=== PATIENT | female | born 1975 | race Hispanic/Latino ===

== ENCOUNTER 2017-04-21 08:27 | Emergency (ER) | payer BC ==
[~2017-04-21] VITALS: Ht 160 cm; Wt 56.7 kg
[~2017-04-21 08:27] MED LIST: XANAX2 MG PO; ZOLOFT25 MG
[2017-04-21] MEDS ORDERED: ONDANSETRON HCL INJ 2 MG/ML VIAL IV STA (08:54)
[2017-04-21] MEDS ORDERED: SODIUM CHLORIDE 0.9% 1000ML 1,000 ML IV SCH (09:00)
[2017-04-21] MEDS ORDERED: DICYCLOMINE HCL 20 MG TAB PO ONE (11:00)
[2017-04-21] MEDS ORDERED: FAMOTIDINE 20 MG/2 ML VIAL IV SCH (11:00)
[2017-04-21] MEDS ORDERED: SODIUM CHLORIDE 0.9% 500ML 500 ML IV ONE (11:30)
[2017-04-21 12:22] VITALS: BP 103/70
== END 2017-04-21 12:22 | disposition home or self-care (01) ==
LOC: FSED 08:27
DX: A08.39 Other viral enteritis (principal); E86.9 Volume depletion, unspecified; R10.9 Unspecified abdominal pain
CPT/HCPCS: 93005; 99284; J2405; J7040

== ENCOUNTER → 2017-04-30 | Outpatient (CLI) | payer BC ==
[~2017-04-30] MED LIST changes: +AMBIEN10 MG PO; +KLONOPIN2 MG PO; +NEXIUM40 MG PO; +VYVANSE50 MG PO
--- NOTE | 2017-05-12 08:31 | Diagnostic Imaging Report ---
#[id number] - MGSCRNBI #BILATERAL DIGITAL SCREENING MAMMOGRAM WITH CAD: 04/30/2017 CLINICAL: Routine screening. No prior exams were available for comparison. Current study contains 4 films. The tissue of both breasts is heterogeneously dense. This may lower the sensitivity of mammography. Current study was also evaluated with a Computer Aided Detection (CAD) system. There is a benign calcification in the left breast. No significant masses, calcifications, or other findings are seen in either breast. IMPRESSION: BENIGN There is no mammographic evidence of malignancy. A 1 year screening mammogram is recommended. The patient will be notified by letter of the results. Kahlil pierce/maribell:05/11/2017 12:54:35 Proposal Editor: Flakita EDWARDS)(Zacarias), [facility] letter sent: Normal Exam Mammogram BI-RADS: 2 Benign
== END ==
LOC: MAMMO 13:19
PROVIDERS: ATTEND Obstetrics & Gynecology
DX: Z12.31 Encounter for screening mammogram for malignant neoplasm of breast (principal)
CPT/HCPCS: 77067

== ENCOUNTER → 2017-05-09 | Day surgery (SDC) | payer BC ==
[~2017-05-09] MED LIST changes: +FENTANYL CITRATE/PF 100MCG/2 ML INJ ONE; +HYOSCYAMINE SULFATE 0.5 MG/ML AMP ONE; +LIDOCAINE HCL 2% LOCAL INJ 5 ML SDV VIAL INJ ONE; +MIDAZOLAM HCL 2 MG/2 ML VIAL ONE; +PROPOFOL IV EMULSION 10 MG/ML 50 ML VIAL ONE
[2017-05-09 15:22] LABS: WBC,FECAL (FECAL LACTOFERRIN) NEGATIVE (NEGATIVE)
--- NOTE | 2017-05-09 15:41 | Operative Report ---
DATE OF PROCEDURE: May 09, 2017 REFERRING PHYSICIAN: Dr. Jennifer Oakley. PROCEDURE PERFORMED: Colonoscopy and polypectomy. INDICATIONS FOR COLONOSCOPY: Chronic diarrhea, fecal urgency, history of bright red blood per rectum. MEDICATION: Patient was done under MAC. Please see anesthesiologist's note. PROCEDURE: With the patient in the left lateral decubitus position, the flexible fiberoptic Olympus colonoscope was inserted into the rectum with ease and advanced all the way to the cecum. The scope was then withdrawn slowly. Mucosa overlying the cecum appeared to be within normal limits. The ileocecal valve was intubated, and the scope was advanced into the terminal ileum. Biopsies were obtained. The scope was then withdrawn slowly. A single diverticulum was noted in the ascending colon. The transverse as well as the descending appeared to be within normal limits. There were some patchy erythema and low-grade edema noted in the sigmoid colon. Random biopsies were obtained. One polyp was hot biopsied from the sigmoid colon. Similar inflammatory findings were noted in the rectum. Biopsies were obtained. The scope was then retroflexed into the distal rectum, and small internal hemorrhoids were noted, none of which was actively bleeding. The scope was then straightened out. The rectosigmoid area as well as the distal rectal area were decompressed. The scope was subsequently withdrawn after securing an adequate stool specimen that was sent for the appropriate stool studies. Patient tolerated the procedure well. IMPRESSION 1. A single diverticulum in ascending colon. 2. Mild segmental colitis, left colon. 3. Sigmoid colon polyp, hot biopsied. 4. Proctitis, mild. 5. Small internal hemorrhoids, none actively bleeding. PLAN: Follow up histology. Follow up stool studies. Initiate VSL #3 DS 1 p.o. daily and Bentyl 10 mg 1 p.o. t.i.d. Patient will need a followup colonoscopy in 3 to 5 years. Job#: [id number] cc:JENNIFER OAKLEY MD
[2017-05-10 10:13] LABS: C DIFFICILE TOXIN A&B AMP PROB NEGATIVE (NEGATIVE)
--- OUTSIDE RECORDS SUMMARY | 2017-05-11 11:27 | XMS REPORT | Continuity of Care Document ---
Author Author [facility] Organization [facility] Address [address] [place] [address] Phone Unavailable Care Team Providers Care Environmental Compliance Engineer Name Role Phone JENNIFER OAKLEY MD PCP Insurance Providers Guarantor Regina Posadas Address [address] [place] [address] Email N Payer [facility] Policy Number [id number] Subscriber's Name Regina Posadas Relationship 18 Self / Same As Patient Group Number [id number] Effective Date 11 Advance Directives Directive Response Recorded Date/Time Does the patient have an advance directive? No 04/21/17 9:31am If yes, is advance directive on file with [facility]? No 08/25/12 2:11am If not on file with [facility] will patient provide a copy? No 08/25/12 2:11am Do you have a Directive to Physician? No 04/21/17 9:31am Do you have a Medical Power of Lace Cutter? No 04/21/17 9:31am Do you have an out of hospital Do Not Resuscitate Order? No 04/21/17 9:31am Do you have any special needs we should be aware of? No 04/21/17 9:31am Do you have a support person here with you today? No 04/21/17 9:31am Did patient receive Notice of Privacy Practices? Yes 04/21/17 9:31am Did patient receive patient rights and responsibilities? Yes 04/21/17 9:31am Problems No problem information available. Medications Current Home Medications Medication Dose Units Route Directions Days Qty Instructions Start Date Alprazolam (Xanax) 2 Mg Tablet 1 Mg Oral As Needed Sertraline Hcl (Zoloft) 25 Mg Tablet Social History Smoking Status Start Date Stop Date Never Smoker Hospital Discharge Instructions No hospital discharge instruction information available. Plan of Care Discharge Date 04/21/17 12:22pm Disposition HOME, SELF-CARE Condition at Discharge Stable Instructions/Education Provided Diarrhea - Adult Soft Diet Vomiting - Adult Forms Provided Work/School Excuse Prescriptions See Medication Section Additional Instructions/Education Drink small amounts of fluids frequenty, and follow a BLAND diet for the next sevaral days, until your stomach is settled. Avoid fried, fatty and "fast foods, for the next 2-3 days. If diarrhea persists, you may take Imodium AD - per package instructions. Functional Status No functional status information available. Allergies, Adverse Reactions, Alerts Allergen Type Severity Reaction Status Last Updated Morphine Allergy Unknown Active 04/21/17 CONTRAST DYE Allergy Unknown Active 04/21/17 Immunizations No immunization information available. Vital Signs Acute Vital Signs Vital Response Date/Time Temperature (Fahrenheit) 98.7 degrees F (97.6 - 99.5) 04/21/2017 12:22pm Pulse Pulse Rate (adult) 56 bpm (60 - 90) 04/21/2017 12:22pm Respiratory Rate 16 bpm (12 - 24) 04/21/2017 12:22pm Blood Pressure 103/70 mm Hg 04/21/2017 12:22pm Height 5 ft 3 in 04/21/2017 10:36am Weight 125 lb 04/21/2017 10:36am Body Mass Index 22.1 kg/m^2 04/21/2017 10:36am Results No relevant diagnostic test, laboratory data and/or discharge summary information available. Procedures No procedure information available. Encounters Encounter Location Arrival/Admit Date Discharge/Depart Date Attending Provider Departed Emergency Room [facility] 02/20/18 8:27am 12:22pm YNES WALTERS MD
== END | disposition home or self-care (01) ==
LOC: OR 12:06
PROVIDERS: ATTEND Internal Medicine Gastroenterology
DX: K50.10 Crohn's disease of large intestine without complications (principal); K63.5 Polyp of colon; K57.30 Diverticulosis of large intestine without perforation or abscess without bleeding; K62.89 Other specified diseases of anus and rectum; K64.8 Other hemorrhoids; K21.9 Gastro-esophageal reflux disease without esophagitis; J45.909 Unspecified asthma, uncomplicated; R53.1 Weakness; F43.10 Post-traumatic stress disorder, unspecified; F90.9 Attention-deficit hyperactivity disorder, unspecified type; F32.9 Major depressive disorder, single episode, unspecified; F41.9 Anxiety disorder, unspecified; Z80.0 Family history of malignant neoplasm of digestive organs
CPT/HCPCS: 45380; 45384; 83630; 83993; 87045; 87177; 87328; 87493; J1980; J2001; J2250

== ENCOUNTER → 2017-05-28 | Day surgery (SDC) | payer BC ==
[~2017-05-28] MED LIST changes: -HYOSCYAMINE SULFATE 0.5 MG/ML AMP ONE
--- OUTSIDE RECORDS SUMMARY | 2017-05-28 11:34 | XMS REPORT ---
Author Author [facility] Address Unknown Phone Unavailable Care Team Providers Care Research Specialist Name Role Phone SARAH AYOUB Unavailable Unavailable Problems This patient has no known problems. Allergies, Adverse Reactions, Alerts This patient has no known allergies or adverse reactions. Medications This patient has no known medications. Results Test Description Test Time Test Comments Text Results Atomic Results Result Comments MAMMOGRAM DIGITAL SCR BI [place] [id number] Patient Name: KELY MEREDITH MR #: [id number] : 1975 Age/Sex: 41/F Req #: [id number] [facility] Physician: Ordered by: SARAH AYOUB MD Report #: [id number] Location: MAMMO Room/Bed: Procedure: [id number] MG/MAMMOGRAM DIGITAL SCR BI Exam Date: 04/30/17 Exam Time: 1330 REPORT STATUS: Signed #[id number] - MGSCRNBI #BILATERAL DIGITAL SCREENING MAMMOGRAM WITH CAD: 04/30/2017 CLINICAL : Routine screening. No prior exams were available for comparison. Current study contains 4 films. The tissue of both breasts is heterogeneously dense. This may lower the sensitivity of mammography. Current study was also evaluated with a Computer Aided Detection (CAD) system. There is a benign calcification in the left breast. No significant masses, calcifications, or other findings are seen in either breast. IMPRESSION: BENIGN There is no mammographic evidence of malignancy. A 1 year screening mammogram is recommended. The patient will be notified by letter of the results. Mookie pierce/isabella:2017 12:54:35 Manager Workers Compensation: Flakita EDWARDS)(Zacarias), [facility] letter sent: Normal Exam Mammogram BI-RADS: 2 Benign Dictated By: MOOKIE ROBERSON DO 1254 Transcribed By: ISABELLA on 05/11/17 1254 COPY TO: SARAH AYOUB MD
--- NOTE | 2017-05-28 14:41 | Operative Report ---
DATE OF PROCEDURE: May 28, 2017 REFERRING PHYSICIAN: Dr. Jennifer Oakley PROCEDURE PERFORMED: Esophagogastroduodenoscopy with biopsies. INDICATIONS FOR EGD: Upper abdominal pain, nausea, bloating. MEDICATION: Patient was done under MAC. Please see anesthesiologist's note. PROCEDURE: With the patient in the left lateral decubitus position, the flexible fiberoptic Olympus gastroscope was introduced into the esophagus under direct visualization without difficulty. There was some patchy erythema noted in the distal esophagus. The scope was then advanced with ease into the stomach, and mucosa overlying the antrum and the body revealed some diffuse intense erythema and mild to moderate edema, and biopsies were obtained and sent to stain for H. pylori. Pylorus appeared to be of normal contour and shape. It was intubated with ease, and the scope was advanced all the way to the 2nd portion of duodenum. Mucosa overlying the proximal 2nd portion grossly appeared to be within normal limits. Biopsies were obtained to rule out sprue considering her history of diarrhea. A minute nodule was noted in the proximal 2nd portion that was biopsied. The scope was then withdrawn back into the stomach and retroflexed. Mucosa overlying the fundus and cardia appeared to be within normal limits. The scope was then straightened out. The stomach was decompressed. Scope was subsequently withdrawn. Patient tolerated the procedure well. IMPRESSION 1. Distal esophagitis. 2. Gastritis, biopsied. Biopsies sent to stain for H. pylori. 3. Rule out sprue. 4. Minute nodule, proximal 2nd portion, biopsied. PLAN: Follow up histology. Initiate Protonix 40 mg 1 p.o. q.a.m. a.c. Job#: [id number] cc:JENNIFER OAKLEY MD
== END | disposition home or self-care (01) ==
LOC: ENDO 11:32
PROVIDERS: ATTEND Internal Medicine Gastroenterology
DX: K29.70 Gastritis, unspecified, without bleeding (principal); K20.9 Esophagitis, unspecified; K44.9 Diaphragmatic hernia without obstruction or gangrene; K31.89 Other diseases of stomach and duodenum; R19.7 Diarrhea, unspecified; R15.2 Fecal urgency; M54.9 Dorsalgia, unspecified; J45.998 Other asthma; F43.10 Post-traumatic stress disorder, unspecified; F90.9 Attention-deficit hyperactivity disorder, unspecified type; F32.9 Major depressive disorder, single episode, unspecified; F41.9 Anxiety disorder, unspecified; Z80.0 Family history of malignant neoplasm of digestive organs
CPT/HCPCS: 43239; 81025; J2001; J2250

== ENCOUNTER → 2017-06-11 | Outpatient (CLI) | payer BC ==
[~2017-06-11] MED LIST changes: -FENTANYL CITRATE/PF 100MCG/2 ML INJ ONE; +IOPAMIDOL 370 MG/ML 200 ML INFUS..BTL INJ ONE; -LIDOCAINE HCL 2% LOCAL INJ 5 ML SDV VIAL INJ ONE; -MIDAZOLAM HCL 2 MG/2 ML VIAL ONE; -PROPOFOL IV EMULSION 10 MG/ML 50 ML VIAL ONE; +SODIUM CHLORIDE 0.9% 50ML 50 ML ONE
--- NOTE | 2017-06-11 16:19 | Diagnostic Imaging Report ---
PROCEDURE: CT ABDOMEN AND PELVIS WITH CONTRAST TECHNIQUE: The abdomen and pelvis were scanned utilizing a multidetector helical scanner from the diaphragm to the lesser trochanter after the IV administration of 100 cc of Isovue 370 and the oral administration of water. Coronal and sagittal multiplanar reformations were obtained. Total DLP: 199.42 mGy-cm COMPARISON: CT abdomen pelvis 02/10/2013. INDICATIONS: ABDOMINAL PAIN, HX OF DIVERTICULITIS FINDINGS: LOWER THORAX: Normal. HEPATOBILIARY: No focal hepatic lesions. No biliary ductal dilatation. Gallbladder is surgically absent. SPLEEN: No splenomegaly. PANCREAS: No focal masses or ductal dilatation. ADRENALS: No adrenal nodules. KIDNEYS/URETERS: No hydronephrosis, stones, or solid mass lesions. PELVIC ORGANS/BLADDER: The uterus is surgically absent. Both ovaries are unremarkable. Right corpus luteum.. PERITONEUM / RETROPERITONEUM: No free air or fluid. LYMPH NODES: No lymphadenopathy. VESSELS: Unremarkable. GI TRACT: No distention or wall thickening. Appendix is normal. BONES AND SOFT TISSUES: Unremarkable. IMPRESSION: Unremarkable abdomen and pelvis. Dictated by: Smith Obrien M.D. on 06/11/2017 at 16:20 Electronically approved by: Smith Obrien M.D. on 06/11/2017 at 16:20
== END ==
LOC: CT 14:43
PROVIDERS: ATTEND Internal Medicine Gastroenterology
DX: R10.9 Unspecified abdominal pain (principal)
CPT/HCPCS: 74177; Q9967

== ENCOUNTER → 2017-08-18 | Outpatient (CLI) | payer BC ==
[~2017-08-18] MED LIST changes: -IOPAMIDOL 370 MG/ML 200 ML INFUS..BTL INJ ONE; -SODIUM CHLORIDE 0.9% 50ML 50 ML ONE
--- NOTE | 2017-08-18 14:37 | Diagnostic Imaging Report ---
History: Back pain and bilateral leg pain Comparison studies: None Technique: Sagittal T1, T2 and IR, axial T2 with and without fat sat and axial spin density oblique Intravenous contrast: None Findings: Number of lumbar vertebral bodies: 5 . Alignment: Mild right curvature of the lumbar spine centered at L2-L3. Soft tissues: No T2 hyperintense inflammatory changes . Paraspinal muscles: No signal abnormalities. Well-preserved. No atrophic changes . Lower thoracic cord: Normal in size and signal. The tip of the conus is at T12-L1. Cauda equina:No masses. No arachnoiditis . Vertebrae: Normal in height and signal intensity. No fractures, infection or neoplasm. Degenerative changes: L1-L2 No abnormalities. L2-L3: No abnormalities. L3-L4: No abnormalities. L4-L5: No abnormalities. L5-S1: No abnormalities. Partially visualized sacrum: None . IMPRESSION: 1. Mild right curvature of the lumbar spine centered at L2-L3 is probably positional 2. Otherwise, normal MRI of the lumbar spine. This preliminary report was completed by the neuroradiology fellow Dr. River Rebolledo. Signed by: Dr. Adam Rogers M.D. on 08/18/2017 4:24 PM
--- NOTE | 2017-08-18 14:53 | Diagnostic Imaging Report ---
Examination: MRI SPINE CERVICAL WO History: Left arm pain Comparison studies: None Technique: Sagittal T1, T2 and IR, axial T2 and axial gradient echo intravenous contrast: None Findings: The axial T2*images are severely limited due to artifact. Alignment: Normal lordosis. No scoliosis. Cervicomedullary junction: No abnormalities. Patent foramen magnum. Soft tissues: No T2 hyperintense inflammatory changes. Spinal cord: Normal in size and signal from the foramen magnum through T1. Vertebrae: No fractures, infection or neoplasm. T1 hyperintense hemangioma in the C6 vertebral body Degenerative changes: C1-C2: No abnormalities. C2-C3: No abnormalities. C3-C4: No abnormalities. C4-C5: No abnormalities. C5-C6: No abnormalities. C6-C7: Posterior disc osteophyte complex without foraminal or canal stenosis. No disc herniation C7-T1: No abnormalities. IMPRESSION: 1. Mildly degenerated disc at C6-7. 2. Otherwise, no abnormalities. 3. Mammogram foramina. No disc herniations This preliminary report was completed by the neuroradiology fellow Dr. River Rebolledo. Signed by: Dr. Adam Rogers M.D. on 08/18/2017 4:22 PM
== END | disposition home or self-care (01) ==
LOC: MRI 08-14 13:00
PROVIDERS: ATTEND Physical Medicine & Rehabilitation Pain Medicine
DX: M54.12 Radiculopathy, cervical region (principal); M54.16 Radiculopathy, lumbar region; M50.323 Other cervical disc degeneration at C6-C7 level
CPT/HCPCS: 72141; 72148

== ENCOUNTER → 2017-08-27 | Day surgery (SDC) | payer BC ==
[~2017-08-27] MED LIST changes: +FENTANYL CITRATE/PF 100MCG/2 ML INJ ONE; +IOPAMIDOL 200 MG/ML 20 ML VIAL IT ONE; +LIDOCAINE HCL 1% 30ML-PF VIAL ONE; +LIDOCAINE HCL 2% LOCAL INJ 5 ML SDV VIAL INJ ONE; +MIDAZOLAM HCL 2 MG/2 ML VIAL ONE; +PROPOFOL IV EMULSION 10 MG/ML 20 ML VIAL ONE; +TRIAMCINOLONE ACET 40 MG/ML VIAL ONE
== END | disposition home or self-care (01) ==
LOC: OR 05:24
PROVIDERS: ATTEND Physical Medicine & Rehabilitation Pain Medicine
DX: M46.1 Sacroiliitis, not elsewhere classified (principal); M54.16 Radiculopathy, lumbar region; M54.12 Radiculopathy, cervical region; K25.9 Gastric ulcer, unspecified as acute or chronic, without hemorrhage or perforation; K21.9 Gastro-esophageal reflux disease without esophagitis; K58.9 Irritable bowel syndrome, unspecified; F43.10 Post-traumatic stress disorder, unspecified; Z91.012 Allergy to eggs
CPT/HCPCS: G0260; J2001 ×2; J2250; J3301; Q9966; 77003

== ENCOUNTER 2017-08-31 08:55 | Emergency (ER) | payer BC ==
[~2017-08-31] VITALS: Ht 162.6 cm; Wt 58.1 kg
[~2017-08-31 08:55] MED LIST changes: -FENTANYL CITRATE/PF 100MCG/2 ML INJ ONE; -IOPAMIDOL 200 MG/ML 20 ML VIAL IT ONE; -LIDOCAINE HCL 1% 30ML-PF VIAL ONE; -LIDOCAINE HCL 2% LOCAL INJ 5 ML SDV VIAL INJ ONE; -MIDAZOLAM HCL 2 MG/2 ML VIAL ONE; -PROPOFOL IV EMULSION 10 MG/ML 20 ML VIAL ONE; -TRIAMCINOLONE ACET 40 MG/ML VIAL ONE
[2017-08-31] MEDS ORDERED: PANTOPRAZOLE 40 MG 10ML VIAL IV STA (09:19)
[2017-08-31 09:30] LABS: BASOPHILS % 0.3 % (0.0-1.0); EOSINOPHILS % 0.3 % (0.0-6.0); HEMATOCRIT 40.6 % (34.2-44.1); HEMOGLOBIN 14.6 g/dL (12.0-16.0); LYMPHOCYTES # (AUTO) 2.1 (1.0-3.2); LYMPHOCYTES % 21.6 % (18.0-39.1); MEAN CORPUSCULAR HEMOGLOBIN 31.7 pg (28-32); MEAN CORPUSCULAR VOLUME 88.3 fL (81-99); MONOCYTES # (AUTO) 0.5 (0.2-0.8); MONOCYTES % 5.6 % (4.4-11.3); NEUTROPHILS % 71.6 % (38.7-80.0); PLATELET COUNT 216 x10e3/uL (140-360); RED CELL DISTRIBUTION WIDTH 12.5 % (11.7-14.4)
[2017-08-31 09:42] LABS: ALANINE AMINOTRANSFERASE 8 IU/L (0-55); ALBUMIN 4.1 g/dL (3.5-5.0); ALBUMIN/GLOBULIN RATIO 1.3 (0.8-2.0); ALKALINE PHOSPHATASE 79 IU/L (40-150); AMYLASE 55 U/L (25-125); ANION GAP 13.4 mmol/L (8-16); BLOOD UREA NITROGEN 12 mg/dL (7-26); BUN/CREATININE RATIO 13 (6-25); CALCIUM 9.1 mg/dL (8.4-10.2); CARBON DIOXIDE 25 mmol/L (22-29); CHLORIDE 104 mmol/L (98-107); CREATININE, SERUM 0.94 mg/dL (0.57-1.11); EST GLOMERULAR FILTRATION RATE > 60 ML/MIN (60-); GLUCOSE 92 mg/dL (74-118); LIPASE 36 U/L (8-78); POTASSIUM 3.4 mmol/L (3.5-5.1); SODIUM 139 mmol/L (136-145)
[2017-08-31 10:43] VITALS: BP 106/66
== END 2017-08-31 10:47 | disposition home or self-care (01) ==
LOC: ER 08:55
DX: R10.13 Epigastric pain (principal); S39.011A Strain of muscle, fascia and tendon of abdomen, initial encounter; K21.9 Gastro-esophageal reflux disease without esophagitis; G89.29 Other chronic pain
CPT/HCPCS: 36415; 80053; 82150; 83690; 84702; 85025; 99283

== ENCOUNTER → 2017-10-08 | Day surgery (SDC) | payer BC ==
[~2017-10-08] MED LIST changes: +DIPHENHYDRAMINE HCL INJ 50 MG/ML VIAL ONE; +FENTANYL CITRATE/PF 100MCG/2 ML INJ ONE; +IOPAMIDOL 200 MG/ML 20 ML VIAL IT ONE; +LIDOCAINE HCL 1% 30ML-PF VIAL ONE; +LIDOCAINE HCL 2% LOCAL INJ 5 ML SDV VIAL INJ ONE; +METOCLOPRAMIDE HCL 10 MG/2ML VIAL ONE; +MIDAZOLAM HCL 2 MG/2 ML VIAL ONE; +ONDANSETRON HCL INJ 2 MG/ML VIAL ONE; +PROPOFOL IV EMULSION 10 MG/ML 20 ML VIAL ONE; +TRIAMCINOLONE ACET 40 MG/ML VIAL ONE
== END | disposition home or self-care (01) ==
LOC: OR 06:12
PROVIDERS: ATTEND Physical Medicine & Rehabilitation Pain Medicine
DX: M46.1 Sacroiliitis, not elsewhere classified (principal); M54.12 Radiculopathy, cervical region; K58.9 Irritable bowel syndrome, unspecified; K25.9 Gastric ulcer, unspecified as acute or chronic, without hemorrhage or perforation; K21.9 Gastro-esophageal reflux disease without esophagitis; F41.9 Anxiety disorder, unspecified; F43.10 Post-traumatic stress disorder, unspecified; Z91.012 Allergy to eggs; Z91.018 Allergy to other foods
CPT/HCPCS: G0260; J1200; J2001 ×2; J2250; J2405; J3301; Q9966; 77002; J2765

== ENCOUNTER → 2017-11-17 | Outpatient (CLI) | payer BC ==
[~2017-11-17] MED LIST changes: -DIPHENHYDRAMINE HCL INJ 50 MG/ML VIAL ONE; -FENTANYL CITRATE/PF 100MCG/2 ML INJ ONE; -IOPAMIDOL 200 MG/ML 20 ML VIAL IT ONE; -LIDOCAINE HCL 1% 30ML-PF VIAL ONE; -LIDOCAINE HCL 2% LOCAL INJ 5 ML SDV VIAL INJ ONE; -METOCLOPRAMIDE HCL 10 MG/2ML VIAL ONE; -MIDAZOLAM HCL 2 MG/2 ML VIAL ONE; -ONDANSETRON HCL INJ 2 MG/ML VIAL ONE; -PROPOFOL IV EMULSION 10 MG/ML 20 ML VIAL ONE; -TRIAMCINOLONE ACET 40 MG/ML VIAL ONE
[2017-11-17 09:44] LABS: ALANINE AMINOTRANSFERASE 12 IU/L (0-55); ALBUMIN 4.1 g/dL (3.5-5.0); ALBUMIN/GLOBULIN RATIO 1.2 (0.8-2.0); ALKALINE PHOSPHATASE 59 IU/L (40-150); ANION GAP 14.1 mmol/L (8-16); BLOOD UREA NITROGEN 6 mg/dL (7-26); BUN/CREATININE RATIO 7 (6-25); CALCIUM 9.9 mg/dL (8.4-10.2); CARBON DIOXIDE 25 mmol/L (22-29); CHLORIDE 104 mmol/L (98-107); CHOL/HDL RATIO 3.4 (3.0-3.6); CHOLESTEROL 213 MD/DL (0-199); CREATININE, SERUM 0.91 mg/dL (0.57-1.11); EST GLOMERULAR FILTRATION RATE > 60 ML/MIN (60-); GLUCOSE 81 mg/dL (74-118); HDL CHOLESTEROL 62 MG/DL (40-60); LDL CHOLESTEROL 122 MG/DL (60-130); POTASSIUM 4.1 mmol/L (3.5-5.1); SODIUM 139 mmol/L (136-145); TRIGLYCERIDES 146 MG/DL (0-149)
[2017-11-17 10:04] LABS: THYROID STIMULATING HORMONE 1.224 uIU/mL (0.350-4.940)
== END ==
LOC: CARD 08:56
PROVIDERS: ATTEND Internal Medicine
DX: I73.9 Peripheral vascular disease, unspecified (principal); E78.5 Hyperlipidemia, unspecified; R53.83 Other fatigue
CPT/HCPCS: 36415; 80053; 80061; 84443; 93925

== ENCOUNTER 2018-03-07 16:26 | Emergency (ER) | payer BC ==
[~2018-03-07] VITALS: Ht 162.6 cm; Wt 58.1 kg
--- NOTE | 2018-03-07 17:12 | Diagnostic Imaging Report ---
Right complete knee. CPT CODE: 96294. INDICATION: Miles knee "pop" while playing football COMPARISON: None FINDINGS: No evidence of acute fracture or dislocation. The visualized joint spaces of the knee are preserved. No focal osseous lesions. No joint effusion. IMPRESSION: No osseous injury or joint effusion. Signed by: Dr. Diana Medina MD on 03/07/2018 5:09 PM
== END 2018-03-07 17:17 | disposition home or self-care (01) ==
LOC: FSED 16:26
DX: M25.561 Pain in right knee (principal); S83.411A Sprain of medial collateral ligament of right knee, initial encounter; X50.1XXA Overexertion from prolonged static or awkward postures, initial encounter; Y92.008 Other place in unspecified non-institutional (private) residence as the place of occurrence of the external cause; F41.9 Anxiety disorder, unspecified; F32.9 Major depressive disorder, single episode, unspecified
CPT/HCPCS: 99283

== ENCOUNTER → 2018-03-09 | Outpatient (CLI) | payer BC ==
--- NOTE | 2018-03-10 09:16 | Diagnostic Imaging Report ---
TECHNIQUE: Magnetic resonance imaging of the RIGHT KNEE was performed WITHOUT injected contrast. HISTORY: Internal derangement, fall COMPARISON: Right knee radiographs March 07, 2018. FINDINGS: LIGAMENTS AND TENDONS: ACL: Intact, minimal intrasubstance degeneration. PCL: Intact Collateral ligaments: Mild edema surrounding the medial collateral ligament, low-grade superficial partial tearing of the anterior most mid fibers (series 2 image 18). The fibular collateral ligament is intact. Iliotibial band: Unremarkable Popliteal tendon: Intact Extensor mechanism: Intact JOINT: Menisci: Medial: Minimal free margin fraying. Lateral: Intact Articular Cartilage: Medial Compartment: Low-grade erosion of the weightbearing cartilage. Lateral Compartment: No focal defect. Patellofemoral Compartment: Low-grade erosion at the patellar apex. Joint Fluid: The amount of fluid within the joint is within physiologic limits. BONES: No focal or infiltrative bone marrow replacing abnormality. No acute fracture. SOFT TISSUES: Otherwise, unremarkable. IMPRESSION: 1. Minimal low-grade partial tearing of the anterior fibers of the mid medial collateral ligament and diffuse sprain. 2. Minimal medial and patellofemoral compartment degenerative changes. Signed by: Dr. Deniz Faulkner D.O., M.M.M. on 03/10/2018 9:12 AM
== END ==
LOC: MRI 15:15
PROVIDERS: ATTEND Specialist
DX: M23.91 Unspecified internal derangement of right knee (principal)

== ENCOUNTER → 2018-05-19 | Outpatient (CLI) | payer BC | LOC: MAMMO 13:14 | PROVIDERS: ATTEND Internal Medicine | DX: Z12.31 Encounter for screening mammogram for malignant neoplasm of breast (principal) | CPT/HCPCS: 77067 ==

== ENCOUNTER 2018-06-02 18:01 | Emergency (ER) | payer BC ==
[~2018-06-02] VITALS: Ht 162.6 cm; Wt 62.6 kg
[2018-06-02] MEDS ORDERED: ACETAMINOPHEN 325 MG TAB PO ONE (19:30)
--- NOTE | 2018-06-02 19:31 | Diagnostic Imaging Report ---
EXAMINATION: Head CT HISTORY: Dizziness, headache for last 6 days. COMPARISON: None. TECHNIQUE: Multidetector axial images were obtained without contrast from the foramen magnum to the vertex . The images were reconstructed using brain and bone algorithms. Thin section brain images were reformatted into coronal and sagittal planes. Image quality: Motion/streaking artifact limits the evaluation at some segments of the head. Dose modulation, iterative reconstruction, and/or weight based adjustment of the mA/kV was utilized to reduce the radiation dose to as low as reasonably achievable. FINDINGS: Parenchyma: 1. No abnormal densities. Questionable ill-defined areas of hypodensity are likely artifactual. 2. No mass or hemorrhage. No CT evidence of acute territorial vascular insult. Extra-axial spaces:No abnormal density. No extra-axial fluid collections Brain volume: Normal for age. Ventricles: No hydrocephalus or displacement. Arteries: No density suggestive of thrombus. Dural sinuses: No abnormal density. Extra-axial spaces: No abnormal density. Foramen magnum: No mass, Chiari malformation, or basilar invagination. Sella: No obvious mass. Paranasal/mastoid sinuses: Imaged portions unremarkable. Skull/Scalp: No lytic or blastic lesions. No fractures. IMPRESSION: No intracranial abnormalities. Signed by: Dr. Jerrica Stack M.D. on 06/02/2018 7:27 PM
== END 2018-06-02 20:10 | disposition home or self-care (01) ==
LOC: FSED 18:01
DX: G43.909 Migraine, unspecified, not intractable, without status migrainosus (principal); H81.10 Benign paroxysmal vertigo, unspecified ear; M54.12 Radiculopathy, cervical region
CPT/HCPCS: 70450; 99283

== ENCOUNTER → 2019-04-25 | Day surgery (SDC) | payer BC ==
[~2019-04-25] MED LIST changes: +CLONAZEPAM1 MG PO; +FENTANYL CITRATE/PF 100MCG/2 ML INJ ONE; +GLUCAGON FOR INJ 1 MG VIAL ONE; +HYOSCYAMINE 0.125 MG TAB ONE; +METOCLOPRAMIDE HCL 10 MG/2ML VIAL ONE; +MIDAZOLAM HCL 2 MG/2 ML VIAL ONE; +NAPROXEN250 MG PO; +PROAIR HFA INH8.5 GM INH; +PROPOFOL IV EMULSION 10 MG/ML 50 ML VIAL ONE
--- NOTE | 2019-04-25 07:10 | NUR ---
SPIRITUAL CARE - Pre-Surgery Assessment: Pt in bed. Pt reported supportive attention from family and friends. Intervention: I provided pastoral presence, hospitality, sympathetic listening, and prayer. Outcome: Pt expressed appreciation for visit. No need for follow up indicated at this time. KYLER CARRINGTON Veterans Service Officer Spiritual Care Department O: [phone] Pager: [phone] ([phone] number calling from)
[2019-04-25 09:20] VITALS: BP 112/69
[2019-04-25 10:37] LABS: WBC,FECAL (FECAL LACTOFERRIN) NEGATIVE (NEGATIVE)
--- NOTE | 2019-04-25 12:35 | Operative Report ---
DATE OF PROCEDURE: 04/25/2019 SURGEON: Braden Hoyos MD PROCEDURES: 1. Esophagogastroduodenoscopy with biopsies and pyloric channel stricture dilatation. 2. Colonoscopy with biopsies. INDICATIONS FOR EGD: Upper abdominal pain, nausea, and vomiting. INDICATION FOR COLONOSCOPY: History of bright red blood per rectum, alternating bouts of constipation and diarrhea. MEDICATIONS: The patient was done under MAC, please see anesthesiologist's note. PROCEDURE IN DETAIL: With the patient in left lateral decubitus position, a flexible fiberoptic Olympus gastroscope was introduced into the esophagus under direct visualization without any difficulty. There was some patchy erythema noted in the distal esophagus. The scope was then advanced with ease into the stomach traversing a small sliding hiatal hernia. The mucosa overlying the antrum and the body revealed some patchy areas of erythema and low-grade to moderate edema and biopsies were obtained and sent to stain for H pylori. A large amount of retained undigested food stuff was noted in the stomach precluding partial visualization of the fundus and the proximal two-thirds of the body. The pylorus was strictured and it was dilated to size 20 mm per TTS balloon dilators. The scope was then advanced with ease into the second portion of the duodenum. Biopsies were obtained from the proximal second portion and the duodenal bulb to rule out sprue. The scope was then withdrawn back into the stomach and retroflexed and whatever was visualized of the mucosa overlying the fundus appeared to be within normal limits. The cardia also was within normal limits. The scope was then straightened out, it was subsequently withdrawn. The patient tolerated the procedure well. IMPRESSION: 1. Mild distal esophagitis. 2. Small sliding hiatal hernia. 3. Gastritis, biopsied, biopsies sent to stain for Helicobacter pylori. 4. Large amount of retained undigested food stuff precluding partially the visualization of the fundus and proximal two-thirds of body along the greater curvature. 5. Pyloric channel stricture dilated to size 20 mm per TTS balloon dilators. 6. Rule out sprue. PLAN: Follow up histology. Initiate Protonix 40 mg one p.o. q.a.m. a.c. The patient was then turned around. After adequate lubrication of the anal canal, the flexible fiberoptic Olympus colonoscope was inserted into the rectum with ease and advanced all the way to the cecum. Mucosa overlying the cecum appeared to be within normal limits. The ileocecal valve was intubated and the scope was advanced into the terminal ileum. Biopsies were obtained. The scope was then withdrawn back into the colon. It was then withdrawn slowly and some scattered diverticular disease was noted, which was more prominent in the left colon. Some mild patchy inflammatory changes were noted in the left colon and random biopsies were obtained. Also similar findings were noted in the rectum and biopsies were obtained. The scope was then retroflexed into the distal rectum and small internal hemorrhoids were noted, none of which was actively bleeding. The scope was then straightened out, it was subsequently withdrawn after securing an adequate stool specimen that was sent for the appropriate stool studies. The patient tolerated the procedure well. IMPRESSION: 1. Mild patchy left-sided colitis. 2. Diverticulosis. 3. Proctitis, mild. 4. Internal hemorrhoids, none actively bleeding. PLAN: Follow up histology. Follow up stool studies. Initiate VSL#3 one p.o. b.i.d. Braden Hoyos MD [facility] [place] /[id number] cc: Rufus Pelaez MD
[2019-04-26 11:32] LABS: C DIFFICILE TOXIN A&B AMP PROB NEGATIVE (NEGATIVE)
== END | disposition home or self-care (01) ==
LOC: OR 05:58
PROVIDERS: ATTEND Internal Medicine Gastroenterology
DX: K20.9 Esophagitis, unspecified (principal); K29.60 Other gastritis without bleeding; K31.1 Adult hypertrophic pyloric stenosis; K51.50 Left sided colitis without complications; K21.9 Gastro-esophageal reflux disease without esophagitis; K28.9 Gastrojejunal ulcer, unspecified as acute or chronic, without hemorrhage or perforation; K59.09 Other constipation; K44.9 Diaphragmatic hernia without obstruction or gangrene; K31.89 Other diseases of stomach and duodenum; K57.30 Diverticulosis of large intestine without perforation or abscess without bleeding; K62.89 Other specified diseases of anus and rectum; K64.8 Other hemorrhoids; J45.909 Unspecified asthma, uncomplicated; F43.10 Post-traumatic stress disorder, unspecified; F90.9 Attention-deficit hyperactivity disorder, unspecified type; F41.9 Anxiety disorder, unspecified; F32.9 Major depressive disorder, single episode, unspecified; Z91.041 Radiographic dye allergy status; Z91.012 Allergy to eggs; Z91.018 Allergy to other foods; Z80.0 Family history of malignant neoplasm of digestive organs
CPT/HCPCS: 43239; 43245; 45380; 83630; 83993; 87045; 87177; 87328; 87493; C1726; J1610; J2250; J2704; J2765; J3010; 43450; 45378

== ENCOUNTER → 2019-08-18 | Outpatient (CLI) | payer BC ==
[~2019-08-18] MED LIST changes: -FENTANYL CITRATE/PF 100MCG/2 ML INJ ONE; -GLUCAGON FOR INJ 1 MG VIAL ONE; -HYOSCYAMINE 0.125 MG TAB ONE; +IOPAMIDOL 370 MG/ML 200 ML INFUS..BTL INJ ONE; -METOCLOPRAMIDE HCL 10 MG/2ML VIAL ONE; -MIDAZOLAM HCL 2 MG/2 ML VIAL ONE; -PROPOFOL IV EMULSION 10 MG/ML 50 ML VIAL ONE; +SODIUM CHLORIDE 0.9% 50ML 50 ML ONE
--- NOTE | 2019-08-18 09:39 | Diagnostic Imaging Report ---
EXAM: CT Abdomen and Pelvis WITH intravenous contrast INDICATION: Abdominal pain COMPARISON: CT abdomen and pelvis of 03/18/2019 TECHNIQUE: Abdomen and pelvis were scanned utilizing a multidetector helical scanner from the lung base to the pubic symphysis after administration of IV contrast. Coronal and sagittal reformations were obtained. Routine protocol was performed. Scan was performed during portal venous phase. IV CONTRAST: 100mL of Isovue 370 ORAL CONTRAST: Water RADIATION DOSE: Total DLP: 268 mGy*cm Dose modulation, iterative reconstruction, and/or weight based adjustment of the mA/kV was utilized to reduce the radiation dose to as low as reasonably achievable. FINDINGS: LOWER THORAX: Normal. HEPATOBILIARY: Diffuse hepatic steatosis and hepatomegaly. No focal liver lesion. Status post cholecystectomy. SPLEEN: No splenomegaly. PANCREAS: No focal masses or ductal dilatation. ADRENALS: No adrenal nodules. KIDNEYS/URETERS: No hydronephrosis, stones, or solid mass lesions. PELVIC ORGANS/BLADDER: Status post hysterectomy. PERITONEUM / RETROPERITONEUM: No free air or fluid. LYMPH NODES: No lymphadenopathy. VESSELS: Unremarkable. GI TRACT: Mild diverticulosis. No CT evidence of diverticulitis. No abnormal bowel thickening. No bowel obstruction. Normal appendix. BONES AND SOFT TISSUES: No acute osseous injury. No suspicious lytic or blastic lesions. IMPRESSION: No acute findings in the abdomen or pelvis. Hepatomegaly and diffuse hepatic steatosis. Diverticulosis without CT evidence of diverticulitis. Signed by: Holger Wright MD on 08/18/2019 9:35 AM
== END ==
LOC: CT 07:34
PROVIDERS: ATTEND Internal Medicine Gastroenterology
DX: R10.84 Generalized abdominal pain (principal); R10.32 Left lower quadrant pain
CPT/HCPCS: 74177; Q9967

== ENCOUNTER 2019-09-06 07:02 | Emergency (ER) | payer BC, OTHER ==
[~2019-09-06] VITALS: Ht 162.6 cm; Wt 61.7 kg
[~2019-09-06 07:02] MED LIST changes: -IOPAMIDOL 370 MG/ML 200 ML INFUS..BTL INJ ONE; -SODIUM CHLORIDE 0.9% 50ML 50 ML ONE
--- NOTE | 2019-09-06 07:31 | Emergency Department Note ---
History of Present Illnes History of Present Illness Chief Complaint: COVID PUI History of Present Illness This is a 44 year old female, with a history of GERD, who is an employee at [email or web address], who was reportedly sent over here to be Covid testing, due to her symptoms and exposure. States that both of her children received positive results yesterday for Covid 19 tests that they have had performed. Patient states that one of her's children is symptomatic and what is not. Patient states that she developed body aches, headache, pain behind her eyes, sore throat and mild rhinorrhea. She denies any fever she has had some chills. No cough, chest tightness, or shortness of breath. She has had some slight nausea and and had several loose stools yesterday. She's had no diarrhea today. 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 Onset (how long ago): day(s) (3) Location: body aches, throat Quality: ache Radiation: Reports non-radiation Severity: mild Onset quality: sudden Duration (how long): day(s) (3) Timing of current episode: constant Progression: worsening Chronicity: new Context: Denies recent illness, Denies recent surgery, Denies recent travel Relieving factors: none Exacerbating factors: none Associated symptoms: Reports headaches; Denies chest pain, Denies cough, Denies rash, Denies shortness of breath Treatments prior to arrival: other (Tylenol) Past Medical/Family History Physician Review I have reviewed the patient's past medical and family history. Any updates have been documented here. Past Medical History Recent Fever: No Clinical Suspicion of Infectio: Yes (viral) New/Unexplained Change in Ment: No Past Medical History: Anxiety, Depression Other Medical History: PTSD Diverticulosis INSOMNIA Past Surgical History: Cholecysctectomy, Hysterectomy, T&A, Hernia Repair, Orthopedic Implants Other Surgery: R ankle sx Social History Smoking Cessation: Never Smoker Alcohol Use: None Any Illegal Drug Use: No TB Exposure/Symptoms: No Physically hurt or threatened: No Family History Family history of heart diseas: No Other Last Tetanus: UNKNOWN Any Pre-Existing Lines (PICC,: No Is patient up to date on immun: No Review of Systems Review of Systems Constitutional: Reports chills; Denies fever, Denies malaise EENTM: Reports no symptoms Cardiovascular: Denies chest pain, Denies palpitations Respiratory: Denies pain on inspiration, Denies pain with cough, Denies dyspnea, Denies dyspnea on exertion Gastrointestinal: Denies abdominal pain Musculoskeletal: Reports muscle pain; Denies neck pain (problem) Integumentary: Denies no symptoms Neurological: Reports no symptoms Psychological: Reports no symptoms Review of other systems: All other systems negative Physical Exam Related Data Allergies: Coded Allergies: No Known Drug Allergies (Verified Allergy, Unknown, 08/31/17) Uncoded Allergies: MRI DYE (Allergy, Severe, HIVES, 04/22/19) EGGS (Allergy, Unknown, 05/09/17) PECANS (Allergy, Unknown, 05/09/17) Vital signs reviewed: Yes Physical Exam CONSTITUTIONAL Constitutional: Present well-developed, Present well-nourished HENT HENT: Present normocephalic, Present atraumatic, Present oropharynx clear/moist, Present nose normal HENT L/R: Present left ext ear normal, Present right ext ear normal EYES Eyes: Reports PERRL, Reports conjunctivae normal NECK Neck: Present ROM normal PULMONARY Pulmonary: Present effort normal, Present breath sounds normal CARDIOVASCULAR Cardiovascular: Present regular rhythm, Present heart sounds normal, Present capillary refill normal, Present normal rate GASTROINTESTINAL Abdominal: Present soft, Present nontender, Present bowel sounds normal GENITOURINARY SKIN Skin: Present warm, Present dry MUSCULOSKELETAL Musculoskeletal: Present ROM normal NEUROLOGICAL Neurological: Present alert, Present oriented x 3, Present no gross motor or sensory deficits PSYCHOLOGICAL Psychological: Present mood/affect normal, Present judgement normal Assessment & Plan Medical Decision Making MDM - Patient denies self quarantine for 14 days, due to possible Covid 19 infection. - Supportive cares recommended including plenty of fluids, Tylenol or ibuprofen for pain, body aches, and fever. - Patient to follow up with her primary care physician for further concerns or symptoms. - Coban 19 test was performed and results pending. Assessment & Plan Final Impression: (1) Acute viral syndrome (2) Suspected 2019 novel coronavirus infection (3) GERD (gastroesophageal reflux disease) Depart Disposition: HOME, SELF-CARE (emergency) Home Meds Reported Medications Albuterol Sulf* (PROAIR HFA INHALER*) 8.5 Gm Inh, 2 PUMP INH PRN 04/22/19 Lisdexamfetamine Dimesylate (VYVANSE) 50 Mg Capsule, 50 MG PO PRN 04/22/19 Clonazepam (CLONAZEPAM) 1 Mg Tablet, 1 MG PO DAILY, TAB 04/22/19 Zolpidem Tartrate (AMBIEN) 10 Mg Tablet, 10 MG PO HS PRN for INSOMNIA, #30 TAB 05/28/17 YNES WALTERS MD Sep 06, 2019 07:31
--- NOTE | 2019-09-06 08:03 | NUR ---
PT TESTED FOR COVID 19 AT DISCHARGE
== END 2019-09-06 08:04 | disposition home or self-care (01) ==
LOC: FSED 07:40
DX: B34.9 Viral infection, unspecified (principal); K21.9 Gastro-esophageal reflux disease without esophagitis; R51 Headache; Z11.59 Encounter for screening for other viral diseases; F43.10 Post-traumatic stress disorder, unspecified
CPT/HCPCS: 87635; 99283

== ENCOUNTER 2019-09-10 13:53 | Emergency (ER) | payer BC, OTHER ==
[~2019-09-10] VITALS: Ht 162.6 cm; Wt 61.7 kg
--- NOTE | 2019-09-10 14:26 | Emergency Department Note ---
History of Present Illnes History of Present Illness Chief Complaint: COVID PUI History of Present Illness This is a 44 year old female exposed to COVID 19 from her son concerned she may gotten contracted . 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 Any updates have been documented here. Past Medical History Recent Fever: No Clinical Suspicion of Infectio: No New/Unexplained Change in Ment: No Past Medical History: GERD Other Medical History: PTSD Diverticulosis INSOMNIA Past Surgical History: Cholecysctectomy, Hysterectomy, T&A Other Surgery: RIGHT ANKLE SURGERY Social History Smoking Cessation: Unknown if ever smoked Any Illegal Drug Use: No Other Last Tetanus: UNKNOWN Any Pre-Existing Lines (PICC,: No Review of Systems Review of Systems Constitutional: Reports no symptoms EENTM: Reports no symptoms Cardiovascular: Reports no symptoms Respiratory: Reports no symptoms Gastrointestinal: Reports no symptoms Genitourinary: Reports no symptoms Musculoskeletal: Reports no symptoms Integumentary: Reports no symptoms Neurological: Reports no symptoms Psychological: Reports no symptoms Endocrine: Reports no symptoms Hematological/Lymphatic: Reports no symptoms Physical Exam Related Data Allergies: Coded Allergies: No Known Drug Allergies (Verified Allergy, Unknown, 08/31/17) Uncoded Allergies: MRI DYE (Allergy, Severe, HIVES, 04/22/19) EGGS (Allergy, Unknown, 05/09/17) PECANS (Allergy, Unknown, 05/09/17) Physical Exam CONSTITUTIONAL Constitutional: Present well-developed, Present well-nourished HENT HENT: Present normocephalic, Present atraumatic, Present oropharynx clear/moist, Present nose normal HENT L/R: Present left ext ear normal, Present right ext ear normal EYES Eyes: Reports PERRL, Reports conjunctivae normal NECK Neck: Present ROM normal PULMONARY Pulmonary: Present effort normal, Present breath sounds normal CARDIOVASCULAR Cardiovascular: Present regular rhythm, Present heart sounds normal, Present capillary refill normal, Present normal rate GASTROINTESTINAL Abdominal: Present soft, Present nontender, Present bowel sounds normal GENITOURINARY Genitourinary: Present exam deferred SKIN Skin: Present warm, Present dry MUSCULOSKELETAL Musculoskeletal: Present ROM normal NEUROLOGICAL Neurological: Present alert, Present oriented x 3, Present no gross motor or sensory deficits PSYCHOLOGICAL Psychological: Present mood/affect normal, Present judgement normal Results Laboratory Laboratory comments pending Assessment & Plan Medical Decision Making MDM covid 19 exposure Assessment & Plan Final Impression: (1) Counseled about COVID-19 virus infection (2) Exposure to COVID-19 virus Depart Disposition: HOME, SELF-intermediate Meds Reported Medications Albuterol Sulf* (PROAIR HFA INHALER*) 8.5 Gm Inh, 2 PUMP INH PRN 04/22/19 Lisdexamfetamine Dimesylate (VYVANSE) 50 Mg Capsule, 50 MG PO PRN 04/22/19 Clonazepam (CLONAZEPAM) 1 Mg Tablet, 1 MG PO DAILY, TAB 04/22/19 Zolpidem Tartrate (AMBIEN) 10 Mg Tablet, 10 MG PO HS PRN for INSOMNIA, #30 TAB 05/28/17 CESAR LYLE MD Sep 10, 2019 14:26
== END 2019-09-10 14:15 | disposition home or self-care (01) ==
LOC: FSED 14:06
DX: Z03.818 Encounter for observation for suspected exposure to other biological agents ruled out (principal)
CPT/HCPCS: 99282; U0002

== ENCOUNTER → 2019-09-20 | Outpatient (CLI) | payer BC ==
--- NOTE | 2019-09-20 12:57 | Diagnostic Imaging Report ---
EXAMINATION: CHEST 2 VIEWS INDICATION: ^[id number] ^[id number] ^COUGH COMPARISON: None FINDINGS: PA and lateral views TUBES and LINES: None. LUNGS: Lungs are well inflated. Lungs are clear. There is no evidence of pneumonia or pulmonary edema. PLEURA: No pleural effusion or pneumothorax. HEART AND MEDIASTINUM: The cardiomediastinal silhouette is unremarkable. BONES AND SOFT TISSUES: No acute osseous lesion. Soft tissues are unremarkable. UPPER ABDOMEN: No free air under the diaphragm. IMPRESSION: No acute thoracic radiographic abnormality. Signed by: Carlin Rodríguez MD on 09/20/2019 12:53 PM
== END ==
LOC: RAD 12:02
PROVIDERS: ATTEND Internal Medicine
DX: R05 Cough (principal)
CPT/HCPCS: 71046

== ENCOUNTER → 2019-10-20 | Outpatient (CLI) | payer BC ==
[~2019-10-20] MED LIST changes: +BENTYL10 MG/1 ML IV
== END ==
LOC: MAMMO 12:30
PROVIDERS: ATTEND Obstetrics & Gynecology
DX: Z12.31 Encounter for screening mammogram for malignant neoplasm of breast (principal)
CPT/HCPCS: 77067

== ENCOUNTER → 2019-10-25 | Day surgery (SDC) | payer BC, OTHER ==
[2019-10-20 13:03] LABS: BASOPHILS % 0.5 % (0.0-1.0); EOSINOPHILS # (AUTO) 0.1 (0.0-0.4); HEMATOCRIT 39.4 % (34.2-44.1); HEMOGLOBIN 13.2 g/dL (12.0-16.0); LYMPHOCYTES # (AUTO) 2.2 (1.0-3.2); LYMPHOCYTES % 27.7 % (18.0-39.1); MEAN CORPUSCULAR HEMOGLOBIN 30.3 pg (28-32); MEAN CORPUSCULAR HGB CONC 33.5 g/dL (31-35); MEAN CORPUSCULAR VOLUME 90.4 fL (81-99); MONOCYTES # (AUTO) 0.4 (0.2-0.8); MONOCYTES % 5.4 % (4.4-11.3); NEUTROPHILS # (AUTO) 5.1 (2.1-6.9); PLATELET COUNT 235 x10e3/uL (140-360); RED BLOOD COUNT 4.36 x10e6/uL (3.6-5.1); RED CELL DISTRIBUTION WIDTH 12.8 % (11.7-14.4)
[~2019-10-25] MED LIST changes: +ACETAMINOPHEN/CODEINE 300MG - 30MG TAB ONE; +BUPIVACAINE 0.25%/EPI 30ML SDV INJ ONE; +DEXAMETHASONE SOD PHOS INJ 4 MG/ML VIAL ONE; +FENTANYL CITRATE/PF 100MCG/2 ML INJ ONE; +HYDROMORPHONE 1MG/1ML INJ ONE; +INDIGOTINDISULFONATE SODIUM 8 MG/ML AMP IJ ONE; +LIDOCAINE HCL 2% JELLY 5 ML TUBE ONE; +LIDOCAINE HCL 2% LOCAL INJ 5 ML SDV VIAL INJ ONE; +MEPERIDINE HCL INJ 25 MG/ML VIAL ONE; +MIDAZOLAM HCL 2 MG/2 ML VIAL ONE; +ONDANSETRON HCL INJ 2MG/ML 2ML 2 MG/ML VIAL ONE; +PROPOFOL IV EMULSION 10 MG/ML 20 ML VIAL ONE; +ROCURONIUM BROMIDE 10 MG/ML 5ML VIAL IV ONE; +SEVOFLURANE INHAL SOLN 250 ML PEN BTL ONE; +SODIUM CHLORIDE 0.9% 50ML 0 ML ONE; +SUCCINYLCHOLINE CHLORIDE 20 MG/ML 10ML VIAL ONE
[2019-10-25 14:45] VITALS: BP 104/62
--- NOTE | 2019-10-25 20:27 | Operative Report ---
DATE OF PROCEDURE: SURGEON: Glendy Reddy MD PREOPERATIVE DIAGNOSIS: Left lower quadrant pain. POSTOPERATIVE DIAGNOSIS: Left lower quadrant pain. PROCEDURE: laparoscopy, division of adhesions, right salpingectomy, and removal of a foreign body. COMPLICATIONS: None. ESTIMATED BLOOD LOSS: Minimal. DESCRIPTION OF PROCEDURE: The patient was taken to the OR where general anesthesia was induced. She was prepped and draped in a sterile fashion, placed in dorsal lithotomy position. A sponge on a stick was placed inside the vagina for manipulation. Gloves were changed and 2 Allis clamps were applied to the umbilicus. A 5 mm incision was made with a scalpel and 5 mm bladeless trocar and cannula with the scope inside was passed through the abdominal wall into the abdominal cavity under direct visualization. Trocar was removed and scope was slid through the sleeve into the abdominal cavity and the abdomen was inflated with carbon dioxide gas. The patient was placed in Trendelenburg position. Two other ports were made in the right side of the abdomen after making 5 mm skin incision with a scalpel and 5 mm bladeless trocar and cannula was introduced inside the abdominal wall under direct visualization. Trocars were removed. Using a [place] and LigaSure, the following findings were noted: Extreme excessive adhesions between the small bowel, large bowel, and pelvis including the pouch of Jose and the pelvic colon and the left adnexa. The right adnexa showed enlarged hydrosalpinx about 1 cm in diameter. No evidence of endometriosis. Foreign bodies, formal possible karina from her previous hysterectomy were noted in the pelvis. One in particular was on top of the bladder and attached to the pelvic colon. Using the LigaSure gently, adhesions were excised and mobilizing the bowels upwards and medially from the pelvic sidewall and the pouch of Jose, that took about over an hour to achieve. Following this, right salpingectomy was performed and the fluid was drained and the tube was removed through the 5 mm port without difficulty. Suction irrigation of peritoneal cavity with warm saline. Following this, the foreign body that was noted on the bladder was excised after being kept under stretch with a [place] and using the scissors, it was excised and removed through the 5 mm port. After removing the adhesions from the left side of the pelvis, the left ovary and tube were noted and showed no significant pathology. Again, suction irrigation with warm saline was performed. About 200 mL was left in the abdomen to float the abdominal contents and prevent adhesions. Hemostasis was found to be adequate. Instruments were removed from the abdomen. Abdomen was deflated. Incisions were approximated using Dermabond and Marcaine with epi was injected subcutaneously. The patient tolerated the procedure well. Lap, instruments, and counts were correct x2 at the end of procedure. Glendy Reddy MD DD/KISHORE /[id number]
== END | disposition home or self-care (01) ==
LOC: OR 09:04
PROVIDERS: ATTEND Obstetrics & Gynecology
DX: N70.11 Chronic salpingitis (principal); N80.3 Endometriosis of pelvic peritoneum; T19.1XXA Foreign body in bladder, initial encounter; J45.909 Unspecified asthma, uncomplicated; X58.XXXA Exposure to other specified factors, initial encounter; Z91.041 Radiographic dye allergy status; Z01.812 Encounter for preprocedural laboratory examination; Z11.59 Encounter for screening for other viral diseases
CPT/HCPCS: 36415; 49329; 58661; 84702; 85025; 88300; 88305; J0330; J1100; J1170; J2001 ×2; J2175; J2250; J2405; J2704; J3010; U0002; 88304

== ENCOUNTER 2019-10-27 23:21 | Emergency (ER) | payer BC, OTHER ==
[~2019-10-27] VITALS: Ht 162.6 cm; Wt 61.7 kg
[~2019-10-27 23:21] MED LIST changes: -ACETAMINOPHEN/CODEINE 300MG - 30MG TAB ONE; -BUPIVACAINE 0.25%/EPI 30ML SDV INJ ONE; -DEXAMETHASONE SOD PHOS INJ 4 MG/ML VIAL ONE; -FENTANYL CITRATE/PF 100MCG/2 ML INJ ONE; -HYDROMORPHONE 1MG/1ML INJ ONE; -INDIGOTINDISULFONATE SODIUM 8 MG/ML AMP IJ ONE; -LIDOCAINE HCL 2% JELLY 5 ML TUBE ONE; -LIDOCAINE HCL 2% LOCAL INJ 5 ML SDV VIAL INJ ONE; -MEPERIDINE HCL INJ 25 MG/ML VIAL ONE; -MIDAZOLAM HCL 2 MG/2 ML VIAL ONE; -ONDANSETRON HCL INJ 2MG/ML 2ML 2 MG/ML VIAL ONE; -PROPOFOL IV EMULSION 10 MG/ML 20 ML VIAL ONE; -ROCURONIUM BROMIDE 10 MG/ML 5ML VIAL IV ONE; -SEVOFLURANE INHAL SOLN 250 ML PEN BTL ONE; -SODIUM CHLORIDE 0.9% 50ML 0 ML ONE; -SUCCINYLCHOLINE CHLORIDE 20 MG/ML 10ML VIAL ONE
--- OUTSIDE RECORDS SUMMARY | 2019-10-27 23:29 | XMS REPORT | Continuity of Care Document ---
Author Author [facility] t Organization [facility] Address [address] [place] [address] Phone Unavailable Care Team Providers Care Farm Marketer Name Role Phone ADIN SALINAS, MD RODRIGUEZ PCP RUFUS OAKLEY Attphys Unavailable CLAU ZAVALA Attphys Unavailable SHA, Felix RICHARD Attphys Unavailable DUCRICO A YNES Attphys Unavailable CY, Arvin FALLON Attphys Unavailable SANDI CARDONA Attphys Unavailable ZETamiko FERNANDEZ Attphys Unavailable Sada ANGELES Attphys Unavailable SARAH AYOUB Attphys Unavailable Payers Payer Name Policy Type Policy Number Effective Date [id number] 2019 00:00[facility]00 [facility] Cdc Review Covid19 [id number] [facility] Problems Condition Name Condition Details Condition Category Status Onset Date Resolution Date Last Treatment Date Treating Clinician Comments Source Acute viral syndrome Problem Active [facility] Suspected severe acute respiratory syndr ome coronavirus 2 (SARS-CoV-2) infection Problem Active [facility] Gastroesophageal reflux disease Problem Active [facility] Allergies, Adverse Reactions, Alerts Allergy Name Allergy Type Status Severity Reaction(s) Onset Date Inacti ve Date Treating Clinician Comments Source MRI DYE Allergy to substance Active Severe HIVES 2019-04-22 00:00:00 [facility] iodine DA Active SV 2018-08-05 00:00:00 [facility] EGGS Allergy to substance Active 2017-05-09 00:00:00 [facility] PECANS Allergy to substance Active 2017-05-09 00:00:00 [facility] iodine DA Active SV 2017-01-17 00:00:00 [facility] Social History Social Habit Start Date Stop Date Quantity Comments Source Sex Assigned At 1975 00:00:00 1975 00:00:00 Female [facility] Medications Ordered Medication Name Filled Medication Name Start Date Stop Da te Current Medication? Ordering Clinician Indication Dosage Frequency Signature (SIG) Comments Components Source Naproxen Naproxen 2019-03-07 17:25:00 2019-04-25 00:00:00 No 500 Every 12 Hours for Pain And Inflammation [facility] Albuterol Sulfate (Proair Hfa Inhaler*) 8.5 Gm INH Alb uterol Sulfate (Proair Hfa Inhaler*) 8.5 Gm INH Yes 2 As Needed [facility] Clonazepam Clonazepam Yes 1 Daily [facility] Lisdexamfetamine Dimesylate (Vyvanse) 50 Mg CAPSULE Li sdexamfetamine Dimesylate (Vyvanse) 50 Mg CAPSULE Yes 50 As Needed [facility] Zolpidem Tartrate (Ambien) 10 Mg TABLET Zolpidem Tartrate (A mbien) 10 Mg TABLET Yes 10 Bedtime as needed for Insomnia [facility] Clonazepam (Klonopin) 2 Mg TABLET Clonazepam (Klonopin) 2 Mg TAB LET 2017-05-27 00:00:00 No 2 Daily [facility] Esomeprazole Magnesium (Nexium) 40 Mg CAPSULE.DR Newsome prazole Magnesium (Nexium) 40 Mg CAPSULE. 2017-05-27 00:00:00 No 40 As Need ed [facility] Lisdexamfetamine Dimesylate (Vyvanse) 50 Mg CAPSULE Li sdexamfetamine Dimesylate (Vyvanse) 50 Mg CAPSULE 2017-05-27 00:00:00 No 50 Daily [facility] Zolpidem Tartrate (Ambien) 10 Mg TABLET Zolpidem Tartrate (A mbien) 10 Mg TABLET 2017-05-27 00:00:00 No 10 Bedtime [facility] Alprazolam (Xanax) 2 Mg TABLET Alprazolam (Xanax) 2 Mg TABLET 2017-05-07 00:00:00 No 1 As Needed [facility] Sertraline Hcl (Zoloft) 25 Mg TABLET Sertraline Hcl (Zoloft) 25 Mg TABLET 2017-05-07 00:00:00 No [facility] Vital Signs Vital Name Observation Time Observation Value Comments Source Weight 2019-09-10 13:57:00 136 [lb_av] [facility] BMI (Body Mass Index) 2019-09-10 13:57:00 23.3 kg/m2 [facility] Weight 2019-09-06 07:58:00 136 [lb_av] [facility] BMI (Body Mass Index) 2019-09-06 07:58:00 23.3 kg/m2 [facility] Body Temperature 2019-04-25 07:50:00 97 [degF] [facility] Procedures Procedure Date / Time Performed Performing Clinician [facility] e Computed tomography of abdomen and pelvis with contrast 00:00:00 [facility] EGD BIOPSY SINGLE/MULTIPLE 2019-04-25 00:00:00 C HI [facility] EGD DILATE STRICTURE 2019-04-25 00:00:00 [facility] COLONOSCOPY AND BIOPSY 2019-04-25 00:00:00 [facility] Plan of Care Planned Activity Planned Date Details Comments Source Instructions COVID-19: 05/16/2019 [facility] Encounters Start Date/Time End Date/Time Encounter Type Admission Type Attendi [facility] Facility Care Department Encounter ID Source 2019-09-10 14:06:00 2019-09-10 14:15:00 Departed Emergency Room [facility] [id number] [facility] 2019-09-06 07:40:00 2019-09-06 08:04:00 Departed Emergency Room [facility] [id number] [facility] 2019-08-18 07:34:00 2019-08-18 07:34:00 Registered Clinic 3 CLAU ZAVALA [facility] [id number] [facility] 2019-04-25 04:58:00 2019-04-25 04:58:00 Registered Surgical Day Care [facility] [id number] [facility] 2019-03-28 14:04:00 2019-03-28 14:04:00 Registered Clinic [facility] [id number] [facility] 2019-03-18 16:41:00 2019-03-18 19:18:00 Departed Emergency Room 1 JOSE MANUEL DALTON [facility] [id number] [facility] 2019-03-07 15:54:00 2019-03-07 17:35:00 Departed Emergency Room 1 YNES WALTERS [facility] [id number] [facility] 2018-06-02 18:01:00 2018-06-02 20:10:00 Departed Emergency Room 1 VASYL BENOIT [facility] [id number] [facility] 2018 13:14:00 2018 13:14:00 Registered Clinic 3 RUFUS OAKLEY [facility] [id number] [facility] 2018-03-09 15:15:00 2018-03-09 15:15:00 Registered Clinic 3 SANDI CARDONA [facility] [id number] [facility] 2018-03-07 16:26:00 2018-03-07 17:17:00 Departed Emergency Room 1 TESFAYE RICHARDSON [facility] [id number] [facility] 2017-11-17 08:56:00 2017-11-17 08:56:00 Registered Clinic [facility] [id number] [facility] 2017-10-08 06:12:00 2017-10-08 06:12:00 Registered Surgical Day Care [facility] [id number] [facility] 2017-08-31 08:55:00 2017-08-31 10:47:00 Departed Emergency Room [facility] [id number] [facility] 2017-08-27 05:24:00 2017-08-27 05:24:00 Registered Surgical Day Care [facility] [id number] [facility] 2017-08-18 11:12:00 2017-08-18 11:12:00 Registered Clinic 3 TIA ANGELES [facility] [id number] [facility] 2017-06-11 14:43:00 2017-06-11 14:43:00 Registered Clinic [place] CLAU ZAVALA [facility] [id number] [facility] 2017-05-28 11:32:00 2017-05-28 11:32:00 Registered Surgical Day Care [facility] [id number] [facility] 2017-05-09 12:06:00 2017-05-09 12:06:00 Registered Surgical Day Care [facility] [id number] [facility] 2017-04-30 13:19:00 2017-04-30 13:19:00 Registered Clinic [place] SARAH AYOUB [facility] [id number] [facility] 2017-04-21 08:27:00 2017-04-21 12:22:00 Departed Emergency Room [facility] [id number] [facility] Results Test Description Test Time Test Comments Results Result Comments Source CHEST 2 VIEWS 2019-09-20 12:53:00 [facility] [address] [address] Patient Name: KELY MEREDITH MR #: [id number] : 1975 Age/Sex: 44/F Req #: [id number] Adm Physician: Ordered by: RUFUS OAKLEY MD Report #: [id number] Location: [facility] Room/Bed: Procedure: [id number] DX/CHEST 2 VIEWS Exam Date: 09/20/19 Exam Time: 1229 REPORT STATUS: Signed EXAMINATION: CHEST 2 VIEWS INDICATION: [id number] COUGH COMPARISON: None FINDINGS: PA and lateral views TUBES and LINES: None. LUNGS: Lungs are well inflated. Lungs are clear. There is no evidence of pneumonia or pulmonary edema. PLEURA: No pleural effusion or pneumothorax. HEART AND MEDIASTINUM: The cardiomediastinal silhouette is unremarkable. BONES AND SOFT TISSUES: No acute osseous lesion. Soft tissues are unremarkable. UPPER ABDOMEN: No free air under the diaphragm. IMPRESSION: No acute thoracic radiographic abnormality. Signed by: Carlin Melgar MD on 09/20/2019 12:53 PM Dictated By: CARLIN MELGAR MD 1252 Transcribed By: IRLANDA on 09/20/19 1256 COPY TO: RUFUS OAKLEY MD Fluoroscopic procedure less than one hour duration 2020-07-0 7 07:45:00 Test Item Coronavirus (PCR) (test code = Coronavirus (PCR)) NOT DETECTED NOTD ETECTED SARS-COV2/RT-PCRNegative results do not preclude SARS-CoV-2 infection and should not be used as the sole basis for patient management decisions. Negative result s must be combined with clinical observations, patient history, and epidemiologi farhad information. A false negative result may occur if a specimen is improperly c ollected, transported or handled.The limit of detection for this assay is 250 co pies/mLThe SARS-CoV-2 test is a rapid, real-time RT-PCR test intended for the qu alitative detection of nucleic acid from SARS-CoV-2 in nasopharyngeal swab speci men collected from individuals suspected of COVID-19 by their healthcare provide r. This test has not been Food and Drug Administration (FDA) cleared or approved and has been authorized by FDA under an Emergency Use Authorization (EUA). This EUA will be effective until the declaration that circumstances exist justifying the authorization of the emergency use of in vitro diagnostic test for detectio n and or diagnosis of COVID-19 is terminated under section 564(b) of the Act, or the the EUA is revoked under 564(g) of the ACT.Testing performed [address] A[address]OMEN/PELVIS [id number] 09:32:00 [facility] [address] [place] [address] Patient Name: KELY MEREDITH MR #: [id number] : 1975 Age/Sex: 44/F Req #: [id number] Adm Physician: Ordered by: CLAU ZAVALA MD Report #: [id number] Location: [facility]/Bed: Procedure: [id number] CT/CT ABD OMEN/PELVIS W Exam Date: 08/18/19 Exam Time: 1003 REPORT STATUS: Signed EXAM: CT Abd omen and Pelvis WITH intravenous contrast INDICATION: Abdominal pain COMPARISON: CT abdomen and pelvis of 03/18/2019 TECHNIQUE: Abdomen and pelv is were scanned utilizing a multidetector helical scanner from the lung base t o the pubic symphysis after administration of IV contrast. Coronal and sagitta l reformations were obtained. Routine protocol was performed. Scan was perform ed during portal venous phase. IV CONTRAST: 100mL of Isovue 370 ORAL CONTRAST: Water RADIATION DOSE: Total DLP: 268 mGy*cm Dose modulat ion, iterative reconstruction, and/or weight based adjustment of the mA/kV was utilized to reduce the radiation dose to as low as reasonably achievable. FINDINGS: LOWER THORAX: Normal. HEPATOBILIARY: Diffuse hepatic steatos is and hepatomegaly. No focal liver lesion. Status post cholecystectomy. SPLEEN: No splenomegaly. PANCREAS: No focal masses or ductal dilatation. ADRENALS: No adrenal nodules. KIDNEYS/URETERS: No hydronephrosis, stones, o r solid mass lesions. PELVIC ORGANS/BLADDER: Status post hysterectomy. PE RITONEUM / RETROPERITONEUM: No free air or fluid. LYMPH NODES: No lymphadenopa thy. VESSELS: Unremarkable. GI TRACT: Mild diverticulosis. No CT evidence of diverticulitis. No abnormal bowel thickening. No bowel obstruction. Normal appendix. BONES AND SOFT TISSUES: No acute osseous injury. No suspicious l ytic or blastic lesions. IMPRESSION: No acute findings in the abdomen or pelvis. Hepatomegaly and diffuse hepatic steatosis. Diverticulosis without CT evidence of diverticulitis. Signed by: Nano Ramírez MD on 08/18/19 9:35 AM Dictated By: NANO RAMÍREZ MD 4 Transcribed By: IRLANDA on 08/18/19934 COPY TO: CLAU ZAVALA MD Stool lactoferrin [id number] 07:40:00* Test Item Value Reference Range Interpretation Comments Stool Lactoferrin (LAB) (test code = 59160-5) NEGATIVE NEGATIVE Testing on stool aspirate specimens is outside ct technician claims since specime n type not validated on this assay.[facility] calprotectin measurement (mass/mass)2019-04-25 07:40:00* Test Item Value Reference Range Interpretation Comments Stool Calprotectin (test code = 64620-8) 21 0-120 Concentration Interpretation Follow-Up<16 - 50 ug/g Normal None>50 -120 ug/g Borderline Re-evaluate in 4-6 weeks >120 ug/g Abnormal Repeat as clinically indicatedPerformed at: - [facility] [address] [id number] Director: Mark Frank MD, Phone: [phone] Plains Memorial HospitalClostridium difficile A and B toxin [id number] 07:40:00* Test Item Value Reference Range Interpretation Comments Clostridium Difficile Toxin A & B (test code = 229530934) NEGATIVE NEGATIVE Testing on stool aspirate specimens is outside ct technician claims since specime n type not validated on this assay.[facility] lactoferrin higinmgum4201-46-58 07:40:00* Test Item Value Reference Range Interpretation Comments Stool Lactoferrin (LAB) (test code = 61496-8) NEGATIVE NEGATIVE Testing on stool aspirate specimens is outside ct technician claims since specime n type not validated on this assay.[facility] calprotectin measurement (mass/mass)2019-04-25 07:40:00* Test Item Value Reference Range Interpretation Comments Stool Calprotectin (test code = 28183-3) 21 0-120 Concentration Interpretation Follow-Up<16 - 50 ug/g Normal None>50 -120 ug/g Borderline Re-evaluate in 4-6 weeks >120 ug/g Abnormal Repeat as clinically indicatedPerformed at: - [facility] [address] [place], [place] [id number] Director: Mark Frank MD, Phone: [phone] Plains Memorial HospitalClostridium difficile A and B toxin [id number] 07:40:00* Test Item Value Reference Range Interpretation Comments Clostridium Difficile Toxin A & B (test code = 261050201) NEGATIVE NEGATIVE Testing on stool aspirate specimens is outside ct technician claims since specime n type not validated on this assay.[facility] Fluoroscopic procedure less than one hour aktnycmz0279-19-70 14:24:00* Test Item Value Reference Range Interpretation Comments Hemoglobin A1c Percent (test code = Hemoglobin A1c Percent) 4.8 4.0-7.0 [facility] HospitalFluoroscopic procedure less than one hour snxfdeav3865-90-74 14:24:00* Test Item Value Reference Range Interpretation Comments Hemoglobin A1c Percent (test code = Hemoglobin A1c Percent) 4.8 4.0-7.0 [facility] HospitalBlood leukocytes automated count (number/volume)2019-03-28 14:18:00* Test Item Value Reference Range Interpretation Comments White Blood Count (test code = 6690-2) 8.20 4.8-10.8 [facility] erythrocytes automated count (number/volume)2019-03-28 14:18:00* Test Item Value Reference Range Interpretation Comments Red Blood Count (test code = 789-8) 4.67 3.6-5.1 [facility] HospitalBlood hemoglobin measurement (moles/volume)2019-03-28 14:18:00* Test Item Value Reference Range Interpretation Comments Hemoglobin (test code = 17243-8) 14.5 12.0-16.0 [facility] HospitalAutomated blood hematocrit (volume fraction)2019-03-28 14:18:00* Test Item Value Reference Range Interpretation Comments Hematocrit (test code = 4544-3) 41.8 34.2-44.1 [facility] HospitalAutomated erythrocyte mean corpuscular zfteie1224-12-67 14:18:00* Test Item Value Reference Range Interpretation Comments Mean Corpuscular Volume (test code = 787-2) 89.5 81-99 [facility] HospitalAutomated erythrocyte mean corpuscular hemoglobin (mass per erythrocyte)2019-03-28 14:18:00* Test Item Value Reference Range Interpretation Comments Mean Corpuscular Hemoglobin (test code = 785-6) 31.0 28-32 [facility] HospitalAutomated erythrocyte mean corpuscular hemoglobin concentration measurement (mass/volume)2019-03-28 14:18:00* Test Item Value Reference Range Interpretation Comments Mean Corpuscular Hemoglobin Concent (test code = 786-4) 34.7 31-35 [facility] HospitalRDW NpfAp-Zcx0075-59-27 14:18:00* Test Item Value Reference Range Interpretation Comments Red Cell Distribution Width (test code = 93787-4) 12.8 11.7 -14.4 [facility] HospitalAutomated blood platelet count (count/volume)2019-03-28 14:18:00* Test Item Value Reference Range Interpretation Comments Platelet Count (test code = 777-3) 302 140-360 [facility] HospitalAutomated blood segmented neutrophil count as percentage of total tsrgscmfgt5141-43-02 14:18:00* Test Item Value Reference Range Interpretation Comments Neutrophils (%) (Auto) (test code = 24993-9) 64.3 38.7-80.0 [facility] HospitalAutomated blood lymphocyte count as percentage ot total aapestmeyd9747-94-68 14:18:00* Test Item Value Reference Range Interpretation Comments Lymphocytes (%) (Auto) (test code = 736-9) 27.9 18.0-39.1 [facility] HospitalAutomated blood monocyte count as percentage of total kluofngmwx1138-18-46 14:18:00* Test Item Value Reference Range Interpretation Comments Monocytes (%) (Auto) (test code = 5905-5) 5.6 4.4-11.3 [facility] HospitalAutomated blood eosinophil count as percentage of total loglrfpazr7889-00-73 14:18:00* Test Item Value Reference Range Interpretation Comments Eosinophils (%) (Auto) (test code = 713-8) 1.5 0.0-6.0 [facility] HospitalAutomated blood basophil count as percentage of total nsqrvqrcpx2988-72-35 14:18:00* Test Item Value Reference Range Interpretation Comments Basophils (%) (Auto) (test code = 706-2) 0.5 0.0-1.0 [facility] HospitalFluoroscopic procedure less than one hour yduworkt0979-11-04 14:18:00* Test Item Value Reference Range Interpretation Comments IM GRANULOCYTES % (test code = IM GRANULOCYTES %) 0.2 0.0- 1.0 [facility] HospitalAutomated blood neutrophil count 2019-03-28 14:18:00* Test Item Value Reference Range Interpretation Comments Neutrophils # (Auto) (test code = 751-8) 5.3 2.1-6.9 [facility] HospitalBlood lymphocytes count (number/volume) 2019-03-28 14:18:00* Test Item Value Reference Range Interpretation Comments Lymphocytes # (Auto) (test code = 30432-4) 2.3 1.0-3.2 [facility] HospitalBlreg[facility] monocytes automated count (number/volume)2019-03-28 14:18:00* Test Item Value Reference Range Interpretation Comments Monocytes # (Auto) (test code = 742-7) 0.5 0.2-0.8 [facility] HospitalAutomated blood eosinophil count 2019-03-28 14:18:00* Test Item Value Reference Range Interpretation Comments Eosinophils # (Auto) (test code = 711-2) 0.1 0.0-0.4 [facility] HospitalAutomated blood basophil count (count/volume)2019-03-28 14:18:00* Test Item Value Reference Range Interpretation Comments Basophils # (Auto) (test code = 704-7) 0.0 0.0-0.1 [facility] HospitalFluoroscopic procedure less than one hour koorunpr3781-92-68 14:18:00* Test Item Value Reference Range Interpretation Comments Absolute Immature Granulocyte (auto (codie t code = Absolute Immature Granulocyte (auto) 0.02 0-0.1 [facility] plasma sodium measurement (moles/volume)2019-03-28 14:18:00* Test Item Value Reference Range Interpretation Comments Sodium Level (test code = 2951-2) 138 136-145 [facility] Hospitalerum or plasma potassium measurement (moles/volume)2019-03-28 14:18:00* Test Item Value Reference Range Interpretation Comments Potassium Level (test code = 2823-3) 3.4 3.5-5.1 [facility] Hospitalerum or plasma chloride measurement (moles/volume)2019-03-28 14:18:00* Test Item Value Reference Range Interpretation Comments Chloride Level (test code = 2075-0) 102 98-107 [facility] Hospitalerum or plasma carbon dioxide, total measurement (moles/volume)2019-03-28 14:18:00* Test Item Value Reference Range Interpretation Comments Carbon Dioxide Level (test code = 2028-9) 26 22-29 [facility] Hospitalerum or plasma anion uhz8929-80-88 14:18:00* Test Item Value Reference Range Interpretation Comments Anion Gap (test code = 39452-3) 13.4 8-16 [facility] Hospitalerum or plasma urea nitrogen measurement (mass/volume)2019-03-28 14:18:00* Test Item Value Reference Range Interpretation Comments Blood Urea Nitrogen (test code = 3094-0) 9 7-26 [facility] Hospitalerum or plasma creatinine measurement (mass/volume)2019-03-28 14:18:00* Test Item Value Reference Range Interpretation Comments Creatinine (test code = 2160-0) 0.94 0.57-1.11 [facility] Hospitalerum or plasma urea nitrogen/creatinine mass gpghw5599-62-49 14:18:00* Test Item Value Reference Range Interpretation Comments BUN/Creatinine Ratio (test code = 3097-3) 10 6-25 [facility] HospitalEstimated glomerular filtration rate (GFR) xapbhyunvlzhu7427-35-21 14:18:00* Test Item Value Reference Range Interpretation Comments Estimat Glomerular Filtration Rate (test code = 168871936) > 60 >60 Ranges were taken from the National Kidney Disease Education Program and the [facility] [employer] literature.Reference ranges:60 or greater: Zlknbv32-98 ( for 3 consecutive months): Chronic kidney disease 15 or less: Kidney failureRolling Plains Memorial HospitalGlucose dkfsdtpvtvw4532-15-50 14:18:00* Test Item Value Reference Range Interpretation Comments Glucose Level (test code = KBZ4972) 77 74-118 [facility] Hospitalerum or plasma calcium measurement (mass/volume)2019-03-28 14:18:00* Test Item Value Reference Range Interpretation Comments Calcium Level (test code = 90812-8) 9.1 8.4-10.2 [facility] Hospitalerum or plasma total bilirubin measurement (mass/volume)2019-03-28 14:18:00* Test Item Value Reference Range Interpretation Comments Total Bilirubin (test code = 1975-2) 0.6 0.2-1.2 [facility] HospitalFluoroscopic procedure less than one hour [id number] 14:18:00* Test Item Value Reference Range Interpretation Comments Aspartate Amino Transf (AST/SGOT) (test code = Aspartate Amino Transf (AST/SGOT)) 15 5-34 [facility]erum or plasma alanine aminotransferase measurement (enzymatic activity/volume)2019-03-28 14:18:00* Test Item Value Reference Range Interpretation Comments Alanine Aminotransferase (ALT/SGPT) (test code = 1742-6) 10 0-55 [facility]er[facility] plasma protein measurement (mass/volume)2019-03-28 14:18:00* Test Item Value Reference Range Interpretation Comments Total Protein (test code = 2885-2) 7.1 6.5-8.1 [facility]er[facility] plasma albumin measurement (mass/volume)2019-03-28 14:18:00* Test Item Value Reference Range Interpretation Comments Albumin (test code = 1751-7) 4.0 3.5-5.0 [facility] HospitalPlasma globulin measurement (mass/volume) 2019-03-28 14:18:00* Test Item Value Reference Range Interpretation Comments Globulin (test code = 40790-2) 3.1 2.3-3.5 [facility]er[facility] or plasma albumin/globulin mass enhcw1991-55-19 14:18:00* Test Item Value Reference Range Interpretation Comments Albumin/Globulin Ratio (test code = 1759-0) 1.3 0.8-2.0 [facility] plasma alkaline phosphatase measurement (enzymatic activity/volume)2019-03-28 14:18:00* Test Item Value Reference Range Interpretation Comments Alkaline Phosphatase (test code = 6768-6) 73 40-150 [facility]er[facility] or plasma thyrotropin measurement by detection limit <= 0.005 miu/l (units/volume)2019-03-28 14:18:00* Test Item Value Reference Range Interpretation Comments Thyroid Stimulating Hormone (TSH) (test code = 29423-3) 1.351 0.350-4.940 [facility] HospitalChlamydia trachomatis rRNA detection by probe and target amplification [id number] 14:18:00* Test Item Value Reference Range Interpretation Comments Chlamydia/GC Amplified DNA (test code = 18945-5) Negative Negat willem [facility] HospitalNeisseria gonorrhoeae rRNA detection by probe and target amplification nkqryh9396-97-29 14:18:00* Test Item Value Reference Range Interpretation Comments Neisseria gonorrhoeae DNA (DOUGLAS) (test code = 69014-5) Negative Negative Performed at: [address] [id number] Director: Nimo De La Rosa MD, Phone: [phone] Vista Medical CenterBlood leukocytes automated count (number/volume) 2019-03-28 14:18:00* Test Item Value Reference Range Interpretation Comments White Blood Count (test code = 6690-2) 8.20 4.8-10.8 [facility] HospitalBlood erythrocytes automated count (number/volume)2019-03-28 14:18:00* Test Item Value Reference Range Interpretation Comments Red Blood Count (test code = 789-8) 4.67 3.6-5.1 [facility] HospitalBlood hemoglobin measurement (moles/volume)2019-03-28 14:18:00* Test Item Value Reference Range Interpretation Comments Hemoglobin (test code = 50733-8) 14.5 12.0-16.0 [facility] HospitalAutomated blood hematocrit (volume fraction)2019-03-28 14:18:00* Test Item Value Reference Range Interpretation Comments Hematocrit (test code = 4544-3) 41.8 34.2-44.1 [facility] HospitalAutomated erythrocyte mean corpuscular krquqb8416-93-77 14:18:00* Test Item Value Reference Range Interpretation Comments Mean Corpuscular Volume (test code = 787-2) 89.5 81-99 [facility] HospitalAutomated erythrocyte mean corpuscular hemoglobin (mass per erythrocyte)2019-03-28 14:18:00* Test Item Value Reference Range Interpretation Comments Mean Corpuscular Hemoglobin (test code = 785-6) 31.0 28-32 [facility] HospitalAutomated erythrocyte mean corpuscular hemoglobin concentration measurement (mass/volume)2019-03-28 14:18:00* Test Item Value Reference Range Interpretation Comments Mean Corpuscular Hemoglobin Concent (test code = 786-4) 34.7 31-35 [facility] HospitalRDW DbyOw-Cep3057-22-27 14:18:00* Test Item Value Reference Range Interpretation Comments Red Cell Distribution Width (test code = 90482-2) 12.8 11.7 -14.4 [facility] HospitalAutomated blood platelet count (count/volume)2019-03-28 14:18:00* Test Item Value Reference Range Interpretation Comments Platelet Count (test code = 777-3) 302 140-360 [facility] HospitalAutgranville medical centered blood segmented neutrophil count as percentage of total epbyknaarg9504-45-92 14:18:00* Test Item Value Reference Range Interpretation Comments Neutrophils (%) (Auto) (test code = 76892-8) 64.3 38.7-80.0 [facility] HospitalAutomated blood lymphocyte count as percentage ot total qmtgotyiuf3776-34-39 14:18:00* Test Item Value Reference Range Interpretation Comments Lymphocytes (%) (Auto) (test code = 736-9) 27.9 18.0-39.1 [facility] HospitalAutomated blood monocyte count as percentage of total lgaodcvwyv7347-15-58 14:18:00* Test Item Value Reference Range Interpretation Comments Monocytes (%) (Auto) (test code = 5905-5) 5.6 4.4-11.3 [facility] HospitalAutomated blood eosinophil count as percentage of total ezsnutxdas8909-58-39 14:18:00* Test Item Value Reference Range Interpretation Comments Eosinophils (%) (Auto) (test code = 713-8) 1.5 0.0-6.0 [facility] HospitalAutomated blood basophil count as percentage of total jhqrhfjtct8800-55-91 14:18:00* Test Item Value Reference Range Interpretation Comments Basophils (%) (Auto) (test code = 706-2) 0.5 0.0-1.0 [facility] HospitalFluoroscopic procedure less than one hour yrnivasa3097-48-40 14:18:00* Test Item Value Reference Range Interpretation Comments IM GRANULOCYTES % (test code = IM GRANULOCYTES %) 0.2 0.0- 1.0 [facility] HospitalAutomated blood neutrophil count 2019-03-28 14:18:00* Test Item Value Reference Range Interpretation Comments Neutrophils # (Auto) (test code = 751-8) 5.3 2.1-6.9 [facility] HospitalBlood lymphocytes count (number/volume) 2019-03-28 14:18:00* Test Item Value Reference Range Interpretation Comments Lymphocytes # (Auto) (test code = 62658-9) 2.3 1.0-3.2 [facility] HospitalBlregency hospital [facility] monocytes automated count (number/volume)2019-03-28 14:18:00* Test Item Value Reference Range Interpretation Comments Monocytes # (Auto) (test code = 742-7) 0.5 0.2-0.8 [facility] HospitalAutomated blood eosinophil count 2019-03-28 14:18:00* Test Item Value Reference Range Interpretation Comments Eosinophils # (Auto) (test code = 711-2) 0.1 0.0-0.4 [facility] HospitalAutomated blood basophil count (count/volume)2019-03-28 14:18:00* Test Item Value Reference Range Interpretation Comments Basophils # (Auto) (test code = 704-7) 0.0 0.0-0.1 [facility] HospitalFluoroscopic procedure less than one hour xjqhlxyp5999-21-37 14:18:00* Test Item Value Reference Range Interpretation Comments Absolute Immature Granulocyte (auto (codie t code = Absolute Immature Granulocyte (auto) 0.02 0-0.1 [facility]er[facility] or plasma sodium measurement (moles/volume)2019-03-28 14:18:00* Test Item Value Reference Range Interpretation Comments Sodium Level (test code = 2951-2) 138 136-145 [facility] Hospitalerum or plasma potassium measurement (moles/volume)2019-03-28 14:18:00* Test Item Value Reference Range Interpretation Comments Potassium Level (test code = 2823-3) 3.4 3.5-5.1 [facility]er[facility] or plasma chloride measurement (moles/volume)2019-03-28 14:18:00* Test Item Value Reference Range Interpretation Comments Chloride Level (test code = 2075-0) 102 98-107 [facility]er[facility] or plasma carbon dioxide, total measurement (moles/volume)2019-03-28 14:18:00* Test Item Value Reference Range Interpretation Comments Carbon Dioxide Level (test code = 2028-9) 26 22-29 [facility]er[facility] or plasma anion iru8176-83-69 14:18:00* Test Item Value Reference Range Interpretation Comments Anion Gap (test code = 31284-8) 13.4 8-16 [facility] or plasma urea nitrogen measurement (mass/volume)2019-03-28 14:18:00* Test Item Value Reference Range Interpretation Comments Blood Urea Nitrogen (test code = 3094-0) 9 7-26 [facility]er[facility] or plasma creatinine measurement (mass/volume)2019-03-28 14:18:00* Test Item Value Reference Range Interpretation Comments Creatinine (test code = 2160-0) 0.94 0.57-1.11 [facility]erum or plasma urea nitrogen/creatinine mass aoden0467-99-94 14:18:00* Test Item Value Reference Range Interpretation Comments BUN/Creatinine Ratio (test code = 3097-3) 10 6-25 [facility] HospitalEstimated glomerular filtration rate (GFR) fnhpkvzqdqbjf2785-99-26 14:18:00* Test Item Value Reference Range Interpretation Comments Estimat Glomerular Filtration Rate (test code = 073999576) > 60 >60 Ranges were taken from the National Kidney Disease Education Program and the [facility] [employer] [employer] literature.Reference ranges:60 or greater: Lhogcy84-60 ( for 3 consecutive months): Chronic kidney disease 15 or less: Kidney failureRolling Plains Memorial HospitalGlucose hgyceshoras7915-58-99 14:18:00* Test Item Value Reference Range Interpretation Comments Glucose Level (test code = RKE9909) 77 74-118 [facility]er[facility] or plasma calcium measurement (mass/volume)2019-03-28 14:18:00* Test Item Value Reference Range Interpretation Comments Calcium Level (test code = 70246-2) 9.1 8.4-10.2 [facility]erum or plasma total bilirubin measurement (mass/volume)2019-03-28 14:18:00* Test Item Value Reference Range Interpretation Comments Total Bilirubin (test code = 1975-2) 0.6 0.2-1.2 [facility] HospitalFluoroscopic procedure less than one hour vjzdysnk2094-88-37 14:18:00* Test Item Value Reference Range Interpretation Comments Aspartate Amino Transf (AST/SGOT) (test code = Aspartate Amino Transf (AST/SGOT)) 15 5-34 [facility] Hospitalerum or plasma alanine aminotransferase measurement (enzymatic activity/volume)2019-03-28 14:18:00* Test Item Value Reference Range Interpretation Comments Alanine Aminotransferase (ALT/SGPT) (test code = 1742-6) 10 0-55 [facility]erum or plasma protein measurement (mass/volume)2019-03-28 14:18:00* Test Item Value Reference Range Interpretation Comments Total Protein (test code = 2885-2) 7.1 6.5-8.1 [facility]er[facility] or plasma albumin measurement (mass/volume)2019-03-28 14:18:00* Test Item Value Reference Range Interpretation Comments Albumin (test code = 1751-7) 4.0 3.5-5.0 [facility] HospitalPlasma globulin measurement (mass/volume) 2019-03-28 14:18:00* Test Item Value Reference Range Interpretation Comments Globulin (test code = 35163-4) 3.1 2.3-3.5 [facility]er[facility] or plasma albumin/globulin mass escat8101-37-27 14:18:00* Test Item Value Reference Range Interpretation Comments Albumin/Globulin Ratio (test code = 1759-0) 1.3 0.8-2.0 [facility]er[facility] or plasma alkaline phosphatase measurement (enzymatic activity/volume)2019-03-28 14:18:00* Test Item Value Reference Range Interpretation Comments Alkaline Phosphatase (test code = 6768-6) 73 40-150 [facility]er[facility] or plasma thyrotropin measurement by detection limit <= 0.005 miu/l (units/volume)2019-03-28 14:18:00* Test Item Value Reference Range Interpretation Comments Thyroid Stimulating Hormone (TSH) (test code = 44319-6) 1.351 0.350-4.940 [facility] HospitalChlamydia trachomatis rRNA detection by probe and target amplification mxfwbw2904-39-80 14:18:00* Test Item Value Reference Range Interpretation Comments Chlamydia/GC Amplified DNA (test code = 16268-0) Negative Negat willem [facility] HospitalNeisseria gonorrhoeae rRNA detection by probe and target amplification lahazo3707-71-57 14:18:00* Test Item Value Reference Range Interpretation Comments Neisseria gonorrhoeae DNA (DOUGLAS) (test code = 33950-9) Negative Negative Performed at: [facility] Lab[address] [id number] Director: Nimo De La Rosa MD, Phone: [phone] Vista Medical CenterCT ABD/PEL WITH [id number]-[id number] 19:03:00 [facility] [address] [place] [address] Patient Name: KELY MEREDITH MR #: [id number] : [birth year] Age/Sex: 43/F Req #: [id number] Adm Physician: Ordered by: JOSE MANUEL DALTON MD Report #: [id number] Location: [facility] Room/Bed: Procedure: 0117- 0004 HOPD/CT ABD/PEL WITH CONTRAST-HOPD Exam Date: 03/18/19 Exam Time: 1858 REPORT STAT US: Signed EXAM: CT Abdomen and Pelvis WITH contrast INDICATION: Left low er quadrant pain. History of diverticulitis COMPARISON: 02/10/2013. TE TERESITANIQUE: Abdomen and pelvis were scanned utilizing a multidetector helical sca nner from the lung base to the pubic symphysis after administration of IV cont rast. Coronal and sagittal reformations were obtained. Routine protocol was pe rformed. Scan was performed when during portal venous phase. IV CONTR AST: 100 mL of Isovue 370 ORAL CONTRAST: Water COMPLICAT IONS: None RADIATION DOSE: Total DLP: 573 mGy*cm Estimated ef fective dose: (DLP x 0.015 x size factor) mSv CTDIvol has been reviewed. It is below the limits set by the Radiation Protocol Committee (RPC). D ose modulation, iterative reconstruction, and/or weight based adjustment of th e mA/kV was utilized to reduce the radiation dose to as low as reasonably achi evable. FINDINGS: LINES and TUBES: None. LOWER THORAX: Unremark able HEPATOBILIARY: No focal hepatic lesions. No biliary ductal dilati on. GALLBLADDER: Cholecystectomy SPLEEN: No splenomegaly. PANC REAS: No focal masses or ductal dilatation. ADRENALS: No adrenal nodules KIDNEYS/URETERS: Kidneys enhance symmetrically. No hydronephrosis. No cystic or solid mass lesions. No stones. GI TRACT: No abnormal distentio n, wall thickening, or evidence of bowel obstruction. Scattered diverticulosi s without evidence of diverticulitis Appendix is normal. PELVIC ORGANS/B LADDER: Unremarkable. LYMPH NODES: No lymphadenopathy. VESSELS: Unrema rkable. PERITONEUM / RETROPERITONEUM: No free air or fluid. BONES: Unr emarkable. SOFT TISSUES: Unremarkable. IMPRESSION: 1. Scattered diverticulosis without evidence of diverticulitis Signed by: Dr. Kiah Regalado M.D. on 03/18/2019 7:07 PM Dictated By: KIAH REGALADO MD, MD 06 Transcribed By: IRLANDA on 03/18/191906 COPY TO: JOSE MANUEL DALTON MD ANKLE 3 VIEW RT - [id number] 17:36:00 [place] [address] Patient Name: KELY MEREDITH MR #: [id number] : 1975 Age/Sex: 43/F Req #: [id number] Adm Physician: Ordered by: YNES WALTERS MD Report #: [id number] Location: [facility] Room/Bed: Procedure: 0106-000 5 HOPD/ANKLE 3 VIEW RT - HOPD Exam Date: 03/07/19 Ex am Time: 1731 REPORT STATUS: Signed EXAMINATION: ANKLE 3 VIEW RT - HOPD INDICATION: Trauma COMPAR LESLYE: None FINDINGS: No acute fracture or dislocation. Alignment appears anatomic. The ankle mortise is intact and symmetric. No ankle joint ef fusion. No substantial degenerative change. IMPRESSION: No acute osseo us injury. Signed by: Nano Ramírez MD on 03/07/2019 5:37 PM Dictated By : NANO RAMÍREZ MD 36 Trans cribed By: IRLANDA on 03/07/191736 COPY TO: YNES WALTERS MD FOOT 3 VIEW RT - [id number] 17:33:00 [facility] [address] [place], [place] [address] Patient Name: KELY MEREDITH MR #: [id number] : 1975 Age/Sex: 43/F Req #: [id number] Adm Physician: Ordered by: YNES WALTERS MD Report #: [id number] Location: [facility] Room/Bed: Procedure: 0106-000 4 HOPD/FOOT 3 VIEW RT - HOPD Exam Date: 03/07/19 Exa m Time: 1730 REPORT STATUS: Signed EXAMINATION: FOOT 3 VIEW RT - HOPD INDICATION: Trauma, foot pain COMPARISON: None FINDINGS: There is an acute nondisplaced obli que fracture of the second proximal phalanx without intra-articular extension. Mild associated soft tissue swelling. No other acute fracture or dislocation. Alignment appears anatomic. No substantial degenerative change. IMPRESSI ON: Acute nondisplaced fracture of second proximal phalanx without intra-cb cular extension. Signed by: Nano Ramírez MD on 03/07/2019 5:36 PM Dic tated By: NANO RAMÍREZ MD 173 6 Transcribed By: IRLANDA on 03/07/19 1736 COPY TO: YNES WALTERS MD - CT ABD PELVIS [id number] 13:27:00 Name: KELY MEREDITH [facility] : 1975 Age/S: 43 / F [facility] Unit #: [id number] Loc: [place] [address] Phys: Goran Bocanegra NP Acct: [id number] Dis Date: Status: REG ER PHONE #: [phone] Exam Date: 08/05/2018 1245 FAX #: [phone] Reason: LLQ ABDOMINAL PAIN EXAMS: CPT CODE: [id number] CT ABD PELVIS W/CONT 97028 HISTORY: Left lower quadrant pain. COMPARISON: December 19, 2017. CT abdomen and pelvis with IV contrast: 100 mL of Isovue-370. Automated exposure control. CT of abdomen: Lung bases are clear. The liver is enhancing homogeneously without discrete mass. Patient is post cholecystectomy. Portal vein and hepatic artery remain patent. The liver is not enlarged. Spleen is enhancing homogeneously. Stomach di stended incompletely however it is normal in appearance. Wooten creas is enhancing homogeneously. Adrenals are normal. Kidneys are free from hydroureteronephrosis. Homogeneous enhancement. Bilateral excre tion. No pathologic adenopathy. Well-opacified abdominal and pelvi c vasculature. No bowel obstruction or colitis or diverticul itis or enteritis. CT PELVIS: Normal appendix. Pelvi c bowel loops are unobstructed with mild sigmoid diverticulosis without di verticulitis. Decompressed urinary bladder is limited. Patient is post hysterectomy. No pelvic pathologic adenopathy. No free fluid or free air. Subcutaneous tissues and the musculature demonstrating normal appearance. No lytic or blastic lesions are noted within the bony s keleton. Bone island within the left iliac wing is stable. IMPRE SSION: No acute intra-abdominal or intrapelvic pathology. PAGE 1 Signed Report (CONTINUED) N amie: KELY MEREDITH [facility] : 0 1975 Age/S: 43 / F [address] [facility] Unit #: [id number] Loc: [place] [address] Phys: Jeffrey Bocanegra NP Acct: [id number] Dis D ate: Status: REG ER PHONE #: [phone] Exam Date: 08/05/2018 1245 FAX #: [phone] Reason: LLQ ABDOMINAL PAIN EXAMS: CPT CODE: [id number] CT ABD PELVIS W/ CONT 36955 <Continued> at 1327 Reported and signed by: Alejandro Luna M.D. CC: Rufus Oakley; Goran Bocanegra NP T echnologist:Brenda Perez RT(R)(CT) CTDI: DLP: Trnscb Date /Time: 08/05/2018 (2669) [id number] Orig Print D/T: S: 07/2018 (8136) PAGE 2 Signed Report CBC W/O [id number] 11:20:00* Test Item Value Reference Range Interpretation Comments WHITE BLOOD CELL (test code = WBC) 5.9 K/mm3 4.5-12.5 N RED BLOOD CELL (test code = RBC) 4.61 mill/mm3 3.7-5.2 N HEMOGLOBIN (test code = HGB) 14.3 gram/dL 11.5-15.5 N HEMATOCRIT (test code = HCT) 40.3 % 36.0-46.0 N MEAN CELL VOLUME (test code = MCV) 87.4 fL 80-98 N MEAN CELL HGB (test code = MCH) 31.0 picogram 27.0-33.0 N MEAN CELL HGB CONCETRATION (test code = MCHC) 35.5 gram/dL 33.0-36. 0 N RED CELL DISTRIBUTION WIDTH (test code = RDW) 12.5 % 11.6-16. 2 N PLATELET COUNT (test code = PLT) 269 K/mm3 150-450 N MEAN PLATELET VOLUME (test code = MPV) 9.9 fL 6.7-11.0 N BASIC METABOLIC [id number] 11:19:00* Test Item Value Reference Range Interpretation Comments SODIUM (test code = NA) 145 mmol/L 136-145 N POTASSIUM (test code = K) 3.2 mmol/L 3.5-5.1 L CHLORIDE (test code = CL) 111.0 mmol/L 98-107 H CARBON DIOXIDE (test code = CO2) 26.0 mmol/L 21-32 N ANION GAP (test code = GAP) 11.2 10-20 N GLUCOSE (test code = GLU) 97 mg/dL 74-106 N BLOOD UREA NITROGEN (test code = BUN) 7 mg/dL 7-18 N GLOMERULAR FILTRATION RATE (test code = GFR) > 60 mL/min >=60 Estimated GFR by using Modified MDRD formula.Chronic kidney disease is defined as either kidney damageor GFR <60 mL/min/1.73 m2 for >3 months. CREATININE (test code = CREAT) 0.80 mg/dL 0.55-1.02 N Note change in reference range due to change in reagent. BUN/CREATININE RATIO (test code = BUN/CREA) 8.8 10-20 L CALCIUM (test code = CA) 9.0 mg/dL 8.5-10.1 N HEPATIC FUNCTION [id number] 11:19:00* Test Item Value Reference Range Interpretation Comments TOTAL PROTEIN (test code = PROT) 7.7 gram/dL 6.4-8.2 N ALBUMIN (test code = ALB) 4.2 g/dL 3.4-5.0 N GLOBULIN (test code = GLOB) 3.5 gram/dL 2.7-4.2 N ALBUMIN/GLOBULIN RATIO (test code = A/G) 1.2 0.75-1.50 N BILIRUBIN TOTAL (test code = BILT) 1.10 mg/dL 0.0-1.0 H BILIRUBIN DIRECT (test code = BILD) 0.23 mg/dL 0.0-0.20 H SGOT/AST (test code = AST) 17 IUnit/L 15-37 N SGPT/ALT (test code = ALT) 28 IUnit/L 12-78 N ALKALINE PHOSPHATASE TOTAL (test code = ALKP) 75 IUnit/L 45-117 N Note change in reference range due to change in reagent. [id number] 11:19:00* Test Item Value Reference Range Interpretation Comments LIPASE (test code = LIP) 88 U/L 73.0-393.0 N HCG SERUM [id number] 11:19:00* Test Item Value Reference Range Interpretation Comments HCG SERUM QUAL (test code = HCGQL) NEGATIVE NEGATIVE This HCGQL test is NOT applicable for MALE patients.Check with nurse about probable order error.If Tumor Marker Test needed, nurse should order test "HCGTU"(Test #550.98828) [id number] 11:19:00* Test Item Value Reference Range Interpretation Comments TROPONIN-I (test code = TROPI) <0.015 ng/mL 0-0.045 N BASIC METABOLIC [id number] 11:11:00* Test Item Value Reference Range Interpretation Comments SODIUM (test code = NA) 145 mmol/L 136-145 N POTASSIUM (test code = K) 3.2 mmol/L 3.5-5.1 L CHLORIDE (test code = CL) 111.0 mmol/L 98-107 H CARBON DIOXIDE (test code = CO2) mmol/L 21-32 ANION GAP (test code = GAP) 10-20 GLUCOSE (test code = GLU) mg/dL 74-106 BLOOD UREA NITROGEN (test code = BUN) mg/dL 7-18 GLOMERULAR FILTRATION RATE (test code = GFR) mL/min >=60 CREATININE (test code = CREAT) mg/dL 0.55-1.02 BUN/CREATININE RATIO (test code = BUN/CREA) 10-20 CALCIUM (test code = CA) mg/dL 8.5-10.1 HEPATIC FUNCTION [id number] 11:11:00* Test Item Value Reference Range Interpretation Comments TOTAL PROTEIN (test code = PROT) gram/dL 6.4-8.2 ALBUMIN (test code = ALB) g/dL 3.4-5.0 GLOBULIN (test code = GLOB) gram/dL 2.7-4.2 ALBUMIN/GLOBULIN RATIO (test code = A/G) 0.75-1.50 BILIRUBIN TOTAL (test code = BILT) mg/dL 0.0-1.0 BILIRUBIN DIRECT (test code = BILD) mg/dL 0.0-0.20 SGOT/AST (test code = AST) IUnit/L 15-37 SGPT/ALT (test code = ALT) IUnit/L 12-78 ALKALINE PHOSPHATASE TOTAL (test code = ALKP) IUnit/L 45-117 [id number] 11:11:00* Test Item Value Reference Range Interpretation Comments LIPASE (test code = LIP) U/L 73.0-393.0 HCG SERUM [id number] 11:11:00* Test Item Value Reference Range Interpretation Comments HCG SERUM QUAL (test code = HCGQL) NEGATIVE NEGATIVE This HCGQL test is NOT applicable for MALE patients.Check with nurse about probable order error.If Tumor Marker Test needed, nurse should order test "HCGTU"(Test #550.19276) [id number] 11:11:00* Test Item Value Reference Range Interpretation Comments TROPONIN-I (test code = TROPI) ng/mL 0-0.045 BASIC METABOLIC [id number] 11:09:00* Test Item Value Reference Range Interpretation Comments SODIUM (test code = NA) mmol/L 136-145 POTASSIUM (test code = K) mmol/L 3.5-5.1 CHLORIDE (test code = CL) mmol/L 98-107 CARBON DIOXIDE (test code = CO2) mmol/L 21-32 ANION GAP (test code = GAP) 10-20 GLUCOSE (test code = GLU) mg/dL 74-106 BLOOD UREA NITROGEN (test code = BUN) mg/dL 7-18 GLOMERULAR FILTRATION RATE (test code = GFR) mL/min >=60 CREATININE (test code = CREAT) mg/dL 0.55-1.02 BUN/CREATININE RATIO (test code = BUN/CREA) 10-20 CALCIUM (test code = CA) mg/dL 8.5-10.1 HEPATIC FUNCTION [id number] 11:09:00* Test Item Value Reference Range Interpretation Comments TOTAL PROTEIN (test code = PROT) gram/dL 6.4-8.2 ALBUMIN (test code = ALB) g/dL 3.4-5.0 GLOBULIN (test code = GLOB) gram/dL 2.7-4.2 ALBUMIN/GLOBULIN RATIO (test code = A/G) 0.75-1.50 BILIRUBIN TOTAL (test code = BILT) mg/dL 0.0-1.0 BILIRUBIN DIRECT (test code = BILD) mg/dL 0.0-0.20 SGOT/AST (test code = AST) IUnit/L 15-37 SGPT/ALT (test code = ALT) IUnit/L 12-78 ALKALINE PHOSPHATASE TOTAL (test code = ALKP) IUnit/L 45-117 [id number] 11:09:00* Test Item Value Reference Range Interpretation Comments LIPASE (test code = LIP) U/L 73.0-393.0 HCG SERUM [id number] 11:09:00* Test Item Value Reference Range Interpretation Comments HCG SERUM QUAL (test code = HCGQL) NEGATIVE NEGATIVE This HCGQL test is NOT applicable for MALE patients.Check with nurse about probable order error.If Tumor Marker Test needed, nurse should order test "HCGTU"(Test #550.90261) [id number]-[id number] 11:09:00* Test Item Value Reference Range Interpretation Comments TROPONIN-I (test code = TROPI) ng/mL 0-0.045 URINALYSIS ZDWNJVNY1201-35-77 11:09:00* Test Item Value Reference Range Interpretation Comments UA COLOR (test code = COLU) YELLOW YELLOW UA APPEARANCE (test code = APPU) CLEAR CLEAR UA GLUCOSE DIPSTICK (test code = DGLUU) NEGATIVE mg/dL NEGATIVE UA BILIRUBIN DIPSTICK (test code = BILU) NEGATIVE mg/dL NEGATIVE UA KETONE DIPSTICK (test code = KETU) 150 (4+) mg/dL NEGATIVE A UA SPECIFIC GRAVITY (test code = SGU) 1.028 1.001-1.035 UA BLOOD DIPSTICK (test code = NIGHAT) 0.03 mg/dL (Trace) mg/dL NEGATI VE A UA PH DIPSTICK (test code = KATIE) 6.0 5.0-8.0 UA PROTEIN DIPSTICK (test code = PROU) 30 (1+) mg/dL NEGATIVE A UA UROBILINIOGEN DIPSTICK (test code = URO) 2.0 (1+) mg/dL NEGATIVE A UA NITRITE DIPSTICK (test code = MAY) NEGATIVE NEGATIVE UA LEUKOCYTE ESTERASE W REFLEX (test code = LEUUR) NEGATIVE Stephania/uL NEGATIVE UA WBC (test code = WBCU) 0-5 per HPF 0-5 UA RBC (test code = RBCU) 0-2 #/HPF 0-5 UA EPITHELIAL CELLS (test code = EPIU) FEW per HPF FEW UA BACTERIA (test code = BACU) FEW #/HPF NONE A UA MUCUS (test code = MUCU) MANY #/LPF FEW A Urine Source? Clean CatchCT BRAIN [id number]-[id number] 19:25:00 [place] [address] Patient Name: KELY MEREDITH MR #: [id number] : [birth year] Age/Sex: 43/F Req #: [id number] Adm Physician: Ordered by: VASYL BENOIT MD Report #: [id number] Location: [facility] Room/Bed: Procedure: [id number] HOPD/CT BRAIN WO-HOPD Exam Date: 06/02/18 Exam Time: 1914 REPORT STATUS: Signed EXAMINATION: Head CT HISTORY: Dizziness, headache for last 6 days. COMP ARISON: None. TECHNIQUE: Multidetector axial images were obtained without cont rast from the foramen magnum to the vertex . The images were reconstructed usi ng brain and bone algorithms. Thin section brain images were reformatted into coronal and sagittal planes. Image quality: Motion/streaking artifact limit s the evaluation at some segments of the head. Dose modulation, iterative re construction, and/or weight based adjustment of the mA/kV was utilized to redu ce the radiation dose to as low as reasonably achievable. FINDINGS: Parenchyma: 1. No abnormal densities. Questionable ill-defined areas of hypodensity are likely artifactual. 2. No mass or hemorrhage. No CT louie dence of acute territorial vascular insult. Extra-axial spaces: No abnormal density. No extra-axial fluid collections Brain volume: Norm al for age. Ventricles: No hydrocephalus or displacement. Arter ies: No density suggestive of thrombus. Dural sinuses: No abnormal densi ty. Extra-axial spaces: No abnormal density. Foramen magnum: No mass, Chiari malformation, or basilar invagination. Sella: No obvious ma ss. Paranasal/mastoid sinuses: Imaged portions unremarkable. Sk ull/Scalp: No lytic or blastic lesions. No fractures. IMPRESSION: No intracranial abnormalities. Signed by: Dr. Asad Stack M.D. on 06/02/2018 7 :27 PM Dictated By: ASAD STACK MD 26 Transcribed By: IRLANDA on 06/02/181926 COPY TO: VASYL BENOIT MD MAMMOGRAPHY DIGITAL SCR [id number] 13:44:00 [place] [address] Patient Name: KELY MEREDITH MR #: [id number] : [birth year] Age/Sex: 43/F Req #: [id number] Adm Physician: Ordered by: RUFUS AOKLEY MD Report #: [id number] Location: MAMMO Room/Bed: Procedure: [id number] MG/MAMMOGRAPHY DIGITAL SCR BILAT Exam Date: 05/19/18 Exam Time: 1317 REPORT STATUS: Si gned #[id number] - MGSCRBIL #BILATERAL DIGITAL SCREENING MAMMOGRAM CAD: 2018 CLINICAL: Routine screening. Comparison is made to ex am dated: 04/30/2017 mammogram - [facility]. Current study contains 4 films. The tissue of both breasts is heterogeneously dense. This may lower the sensitivity of mammography. Current study was also choco luated with a Computer Aided Detection (CAD) system. There is a benign calci fication in the left breast. No significant masses, calcifications, or other findings are seen in either breast. There has been no significant interval change. IMPRESSION: BENIGN There is no mammographic evidence of malignanc y. A 1 year screening mammogram is recommended. The patient will be notified by letter of the results. Mookie pierce/atm d:05/27/2018 13:30:36 [employer] Supervisor: Flakita EDWARDS)(Z[place]arias), [facility] letter sent: Compared to Prior B9 Mammogram BI-RADS: 2 Benign Dictated By: MOOKIE ROBERSON DO 1330 Transcribed By: MARIBELL on 05/27/18 1330 COPY TO: RUFUS OAKLEY MD MRI RIGHT KNEE [id number] 08:49:00 [place] [address] Patient Name: KELY MEREDITH MR #: [id number] : [birth year] Age/Sex: 42/F Req #: [id number] Adm Physician: Ordered by: SANDI CARDONA MD Report #: [id number] Location: MRI Room/Bed: Procedure: [id number] MRI/MRI RIGHT KNEE WO Exam Date: 03/09/18 Exam Time : 1533 REPORT STATUS: Signed JENNIFER HNIQUE: Magnetic resonance imaging of the RIGHT KNEE was performed WITHOUT inj ected contrast. HISTORY: Internal derangement, fall COMPARISON: [facility] knee radiographs March 07, 2018. FINDINGS: LIGAMENTS AND TENDONS: A CL: Intact, minimal intrasubstance degeneration. PCL: Intact Collateral li gaments: Mild edema surrounding the medial collateral ligament, low-grade sup erficial partial tearing of the anterior most mid fibers (series 2 image 18). The fibular collateral ligament is intact. Iliotibial band: Unremarkable Po pliteal tendon: Intact Extensor mechanism: Intact JOINT: Menisci: Medial: Minimal free margin fraying. Lateral: Intact Articular Cartilag e: Medial Compartment: Low-grade erosion of the weightbearing cartilage. La teral Compartment: No focal defect. Patellofemoral Compartment: Low-grade er osion at the patellar apex. Joint Fluid: The amount of fluid within the joint is within physiologic limits. BONES: No focal or infiltrative bon e marrow replacing abnormality. No acute fracture. SOFT TISSUES: Othe rwise, unremarkable. IMPRESSION: 1. Minimal low-grade partial tearing of the anterior fibers of the mid medial collateral ligament and diffuse spra in. 2. Minimal medial and patellofemoral compartment degenerative changes. Signed by: Arabella BoyceOLon, M.M.M. on 03/10/2018 9:12 AM Dictated By: LINDA VÁZQUEZ DO 1 T ranscribed By: IRLANDA on 03/10/18911 COPY TO: SANDI CARDONA MD KNEE 3VW RT - [id number] 17:07:00 [place] [address] Patient Name: KELY MEREDITH MR #: [id number] : 1975 Age/Sex: 42/F Req #: [id number] Adm Physician: Ordered by: TESFAYE RICHARDSON MD Report #: [id number] Location: [facility] Room/Bed: Procedure: [id number] HOP D/KNEE 3VW RT - HOPD Exam Date: 03/07/18 Exam Time: 1650 REPORT STATUS: Signed Right complete knee. CPT CODE: 16146. INDICATION: [place] knee "pop" while [employer] football COMPARISON: None FINDINGS: No evidence of acute fractur e or dislocation. The visualized joint spaces of the knee are preserved. No f ocal osseous lesions. No joint effusion. IMPRESSION: No osseous injur y or joint effusion. Signed by: Dr. Diana Wells MD on 03/07/2018 5:09 PM Dictated By: DIANA WELLS MD 08 Transcribed By: IRLANDA on 03/07/181708 CAREER AND GUIDANCE COUNSELOR Y TO: TESFAYE RICHARDSON MD Thyroid Stimulating Hormone (TSH)2017-11-17 10:04:00* Test Item Value Reference Range Interpretation Comments Thyroid Stimulating Hormone (TSH) (test code = 49710-5) 1.224 0.350-4.940 [facility] (TSH) 2017-11-17 10:04:00* Test Item Value Reference Range Interpretation Comments Thyroid Stimulating Hormone (TSH) (test code = 54756-3) 1.224 0.350-4.940 [facility] Kaoii8477-32-27 09:45:00* Test Item Value Reference Range Interpretation Comments Sodium Level (test code = 2951-2) 139 136-145 [facility] HospitalPotassium Neodw6211-24-87 09:45:00* Test Item Value Reference Range Interpretation Comments Potassium Level (test code = 2823-3) 4.1 3.5-5.1 [facility] HospitalChloride Kqilx5279-59-44 09:45:00* Test Item Value Reference Range Interpretation Comments Chloride Level (test code = 2075-0) 104 98-107 [facility] HospitalCarbon Dioxide Tsznq2113-89-96 09:45:00* Test Item Value Reference Range Interpretation Comments Carbon Dioxide Level (test code = 2028-9) 25 22-29 [facility] HospitalAnion Qzm4122-56-96 09:45:00* Test Item Value Reference Range Interpretation Comments Anion Gap (test code = 06382-5) 14.1 8-16 [facility] HospitalBlood Urea Fricjgwt9848-81-35 09:45:00* Test Item Value Reference Range Interpretation Comments Blood Urea Nitrogen (test code = 3094-0) 6 7-26 L [facility] HospitalCreatinine2018-09-18 09:45:00* Test Item Value Reference Range Interpretation Comments Creatinine (test code = 2160-0) 0.91 0.57-1.11 [facility] HospitalBUN/Creatinine Nbbgk0703-08-14 09:45:00* Test Item Value Reference Range Interpretation Comments BUN/Creatinine Ratio (test code = 3097-3) 7 6-25 [facility] HospitalEstimat Glomerular Filtration Rate 2017-11-17 09:45:00* Test Item Value Reference Range Interpretation Comments Estimat Glomerular Filtration Rate (test code = 418146057) > 60 >60 Ranges were taken from the National Kidney Disease Education Program and the [facility] literature.Reference ranges:60 or greater: Tvjkkg98-19 ( for 3 consecutive months): Chronic kidney disease 15 or less: Kidney failureRolling Plains Memorial HospitalGlucose Htvpf0687-76-29 09:45:00* Test Item Value Reference Range Interpretation Comments Glucose Level (test code = VIQ7597) 81 74-118 [facility] HospitalCalcium Twnmm0332-50-40 09:45:00* Test Item Value Reference Range Interpretation Comments Calcium Level (test code = 45097-8) 9.9 8.4-10.2 [facility] HospitalTotal Bpwiuoatn4242-57-93 09:45:00* Test Item Value Reference Range Interpretation Comments Total Bilirubin (test code = 1975-2) 1.2 0.2-1.2 [facility] HospitalAspartate Amino Transf (AST/SGOT) 2017-11-17 09:45:00* Test Item Value Reference Range Interpretation Comments Aspartate Amino Transf (AST/SGOT) (test code = Aspartate Amino Transf (AST/SGOT)) 15 5-34 [facility] HospitalAlanine Aminotransferase (ALT/SGPT) 2017-11-17 09:45:00* Test Item Value Reference Range Interpretation Comments Alanine Aminotransferase (ALT/SGPT) (test code = 1742-6) 12 0-55 [facility] HospitalTotal Wcarcvv9470-17-11 09:45:00* Test Item Value Reference Range Interpretation Comments Total Protein (test code = 2885-2) 7.4 6.5-8.1 [facility] HospitalAlbumin2018-09-18 09:45:00* Test Item Value Reference Range Interpretation Comments Albumin (test code = 1751-7) 4.1 3.5-5.0 [facility] HospitalGlobulin2018-09-18 09:45:00* Test Item Value Reference Range Interpretation Comments Globulin (test code = 00138-5) 3.3 2.3-3.5 [facility] HospitalAlbumin/Globulin Esemi4727-08-39 09:45:00 * Test Item Value Reference Range Interpretation Comments Albumin/Globulin Ratio (test code = 1759-0) 1.2 0.8-2.0 [facility] HospitalAlkaline Ruunboktqfy5961-62-74 09:45:00* Test Item Value Reference Range Interpretation Comments Alkaline Phosphatase (test code = 6768-6) 59 40-150 [facility] HospitalTriglycerides Cqnsi0861-57-57 09:45:00* Test Item Value Reference Range Interpretation Comments Triglycerides Level (test code = 2571-8) 146 0-149 [facility] HospitalCholesterol Ouyud6095-02-13 09:45:00* Test Item Value Reference Range Interpretation Comments Cholesterol Level (test code = 2093-3) 213 0-199 H Less than 200 mg/dL Low Umer353 - 239 mg/dL Borderline Mikc565 m g/dl and greater High Risk [facility] HospitalLDL Vftagkdzqgd4697-53-30 09:45:00* Test Item Value Reference Range Interpretation Comments LDL Cholesterol (test code = 2089-1) 122 60-130 [facility] HospitalHDL Yfkhtphyoal7292-09-45 09:45:00* Test Item Value Reference Range Interpretation Comments HDL Cholesterol (test code = 2085-9) 62 40-60 H [facility] HospitalCholesterol/HDL Akwua8874-90-42 09:45:00 * Test Item Value Reference Range Interpretation Comments Cholesterol/HDL Ratio (test code = 9830-1) 3.4 3.0-3.6 [facility] Omczs8461-65-89 09:45:00* Test Item Value Reference Range Interpretation Comments Sodium Level (test code = 2951-2) 139 136-145 [facility] HospitalPotassium Tjeqh2534-21-03 09:45:00* Test Item Value Reference Range Interpretation Comments Potassium Level (test code = 2823-3) 4.1 3.5-5.1 [facility] HospitalChloride Nmpfu0818-04-78 09:45:00* Test Item Value Reference Range Interpretation Comments Chloride Level (test code = 2075-0) 104 98-107 [facility] HospitalCarbon Dioxide Rugtr6674-85-99 09:45:00* Test Item Value Reference Range Interpretation Comments Carbon Dioxide Level (test code = 2028-9) 25 22-29 [facility] HospitalAnion Aap4495-54-49 09:45:00* Test Item Value Reference Range Interpretation Comments Anion Gap (test code = 84504-3) 14.1 8-16 [facility] HospitalBlood Urea Wxgznonx2205-10-61 09:45:00* Test Item Value Reference Range Interpretation Comments Blood Urea Nitrogen (test code = 3094-0) 6 7-26 L [facility] HospitalCreatinine2018-09-18 09:45:00* Test Item Value Reference Range Interpretation Comments Creatinine (test code = 2160-0) 0.91 0.57-1.11 [facility] HospitalBUN/Creatinine Dfvqt9947-45-97 09:45:00* Test Item Value Reference Range Interpretation Comments BUN/Creatinine Ratio (test code = 3097-3) 7 6-25 [facility] HospitalEstimat Glomerular Filtration Rate 2017-11-17 09:45:00* Test Item Value Reference Range Interpretation Comments Estimat Glomerular Filtration Rate (test code = 090358510) > 60 >60 Ranges were taken from the National Kidney Disease Education Program and the [facility] Kidney Foundation literature.Reference ranges:60 or greater: Nhzefc55-60 ( for 3 consecutive months): Chronic kidney disease 15 or less: Kidney failureRolling Plains Memorial HospitalGlucose Ipvcw5943-23-95 09:45:00* Test Item Value Reference Range Interpretation Comments Glucose Level (test code = TYT1096) 81 74-118 [facility] HospitalCalcium Dhnqd3037-78-94 09:45:00* Test Item Value Reference Range Interpretation Comments Calcium Level (test code = 29147-3) 9.9 8.4-10.2 [facility] HospitalTotal Chandtgve5300-29-42 09:45:00* Test Item Value Reference Range Interpretation Comments Total Bilirubin (test code = 1975-2) 1.2 0.2-1.2 [facility] HospitalAspartate Amino Transf (AST/SGOT) 2017-11-17 09:45:00* Test Item Value Reference Range Interpretation Comments Aspartate Amino Transf (AST/SGOT) (test code = Aspartate Amino Transf (AST/SGOT)) 15 5-34 [facility] HospitalAlanine Aminotransferase (ALT/SGPT) 2017-11-17 09:45:00* Test Item Value Reference Range Interpretation Comments Alanine Aminotransferase (ALT/SGPT) (test code = 1742-6) 12 0-55 [facility] HospitalTotal Fnmhnre2288-70-18 09:45:00* Test Item Value Reference Range Interpretation Comments Total Protein (test code = 2885-2) 7.4 6.5-8.1 [facility] HospitalAlbumin2018-09-18 09:45:00* Test Item Value Reference Range Interpretation Comments Albumin (test code = 1751-7) 4.1 3.5-5.0 [facility] HospitalGlobulin2018-09-18 09:45:00* Test Item Value Reference Range Interpretation Comments Globulin (test code = 23671-9) 3.3 2.3-3.5 [facility] HospitalAlbumin/Globulin Tmhnl5401-49-01 09:45:00 * Test Item Value Reference Range Interpretation Comments Albumin/Globulin Ratio (test code = 1759-0) 1.2 0.8-2.0 [facility] HospitalAlkaline Mylsdkndxnz3293-40-03 09:45:00* Test Item Value Reference Range Interpretation Comments Alkaline Phosphatase (test code = 6768-6) 59 40-150 [facility] HospitalTriglycerides Ljakt5716-88-55 09:45:00* Test Item Value Reference Range Interpretation Comments Triglycerides Level (test code = 2571-8) 146 0-149 [facility] HospitalCholesterol Vsqzc4606-37-45 09:45:00* Test Item Value Reference Range Interpretation Comments Cholesterol Level (test code = 2093-3) 213 0-199 H Less than 200 mg/dL Low Amkt802 - 239 mg/dL Borderline Gehp859 m g/dl and greater High Risk [facility] HospitalLDL Tjhdfvejijw0308-70-36 09:45:00* Test Item Value Reference Range Interpretation Comments LDL Cholesterol (test code = 2089-1) 122 60-130 [facility] HospitalHDL Iqqhybaeajr2810-65-82 09:45:00* Test Item Value Reference Range Interpretation Comments HDL Cholesterol (test code = 2085-9) 62 40-60 H [facility] HospitalCholesterol/HDL Dfgjm5521-16-57 09:45:00 * Test Item Value Reference Range Interpretation Comments Cholesterol/HDL Ratio (test code = 9830-1) 3.4 3.0-3.6 [facility] HospitalHuman Chorionic Gonadotropin, Qual 2017-08-31 12:40:00* Test Item Value Reference Range Interpretation Comments Human Chorionic Gonadotropin, Qual (test code = 2118-8) NEGATIVE NEGATIVE [facility] HospitalHuhannawa falls Chorionic Gonadotropin, Qual 2017-08-31 12:40:00* Test Item Value Reference Range Interpretation Comments Human Chorionic Gonadotropin, Qual (test code = 2118-8) NEGATIVE NEGATIVE [facility] Ughsz2076-47-87 09:43:00* Test Item Value Reference Range Interpretation Comments Sodium Level (test code = 2951-2) 139 136-145 [facility] HospitalPotassium Ihltm7652-61-65 09:43:00* Test Item Value Reference Range Interpretation Comments Potassium Level (test code = 2823-3) 3.4 3.5-5.1 L [facility] HospitalChloride Ahdvb5353-00-63 09:43:00* Test Item Value Reference Range Interpretation Comments Chloride Level (test code = 2075-0) 104 98-107 [facility] HospitalCarbon Dioxide Cbaup0482-62-17 09:43:00* Test Item Value Reference Range Interpretation Comments Carbon Dioxide Level (test code = 2028-9) 25 22-29 [facility] HospitalAnion Vzj8258-83-02 09:43:00* Test Item Value Reference Range Interpretation Comments Anion Gap (test code = 83822-2) 13.4 8-16 [facility] HospitalBlood Urea Mdtzgvbe0073-63-43 09:43:00* Test Item Value Reference Range Interpretation Comments Blood Urea Nitrogen (test code = 3094-0) 12 7-26 [facility] HospitalCreatinine2018-07-02 09:43:00* Test Item Value Reference Range Interpretation Comments Creatinine (test code = 2160-0) 0.94 0.57-1.11 [facility] HospitalBUN/Creatinine Gauxo1819-49-62 09:43:00* Test Item Value Reference Range Interpretation Comments BUN/Creatinine Ratio (test code = 3097-3) 13 6-25 [facility] HospitalEstimat Glomerular Filtration Rate 2017-08-31 09:43:00* Test Item Value Reference Range Interpretation Comments Estimat Glomerular Filtration Rate (test code = 83186-0) 60- >60 Ranges were taken from the National Kidney Disease Education Program and the [facility] literature.Reference ranges:60 or greater: Ktevze42-88 ( for 3 consecutive months): Chronic kidney disease 15 or less: Kidney failureRolling Plains Memorial HospitalGlucose Ucqpj2184-10-40 09:43:00* Test Item Value Reference Range Interpretation Comments Glucose Level (test code = PTE9408) 92 74-118 [facility] HospitalCalcium Ixjdn4534-12-26 09:43:00* Test Item Value Reference Range Interpretation Comments Calcium Level (test code = 23843-5) 9.1 8.4-10.2 [facility] HospitalTotal Iwaiseekd2929-22-19 09:43:00* Test Item Value Reference Range Interpretation Comments Total Bilirubin (test code = 1975-2) 0.6 0.2-1.2 [facility] HospitalAspartate Amino Transf (AST/SGOT) 2017-08-31 09:43:00* Test Item Value Reference Range Interpretation Comments Aspartate Amino Transf (AST/SGOT) (test code = Aspartate Amino Transf (AST/SGOT)) 11 5-34 [facility] HospitalAlanine Aminotransferase (ALT/SGPT) 2017-08-31 09:43:00* Test Item Value Reference Range Interpretation Comments Alanine Aminotransferase (ALT/SGPT) (test code = 1742-6) 8 0-55 [facility] HospitalTotal Rxonleo6669-42-38 09:43:00* Test Item Value Reference Range Interpretation Comments Total Protein (test code = 2885-2) 7.2 6.5-8.1 [facility] HospitalAlbumin2018-07-02 09:43:00* Test Item Value Reference Range Interpretation Comments Albumin (test code = 1751-7) 4.1 3.5-5.0 [facility] HospitalGlobulin2018-07-02 09:43:00* Test Item Value Reference Range Interpretation Comments Globulin (test code = 54284-6) 3.1 2.3-3.5 [facility] HospitalAlbumin/Globulin Xjhvd2966-24-93 09:43:00 * Test Item Value Reference Range Interpretation Comments Albumin/Globulin Ratio (test code = 1759-0) 1.3 0.8-2.0 [facility] HospitalAlkaline Vzfqocmbtfd0209-79-42 09:43:00* Test Item Value Reference Range Interpretation Comments Alkaline Phosphatase (test code = 6768-6) 79 40-150 [facility] HospitalAmylase Sirlg5819-70-06 09:43:00* Test Item Value Reference Range Interpretation Comments Amylase Level (test code = 1798-8) 55 25-125 [facility] HospitalLipase2018-07-02 09:43:00* Test Item Value Reference Range Interpretation Comments Lipase (test code = 3040-3) 36 8-78 [facility] HospitalAmylase Abxql2868-67-45 09:43:00* Test Item Value Reference Range Interpretation Comments Amylase Level (test code = 1798-8) 55 25-125 [facility] HospitalLipase2018-07-02 09:43:00* Test Item Value Reference Range Interpretation Comments Lipase (test code = 3040-3) 36 8-78 [facility] HospitalAmylase Smwyn9427-83-00 09:43:00* Test Item Value Reference Range Interpretation Comments Amylase Level (test code = 1798-8) 55 25-125 [facility] HospitalLipase2018-07-02 09:43:00* Test Item Value Reference Range Interpretation Comments Lipase (test code = 3040-3) 36 78 [facility] HospitalWhite Blood Acdrj0602-23-52 09:31:00* Test Item Value Reference Range Interpretation Comments White Blood Count (test code = 6690-2) 9.71 4.8-10.8 [facility] HospitalRed Blood Vwkpv0785-80-14 09:31:00* Test Item Value Reference Range Interpretation Comments Red Blood Count (test code = 789-8) 4.60 3.6-5.1 [facility] HospitalHemoglobin2018-07-02 09:31:00* Test Item Value Reference Range Interpretation Comments Hemoglobin (test code = 53665-2) 14.6 12.0-16.0 [facility] HospitalHematocrit2018-07-02 09:31:00* Test Item Value Reference Range Interpretation Comments Hematocrit (test code = 4544-3) 40.6 34.2-44.1 [facility] HospitalMean Corpuscular Twjgao5693-21-52 09:31:00* Test Item Value Reference Range Interpretation Comments Mean Corpuscular Volume (test code = 787-2) 88.3 81-99 [facility] HospitalMean Corpuscular Pzmvxxbdqu5594-59-82 09:31:00* Test Item Value Reference Range Interpretation Comments Mean Corpuscular Hemoglobin (test code = 785-6) 31.7 28-32 [facility] HospitalMean Corpuscular Hemoglobin Concent 2017-08-31 09:31:00* Test Item Value Reference Range Interpretation Comments Mean Corpuscular Hemoglobin Concent (test code = 786-4) 36.0 31-35 H [facility] HospitalRed Cell Distribution Lqxrj5189-13-47 09:31:00* Test Item Value Reference Range Interpretation Comments Red Cell Distribution Width (test code = 60450-1) 12.5 11.7 -14.4 [facility] HospitalPlatelet Seaao5878-82-95 09:31:00* Test Item Value Reference Range Interpretation Comments Platelet Count (test code = 777-3) 216 140-360 [facility] HospitalNeutrophils (%) (Auto)2017-08-31 09:31:00 * Test Item Value Reference Range Interpretation Comments Neutrophils (%) (Auto) (test code = 81628-3) 71.6 38.7-80.0 [facility] HospitalLymphocytes (%) (Auto)2017-08-31 09:31:00 * Test Item Value Reference Range Interpretation Comments Lymphocytes (%) (Auto) (test code = 736-9) 21.6 18.0-39.1 [facility] HospitalMonocytes (%) (Auto)2017-08-31 09:31:00* Test Item Value Reference Range Interpretation Comments Monocytes (%) (Auto) (test code = 5905-5) 5.6 4.4-11.3 [facility] HospitalEosinophils (%) (Auto)2017-08-31 09:31:00 * Test Item Value Reference Range Interpretation Comments Eosinophils (%) (Auto) (test code = 713-8) 0.3 0.0-6.0 [facility] HospitalBasophils (%) (Auto)2017-08-31 09:31:00* Test Item Value Reference Range Interpretation Comments Basophils (%) (Auto) (test code = 706-2) 0.3 0.0-1.0 [facility] HospitalIM GRANULOCYTES %2017-08-31 09:31:00* Test Item Value Reference Range Interpretation Comments IM GRANULOCYTES % (test code = IM GRANULOCYTES %) 0.6 0.0- 1.0 [facility] HospitalNeutrophils # (Auto)2017-08-31 09:31:00* Test Item Value Reference Range Interpretation Comments Neutrophils # (Auto) (test code = 751-8) 7.0 2.1-6.9 H [facility] HospitalLymphocytes # (Auto)2017-08-31 09:31:00* Test Item Value Reference Range Interpretation Comments Lymphocytes # (Auto) (test code = 37928-3) 2.1 1.0-3.2 [facility] HospitalMonocytes # (Auto)2017-08-31 09:31:00* Test Item Value Reference Range Interpretation Comments Monocytes # (Auto) (test code = 742-7) 0.5 0.2-0.8 [facility] HospitalEosinophils # (Auto)2017-08-31 09:31:00* Test Item Value Reference Range Interpretation Comments Eosinophils # (Auto) (test code = 711-2) 0.0 0.0-0.4 [facility] HospitalBasophils # (Auto)2017-08-31 09:31:00* Test Item Value Reference Range Interpretation Comments Basophils # (Auto) (test code = 704-7) 0.0 0.0-0.1 [facility] HospitalAbsolute Immature Granulocyte (auto 2017-08-31 09:31:00* Test Item Value Reference Range Interpretation Comments Absolute Immature Granulocyte (auto (codie t code = Absolute Immature Granulocyte (auto) 0.06 0-0.1 [facility] HospitalWhite Blood Hlbve6948-01-02 09:31:00* Test Item Value Reference Range Interpretation Comments White Blood Count (test code = 6690-2) 9.71 4.8-10.8 [facility] HospitalRed Blood Sciva6351-82-46 09:31:00* Test Item Value Reference Range Interpretation Comments Red Blood Count (test code = 789-8) 4.60 3.6-5.1 [facility] HospitalHemoglobin2018-07-02 09:31:00* Test Item Value Reference Range Interpretation Comments Hemoglobin (test code = 70906-6) 14.6 12.0-16.0 [facility] HospitalHematocrit2018-07-02 09:31:00* Test Item Value Reference Range Interpretation Comments Hematocrit (test code = 4544-3) 40.6 34.2-44.1 [facility] HospitalMean Corpuscular Nsrgax5226-48-91 09:31:00* Test Item Value Reference Range Interpretation Comments Mean Corpuscular Volume (test code = 787-2) 88.3 81-99 [facility] HospitalMean Corpuscular Urnxosyicq3069-30-19 09:31:00* Test Item Value Reference Range Interpretation Comments Mean Corpuscular Hemoglobin (test code = 785-6) 31.7 28-32 [facility] HospitalMean Corpuscular Hemoglobin Concent 2017-08-31 09:31:00* Test Item Value Reference Range Interpretation Comments Mean Corpuscular Hemoglobin Concent (test code = 786-4) 36.0 31-35 H [facility] HospitalRed Cell Distribution Qrymh9854-60-41 09:31:00* Test Item Value Reference Range Interpretation Comments Red Cell Distribution Width (test code = 98737-2) 12.5 11.7 -14.4 [facility] HospitalPlatelet Ejtej0023-22-25 09:31:00* Test Item Value Reference Range Interpretation Comments Platelet Count (test code = 777-3) 216 140-360 [facility] HospitalNeutrophils (%) (Auto)2017-08-31 09:31:00 * Test Item Value Reference Range Interpretation Comments Neutrophils (%) (Auto) (test code = 60529-1) 71.6 38.7-80.0 [facility] HospitalLymphocytes (%) (Auto)2017-08-31 09:31:00 * Test Item Value Reference Range Interpretation Comments Lymphocytes (%) (Auto) (test code = 736-9) 21.6 18.0-39.1 [facility] HospitalMonocytes (%) (Auto)2017-08-31 09:31:00* Test Item Value Reference Range Interpretation Comments Monocytes (%) (Auto) (test code = 5905-5) 5.6 4.4-11.3 [facility] HospitalEosinophils (%) (Auto)2017-08-31 09:31:00 * Test Item Value Reference Range Interpretation Comments Eosinophils (%) (Auto) (test code = 713-8) 0.3 0.0-6.0 [facility] HospitalBasophils (%) (Auto)2017-08-31 09:31:00* Test Item Value Reference Range Interpretation Comments Basophils (%) (Auto) (test code = 706-2) 0.3 0.0-1.0 [facility] HospitalIM GRANULOCYTES %2017-08-31 09:31:00* Test Item Value Reference Range Interpretation Comments IM GRANULOCYTES % (test code = IM GRANULOCYTES %) 0.6 0.0- 1.0 [facility] HospitalNeutrophils # (Auto)2017-08-31 09:31:00* Test Item Value Reference Range Interpretation Comments Neutrophils # (Auto) (test code = 751-8) 7.0 2.1-6.9 H [facility] HospitalLymphocytes # (Auto)2017-08-31 09:31:00* Test Item Value Reference Range Interpretation Comments Lymphocytes # (Auto) (test code = 76929-8) 2.1 1.0-3.2 [facility] HospitalMonocytes # (Auto)2017-08-31 09:31:00* Test Item Value Reference Range Interpretation Comments Monocytes # (Auto) (test code = 742-7) 0.5 0.2-0.8 [facility] HospitalEosinophils # (Auto)2017-08-31 09:31:00* Test Item Value Reference Range Interpretation Comments Eosinophils # (Auto) (test code = 711-2) 0.0 0.0-0.4 [facility] HospitalBasophils # (Auto)2017-08-31 09:31:00* Test Item Value Reference Range Interpretation Comments Basophils # (Auto) (test code = 704-7) 0.0 0.0-0.1 [facility] HospitalAbsolute Immature Granulocyte (auto 2017-08-31 09:31:00* Test Item Value Reference Range Interpretation Comments Absolute Immature Granulocyte (auto (codie t code = Absolute Immature Granulocyte (auto) 0.06 0-0.1 [facility] HospitalWhite Blood Iuyje8090-11-72 09:31:00* Test Item Value Reference Range Interpretation Comments White Blood Count (test code = 6690-2) 9.71 4.8-10.8 [facility] HospitalRed Blood Fcrfd9271-92-24 09:31:00* Test Item Value Reference Range Interpretation Comments Red Blood Count (test code = 789-8) 4.60 3.6-5.1 [facility] HospitalHemoglobin2018-07-02 09:31:00* Test Item Value Reference Range Interpretation Comments Hemoglobin (test code = 05998-7) 14.6 12.0-16.0 [facility] HospitalHematocrit2018-07-02 09:31:00* Test Item Value Reference Range Interpretation Comments Hematocrit (test code = 4544-3) 40.6 34.2-44.1 [facility] HospitalMean Corpuscular Wyymhk8615-20-53 09:31:00* Test Item Value Reference Range Interpretation Comments Mean Corpuscular Volume (test code = 787-2) 88.3 81-99 [facility] HospitalMean Corpuscular Qredjvfkzd7376-49-60 09:31:00* Test Item Value Reference Range Interpretation Comments Mean Corpuscular Hemoglobin (test code = 785-6) 31.7 28-32 [facility] HospitalMean Corpuscular Hemoglobin Concent 2017-08-31 09:31:00* Test Item Value Reference Range Interpretation Comments Mean Corpuscular Hemoglobin Concent (test code = 786-4) 36.0 31-35 H [facility] HospitalRed Cell Distribution Xuhre0834-14-22 09:31:00* Test Item Value Reference Range Interpretation Comments Red Cell Distribution Width (test code = 81711-3) 12.5 11.7 -14.4 [facility] HospitalPlatelet Qindv1752-94-95 09:31:00* Test Item Value Reference Range Interpretation Comments Platelet Count (test code = 777-3) 216 140-360 [facility] HospitalNeutrophils (%) (Auto)2017-08-31 09:31:00 * Test Item Value Reference Range Interpretation Comments Neutrophils (%) (Auto) (test code = 55123-6) 71.6 38.7-80.0 [facility] HospitalLymphocytes (%) (Auto)2017-08-31 09:31:00 * Test Item Value Reference Range Interpretation Comments Lymphocytes (%) (Auto) (test code = 736-9) 21.6 18.0-39.1 [facility] HospitalMonocytes (%) (Auto)2017-08-31 09:31:00* Test Item Value Reference Range Interpretation Comments Monocytes (%) (Auto) (test code = 5905-5) 5.6 4.4-11.3 [facility] HospitalEosinophils (%) (Auto)2017-08-31 09:31:00 * Test Item Value Reference Range Interpretation Comments Eosinophils (%) (Auto) (test code = 713-8) 0.3 0.0-6.0 [facility] HospitalBasophils (%) (Auto)2017-08-31 09:31:00* Test Item Value Reference Range Interpretation Comments Basophils (%) (Auto) (test code = 706-2) 0.3 0.0-1.0 [facility] HospitalIM GRANULOCYTES %2017-08-31 09:31:00* Test Item Value Reference Range Interpretation Comments IM GRANULOCYTES % (test code = IM GRANULOCYTES %) 0.6 0.0- 1.0 [facility] HospitalNeutrophils # (Auto)2017-08-31 09:31:00* Test Item Value Reference Range Interpretation Comments Neutrophils # (Auto) (test code = 751-8) 7.0 2.1-6.9 H [facility] HospitalLymphocytes # (Auto)2017-08-31 09:31:00* Test Item Value Reference Range Interpretation Comments Lymphocytes # (Auto) (test code = 43049-6) 2.1 1.0-3.2 [facility] HospitalMonocytes # (Auto)2017-08-31 09:31:00* Test Item Value Reference Range Interpretation Comments Monocytes # (Auto) (test code = 742-7) 0.5 0.2-0.8 [facility] HospitalEosinophils # (Auto)2017-08-31 09:31:00* Test Item Value Reference Range Interpretation Comments Eosinophils # (Auto) (test code = 711-2) 0.0 0.0-0.4 [facility] HospitalBasophils # (Auto)2017-08-31 09:31:00* Test Item Value Reference Range Interpretation Comments Basophils # (Auto) (test code = 704-7) 0.0 0.0-0.1 [facility] HospitalAbsolute Immature Granulocyte (auto 2017-08-31 09:31:00* Test Item Value Reference Range Interpretation Comments Absolute Immature Granulocyte (auto (codie t code = Absolute Immature Granulocyte (auto) 0.06 0-0.1 [facility] HospitalMRI SPINE CERVICAL [id number] 14:36:00 [place] [address] Patient Name: KELY MEREDITH MR #: [id number] : [birth year] Age/Sex: 42/F Req #: [id number] Adm Physician: Ordered by: TIA ANGELES MD Report #: [id number] Location: MRI Room/ Bed: Procedure: [id number] MRI/MRI SPINE CERVICAL WO Exam Date: Exam Time: REPORT STATUS: Signed Examination: MRI SPINE CERVICAL WO History: Left arm pain Comparison st udies: None Technique: Sagittal T1, T2 and IR, axial T2 and axial gradient ech o intravenous contrast: None Findings: The axial T2*images are sev erely limited due to artifact. Alignment: Normal lordosis. No scoliosis. Cervicomedullary junction: No abnormalities. Patent foramen magnum. Soft tiss ues: No T2 hyperintense inflammatory changes. Spinal cord: Normal in size and signal from the foramen magnum through T1. Vertebrae: No fractures, inf ection or neoplasm. T1 hyperintense hemangioma in the C6 vertebral body Dege nerative changes: C1-C2: No abnormalities. C2-C3: No abnormalities. C3-C4: No abnormalities. C4-C5: No abnormalities. C5-C6: No abnormalities. C6-C7: Posterior disc osteophyte complex without foraminal or canal stenosis. No disc herniation C7-T1: No abnormalities. IM PRESSION: 1. Mildly degenerated disc at C6-7. 2. Otherwise, no abnormal ities. 3. Mammogram foramina. No disc herniations This preliminary repor t was completed by the neuroradiology fellow Dr. River Rebolledo. Signed by : Dr. Judith Maldonado M.D. on 08/18/2017 4:22 PM Dictated By: JUDITH MALDONADO MD, MD Electronically Signed By: JUDITH MALDONADO MD, MD on 07/31 11/17 1622 Transcribed By: IRLANDA on 08/18/17 1622 COPY TO: ELISSA ANGELES MD MRI SPINE LUMBAR [id number] 14:29:00 [place] [address] Patient Name: KELY MEREDITH MR #: [id number] : 1975 Age/Sex: 42/F Req #: [id number] Adm Physician: Ordered by: TIA ANGELES MD Report #: [id number] Location: MRI Room/Bed: Procedure: [id number] MRI/MRI SPINE LUMBAR WO Ex am Date: Exam Time: REPORT STATUS: Signed History: Back pain and bilateral leg pain Comparison studies: None Techni que: Sagittal T1, T2 and IR, axial T2 with and without fat sat and axial spin density oblique Intravenous contrast: None Findings: Number of l umbar vertebral bodies: 5 . Alignment: Mild right curvature of the lumbar spin e centered at L2-L3. Soft tissues: No T2 hyperintense inflammatory changes . Paraspinal muscles: No signal abnormalities. Well-preserved. No atrophic ch anges . Lower thoracic cord: Normal in size and signal. The tip of the conus i s at T12-L1. Cauda equina:No masses. No arachnoiditis . Vertebrae: Normal in height and signal intensity. No fractures, infection or neoplasm. Degenerative changes: L1-L2 No abnormalities. L2-L3: No abnorm alities. L3-L4: No abnormalities. L4-L5: No abnormalities. L5 -S1: No abnormalities. Partially visualized sacrum: None . IMPRESS ION: 1. Mild right curvature of the lumbar spine centered at L2-L3 is prob ably positional 2. Otherwise, normal MRI of the lumbar spine. This pre liminary report was completed by the neuroradiology fellow Dr. River Rebolledo. Signed by: Dr. Judith Maldonado M.D. on 08/18/2017 4:24 PM Dictate d By: UJDITH MALDONADO MD, MD 23 Transcribed By: IRLANDA on 08/18/171623 COPY TO: TIA ANGELES MD Urine Fkow7807-57-18 11:53:00* Test Item Value Reference Range Interpretation Comments Urine Test (test code = 2106-3) NEGATIVE NEGATIVE [facility] HospitalUrine Ayux0340-83-63 11:53:00* Test Item Value Reference Range Interpretation Comments Urine Test (test code = 2106-3) NEGATIVE NEGATIVE [facility] Xytadpxpaius5146-19-08 23:36:00* Test Item Value Reference Range Interpretation Comments Stool Calprotectin (test code = 36445-7) -16 0-120 Concentration Interpretation Follow-Up<16 - 50 ug/g Normal None>50 -120 ug/g Borderline Re-evaluate in 4-6 weeks >120 ug/g Abnormal Repeat as clinically indicatedPerformed at: - [facility] [address] [id number] Director: Dallas Rosenberg MD, Phone: [phone] Plains [facility] HospitalClostridium Difficile Toxin A & T4848-49-79 10:13:00* Test Item Value Reference Range Interpretation Comments Clostridium Difficile Toxin A & B (test code = 709101271) NEGATIVE NEGATIVE Testing on stool aspirate specimens is outside ct technician claims since specime n type not validated on this assay.[facility] Lactoferrin (LAB)2017-05-09 15:22:00* Test Item Value Reference Range Interpretation Comments Stool Lactoferrin (LAB) (test code = 48708-5) NEGATIVE NEGATIVE Testing on stool aspirate specimens is outside ct technician claims since specime n type not validated on this assay.[facility] HospitalCT [facility]LVIS W [place] [address] Patient Name: KELY MEREDITH MR #: [id number] : 1975 Age/Sex: 42/F Req #: [id number] Adm Physician: Ordered by: CLAU ZAVALA MD Report #: [id number] Location: [place] Room/Bed: Procedure: [id number] CT/CT ABDOMEN/PELVIS W Exam Date : 06/11/17 Exam Time: 1538 REPORT STATUS: Fabienne d PROCEDURE: CT ABDOMEN AND PELVIS WITH CONTRAST TECHNIQUE: The abdo men and pelvis were scanned utilizing a multidetector helical scanner from th e diaphragm to the lesser trochanter after the IV administration of 100 cc of Isovue 370 and the oral administration of water. Coronal and sagittal multip lanar reformations were obtained. Total DLP: 199.42 mGy-cm COMPARISO N: CT abdomen pelvis 02/10/2013. INDICATIONS: ABDOMINAL PAIN, HX OF DIVE RTICULITIS FINDINGS: LOWER THORAX: Normal. HEPATOBILIARY: No focal hepatic lesions. No biliary ductal dilatation. Gallbladder is surgically ab sent. SPLEEN: No splenomegaly. PANCREAS: No focal masses or ductal dilatatio n. ADRENALS: No adrenal nodules. KIDNEYS/URETERS: No hydronephrosis, sto lidia, or solid mass lesions. PELVIC ORGANS/BLADDER: The uterus is surgically ab sent. Both ovaries are unremarkable. Right corpus luteum.. PERITONEUM / RETROPERITONEUM: No free air or fluid. LYMPH NODES: No lymphadenopathy. VES SELS: Unremarkable. GI TRACT: No distention or wall thickening. Appendix i s normal. BONES AND SOFT TISSUES: Unremarkable. IMPRESSION: Un remarkable abdomen and pelvis. Dictated by: Smith Barnett M.D. on 8 at 16:20 Electronically approved by: Smith Barnett M.D. on 06/11/2017 at 16: 20 Dictated By: SMITH BARNETT MD 1620 Transcribed By: MARCELLA on 06/11/17 1620 COPY TO: CLAU ZAVALA MD MAMMOGRAM DIGITAL SCR BI [place] [address] Patient Name: KELY MEREDITH MR #: [id number] : 1975 Age/Sex: 41/F Req #: [id number] Adm Physician: Ordered by: SARAH AYOUB MD Report #: [id number] Location: MAMMO Room/Bed: Procedure: [id number] MG/MAMMOGRAM DIGITAL SCR BI Exa m Date: 04/30/17 Exam Time: 1330 REPORT STATUS: Signed #[id number] - [id number] #BILATERAL DIGITAL SCREENING MAMMOGRAM WITH CAD: 04/30/2017 CLINICAL: Routine screening. No prior exams were av ailable for comparison. Current study contains 4 films. The tissue of both breasts is heterogeneously dense. This may lower the sensitivity of mammography. Current study was also evaluated with a Computer Aided Detection (CAD) s ystem. There is a benign calcification in the left breast. No significan t masses, calcifications, or other findings are seen in either breast. IM PRESSION: BENIGN There is no mammographic evidence of malignancy. A 1 year sc reening mammogram is recommended. The patient will be notified by letter of t he results. Mookie pierce/maribell:05/11/2017 12: 54:35 [employer] Supervisor: Flakita RALPH(Tamiko)(Zacarias), [facility] letter sent: Normal Exam Mammogram BI-RADS: 2 Benign Di ctated By: MOOKIE ROBERSON DO 1254 COPY TO: SARAH AYOUB MD MAMMOGRAPHY DIGITAL SCR BILAT [place] [address] Patient Name: KELY MEREDITH MR #: [id number] : 1975 Age/Sex: 42/F Req #: [id number] Adm Physician: Ordered by: SARAH AYOUB MD Report #: [id number] Location: MAMMO Room/Bed: Procedure: [id number] MG/MAMMOGRAPHY DIGITAL SCR BILAT Exam Date: 04/30/17 Exam Time: [address] ATUS: Signed #[id number] - MGSCRBIL #BILATERAL DIGITAL SCREENING MAMM OGRAM WITH CAD: 04/30/2017 CLINICAL: Routine screening. No prior exams we re available for comparison. Current study contains 4 films. The tissue of both breasts is heterogeneously dense. This may lower the sensitivity of mammogr aphy. Current study was also evaluated with a Computer Aided Detection (C AD) system. There is a benign calcification in the left breast. No signi ficant masses, calcifications, or other findings are seen in either breast. IMPRESSION: BENIGN There is no mammographic evidence of malignancy. A 1 ye ar screening mammogram is recommended. The patient will be notified by letter of the results. Mookie pierce/maribell: 8 12:54:35 [employer] Supervisor: Flakita RALPH(R)(M), [facility] letter sent: Normal Exam Mammogram BI-RADS: 2 Benign Dictated By: MOOKIE ROBERSON DO 1254 Transcribed By: MARIBELL on 05/11/17 1254 COPY TO: SARAH AYOUB MD
[2019-10-27] MEDS ORDERED: ONDANSETRON HCL INJ 2MG/ML 2ML 2 MG/ML VIAL IV STA (23:43)
[2019-10-27] MEDS ORDERED: MORPHINE SULFATE 2 MG/ML SYR 1ML IV STA (23:43)
[2019-10-27] MEDS ORDERED: SODIUM CHLORIDE 0.9% 1000ML 1,000 ML IV SCH (23:45)
[2019-10-28] MEDS ORDERED: DIATRIZOATE MEGL/DIATRIZOA SOD 30 ML BTL PO ONE (00:03)
[2019-10-28] MEDS ORDERED: MORPHINE SULFATE INJ 4 MG/ML INJ 1ML ONE (00:03)
[2019-10-28] MEDS ORDERED: SODIUM CHLORIDE 0.9% 1000ML 1,000 ML ONE (00:04)
[2019-10-28 00:14] LABS: BASOPHILS % 0.2 % (0.0-1.0); EOSINOPHILS # (AUTO) 0.3 (0.0-0.4); EOSINOPHILS % 2.5 % (0.0-6.0); HEMATOCRIT 38.1 % (34.2-44.1); HEMOGLOBIN 12.9 g/dL (12.0-16.0); LYMPHOCYTES # (AUTO) 1.4 (1.0-3.2); LYMPHOCYTES % 12.5 % (18.0-39.1); MEAN CORPUSCULAR HGB CONC 33.9 g/dL (31-35); MEAN CORPUSCULAR VOLUME 91.6 fL (81-99); MONOCYTES # (AUTO) 0.7 (0.2-0.8); MONOCYTES % 5.8 % (4.4-11.3); NEUTROPHILS # (AUTO) 8.9 (2.1-6.9); NEUTROPHILS % 78.7 % (38.7-80.0); PLATELET COUNT 243 x10e3/uL (140-360); RED BLOOD COUNT 4.16 x10e6/uL (3.6-5.1)
[2019-10-28] MEDS ORDERED: SODIUM CHLORIDE 0.9% 1000ML 1,000 ML IV ONE (00:15)
--- NOTE | 2019-10-28 00:27 | Emergency Department Note ---
History of Present Illnes History of Present Illness Chief Complaint: Abdominal Complaints History of Present Illness This is a 44 year old female HAD R FALLOPIAN REMOVAL SURGERY WITH DR AYOUB THIS THURSDAY; COMES TO ED FOR UNCONTROLLED POST OPERATIVE PAIN AND NAUSEA;STATES SHE HAS REACHED OUT TO DR AYOUB BUT THE MEDICATION HE IS PROVIDING HER ARE NOT KEEPING HER COMFORTABLE. PRESCRIBED TYLENOL 3. PT REPORTS SHE FEELS MORE DISTENDED THAN NORMAL, REPORTS HAVING A SMALL BM THIS AM . Historian: Patient Arrival Mode: Car Trials Manager Required: No Onset (how long ago): day(s) (2) Location: ABDOMEN Quality: PAIN, NAUSEA Radiation: Reports non-radiation Severity: severe Onset quality: gradual Duration (how long): day(s) (2) Timing of current episode: constant Progression: waxing and waning Context: Reports recent surgery ( ABOVE); Denies recent illness, Denies trauma/injury Relieving factors: none Exacerbating factors: none Associated symptoms: Reports nausea/vomiting Treatments prior to arrival: other (TYLENOL #3) Past Medical/Family History Physician Review I have reviewed the patient's past medical and family history. Any updates have been documented here. Past Medical History Recent Fever: No Clinical Suspicion of Infectio: No New/Unexplained Change in Ment: No Past Medical History: Anxiety, Depression Other Medical History: PTSD Diverticulosis INSOMNIA Past Surgical History: Cholecysctectomy, Hysterectomy, T&A Other Surgery: ankle surgery Social History Smoking Cessation: Never Smoker Alcohol Use: None Any Illegal Drug Use: No Physically hurt or threatened: No Family History Family history of heart diseas: No Other Last Tetanus: UNKNOWN Review of Systems Review of Systems Constitutional: Reports no symptoms EENTM: Reports no symptoms Cardiovascular: Reports no symptoms Respiratory: Reports no symptoms Gastrointestinal: Reports as per HPI Genitourinary: Reports no symptoms Musculoskeletal: Reports no symptoms Integumentary: Reports no symptoms Neurological: Reports no symptoms Psychological: Reports no symptoms Endocrine: Reports no symptoms Hematological/Lymphatic: Reports no symptoms Physical Exam Related Data Allergies: Coded Allergies: No Known Drug Allergies (Verified Allergy, Unknown, 08/31/17) Uncoded Allergies: MRI DYE (Allergy, Severe, HIVES, 04/22/19) EGGS (Allergy, Unknown, 05/09/17) PECANS (Allergy, Unknown, 05/09/17) Triage Vital Signs Vital Signs Date Time Temp Pulse Resp B/P (MAP) Pulse Ox O2 Delivery O2 Flow Rate FiO2 10/27/19 23:36 98.4 71 22 107/71 98 Vital signs reviewed: Yes Physical Exam CONSTITUTIONAL Constitutional: Present well-developed, Present well-nourished, Present distressed (MODERATE) HENT HENT: Present normocephalic, Present atraumatic, Present oropharynx clear/moist, Present nose normal HENT L/R: Present left ext ear normal, Present right ext ear normal EYES Eyes: Reports PERRL, Reports conjunctivae normal NECK Neck: Present ROM normal PULMONARY Pulmonary: Present effort normal, Present breath sounds normal CARDIOVASCULAR Cardiovascular: Present regular rhythm, Present heart sounds normal, Present capillary refill normal, Present normal rate GASTROINTESTINAL Patient with tenderness across entire lower abdomen from umbilicus down. Mildly distended. Bowel sounds are hypoactive. Surgical wounds are clean dry and intact with no sign of infection. GENITOURINARY Genitourinary: Present exam deferred SKIN Skin: Present warm, Present dry MUSCULOSKELETAL Musculoskeletal: Present ROM normal NEUROLOGICAL Neurological: Present alert, Present oriented x 3, Present no gross motor or sensory deficits PSYCHOLOGICAL Psychological: Present mood/affect normal, Present judgement normal Results Laboratory Result Diagram: 10/28/19 0002 Laboratory Laboratory Tests Test 10/28/19 01:06 10/28/19 00:02 Urine Color Yellow (YELLOW) Urine Clarity Clear (CLEAR) Urine pH 7.5 (5 - 7) Urine Specific [place] 1.020 (1.010-1.025) Urine Protein Negative (NEGATIVE) Urine Glucose (UA) Negative (NEGATIVE) Urine Ketones Negative (NEGATIVE) Urine Blood Negative (NEGATIVE) Urine Nitrite Negative (NEGATIVE) Urine Bilirubin Negative (NEGATIVE) Urine Urobilinogen 0.2 mg/dL (0.2 - 1) Urine Leukocyte Esterase Negative (NEGATIVE) Urine RBC 0-5 /HPF (0-5) Urine WBC 0-5 /HPF (0-5) Urine Epithelial Cells Few /LPF (NONE) Urine Amorphous Sediment Few (FEW) Urine Bacteria Few /HPF (NONE) White Blood Count 11.33 x10e3/uL (4.8-10.8) Red Blood Count 4.16 x10e6/uL (3.6-5.1) Hemoglobin 12.9 g/dL (12.0-16.0) Hematocrit 38.1 % (34.2-44.1) Mean Corpuscular Volume 91.6 fL (81-99) Mean Corpuscular Hemoglobin 31.0 pg (28-32) Mean Corpuscular Hemoglobin Concent 33.9 g/dL (31-35) Red Cell Distribution Width 13.0 % (11.7-14.4) Platelet Count 243 x10e3/uL (140-360) Neutrophils (%) (Auto) 78.7 % (38.7-80.0) Lymphocytes (%) (Auto) 12.5 % (18.0-39.1) Monocytes (%) (Auto) 5.8 % (4.4-11.3) Eosinophils (%) (Auto) 2.5 % (0.0-6.0) Basophils (%) (Auto) 0.2 % (0.0-1.0) Neutrophils # (Auto) 8.9 (2.1-6.9) Lymphocytes # (Auto) 1.4 (1.0-3.2) Monocytes # (Auto) 0.7 (0.2-0.8) Eosinophils # (Auto) 0.3 (0.0-0.4) Basophils # (Auto) 0.0 (0.0-0.1) Absolute Immature Granulocyte (auto 0.03 x10e3/uL (0-0.1) Sodium Level 137 mmol/L (136-145) Potassium Level 3.2 mmol/L (3.5-5.1) Chloride Level 102 mmol/L (98-107) Carbon Dioxide Level 23 mmol/L (22-29) Anion Gap 15.2 mmol/L (8-16) Blood Urea Nitrogen 7 mg/dL (7-26) Creatinine 0.83 mg/dL (0.57-1.11) Estimat Glomerular Filtration Rate > 60 ML/MIN (60-) BUN/Creatinine Ratio 8 (6-25) Glucose Level 91 mg/dL (74-118) Calcium Level 8.8 mg/dL (8.4-10.2) Total Bilirubin 0.4 mg/dL (0.2-1.2) Aspartate Amino Transf (AST/SGOT) 14 IU/L (5-34) Alanine Aminotransferase (ALT/SGPT) 11 IU/L (0-55) Alkaline Phosphatase 76 IU/L (40-150) Total Protein 6.6 g/dL (6.5-8.1) Albumin 3.4 g/dL (3.5-5.0) Globulin 3.2 g/dL (2.3-3.5) Albumin/Globulin Ratio 1.1 (0.8-2.0) Amylase Level 44 U/L (25-125) Lipase 14 U/L (8-78) Laboratory Tests Test 10/28/19 00:02 White Blood Count 11.33 x10e3/uL (4.8-10.8) Red Blood Count 4.16 x10e6/uL (3.6-5.1) Hemoglobin 12.9 g/dL (12.0-16.0) Hematocrit 38.1 % (34.2-44.1) Mean Corpuscular Volume 91.6 fL (81-99) Mean Corpuscular Hemoglobin 31.0 pg (28-32) Mean Corpuscular Hemoglobin Concent 33.9 g/dL (31-35) Red Cell Distribution Width 13.0 % (11.7-14.4) Platelet Count 243 x10e3/uL (140-360) Neutrophils (%) (Auto) 78.7 % (38.7-80.0) Lymphocytes (%) (Auto) 12.5 % (18.0-39.1) Monocytes (%) (Auto) 5.8 % (4.4-11.3) Eosinophils (%) (Auto) 2.5 % (0.0-6.0) Basophils (%) (Auto) 0.2 % (0.0-1.0) Neutrophils # (Auto) 8.9 (2.1-6.9) Lymphocytes # (Auto) 1.4 (1.0-3.2) Monocytes # (Auto) 0.7 (0.2-0.8) Eosinophils # (Auto) 0.3 (0.0-0.4) Basophils # (Auto) 0.0 (0.0-0.1) Absolute Immature Granulocyte (auto 0.03 x10e3/uL (0-0.1) Imaging Imaging results reviewed: Yes Impressions Procedure: [id number] CT/CT ABDOMEN/PELVIS WO Exam Date: 10/27/19 Exam Time: 2359 REPORT STATUS: Signed EXAM: CT Abdomen and Pelvis WITHOUT contrast INDICATION: ORAL CONTRAST ONLY, ABD PAIN S/P SURGERY 2 DAYS AGO COMPARISON: CT dated 08/18/2019. TECHNIQUE: Abdomen and pelvis were scanned utilizing a multidetector helical scanner from the lung base to the pubic symphysis without administration of IV contrast. Absence of intravenous contrast decreases sensitivity for detection of focal lesions and vascular pathology. Coronal and sagittal reformations were obtained. Routine protocol was performed. IV CONTRAST: None ORAL CONTRAST: Administered. COMPLICATIONS: None RADIATION DOSE: Total DLP: 233.11 mGy*cm Estimated effective dose: (DLP x 0.015 x size factor) mSv CTDIvol has been reviewed. It is below the limits set by the Radiation Protocol Committee (RPC). Dose modulation, iterative reconstruction, and/or weight based adjustment of the mA/kV was utilized to reduce the radiation dose to as low as reasonably achievable. FINDINGS: LINES and TUBES: None. LOWER THORAX: Unremarkable HEPATOBILIARY: No significant abnormality. GALLBLADDER: There are cholecystectomy clips. SPLEEN: No splenomegaly. PANCREAS: No focal masses or ductal dilatation. ADRENALS: No adrenal nodules KIDNEYS/URETERS: No hydronephrosis. No cystic or solid mass lesions. No stones. GI TRACT: No abnormal distention, wall thickening, or evidence of bowel obstruction. Appendix is normal. PELVIC ORGANS/BLADDER: Hysterectomy. No adnexal masses. Urinary bladder unremarkable. LYMPH NODES: No lymphadenopathy. VESSELS: Unremarkable. PERITONEUM / RETROPERITONEUM: Trace free air in the right paracolic gutter, likely related to recent surgery. Small volume free fluid in the dependent pelvis. BONES: Unremarkable. SOFT TISSUES: Defect in the midline abdominal wall soft tissues compatible with recent surgery. IMPRESSION: 1. No acute abdominopelvic process identified on this noncontrast exam. 2. Expected postsurgical changes in the pelvis. Signed by: Yadi Stein MD on 10/28/2019 2:00 AM Dictated By: YADI STEIN MD 9 Transcribed By: IRLANDA on 10/28/19199 COPY TO: SOCORRO KUHN MD~ Assessment & Plan Medical Decision Making MDM The patient with complaint of lower abdominal pain 2 days status post surgery of which multiple adhesions were removed and patient had a right ovary and fallopian tube removed. CBC, CMP, amylase, lipase, UA, CT abdomen and pelvis ordered to eval for leukocytosis, electrolyte abnormality, elevated LFTs, pancreatitis, UTI, bowel instruction, perforated bowel, paralytic ileus, postoperative intra-abdominal abscess Morphine 4 mg IV ordered, Zofran 4 mg IV ordered, normal saline 1 L IV bolus ordered I SPOKE WITH DR AYOUB ABOUT PT. HE IS AWARE OF TEST RESULTS AND PT'S PAIN Assessment & Plan Final Impression: (1) Post-operative pain Depart Disposition: HOME, SELF-CARE Last Vital Signs Date Time Temp Pulse Resp B/P (MAP) Pulse Ox O2 Delivery O2 Flow Rate FiO2 10/27/19 23:36 98.4 71 22 107/71 98 Home Meds Reported Medications Dicyclomine Hcl (BENTYL) 10 Mg/1 Ml Ampul, IV QID, VIAL 10/18/19 Albuterol Sulf* (PROAIR HFA INHALER*) 8.5 Gm Inh, 2 PUMP INH PRN 04/22/19 Lisdexamfetamine Dimesylate (VYVANSE) 50 Mg Capsule, 50 MG PO PRN 04/22/19 Clonazepam (CLONAZEPAM) 1 Mg Tablet, 1 MG PO DAILY, TAB 04/22/19 Zolpidem Tartrate (AMBIEN) 10 Mg Tablet, 10 MG PO HS PRN for INSOMNIA, #30 TAB 05/28/17 Medications in the ED Morphine Sulfate 4 mg NOW STAT IV Last administered on 10/28/19at 00:05; Admin Dose 4 MG; Start 10/27/19 at 23:43; Stop 10/27/19 at 23:57; Status DC Ondansetron HCl 4 mg NOW STAT IV Last administered on 10/28/19at 00:05; Admin Dose 4 MG; Start 10/27/19 at 23:43; Stop 10/27/19 at 23:57; Status DC Sodium Chloride 1,000 ml @ 100 mls/hr Q10H IV ; Start 10/27/19 at 23:45; Stop 11/26/19 at 23:44 Morphine Sulfate 4 mg STK-MED ONCE .ROUTE ; Start 10/28/19 at 00:03; Stop 10/27/19 at 23:56; Status DC Diatrizoate Meglum/ Diatrizoate Sod 30 ml STK-MED ONCE PO ; Start 10/28/19 at 00:03; Stop 8/27/20 at 23:57; Status DC Sodium Chloride 1,000 ml @ ud STK-MED ONCE .ROUTE ; Start 10/28/19 at 00:04; Stop 10/27/19 at 23:57; Status DC Sodium Chloride 1,000 ml @ 0 mls/hr Q0M ONCE IV ; Start 10/28/19 at 00:15; Stop 10/28/19 at 00:16; Status UNSOCORRO RAMOS MD Oct 28, 2019 00:27
[2019-10-28 00:33] LABS: ALANINE AMINOTRANSFERASE 11 IU/L (0-55); ALBUMIN 3.4 g/dL (3.5-5.0); ALBUMIN/GLOBULIN RATIO 1.1 (0.8-2.0); ALKALINE PHOSPHATASE 76 IU/L (40-150); AMYLASE 44 U/L (25-125); ANION GAP 15.2 mmol/L (8-16); BLOOD UREA NITROGEN 7 mg/dL (7-26); BUN/CREATININE RATIO 8 (6-25); CALCIUM 8.8 mg/dL (8.4-10.2); CARBON DIOXIDE 23 mmol/L (22-29); CHLORIDE 102 mmol/L (98-107); CREATININE, SERUM 0.83 mg/dL (0.57-1.11); EST GLOMERULAR FILTRATION RATE > 60 ML/MIN (60-); GLUCOSE 91 mg/dL (74-118); LIPASE 14 U/L (8-78); POTASSIUM 3.2 mmol/L (3.5-5.1); SODIUM 137 mmol/L (136-145)
[2019-10-28 01:22] LABS: BILIRUBIN,URINE NEGATIVE (NEGATIVE); CLARITY,URINE CLEAR (CLEAR); COLOR,URINE YELLOW (YELLOW); KETONES,URINE NEGATIVE (NEGATIVE); LEUKOCYTE ESTERASE ,URINE NEGATIVE (NEGATIVE); NITRITE,URINE NEGATIVE (NEGATIVE); PROTEIN,URINE DIPSTICK NEGATIVE (NEGATIVE); URINE UROBILINOGEN 0.2 mg/dL (0.2 - 1)
[2019-10-28 01:26] LABS: AMORPHOUS SEDIMENT,URINE FEW (FEW); BACTERIA,URINE FEW /HPF; EPITHELIAL CELLS,URINE FEW /LPF; RBC,URINE 0-5 /HPF (0-5); WBC,URINE (MAN) 0-5 /HPF (0-5)
--- NOTE | 2019-10-28 02:04 | Diagnostic Imaging Report ---
EXAM: CT Abdomen and Pelvis WITHOUT contrast INDICATION: ORAL CONTRAST ONLY, ABD PAIN S/P SURGERY 2 DAYS AGO COMPARISON: CT dated 08/18/2019. TECHNIQUE: Abdomen and pelvis were scanned utilizing a multidetector helical scanner from the lung base to the pubic symphysis without administration of IV contrast. Absence of intravenous contrast decreases sensitivity for detection of focal lesions and vascular pathology. Coronal and sagittal reformations were obtained. Routine protocol was performed. IV CONTRAST: None ORAL CONTRAST: Administered. COMPLICATIONS: None RADIATION DOSE: Total DLP: 233.11 mGy*cm Estimated effective dose: (DLP x 0.015 x size factor) mSv CTDIvol has been reviewed. It is below the limits set by the Radiation Protocol Committee (RPC). Dose modulation, iterative reconstruction, and/or weight based adjustment of the mA/kV was utilized to reduce the radiation dose to as low as reasonably achievable. FINDINGS: LINES and TUBES: None. LOWER THORAX: Unremarkable HEPATOBILIARY: No significant abnormality. GALLBLADDER: There are cholecystectomy clips. SPLEEN: No splenomegaly. PANCREAS: No focal masses or ductal dilatation. ADRENALS: No adrenal nodules KIDNEYS/URETERS: No hydronephrosis. No cystic or solid mass lesions. No stones. GI TRACT: No abnormal distention, wall thickening, or evidence of bowel obstruction. Appendix is normal. PELVIC ORGANS/BLADDER: Hysterectomy. No adnexal masses. Urinary bladder unremarkable. LYMPH NODES: No lymphadenopathy. VESSELS: Unremarkable. PERITONEUM / RETROPERITONEUM: Trace free air in the right paracolic gutter, likely related to recent surgery. Small volume free fluid in the dependent pelvis. BONES: Unremarkable. SOFT TISSUES: Defect in the midline abdominal wall soft tissues compatible with recent surgery. IMPRESSION: 1. No acute abdominopelvic process identified on this noncontrast exam. 2. Expected postsurgical changes in the pelvis. Signed by: Alex Horne MD on 10/28/2019 2:00 AM
[2019-10-28] MEDS ORDERED: KETOROLAC TROMETHAMINE 30 MG/ML VIAL IV STA (02:09)
[2019-10-28 03:00] VITALS: BP 105/70
== END 2019-10-28 03:25 | disposition home or self-care (01) ==
LOC: ER 23:26
DX: G89.18 Other acute postprocedural pain (principal); R11.0 Nausea; F43.10 Post-traumatic stress disorder, unspecified; F41.9 Anxiety disorder, unspecified
CPT/HCPCS: 36415; 74176; 80053; 81001; 82150; 83690; 85025; 99284; J1885; J2270; J2405; J7030

== ENCOUNTER 2020-01-23 20:10 | Emergency (ER) | payer BC ==
[~2020-01-23] VITALS: Ht 160 cm; Wt 61.7 kg
[2020-01-23] MEDS: IBUPROFEN 600 MG TAB PO STA (20:45)
[2020-01-23] MEDS ORDERED: IBUPROFEN 600 MG TAB ONE (20:51)
--- OUTSIDE RECORDS SUMMARY | 2020-01-23 21:11 | XMS REPORT | Continuity of Care Document ---
Author Author [facility] t Organization [facility] Address [address] [place] [address] Phone Unavailable Care Team Providers Care Buckle Sewer Name Role Phone ADIN SALINAS, MD RODRIGUEZ PCP Costa KUHN Attphys Unavailable DAFASHYSARAH Attphys Unavailable RUFUS OAKLEY Attphys Unavailable CLAU ZAVALA Attphys Unavailable Felix DALTON Attphys Unavailable Arvin WALTERS Attphys Unavailable Arvin BENOIT Attphys Unavailable SANDI CARDONA Attphys Unavailable Tamiko RICHARDSON Attphys Unavailable Sada ANGELES Attphys Unavailable Payers Payer Name Policy Type Policy Number Effective Date Expiration Date S alondra [employer] [place] Ppo [id number] 2019 00:00:00 [facility] Cdc Review [id number] [facility] Problems Condition Name Condition Details Condition Category Status Onset Date Resolution Date Last Treatment Date Treating Clinician Comments Source Acute viral syndrome Problem Active [facility] Suspected severe acute respiratory syndr ome coronavirus 2 (SARS-CoV-2) infection Problem Active [facility] Gastroesophageal reflux disease Problem Active [facility] Advice given about severe acute respirat ory syndrome coronavirus 2 (SARS-CoV-2) infection Problem Active [facility] Exposure to severe acute respiratory syndrome coronavirus 2 (SARS-CoV-2) Problem Active [facility] Postoperative pain Problem Active [facility] Allergies, Adverse Reactions, Alerts Allergy Name Allergy Type Status Severity Reaction(s) Onset Date Inacti ve Date Treating Clinician Comments Source MRI CONTRAST DA Active 2019-12-23 00:00:00 [facility] MRI DYE Allergy to substance Active Severe HIVES 2019-04-22 00:00:00 [facility] iodine DA Active 2018-08-05 00:00:00 [facility] EGGS Allergy to substance Active 2017-05-09 00:00:00 [facility] PECANS Allergy to substance Active 2017-05-09 00:00:00 [facility] iodine DA Active 2017-01-17 00:00:00 [facility] Social History Social Habit Start Date Stop Date Quantity Comments Source Sex Assigned At 1975 00:00:00 1975 00:00:00 Female [facility] Medications Ordered Medication Name Filled Medication Name Start Date Stop Da te Current Medication? Ordering Clinician Indication Dosage Frequency Signature (SIG) Comments Components Source Naproxen Naproxen 2019-03-07 17:25:00 2019-04-25 00:00:00 No 500 Every 12 Hours for Pain And Inflammation [facility] Albuterol Sulfate (Proair Hfa Inhaler*) 8.5 Gm INH Alb uterol Sulfate (Proair Hfa Inhaler*) 8.5 Gm INH Yes 2 As Needed [facility] Clonazepam Clonazepam Yes 1 Daily [facility] Dicyclomine Hcl (Bentyl) 10 Mg/1 Ml AMPUL Dicyclomine Hcl (Bentyl) 10 Mg/1 Ml AMPUL Yes Four Times Daily [facility] Lisdexamfetamine Dimesylate (Vyvanse) 50 Mg CAPSULE Li sdexamfetamine Dimesylate (Vyvanse) 50 Mg CAPSULE Yes 50 As Needed [facility] Zolpidem Tartrate (Ambien) 10 Mg TABLET Zolpidem Tartrate (A mbien) 10 Mg TABLET Yes 10 Bedtime as needed for Insomnia [facility] Clonazepam (Klonopin) 2 Mg TABLET Clonazepam (Klonopin) 2 Mg TAB LET 2017-05-27 00:00:00 No 2 Daily [facility] Esomeprazole Magnesium (Nexium) 40 Mg CAPSULE. Esjim prazole Magnesium (Nexium) 40 Mg CAPSULE. 2017-05-27 00:00:00 No 40 As Need ed [facility] Lisdexamfetamine Dimesylate (Vyvanse) 50 Mg CAPSULE Li sdexamfetamine Dimesylate (Vyvanse) 50 Mg CAPSULE 2017-05-27 00:00:00 No 50 Daily [facility] Zolpidem Tartrate (Ambien) 10 Mg TABLET Zolpidem Tartrate (A mbien) 10 Mg TABLET 2017-05-27 00:00:00 No 10 Bedtime [facility] Alprazolam (Xanax) 2 Mg TABLET Alprazolam (Xanax) 2 Mg TABLET 2017-05-07 00:00:00 No [address] [facility] Sertraline Hcl (Zoloft) 25 Mg TABLET Sertraline Hcl (Zoloft) 25 Mg TABLET 2017-05-07 00:00:00 No [facility] Vital Signs Vital Name Observation Time Observation Value Comments Source Body Temperature 2019-10-28 03:00:00 98.4 [degF] [facility] Weight 2019-10-27 23:36:00 136 [lb_av] [facility] BMI (Body Mass Index) 2019-10-27 23:36:00 23.3 kg/m2 [facility] Weight 2019-09-10 13:57:00 136 [lb_av] [facility] BMI (Body Mass Index) 2019-09-10 13:57:00 23.3 kg/m2 [facility] Weight 2019-09-06 07:58:00 136 [lb_av] [facility] BMI (Body Mass Index) 2019-09-06 07:58:00 23.3 kg/m2 [facility] Body Temperature 2019-04-25 07:50:00 97 [degF] [facility] Procedures Procedure Date / Time Performed Performing Clinician Bárbara suazo CT of abdomen and pelvis without contrast 2019-10-27 00:00:00 [facility] X-ray of chest, two views 2019-09-20 00:00:00 [facility] Computed tomography of abdomen and pelvis with contrast 00:00:00 [facility] EGD BIOPSY SINGLE/MULTIPLE 2019-04-25 00:00:00 [facility] EGD DILATE STRICTURE 2019-04-25 00:00:00 [facility] COLONOSCOPY AND BIOPSY 2019-04-25 00:00:00 [facility] Plan of Care Planned Activity Planned Date Details Comments Source Instructions Abdominal Pain - Adult [facility] Instructions Post Operative Pain [facility] Encounters Start Date/Time End Date/Time Encounter Type Admission Type [facility] Facility Care Department Encounter ID Source 2019-10-27 23:26:00 2019-10-28 03:25:00 Departed Emergency Room 1 SOCORRO KUHN [facility] [id number] [facility] 2019-10-25 09:04:00 2019-10-25 09:04:00 Registered Surgical Day Care [facility] [id number] [facility] 2019-09-20 12:02:00 2019-09-20 12:02:00 Registered Clinic 3 RUFUS OAKLEY [facility] [id number] [facility] 2019-09-10 14:06:00 2019-09-10 14:15:00 Departed Emergency Room [facility] [id number] [facility] 2019-09-06 07:40:00 2019-09-06 08:04:00 Departed Emergency Room [facility] [id number] [facility] 2019-08-18 07:34:00 2019-08-18 07:34:00 Registered Clinic 3 CLAU ZAVALA [facility] [id number] [facility] 2019-04-25 04:58:00 2019-04-25 04:58:00 Registered Surgical Day Care [facility] [id number] [facility] 2019-03-28 14:04:00 2019-03-28 14:04:00 Registered Clinic [facility] [id number] [facility] 2019-03-18 16:41:00 2019-03-18 19:18:00 Departed Emergency Room 1 JOSE MANUEL DALTON [facility] [id number] [facility] 2019-03-07 15:54:00 2019-03-07 17:35:00 Departed Emergency Room 1 YNES WALTERS [facility] [id number] [facility] 2018-06-02 18:01:00 2018-06-02 20:10:00 Departed Emergency Room 1 VASYL BENOIT [facility] [id number] [facility] 2018 13:14:00 2018 13:14:00 Registered Clinic 3 RUFUS OAKLEY [facility] [id number] [facility] 2018-03-09 15:15:00 2018-03-09 15:15:00 Registered Clinic 3 SANDI CARDONA [facility] [id number] [facility] 2018-03-07 16:26:00 2018-03-07 17:17:00 Departed Emergency Room 1 TESFAYE RICHARDSON [facility] [id number] [facility] 2017-11-17 08:56:00 2017-11-17 08:56:00 Registered Clinic [facility] [id number] [facility] 2017-10-08 06:12:00 2017-10-08 06:12:00 Registered Surgical Day Care [facility] [id number] [facility] 2017-08-31 08:55:00 2017-08-31 10:47:00 Departed Emergency Room [facility] [id number] [facility] 2017-08-27 05:24:00 2017-08-27 05:24:00 Registered Surgical Day Care [facility] [id number] [facility] 2017-08-18 11:12:00 2017-08-18 11:12:00 Registered Clinic 3 TIA ANGELES [facility] [id number] [facility] 2017-06-11 14:43:00 2017-06-11 14:43:00 Registered Clinic [place] CLAU ZAVALA [facility] [id number] [facility] 2017-05-28 11:32:00 2017-05-28 11:32:00 Registered Surgical Day Care [facility] [id number] [facility] 2017-05-09 12:06:00 2017-05-09 12:06:00 Registered Surgical Day Care [facility] [id number] [facility] 2017-04-30 13:19:00 2017-04-30 13:19:00 Registered Clinic SARAH SALTER [facility] [id number] [facility] 2017-04-21 08:27:00 2017-04-21 12:22:00 Departed Emergency Room [facility] [id number] [facility] Results Test Description Test Time Test Comments Results Result Comments Source C REACTIVE PROTEIN 2019-12-28 12:10:00 Test Item C REACTIVE PROTEIN (test code = CRP) <0.29 mg/dL 0-0.3 N INFLAMMATORY BOWEL [id number] 12:10:00* Test Item Value Reference Range Interpretation Comments ATYPICAL ANCA (test code = ANCACOM) <1:20 titer Neg:<1:20 The atypical pANCA pattern has been observed in asignificant percentage of patients with ulcerative colitis,primary sclerosing cholangitis and autoimmune hepatitis. ASCA+/PANCA- Suggestive of Crohn's disease ASCA-/PANCA+ Suggestive of Ulcerative colitisPerformed At: [facility] [address] [id number] Sanjai MD Ph:[phone] AB SACCHAROMYCES CEREVIS IGA (test code = ASCA-A) <20.0 Units 0.0- 24.9 Negative <20.0 Equivocal 20.1 - 24.9 Positive >or= 25.0IgA and IgG antibody testing for S. cerevisiae isuseful adjunct testing for differentiating Crohn'sdisease and ulcerative colitis. Close to 80% ofCrohn's disease patients are positive for eitherIgA or IgG. In ulcerative colitis, less than 15% arepositive for IgG and less than 2% are positive forIgA. Fewer than 5% are positive for either IgG orIgA antibody, and no healthy controls had antibodyfor both. AB SACCHAROMYCES CEREVIS IGG (test code = ASCA-G) <20.0 Units 0.0- 24.9 Negative <20.0 Equivocal 20.1 - 24.9 Positive >or= 25.0 CBC W/AUTO [id number] 03:01:00* Test Item Value Reference Range Interpretation Comments WHITE BLOOD CELL (test code = WBC) 5.8 K/mm3 4.5-12.5 N RED BLOOD CELL (test code = RBC) 3.87 mill/mm3 3.7-5.2 N HEMOGLOBIN (test code = HGB) 11.9 gram/dL 11.5-15.5 N HEMATOCRIT (test code = HCT) 36.0 % 36.0-46.0 N MEAN CELL VOLUME (test code = MCV) 93.0 fL 80-98 N MEAN CELL HGB (test code = MCH) 30.7 picogram 27.0-33.0 N MEAN CELL HGB CONCETRATION (test code = MCHC) 33.1 gram/dL 33.0-36. 0 N RED CELL DISTRIBUTION WIDTH (test code = RDW) 12.6 % 11.6-16. 2 N RED CELL DISTRIBUTION WIDTH SD (test code = RDW-SD) 42.9 fL 37 .0-51.0 N PLATELET COUNT (test code = PLT) 229 K/mm3 150-450 N MEAN PLATELET VOLUME (test code = MPV) 10.5 fL 6.7-11.0 N NEUTROPHIL % (test code = NT%) 55.3 % 39.0-69.0 N IMMATURE GRANULOCYTE % (test code = IG%) 0.2 % 0.0-5.0 N LYMPHOCYTE % (test code = LY%) 32.9 % 25.0-55.0 N MONOCYTE % (test code = MO%) 7.4 % 0.0-10.0 N EOSINOPHIL % (test code = EO%) 3.5 % 0.0-5.0 N BASOPHIL % (test code = BA%) 0.7 % 0.0-1.0 N NUCLEATED RBC % (test code = NRBC%) 0.0 % 0-0 N NEUTROPHIL # (test code = NT#) 3.20 K/mm3 1.8-7.7 N IMMATURE GRANULOCYTE # (test code = IG#) 0.01 x10 3/uL 0-0.03 N LYMPHOCYTE # (test code = LY#) 1.90 K/mm3 1.0-5.0 N MONOCYTE # (test code = MO#) 0.43 K/mm3 0-0.8 N EOSINOPHIL # (test code = EO#) 0.20 K/mm3 0.0-0.5 N BASOPHIL # (test code = BA#) 0.04 K/mm3 0.0-0.2 N NUCLEATED RBC # (test code = NRBC#) 0.00 K/mm3 0.0-0.1 N MANUAL DIFF REQUIRED (test code = MDIFF) NO BASIC METABOLIC [id number] 02:47:00* Test Item Value Reference Range Interpretation Comments SODIUM (test code = NA) 142 mmol/L 136-145 N POTASSIUM (test code = K) 3.6 mmol/L 3.5-5.1 N CHLORIDE (test code = CL) 113.0 mmol/L 98-107 H CARBON DIOXIDE (test code = CO2) 23.0 mmol/L 21-32 N ANION GAP (test code = GAP) 9.6 10-20 L GLUCOSE (test code = GLU) 95 mg/dL 74-106 N BLOOD UREA NITROGEN (test code = BUN) 4 mg/dL 7-18 L GLOMERULAR FILTRATION RATE (test code = GFR) > 60 mL/min >=60 Estimated GFR by using Modified MDRD formula.Chronic kidney disease is defined as either kidney damageor GFR <60 mL/min/1.73 m2 for >3 months. CREATININE (test code = CREAT) 0.90 mg/dL 0.55-1.02 N Note change in reference range due to change in reagent. BUN/CREATININE RATIO (test code = BUN/CREA) 4.4 10-20 L CALCIUM (test code = CA) 7.9 mg/dL 8.5-10.1 L BASIC METABOLIC [id number] 02:34:00* Test Item Value Reference Range Interpretation Comments SODIUM (test code = NA) 142 mmol/L 136-145 N POTASSIUM (test code = K) 3.6 mmol/L 3.5-5.1 N CHLORIDE (test code = CL) 113.0 mmol/L 98-107 H CARBON DIOXIDE (test code [...] CALCIUM (test code = CA) mg/dL 8.5-10.1 - XR ABDOMEN AP 1 [id number] 17:56:00 [facility]Name: KELY MEREDITH : 1975 Sex: F* FAX: Keron Domínguez [phone] [place]: B St: ADM FAX: Rufus Do MD [phone] Name: KELY MEREDITH [facility] : 1975 Age/S: 44/F [facility] Unit #: [id number] Loc: V.3079 [place] [address] Phys: Keron Senior MD Acc t: [id number] Dis Date: Status: ADM IN PHONE #: [phone] Exam Date: 12/25/2019 1720 FAX #: [phone] Reason: abdominal distension EXAMS: CPT CODE: [id number] XR ABDOMEN AP 1 V [id number] HISTO RY: abdominal distension TECHNIQUE: AP abdomen x-ray COMPARISON: Correlation with CT 12/22/19 FINDINGS: Distal col onic fecal retention. Nonspecific nonobstructed bowel gas pattern. No intr a-abdominal mass effect. Cholecystectomy clips. No abnormal calcifications are observed. Mild degenerative changes of the spine, sacroiliac joints, and hips. IMPRESSION: Distal colonic fecal retention. Nonobstructed bowel gas pattern. LOCATION: LP at 1756 Reported and signed by: Costa Jean D.O. CC: Keron Senior MD; Rufus Oakley Technologist: Emily Mishra) Trnscrd Date/Time/By: 12/25/2019 (1755) : By: [email or web address] Orig Print D/ T: S: 12/25/2019 (1727) PAGE 1 Si gned Report BASIC METABOLIC [id number] 05:30:00* Test Item Value Reference Range Interpretation Comments SODIUM (test code = NA) 143 mmol/L 136-145 N POTASSIUM (test code = K) 3.4 mmol/L 3.5-5.1 L CHLORIDE (test code = CL) 110.0 mmol/L 98-107 H CARBON DIOXIDE (test code = CO2) 27.0 mmol/L 21-32 N ANION GAP (test code = GAP) 9.4 10-20 L GLUCOSE (test code = GLU) 115 mg/dL 74-106 H BLOOD UREA NITROGEN (test code = BUN) 6 mg/dL 7-18 L GLOMERULAR FILTRATION RATE (test code = GFR) > 60 mL/min >=60 Estimated GFR by using Modified MDRD formula.Chronic kidney disease is defined as either kidney damageor GFR <60 mL/min/1.73 m2 for >3 months. CREATININE (test code = CREAT) 0.90 mg/dL 0.55-1.02 N Note change in reference range due to change in reagent. BUN/CREATININE RATIO (test code = BUN/CREA) 6.7 10-20 L CALCIUM (test code = CA) 8.0 mg/dL 8.5-10.1 L SED [id number] 05:07:00* Test Item Value Reference Range Interpretation Comments SED RATE (test code = SEDW) 8 mm/hr 0-20 WINTROBE METHOD: NORMAL RANGE FOR MEN: 0-9 MM/HR WOMAN: 0-20 MM/HR SED RATE [id number] 05:06:00* Test Item Value Reference Range Interpretation Comments SED RATE WESTERGREN (test code = SEDW) 8 mm/hr 0-20 N C REACTIVE [id number] 05:03:00* Test Item Value Reference Range Interpretation Comments C REACTIVE PROTEIN (test code = CRP) <0.29 mg/dL 0-0.3 N INFLAMMATORY BOWEL [id number] 05:03:00* Test Item Value Reference Range Interpretation Comments ATYPICAL ANCA (test code = ANCACOM) <1:20 AB SACCHAROMYCES CEREVIS IGA (test code = ASCA-A) Units AB SACCHAROMYCES CEREVIS IGG (test code = ASCA-G) Units <20. 1 BASIC METABOLIC [id number] 05:00:00* Test Item Value Reference Range Interpretation Comments SODIUM (test code = NA) 143 mmol/L 136-145 N POTASSIUM (test code = K) 3.4 mmol/L 3.5-5.1 L CHLORIDE (test code = CL) 110.0 mmol/L 98-107 H CARBON DIOXIDE (test code [...] CALCIUM (test code = CA) mg/dL 8.5-10.1 CBC W/AUTO [id number] 04:38:00* Test Item Value Reference Range Interpretation Comments WHITE BLOOD CELL (test code = WBC) 6.0 K/mm3 4.5-12.5 N RED BLOOD CELL (test code = RBC) 3.89 mill/mm3 3.7-5.2 N HEMOGLOBIN (test code = HGB) 12.1 gram/dL 11.5-15.5 N HEMATOCRIT (test code = HCT) 35.8 % 36.0-46.0 L MEAN CELL VOLUME (test code = MCV) 92.0 fL 80-98 N MEAN CELL HGB (test code = MCH) 31.1 picogram 27.0-33.0 N MEAN CELL HGB CONCETRATION (test code = MCHC) 33.8 gram/dL 33.0-36. 0 N RED CELL DISTRIBUTION WIDTH (test code = RDW) 12.9 % 11.6-16. 2 N RED CELL DISTRIBUTION WIDTH SD (test code = RDW-SD) 42.8 fL 37 .0-51.0 N PLATELET COUNT (test code = PLT) 235 K/mm3 150-450 N MEAN PLATELET VOLUME (test code = MPV) 10.3 fL 6.7-11.0 N NEUTROPHIL % (test code = NT%) 50.3 % 39.0-69.0 N IMMATURE GRANULOCYTE % (test code = IG%) 0.3 % 0.0-5.0 N LYMPHOCYTE % (test code = LY%) 37.5 % 25.0-55.0 N MONOCYTE % (test code = MO%) 7.7 % 0.0-10.0 N EOSINOPHIL % (test code = EO%) 3.7 % 0.0-5.0 N BASOPHIL % (test code = BA%) 0.5 % 0.0-1.0 N NUCLEATED RBC % (test code = NRBC%) 0.0 % 0-0 N NEUTROPHIL # (test code = NT#) 3.02 K/mm3 1.8-7.7 N IMMATURE GRANULOCYTE # (test code = IG#) 0.02 x10 3/uL 0-0.03 N LYMPHOCYTE # (test code = LY#) 2.25 K/mm3 1.0-5.0 N MONOCYTE # (test code = MO#) 0.46 K/mm3 0-0.8 N EOSINOPHIL # (test code = EO#) 0.22 K/mm3 0.0-0.5 N BASOPHIL # (test code = BA#) 0.03 K/mm3 0.0-0.2 N NUCLEATED RBC # (test code = NRBC#) 0.00 K/mm3 0.0-0.1 N CBC W/AUTO [id number] 03:38:00* Test Item Value Reference Range Interpretation Comments WHITE BLOOD CELL (test code = WBC) 5.8 K/mm3 4.5-12.5 N RED BLOOD CELL (test code = RBC) 3.83 mill/mm3 3.7-5.2 N HEMOGLOBIN (test code = HGB) 11.9 gram/dL 11.5-15.5 N HEMATOCRIT (test code = HCT) 35.4 % 36.0-46.0 L MEAN CELL VOLUME (test code = MCV) 92.4 fL 80-98 N MEAN CELL HGB (test code = MCH) 31.1 picogram 27.0-33.0 N MEAN CELL HGB CONCETRATION (test code = MCHC) 33.6 gram/dL 33.0-36. 0 N RED CELL DISTRIBUTION WIDTH (test code = RDW) 12.8 % 11.6-16. 2 N RED CELL DISTRIBUTION WIDTH SD (test code = RDW-SD) 42.9 fL 37 .0-51.0 N PLATELET COUNT (test code = PLT) 233 K/mm3 150-450 N MEAN PLATELET VOLUME (test code = MPV) 10.3 fL 6.7-11.0 N NEUTROPHIL % (test code = NT%) 52.5 % 39.0-69.0 N IMMATURE GRANULOCYTE % (test code = IG%) 0.2 % 0.0-5.0 N LYMPHOCYTE % (test code = LY%) 36.0 % 25.0-55.0 N MONOCYTE % (test code = MO%) 7.4 % 0.0-10.0 N EOSINOPHIL % (test code = EO%) 3.4 % 0.0-5.0 N BASOPHIL % (test code = BA%) 0.5 % 0.0-1.0 N NUCLEATED RBC % (test code = NRBC%) 0.0 % 0-0 N NEUTROPHIL # (test code = NT#) 3.06 K/mm3 1.8-7.7 N IMMATURE GRANULOCYTE # (test code = IG#) 0.01 x10 3/uL 0-0.03 N LYMPHOCYTE # (test code = LY#) 2.10 K/mm3 1.0-5.0 N MONOCYTE # (test code = MO#) 0.43 K/mm3 0-0.8 N EOSINOPHIL # (test code = EO#) 0.20 K/mm3 0.0-0.5 N BASOPHIL # (test code = BA#) 0.03 K/mm3 0.0-0.2 N NUCLEATED RBC # (test code = NRBC#) 0.00 K/mm3 0.0-0.1 N COMPREHENSIVE METABOLIC [id number] 03:21:00* Test Item Value Reference Range Interpretation Comments SODIUM (test code = NA) 142 mmol/L 136-145 N POTASSIUM (test code = K) 3.6 mmol/L 3.5-5.1 N CHLORIDE (test code = CL) 110.0 mmol/L 98-107 H CARBON DIOXIDE (test code = CO2) 26.0 mmol/L 21-32 N ANION GAP (test code = GAP) 9.6 10-20 L GLUCOSE (test code = GLU) 107 mg/dL 74-106 H BLOOD UREA NITROGEN (test code = BUN) 7 mg/dL 7-18 N GLOMERULAR FILTRATION RATE (test code = GFR) > 60 mL/min >=60 Estimated GFR by using Modified MDRD formula.Chronic kidney disease is defined as either kidney damageor GFR <60 mL/min/1.73 m2 for >3 months. CREATININE (test code = CREAT) 0.90 mg/dL 0.55-1.02 N Note change in reference range due to change in reagent. BUN/CREATININE RATIO (test code = BUN/CREA) 7.8 10-20 L TOTAL PROTEIN (test code = PROT) 5.8 gram/dL 6.4-8.2 L ALBUMIN (test code = ALB) 3.0 g/dL 3.4-5.0 L GLOBULIN (test code = GLOB) 2.8 gram/dL 2.7-4.2 N ALBUMIN/GLOBULIN RATIO (test code = A/G) 1.1 0.75-1.50 N CALCIUM (test code = CA) 8.0 mg/dL 8.5-10.1 L BILIRUBIN TOTAL (test code = BILT) 0.30 mg/dL 0.0-1.0 N SGOT/AST (test code = AST) 13 IUnit/L 15-37 L SGPT/ALT (test code = ALT) 16 IUnit/L 12-78 N ALKALINE PHOSPHATASE TOTAL (test code = ALKP) 69 IUnit/L 45-117 N Note change in reference range due to change in reagent. BASIC METABOLIC [id number] 05:19:00* Test Item Value Reference Range Interpretation Comments SODIUM (test code = NA) 142 mmol/L 136-145 N POTASSIUM (test code = K) 3.4 mmol/L 3.5-5.1 L CHLORIDE (test code = CL) 110.0 mmol/L 98-107 H CARBON DIOXIDE (test code = CO2) 26.0 mmol/L 21-32 N ANION GAP (test code = GAP) 9.4 10-20 L GLUCOSE (test code = GLU) 107 mg/dL 74-106 H BLOOD UREA NITROGEN (test code = BUN) 8 mg/dL 7-18 N GLOMERULAR FILTRATION RATE (test code = GFR) > 60 mL/min >=60 Estimated GFR by using Modified MDRD formula.Chronic kidney disease is defined as either kidney damageor GFR <60 mL/min/1.73 m2 for >3 months. CREATININE (test code = CREAT) 0.90 mg/dL 0.55-1.02 N Note change in reference range due to change in reagent. BUN/CREATININE RATIO (test code = BUN/CREA) 8.9 10-20 L CALCIUM (test code = CA) 8.4 mg/dL 8.5-10.1 L BASIC METABOLIC [id number] 05:14:00* Test Item Value Reference Range Interpretation Comments SODIUM (test code = NA) 142 mmol/L 136-145 N POTASSIUM (test code = K) 3.4 mmol/L 3.5-5.1 L CHLORIDE (test code = CL) 110.0 mmol/L 98-107 H CARBON DIOXIDE (test code [...] CALCIUM (test code = CA) mg/dL 8.5-10.1 CBC W/AUTO [id number] 05:13:00* Test Item Value Reference Range Interpretation Comments WHITE BLOOD CELL (test code = WBC) 6.5 K/mm3 4.5-12.5 N RED BLOOD CELL (test code = RBC) 3.72 mill/mm3 3.7-5.2 N HEMOGLOBIN (test code = HGB) 11.8 gram/dL 11.5-15.5 N HEMATOCRIT (test code = HCT) 34.4 % 36.0-46.0 L MEAN CELL VOLUME (test code = MCV) 92.5 fL 80-98 N MEAN CELL HGB (test code = MCH) 31.7 picogram 27.0-33.0 N MEAN CELL HGB CONCETRATION (test code = MCHC) 34.3 gram/dL 33.0-36. 0 N RED CELL DISTRIBUTION WIDTH (test code = RDW) 13.1 % 11.6-16. 2 N RED CELL DISTRIBUTION WIDTH SD (test code = RDW-SD) 43.5 fL 37 .0-51.0 N PLATELET COUNT (test code = PLT) 225 K/mm3 150-450 N MEAN PLATELET VOLUME (test code = MPV) 10.3 fL 6.7-11.0 N NEUTROPHIL % (test code = NT%) 51.2 % 39.0-69.0 N IMMATURE GRANULOCYTE % (test code = IG%) 0.2 % 0.0-5.0 N LYMPHOCYTE % (test code = LY%) 37.9 % 25.0-55.0 N MONOCYTE % (test code = MO%) 7.6 % 0.0-10.0 N EOSINOPHIL % (test code = EO%) 2.5 % 0.0-5.0 N BASOPHIL % (test code = BA%) 0.6 % 0.0-1.0 N NUCLEATED RBC % (test code = NRBC%) 0.0 % 0-0 N NEUTROPHIL # (test code = NT#) 3.33 K/mm3 1.8-7.7 N IMMATURE GRANULOCYTE # (test code = IG#) 0.01 x10 3/uL 0-0.03 N LYMPHOCYTE # (test code = LY#) 2.46 K/mm3 1.0-5.0 N MONOCYTE # (test code = MO#) 0.49 K/mm3 0-0.8 N EOSINOPHIL # (test code = EO#) 0.16 K/mm3 0.0-0.5 N BASOPHIL # (test code = BA#) 0.04 K/mm3 0.0-0.2 N NUCLEATED RBC # (test code = NRBC#) 0.00 K/mm3 0.0-0.1 N MANUAL DIFF REQUIRED (test code = MDIFF) NO BASIC METABOLIC [id number] 19:32:00* Test Item Value Reference Range Interpretation Comments SODIUM (test code = NA) 142 mmol/L 136-145 N POTASSIUM (test code = K) 4.5 mmol/L 3.5-5.1 N CHLORIDE (test code = CL) 108.0 mmol/L 98-107 H CARBON DIOXIDE (test code = CO2) 30.0 mmol/L 21-32 N ANION GAP (test code = GAP) 8.5 10-20 L GLUCOSE (test code = GLU) 61 mg/dL 74-106 L BLOOD UREA NITROGEN (test code = BUN) 9 mg/dL 7-18 N GLOMERULAR FILTRATION RATE (test code = GFR) > 60 mL/min >=60 Estimated GFR by using Modified MDRD formula.Chronic kidney disease is defined as either kidney damageor GFR <60 mL/min/1.73 m2 for >3 months. CREATININE (test code = CREAT) 0.90 mg/dL 0.55-1.02 N Note change in reference range due to change in reagent. BUN/CREATININE RATIO (test code = BUN/CREA) 10.0 10-20 N CALCIUM (test code = CA) 8.6 mg/dL 8.5-10.1 N HEPATIC FUNCTION [id number] 19:32:00* Test Item Value Reference Range Interpretation Comments TOTAL PROTEIN (test code = PROT) 6.8 gram/dL 6.4-8.2 N ALBUMIN (test code = ALB) 3.6 g/dL 3.4-5.0 N GLOBULIN (test code = GLOB) 3.2 gram/dL 2.7-4.2 N ALBUMIN/GLOBULIN RATIO (test code = A/G) 1.1 0.75-1.50 N BILIRUBIN TOTAL (test code = BILT) 0.30 mg/dL 0.0-1.0 N BILIRUBIN DIRECT (test code = BILD) 0.08 mg/dL 0.0-0.20 N SGOT/AST (test code = AST) 28 IUnit/L 15-37 N SGPT/ALT (test code = ALT) 16 IUnit/L 12-78 N ALKALINE PHOSPHATASE TOTAL (test code = ALKP) 90 IUnit/L 45-117 N Note change in reference range due to change in reagent. [id number] 19:32:00* Test Item Value Reference Range Interpretation Comments LIPASE (test code = LIP) 165 U/L 73.0-393.0 N HCG SERUM [id number] 19:32:00* Test Item Value Reference Range Interpretation Comments HCG SERUM QUAL (test code = HCGQL) NEGATIVE NEGATIVE This HCGQL test is NOT applicable for MALE patients.Check with nurse about probable order error.If Tumor Marker Test needed, nurse should order test "HCGTU"(Test #550.18710) [id number] 19:32:00* Test Item Value Reference Range Interpretation Comments TROPONIN-I (test code = TROPI) <0.015 ng/mL 0-0.045 N BASIC METABOLIC [id number] 19:14:00* Test Item Value Reference Range Interpretation Comments SODIUM (test code = NA) 142 mmol/L 136-145 N POTASSIUM (test code = K) 4.5 mmol/L 3.5-5.1 N CHLORIDE (test code = CL) 108.0 mmol/L 98-107 H CARBON DIOXIDE (test code [...] code = CA) mg/dL 8.5-10.1 HEPATIC FUNCTION [id number] 19:14:00* Test Item Value Reference Range Interpretation Comments [...] TOTAL (test code = ALKP) IUnit/L 45-117 [id number] 19:14:00* Test Item Value Reference Range Interpretation Comments LIPASE (test code = LIP) U/L 73.0-393.0 HCG SERUM [id number] 19:14:00* Test Item Value Reference Range Interpretation Comments HCG SERUM QUAL (test code = HCGQL) NEGATIVE NEGATIVE This HCGQL test is NOT applicable for MALE patients.Check with nurse about probable order error.If Tumor Marker Test needed, nurse should order test "HCGTU"(Test #550.50281) [id number] 19:14:00* Test Item Value Reference Range Interpretation Comments TROPONIN-I (test code = TROPI) ng/mL 0-0.045 BASIC METABOLIC [id number] 19:11:00* Test Item Value Reference Range Interpretation Comments SODIUM (test code = NA) 142 mmol/L 136-145 N POTASSIUM (test code = K) 4.5 mmol/L 3.5-5.1 N CHLORIDE (test code = CL) 108.0 mmol/L 98-107 H CARBON DIOXIDE (test code [...] code = CA) mg/dL 8.5-10.1 HEPATIC FUNCTION [id number] 19:11:00* Test Item Value Reference Range Interpretation Comments [...] TOTAL (test code = ALKP) IUnit/L 45-117 [id number] 19:11:00* Test Item Value Reference Range Interpretation Comments LIPASE (test code = LIP) U/L 73.0-393.0 HCG SERUM [id number] 19:11:00* Test Item Value Reference Range Interpretation Comments HCG SERUM QUAL (test code = HCGQL) NEGATIVE [id number] 19:11:00* Test Item Value Reference Range Interpretation Comments TROPONIN-I (test code = TROPI) ng/mL 0-0.045 URINALYSIS [id number] 18:57:00* Test Item Value Reference Range Interpretation Comments UA COLOR (test code = COLU) Light-Yellow YELLOW UA APPEARANCE (test code = APPU) CLEAR CLEAR UA GLUCOSE DIPSTICK (test code = DGLUU) NEGATIVE mg/dL NEGATIVE UA BILIRUBIN DIPSTICK (test code = BILU) NEGATIVE mg/dL NEGATIVE UA KETONE DIPSTICK (test code = KETU) NEGATIVE mg/dL NEGATIVE UA SPECIFIC GRAVITY (test code = SGU) 1.021 1.001-1.035 UA BLOOD DIPSTICK (test code = NIGHAT) Negative mg/dL NEGATIVE UA PH DIPSTICK (test code = KATIE) 6.0 5.0-8.0 UA PROTEIN DIPSTICK (test code = PROU) NEGATIVE mg/dL NEGATIVE UA UROBILINIOGEN DIPSTICK (test code = URO) Normal mg/dL NEGATIVE UA NITRITE DIPSTICK (test code = MAY) NEGATIVE NEGATIVE UA LEUKOCYTE ESTERASE W REFLEX (test code = LEUUR) NEGATIVE Stephania/uL NEGATIVE UA WBC (test code = WBCU) 0-5 per HPF 0-5 UA RBC (test code = RBCU) 0-2 #/HPF 0-5 UA EPITHELIAL CELLS (test code = EPIU) FEW per HPF FEW UA BACTERIA (test code = BACU) NONE SEEN #/HPF NONE Urine Source? Clean CatchCBC W/O [id number] 18:57:00* Test Item Value Reference Range Interpretation Comments WHITE BLOOD CELL (test code = WBC) 7.7 K/mm3 4.5-12.5 N RED BLOOD CELL (test code = RBC) 4.18 mill/mm3 3.7-5.2 N HEMOGLOBIN (test code = HGB) 13.0 gram/dL 11.5-15.5 N HEMATOCRIT (test code = HCT) 38.9 % 36.0-46.0 N MEAN CELL VOLUME (test code = MCV) 93.1 fL 80-98 N MEAN CELL HGB (test code = MCH) 31.1 picogram 27.0-33.0 N MEAN CELL HGB CONCETRATION (test code = MCHC) 33.4 gram/dL 33.0-36. 0 N RED CELL DISTRIBUTION WIDTH (test code = RDW) 13.1 % 11.6-16. 2 N PLATELET COUNT (test code = PLT) 244 K/mm3 150-450 N MEAN PLATELET VOLUME (test code = MPV) 10.1 fL 6.7-11.0 N HCG SERUM [id number] 18:34:00* Test Item Value Reference Range Interpretation Comments HCG SERUM QUAL (test code = HCGQL) NEGATIVE NEGATIVE This HCGQL test is NOT applicable for MALE patients.Check with nurse about probable order error.If Tumor Marker Test needed, nurse should order test "HCGTU"(Test #550.03909) UR HCG [id number] 18:30:00* Test Item Value Reference Range Interpretation Comments UR HCG QUAL (test code = HCGQLU) NEGATIVE This HCGQL test is NOT applicable for MALE patients.Check with nurse about probable order error.If Tumor Marker Test needed, nurse should order test "HCGTU"(Test #550.39877) - CT ABD PELVIS [id number] 18:05:00 [facility] ([facility])Name: KELY MEREDITH : 1975 Sex: F* Name: KELY MEREDITH [facility] : 1975 [age]/S: [age] / F [address] [facility] Unit #: [id number] Loc: [facility] [place] [address] Phys: Kia Ruiz MD Acct: [id number] Dis Date: Status: REG ER PHONE #: [phone] Exam Date: 12/22/2019 1804 FAX #: [phone] Reason: LLQ ttp EXAMS: CPT CODE: [id number] CT ABD PELVIS W/CONT 44105 EXAM: CT ABDOMEN/PELVIS WITH CONTRAST HISTORY: Lower quadrant pain TECHNIQUE: Helical imaging was performed diaphragm through the symphysis with multiplanar reformations ob tained. IV CONTRAST: 100cc Omnipaque 300 GI CONTRAST: No DOSE: CT imaging performed at this location utilizes radiation dose optimization technique which includes one or more of the followin) Au tomated exposure control; 2) Adjustment of the mA and/or kV according to p atient's size; 3) Use of iterative reconstruction techniques COMPARISON: CT 08/05/2018 FINDINGS: LOWER CHEST: Th e visualized lung bases are clear. Visualized heart is unremarkable. SOLID ORGANS: No focal liver lesions. No intra or extrahepatic biliar y ductal dilation. Cholecystectomy clips are noted. The spl een, pancreas, and adrenal glands are normal in appearance. Both k idneys demonstrate normal corticomedullary phase of enhancement. No renal/ ureteral calculus, hydronephrosis, mass, or cyst is apparent. PEG L: The small bowel and colon are normal in caliber without wall thickening . Normal appendix. No signs of obstruction.] Reticulosis without signs of diverticulitis. PERITONEUM: No free intraperitoneal fluid or air. RETROPERITONEUM: Normal caliber of the abdominal aorta is noted. No lymphadenopathy. PELVIS: The visualized urinary bladder wall is normal thickness. Hysterectomy. MUSCULOSKELETAL: No acute osseous abnormality is seen. No destructive lytic or blastic osseous lesion is noted. PAGE 1 Signed Report (CONTINUED) Name: KELY MEREDITH [facility] : 1975 Age/S: 44 / F [address] [facility] Unit #: [id number] Loc: JOSE [facility] [place] [address] Phys: Kia Ruiz MD Acct: [id number] Dis Date: Status: REG ER PHONE #: [phone] Exam Date: 12/22/20191803 FAX #: [phone] Reason: LLQ ttp EXAMS: CPT CODE: [id number] CT ABD PELVIS W/CONT 45487 < Continued> SOFT TISSUES: No ventral abdominal hernia. No anasarca. IMPRESSION: No acute abnormality of the abdomen or pelvis. Diverticulosis without signs of diverticulitis. SL: [id number] at 1805 Reported and signed by: Sandi Evans M.D. CC: Rufus Oakley; Kia Ruiz MD Technologist:KOREY CLAIRE RT(R) CT CTDI: DLP: Trnscb Date/Time: 12/22/2019 (1804) t.[email or web address] Orig Print D/T: S: 12/22/2019 (1807) PAGE 2 Signed Report BASIC METABOLIC [id number] 17:08:00* Test Item Value Reference Range Interpretation Comments SODIUM (test code = NA) 141 mmol/L 136-145 N POTASSIUM (test code = K) 3.4 mmol/L 3.5-5.1 L CHLORIDE (test code = CL) 107.0 mmol/L 98-107 N CARBON DIOXIDE (test code = CO2) 27.0 mmol/L 21-32 N ANION GAP (test code = GAP) 10.4 10-20 N GLUCOSE (test code = GLU) 76 mg/dL 74-106 N BLOOD UREA NITROGEN (test code = BUN) 6 mg/dL 7-18 L GLOMERULAR FILTRATION RATE (test code = GFR) 60 mL/min >=60 Estimated GFR by using Modified MDRD formula.Chronic kidney disease is defined as either kidney damageor GFR <60 mL/min/1.73 m2 for >3 months. CREATININE (test code = CREAT) 1.00 mg/dL 0.55-1.02 N Note change in reference range due to change in reagent. BUN/CREATININE RATIO (test code = BUN/CREA) 6.0 10-20 L CALCIUM (test code = CA) 8.7 mg/dL 8.5-10.1 N HEPATIC FUNCTION [id number] 17:08:00* Test Item Value Reference Range Interpretation Comments TOTAL PROTEIN (test code = PROT) 7.2 gram/dL 6.4-8.2 N ALBUMIN (test code = ALB) 3.6 g/dL 3.4-5.0 N GLOBULIN (test code = GLOB) 3.6 gram/dL 2.7-4.2 N ALBUMIN/GLOBULIN RATIO (test code = A/G) 1.0 0.75-1.50 N BILIRUBIN TOTAL (test code = BILT) 0.30 mg/dL 0.0-1.0 N BILIRUBIN DIRECT (test code = BILD) 0.09 mg/dL 0.0-0.20 N SGOT/AST (test code = AST) 10 IUnit/L 15-37 L SGPT/ALT (test code = ALT) 15 IUnit/L 12-78 N ALKALINE PHOSPHATASE TOTAL (test code = ALKP) 93 IUnit/L 45-117 N Note change in reference range due to change in reagent. [id number] 17:08:00* Test Item Value Reference Range Interpretation Comments LIPASE (test code = LIP) 170 U/L 73.0-393.0 N BASIC METABOLIC [id number] 16:57:00* Test Item Value Reference Range Interpretation Comments SODIUM (test code = NA) 141 mmol/L 136-145 N POTASSIUM (test code = K) 3.4 mmol/L 3.5-5.1 L CHLORIDE (test code = CL) 107.0 mmol/L 98-107 N CARBON DIOXIDE (test code = CO2) mmol/L 21-32 ANION GAP (test code = GAP) 10-20 GLUCOSE (test code = GLU) mg/dL 74-106 BLOOD UREA NITROGEN (test code = BUN) mg/dL 7-18 GLOMERULAR FILTRATION RATE (test code = GFR) mL/min >=60 CREATININE (test code = CREAT) mg/dL 0.55-1.02 BUN/CREATININE RATIO (test code = BUN/CREA) 10-20 CALCIUM (test code = CA) mg/dL 8.5-10.1 HEPATIC FUNCTION [id number] 16:57:00* Test Item Value Reference Range Interpretation Comments [...] TOTAL (test code = ALKP) IUnit/L 45-117 [id number] 16:57:00* Test Item Value Reference Range Interpretation Comments LIPASE (test code = LIP) U/L 73.0-393.0 CBC W/AUTO [id number] 16:55:00* Test Item Value Reference Range Interpretation Comments WHITE BLOOD CELL (test code = WBC) 8.2 K/mm3 4.5-12.5 N RED BLOOD CELL (test code = RBC) 4.28 mill/mm3 3.7-5.2 N HEMOGLOBIN (test code = HGB) 13.4 gram/dL 11.5-15.5 N HEMATOCRIT (test code = HCT) 38.9 % 36.0-46.0 N MEAN CELL VOLUME (test code = MCV) 90.9 fL 80-98 N MEAN CELL HGB (test code = MCH) 31.3 picogram 27.0-33.0 N MEAN CELL HGB CONCETRATION (test code = MCHC) 34.4 gram/dL 33.0-36. 0 N RED CELL DISTRIBUTION WIDTH (test code = RDW) 12.9 % 11.6-16. 2 N RED CELL DISTRIBUTION WIDTH SD (test code = RDW-SD) 42.0 fL 37 .0-51.0 N PLATELET COUNT (test code = PLT) 251 K/mm3 150-450 N MEAN PLATELET VOLUME (test code = MPV) 10.0 fL 6.7-11.0 N NEUTROPHIL % (test code = NT%) 64.3 % 39.0-69.0 N IMMATURE GRANULOCYTE % (test code = IG%) 1.2 % 0.0-5.0 N LYMPHOCYTE % (test code = LY%) 27.4 % 25.0-55.0 N MONOCYTE % (test code = MO%) 5.5 % 0.0-10.0 N EOSINOPHIL % (test code = EO%) 1.1 % 0.0-5.0 N BASOPHIL % (test code = BA%) 0.5 % 0.0-1.0 N NUCLEATED RBC % (test code = NRBC%) 0.0 % 0-0 N NEUTROPHIL # (test code = NT#) 5.29 K/mm3 1.8-7.7 N IMMATURE GRANULOCYTE # (test code = IG#) 0.10 x10 3/uL 0-0.03 H LYMPHOCYTE # (test code = LY#) 2.25 K/mm3 1.0-5.0 N MONOCYTE # (test code = MO#) 0.45 K/mm3 0-0.8 N EOSINOPHIL # (test code = EO#) 0.09 K/mm3 0.0-0.5 N BASOPHIL # (test code = BA#) 0.04 K/mm3 0.0-0.2 N NUCLEATED RBC # (test code = NRBC#) 0.00 K/mm3 0.0-0.1 N MANUAL DIFF REQUIRED (test code = MDIFF) NO URINALYSIS [id number] 16:20:00* Test Item Value Reference Range Interpretation Comments UA COLOR (test code = COLU) Light-Yellow YELLOW UA APPEARANCE (test code = APPU) CLEAR CLEAR UA GLUCOSE DIPSTICK (test code = DGLUU) NEGATIVE mg/dL NEGATIVE UA BILIRUBIN DIPSTICK (test code = BILU) NEGATIVE mg/dL NEGATIVE UA KETONE DIPSTICK (test code = KETU) NEGATIVE mg/dL NEGATIVE UA SPECIFIC GRAVITY (test code = SGU) 1.010 1.001-1.035 UA BLOOD DIPSTICK (test code = NIGHAT) Negative mg/dL NEGATIVE UA PH DIPSTICK (test code = KATIE) 6.5 5.0-8.0 UA PROTEIN DIPSTICK (test code = PROU) NEGATIVE mg/dL NEGATIVE UA UROBILINIOGEN DIPSTICK (test code = URO) Normal mg/dL NEGATIVE UA NITRITE DIPSTICK (test code = MAY) [...] A UA MUCUS (test code = MUCU) FEW #/LPF FEW Urine Source? Clean CatchURINALYSIS [id number] 16:16:00* Test Item Value Reference Range Interpretation Comments UA COLOR (test code = COLU) Light-Yellow YELLOW UA APPEARANCE (test code = APPU) CLEAR CLEAR UA GLUCOSE DIPSTICK (test code = DGLUU) NEGATIVE mg/dL NEGATIVE UA BILIRUBIN DIPSTICK (test code = BILU) NEGATIVE mg/dL NEGATIVE UA KETONE DIPSTICK (test code = KETU) NEGATIVE mg/dL NEGATIVE UA SPECIFIC GRAVITY (test code = SGU) 1.010 1.001-1.035 UA BLOOD DIPSTICK (test code = NIGHAT) Negative mg/dL NEGATIVE UA PH DIPSTICK (test code = KATIE) 6.5 5.0-8.0 UA PROTEIN DIPSTICK (test code = PROU) NEGATIVE mg/dL NEGATIVE UA UROBILINIOGEN DIPSTICK (test code = URO) Normal mg/dL NEGATIVE UA NITRITE DIPSTICK (test code = MAY) NEGATIVE NEGATIVE UA LEUKOCYTE ESTERASE W REFLEX (test code = LEUUR) NEGATIVE Stephania/uL NEGATIVE UA WBC (test code = WBCU) per HPF 0-5 UA RBC (test code = RBCU) per HPF 0-5 UA EPITHELIAL CELLS (test code = EPIU) per HPF Few UA BACTERIA (test code = BACU) per HPF NONE Urine Source? Clean CatchBASIC METABOLIC [id number] 21:25:00* Test Item Value Reference Range Interpretation Comments SODIUM (test code = NA) 137 mmol/L 136-145 N POTASSIUM (test code = K) 3.2 mmol/L 3.5-5.1 L CHLORIDE (test code = CL) 102.0 mmol/L 98-107 N CARBON DIOXIDE (test code = CO2) 26.0 mmol/L 21-32 N ANION GAP (test code = GAP) 12.2 10-20 N GLUCOSE (test code = GLU) 90 mg/dL 74-106 N BLOOD UREA NITROGEN (test code = BUN) 4 mg/dL 7-18 L GLOMERULAR FILTRATION RATE (test code = GFR) > 60 mL/min >=60 Estimated GFR by using Modified MDRD formula.Chronic kidney disease is defined as either kidney damageor GFR <60 mL/min/1.73 m2 for >3 months. CREATININE (test code = CREAT) 0.90 mg/dL 0.55-1.02 N Note change in reference range due to change in reagent. BUN/CREATININE RATIO (test code = BUN/CREA) 4.4 10-20 L CALCIUM (test code = CA) 8.7 mg/dL 8.5-10.1 N HEPATIC FUNCTION [id number] 21:25:00* Test Item Value Reference Range Interpretation Comments TOTAL PROTEIN (test code = PROT) 8.2 gram/dL 6.4-8.2 N ALBUMIN (test code = ALB) 4.2 g/dL 3.4-5.0 N GLOBULIN (test code = GLOB) 4.0 gram/dL 2.7-4.2 N ALBUMIN/GLOBULIN RATIO (test code = A/G) 1.1 0.75-1.50 N BILIRUBIN TOTAL (test code = BILT) 0.50 mg/dL 0.0-1.0 N BILIRUBIN DIRECT (test code = BILD) 0.14 mg/dL 0.0-0.20 N SGOT/AST (test code = AST) 12 IUnit/L 15-37 L SGPT/ALT (test code = ALT) 20 IUnit/L 12-78 N ALKALINE PHOSPHATASE TOTAL (test code = ALKP) 84 IUnit/L 45-117 N Note change in reference range due to change in reagent. [id number] 21:25:00* Test Item Value Reference Range Interpretation Comments LIPASE (test code = LIP) 88 U/L 73.0-393.0 N HCG SERUM [id number] 21:25:00* Test Item Value Reference Range Interpretation Comments HCG SERUM QUAL (test code = HCGQL) NEGATIVE NEGATIVE This HCGQL test is NOT applicable for MALE patients.Check with nurse about probable order error.If Tumor Marker Test needed, nurse should order test "HCGTU"(Test #550.62357) [id number] 21:25:00* Test Item Value Reference Range Interpretation Comments TROPONIN-I (test code = TROPI) <0.015 ng/mL 0-0.045 N C REACTIVE [id number] 21:24:00* Test Item Value Reference Range Interpretation Comments C REACTIVE PROTEIN (test code = CRP) <0.29 mg/dL 0-0.3 N BASIC METABOLIC [id number] 21:18:00* Test Item Value Reference Range Interpretation Comments SODIUM (test code = NA) 137 mmol/L 136-145 N POTASSIUM (test code = K) 3.2 mmol/L 3.5-5.1 L CHLORIDE (test code = CL) 102.0 mmol/L 98-107 N CARBON DIOXIDE (test code = CO2) mmol/L 21-32 ANION GAP (test code = GAP) 10-20 GLUCOSE (test code = GLU) mg/dL 74-106 BLOOD UREA NITROGEN (test code = BUN) mg/dL 7-18 GLOMERULAR FILTRATION RATE (test code = GFR) mL/min >=60 CREATININE (test code = CREAT) mg/dL 0.55-1.02 BUN/CREATININE RATIO (test code = BUN/CREA) 10-20 CALCIUM (test code = CA) mg/dL 8.5-10.1 HEPATIC FUNCTION [id number] 21:18:00* Test Item Value Reference Range Interpretation Comments [...] TOTAL (test code = ALKP) IUnit/L 45-117 [id number] 21:18:00* Test Item Value Reference Range Interpretation Comments LIPASE (test code = LIP) U/L 73.0-393.0 HCG SERUM [id number] 21:18:00* Test Item Value Reference Range Interpretation Comments HCG SERUM QUAL (test code = HCGQL) NEGATIVE NEGATIVE This HCGQL test is NOT applicable for MALE patients.Check with nurse about probable order error.If Tumor Marker Test needed, nurse should order test "HCGTU"(Test #550.79981) [id number] 21:18:00* Test Item Value Reference Range Interpretation Comments TROPONIN-I (test code = TROPI) ng/mL 0-0.045 BASIC METABOLIC [id number] 21:17:00* Test Item Value Reference Range Interpretation Comments SODIUM (test code = NA) 137 mmol/L 136-145 N POTASSIUM (test code = K) 3.2 mmol/L 3.5-5.1 L CHLORIDE (test code = CL) 102.0 mmol/L 98-107 N CARBON DIOXIDE (test code = CO2) mmol/L 21-32 ANION GAP (test code = GAP) 10-20 GLUCOSE (test code = GLU) mg/dL 74-106 BLOOD UREA NITROGEN (test code = BUN) mg/dL 7-18 GLOMERULAR FILTRATION RATE (test code = GFR) mL/min >=60 CREATININE (test code = CREAT) mg/dL 0.55-1.02 BUN/CREATININE RATIO (test code = BUN/CREA) 10-20 CALCIUM (test code = CA) mg/dL 8.5-10.1 HEPATIC FUNCTION [id number] 21:17:00* Test Item Value Reference Range Interpretation Comments [...] TOTAL (test code = ALKP) IUnit/L 45-117 [id number] 21:17:00* Test Item Value Reference Range Interpretation Comments LIPASE (test code = LIP) U/L 73.0-393.0 HCG SERUM [id number] 21:17:00* Test Item Value Reference Range Interpretation Comments HCG SERUM QUAL (test code = HCGQL) NEGATIVE [id number] 21:17:00* Test Item Value Reference Range Interpretation Comments TROPONIN-I (test code = TROPI) ng/mL 0-0.045 CBC W/O [id number] 21:08:00* Test Item Value Reference Range Interpretation Comments WHITE BLOOD CELL (test code = WBC) 9.4 K/mm3 4.5-12.5 N RED BLOOD CELL (test code = RBC) 4.74 mill/mm3 3.7-5.2 N HEMOGLOBIN (test code = HGB) 14.8 gram/dL 11.5-15.5 N HEMATOCRIT (test code = HCT) 42.3 % 36.0-46.0 N MEAN CELL VOLUME (test code = MCV) 89.2 fL 80-98 N MEAN CELL HGB (test code = MCH) 31.2 picogram 27.0-33.0 N MEAN CELL HGB CONCETRATION (test code = MCHC) 35.0 gram/dL 33.0-36. 0 N RED CELL DISTRIBUTION WIDTH (test code = RDW) 12.9 % 11.6-16. 2 N PLATELET COUNT (test code = PLT) 258 K/mm3 150-450 N MEAN PLATELET VOLUME (test code = MPV) 9.9 fL 6.7-11.[address] ABDOMEN/PELVIS [id number] 01:51:00 [facility] [address] [place] [address] Patient Name: KELY MEREDITH MR #: [id number] : 1975 Age/Sex: 44/F Req #: [id number] Adm Physician: Ordered by: SOCORRO KUHN MD Report #: [id number] Location: ER Room/Bed: Procedure: [id number] CT/ CT ABDOMEN/PELVIS WO Exam Date: 10/27/19 Exam Time: 2359 REPORT STATUS: Signed EXAM: CT Abdomen and Pelvis WITHOUT contrast INDICATION: ORAL CONTRAST ONLY, ABD PAIN S/P SURGERY 2 DAYS AGO COMPARISON: CT dated 08/18/2019. TECHNIQUE: Ab domen and pelvis were scanned utilizing a multidetector helical scanner from t he lung base to the pubic symphysis without administration of IV contrast. Abs ence of intravenous contrast decreases sensitivity for detection of focal lesi ons and vascular pathology. Coronal and sagittal reformations were obtained. R outine protocol was performed. IV CONTRAST: None ORAL CONTRAST: A dministered. COMPLICATIONS: None RADIATION DOSE: To jeannette DLP: 233.11 mGy*cm Estimated effective dose: (DLP x 0.015 x size fact or) mSv CTDIvol has been reviewed. It is below the limits set by the Radi ation Protocol Committee (RPC). Dose modulation, iterative reconstructi on, and/or weight based adjustment of the mA/kV was utilized to reduce the rad iation dose to as low as reasonably achievable. FINDINGS: LINES and TUBES: None. LOWER THORAX: Unremarkable HEPATOBILIARY: No significant abnormality. GALLBLADDER: There are cholecystectomy clips. SPLEEN: No splenomegaly. PANCREAS: No focal masses or ductal dilatation. AD RENALS: No adrenal nodules KIDNEYS/URETERS: No hydronephrosis. No cyst ic or solid mass lesions. No stones. GI TRACT: No abnormal distention, w all thickening, or evidence of bowel obstruction. Appendix is normal. PELVIC ORGANS/BLADDER: Hysterectomy. No adnexal masses. Urinary bladder unr emarkable. LYMPH NODES: No lymphadenopathy. VESSELS: Unremarkable. PERITONEUM / RETROPERITONEUM: Trace free air in the right paracolic gutter, likely related to recent surgery. Small volume free fluid in the dependent pel vis. BONES: Unremarkable. SOFT TISSUES: Defect in the midline abdomina l wall soft tissues compatible with recent surgery. IMPRESSION: 1. No acute abdominopelvic process identified on this noncontrast exam. 2. Expect ed postsurgical changes in the pelvis. Signed by: Yadi Horne MD on 10/27 2:00 AM Dictated By: YADI HORNE MD 9 Transcribed By: IRLANDA on 10/28/19199 COPY TO: SOCORRO KUHN MD Urine color [id number] 01:06:00* Test Item Value Reference Range Interpretation Comments Urine Color (test code = 5778-6) YELLOW [facility]LLOW [facility] [id number] 01:06:00* Test Item Value Reference Range Interpretation Comments Urine Clarity (test code = 46933-6) [facility]AR [facility] Test strip 2019-10-28 01:06:00* Test Item Value Reference Range Interpretation Comments Urine Specific [place] (test code = 5811-5) 1.020 1.010-1.02 5 [facility] by automated test [id number] 01:06:00* Test Item Value Reference Range Interpretation Comments Urine pH (test code = 27255-0) 7.5 5-7 [facility] CenterUrine leukocyte esterase detection by muoxaesc3451-74-70 01:06:00* Test Item Value Reference Range Interpretation Comments Urine Leukocyte Esterase (test code = 5799-2) NEGATIVE NEGATIVE [facility] CenterUrine nitrite rrqirnjto8703-83-88 01:06:00* Test Item Value Reference Range Interpretation Comments Urine Nitrite (test code = 67476-9) NEGATIVE NEGATIVE [facility] CenterUrine protein measurement by test strip (mass/volume)2019-10-28 01:06:00* Test Item Value Reference Range Interpretation Comments Urine Protein (test code = 5804-0) NEGATIVE NEGATIVE [facility] CenterUrine glucose jsaplmuhr0979-97-51 01:06:00* Test Item Value Reference Range Interpretation Comments Urine Glucose (UA) (test code = 2349-9) NEGATIVE NEGATIVE [facility] CenterUrine ketones detection by automated test tslzf3270-13-95 01:06:00* Test Item Value Reference Range Interpretation Comments Urine Ketones (test code = 48985-2) NEGATIVE NEGATIVE [facility] CenterUrine urobilinogen measurement by test strip (mass/volume)2019-10-28 01:06:00* Test Item Value Reference Range Interpretation Comments Urine Urobilinogen (test code = 21491-0) 0.2 0.2-1 [facility] CenterUrine total bilirubin measurement (mass/volume)2019-10-28 01:06:00* Test Item Value Reference Range Interpretation Comments Urine Bilirubin (test code = 1978-6) NEGATIVE NEGATIVE [facility] CenterUrine erythrocytes pzbjtkgjg0695-21-83 01:06:00* Test Item Value Reference Range Interpretation Comments Urine Blood (test code = 93631-9) NEGATIVE NEGATIVE [facility] CenterAutomated urine sediment leukocyte count by microscopy (number/high power field)2019-10-28 01:06:00* Test Item Value Reference Range Interpretation Comments Urine WBC (test code = 5821-4) 0-5 0-5 [facility] CenterErythrocytes detection in urine sediment by light twxeihyxtr9273-84-98 01:06:00* Test Item Value Reference Range Interpretation Comments Urine RBC (test code = 30745-5) 0-5 0-5 [facility] CenterBacteria detection in urine sediment by light mjqugweeez8655-50-20 01:06:00* Test Item Value Reference Range Interpretation Comments Urine Bacteria (test code = 03712-1) FEW NONE [facility] CenterEpithelial cells detection in urine sediment by light dkngvmgbwh5214-19-09 01:06:00* Test Item Value Reference Range Interpretation Comments Urine Epithelial Cells (test code = 29676-3) FEW NONE [facility] CenterAmorphous sediment detection in urine sediment by light twpynsvnpc9646-73-93 01:06:00* Test Item Value Reference Range Interpretation Comments Urine Amorphous Sediment (test code = 8246-1) FEW FEW [facility] CenterBlood leukocytes automated count (number/volume)2019-10-28 00:02:00* Test Item Value Reference Range Interpretation Comments White Blood Count (test code = 6690-2) 11.33 4.8-10.8 [facility] CenterBlood erythrocytes automated count (number/volume)2019-10-28 00:02:00* Test Item Value Reference Range Interpretation Comments Red Blood Count (test code = 789-8) 4.16 3.6-5.1 [facility] CenterBlood hemoglobin measurement (moles/volume)2019-10-28 00:02:00* Test Item Value Reference Range Interpretation Comments Hemoglobin (test code = 75845-6) 12.9 12.0-16.0 [facility] CenterAutomated blood hematocrit (volume fraction)2019-10-28 00:02:00* Test Item Value Reference Range Interpretation Comments Hematocrit (test code = 4544-3) 38.1 34.2-44.1 [facility] CenterAutomated erythrocyte mean corpuscular jdawyd2388-42-26 00:02:00* Test Item Value Reference Range Interpretation Comments Mean Corpuscular Volume (test code = 787-2) 91.6 81-99 [facility] CenterAutomated erythrocyte mean corpuscular hemoglobin (mass per erythrocyte)2019-10-28 00:02:00* Test Item Value Reference Range Interpretation Comments Mean Corpuscular Hemoglobin (test code = 785-6) 31.0 28-32 [facility] CenterAut[facility] erythrocyte mean corpuscular hemoglobin concentration measurement (mass/volume)2019-10-28 00:02:00* Test Item Value Reference Range Interpretation Comments Mean Corpuscular Hemoglobin Concent (test code = 786-4) 33.9 31-35 [facility] CenterRDW XabMq-Oos2198-54-28 00:02:00* Test Item Value Reference Range Interpretation Comments Red Cell Distribution Width (test code = 50858-1) 13.0 11.7 -14.4 [facility] blood platelet count (count/volume)2019-10-28 00:02:00* Test Item Value Reference Range Interpretation Comments Platelet Count (test code = 777-3) 243 140-[address] [facility] segmented neutrophil count as percentage of total bcotcjxdor6677-35-49 00:02:00* Test Item Value Reference Range Interpretation Comments Neutrophils (%) (Auto) (test code = 30603-1) 78.7 38.7-80.0 [facility] blood lymphocyte count as percentage ot total onamjmypiu9655-19-18 00:02:00* Test Item Value Reference Range Interpretation Comments Lymphocytes (%) (Auto) (test code = 736-9) 12.5 18.0-39.1 [facility] CenterAutpending sale to novant healthed blood monocyte count as percentage of total hnhwiskccv1080-42-79 00:02:00* Test Item Value Reference Range Interpretation Comments Monocytes (%) (Auto) (test code = 5905-5) 5.8 4.4-11.3 [facility] blood eosinophil count as percentage of total sanzrqidbt1701-60-08 00:02:00* Test Item Value Reference Range Interpretation Comments Eosinophils (%) (Auto) (test code = 713-8) 2.5 0.0-6.[address] [facility] CenterAutom[facility] blood basophil count as percentage of total psqxghmicp1540-89-16 00:02:00* Test Item Value Reference Range Interpretation Comments Basophils (%) (Auto) (test code = 706-2) 0.2 0.0-1.0 [facility] CenterFluoroscopic procedure less than one hour auwccejt6997-61-89 00:02:00* Test Item Value Reference Range Interpretation Comments IM GRANULOCYTES % (test code = IM GRANULOCYTES %) 0.3 0.0- 1.0 [facility] CenterAutomated blood neutrophil count 2019-10-28 00:02:00* Test Item Value Reference Range Interpretation Comments Neutrophils # (Auto) (test code = 751-8) 8.9 2.1-6.9 [facility] CenterBlood lymphocytes count (number/volume) 2019-10-28 00:02:00* Test Item Value Reference Range Interpretation Comments Lymphocytes # (Auto) (test code = 02336-6) 1.4 1.0-3.2 [facility] CenterBlood monocytes automated count (number/volume)2019-10-28 00:02:00* Test Item Value Reference Range Interpretation Comments Monocytes # (Auto) (test code = 742-7) 0.7 0.2-0.8 [facility] CenterAutomated blood eosinophil count 2019-10-28 00:02:00* Test Item Value Reference Range Interpretation Comments Eosinophils # (Auto) (test code = 711-2) 0.3 0.0-0.4 [facility] CenterAutomated blood basophil count (count/volume)2019-10-28 00:02:00* Test Item Value Reference Range Interpretation Comments Basophils # (Auto) (test code = 704-7) 0.0 0.0-0.1 [facility] CenterFluoroscopic procedure less than one hour djmlycgl7612-92-08 00:02:00* Test Item Value Reference Range Interpretation Comments Absolute Immature Granulocyte (auto (codie t code = Absolute Immature Granulocyte (auto) 0.03 0-0.1 [facility]erum [facility] plasma sodium measurement (moles/volume)2019-10-28 00:02:00* Test Item Value Reference Range Interpretation Comments Sodium Level (test code = 2951-2) 137 136-145 [facility] Hospitalerum or plasma potassium measurement (moles/volume)2019-10-28 00:02:00* Test Item Value Reference Range Interpretation Comments Potassium Level (test code = 2823-3) 3.2 3.5-5.1 [facility] Hospitalerum or plasma chloride measurement (moles/volume)2019-10-28 00:02:00* Test Item Value Reference Range Interpretation Comments Chloride Level (test code = 2075-0) 102 98-107 [facility] Hospitalerum or plasma carbon dioxide, total measurement (moles/volume)2019-10-28 00:02:00* Test Item Value Reference Range Interpretation Comments Carbon Dioxide Level (test code = 2028-9) 23 22-29 [facility] Hospitalerum or plasma anion ohp3721-04-43 00:02:00* Test Item Value Reference Range Interpretation Comments Anion Gap (test code = 03423-7) 15.2 8-16 [facility] Hospitalerum or plasma urea nitrogen measurement (mass/volume)2019-10-28 00:02:00* Test Item Value Reference Range Interpretation Comments Blood Urea Nitrogen (test code = 3094-0) 7 7-26 [facility] Hospitalerum or plasma creatinine measurement (mass/volume)2019-10-28 00:02:00* Test Item Value Reference Range Interpretation Comments Creatinine (test code = 2160-0) 0.83 0.57-1.11 [facility] Hospitalerum or plasma urea nitrogen/creatinine mass vdhur9588-39-43 00:02:00* Test Item Value Reference Range Interpretation Comments BUN/Creatinine Ratio (test code = 3097-3) 8 6-25 [facility] CenterEstimated glomerular filtration rate (GFR) hslcjdwkhhfgh9381-10-45 00:02:00* Test Item Value Reference Range Interpretation Comments Estimat Glomerular Filtration Rate (test code = 625358074) > 60 >60 Ranges were taken from the National Kidney Disease Education Program and the [facility] literature.Reference ranges:60 or greater: Xtgrwm56-91 ( for 3 consecutive months): Chronic kidney disease 15 or less: Kidney failureConnally Memorial Medical CenterGlucose nboljskccwd4407-55-56 00:02:00* Test Item Value Reference Range Interpretation Comments Glucose Level (test code = GNW8509) 91 74-118 [facility] Hospitalerum or plasma calcium measurement (mass/volume)2019-10-28 00:02:00* Test Item Value Reference Range Interpretation Comments Calcium Level (test code = 18907-9) 8.8 8.4-10.2 [facility] Hospitalerum or plasma total bilirubin measurement (mass/volume)2019-10-28 00:02:00* Test Item Value Reference Range Interpretation Comments Total Bilirubin (test code = 1975-2) 0.4 0.2-1.2 [facility] CenterFluoroscopic procedure less than one hour gqusdvrb0181-70-46 00:02:00* Test Item Value Reference Range Interpretation Comments Aspartate Amino Transf (AST/SGOT) (test code = Aspartate Amino Transf (AST/SGOT)) 14 5-34 [facility] Hospitalerum or plasma alanine aminotransferase measurement (enzymatic activity/volume)2019-10-28 00:02:00* Test Item Value Reference Range Interpretation Comments Alanine Aminotransferase (ALT/SGPT) (test code = 1742-6) 11 0-55 [facility] Hospitalerum or plasma protein measurement (mass/volume)2019-10-28 00:02:00* Test Item Value Reference Range Interpretation Comments Total Protein (test code = 2885-2) 6.6 6.5-8.1 [facility] Hospitalerum or plasma albumin measurement (mass/volume)2019-10-28 00:02:00* Test Item Value Reference Range Interpretation Comments Albumin (test code = 1751-7) 3.4 3.5-5.0 [facility] CenterPlasma globulin measurement (mass/volume) 2019-10-28 00:02:00* Test Item Value Reference Range Interpretation Comments Globulin (test code = 33150-6) 3.2 2.3-3.5 [facility] Hospitalerum or plasma albumin/globulin mass rkcqc6962-03-19 00:02:00* Test Item Value Reference Range Interpretation Comments Albumin/Globulin Ratio (test code = 1759-0) 1.1 0.8-2.0 [facility] Hospitalerum or plasma alkaline phosphatase measurement (enzymatic activity/volume)2019-10-28 00:02:00* Test Item Value Reference Range Interpretation Comments Alkaline Phosphatase (test code = 6768-6) 76 40-150 [facility] Hospitalerum or plasma amylase measurement (enzymatic activity/volume)2019-10-28 00:02:00* Test Item Value Reference Range Interpretation Comments Amylase Level (test code = 1798-8) 44 25-125 [facility] Hospitalerum or plasma lipase measurement (enzymatic activity/volume)2019-10-28 00:02:00* Test Item Value Reference Range Interpretation Comments Lipase (test code = 3040-3) 14 8-78 [facility] CenterFluoroscopic procedure less than one hour lyvtcpka6666-63-73 13:26:00* Test Item Value Reference Range Interpretation Comments Coronavirus (PCR) (test code = Coronavirus (PCR)) NOT DETECTED NOTD ETECTED vLine Aptima SARS-CoV-2 assay is a nucleic amplification test intended for the qualitative detection of RNA from SARS-CoV-2 from nasopharyngeal (RADIATOR MECHANIC) specimens. It is used under Emergency Use Authorization (EUA) by FDA.A positive result is indicative of the presence of SARS-CoV-2 RNA. Clinical correlation with patient history and other diagnostic information is necessary to determine patient infe ction status.A negative (Not Detected) result does not preclude SARS-CoV-2 infec tion. Clinical Correlation with patient history and other diagnostic information should be used in patient management decisions.Invalid: Unable to generate a va lid result on this specimen. Please submit a new specimen for reprat testing oc clinically indicated.Tesing performed by:[facility] Laboratory [address] [place] [address] [id number], Socorro Carl MD, PhD [facility] CenterMAMMOGRAPHY DIGITAL SCR EVHCO1643-74-00 13:19:00 [place] [address] Patient Name: KELY MEREDITH MR #: [id number] : 1975 Age/Sex: 44/F Req #: [id number] Adm Physician: Ordered by: SARAH AYOUB MD Report #: [id number] Location: MAMMO Room/Bed: Procedure: [id number] MG/MAMMOGRA PHY DIGITAL SCR BILAT Exam Date: 10/20/19 Exam Time: 1300 REPORT STATUS: Signed # [id number] - MGSCRBIL #BILATERAL DIGITAL SCREENING MAMMOGRAM WITH CAD: 10/19 CLINICAL: Routine screening. Comparison is made to exams dated: 2018 mammogram and 04/30/2017 mammogram - [facility] er. The tissue of both breasts is heterogeneously dense. This may lower the sensitivity of mammography. Current study was also evaluated with a Comput er Aided Detection (CAD) system. There are benign lymph nodes in both breast s. There also is a benign calcification in the right breast. No signific ant masses, calcifications, or other findings are seen in either breast. The re has been no significant interval change. IMPRESSION: BENIGN There is n o mammographic evidence of malignancy. A 1 year screening mammogram is recommen ded. The patient will be notified by letter of the results. NANO russell/maribell:10/27/2019 10:04:03 [employer]: Lisa RALPH(R)(M), [facility] letter sent: Compar ed to Prior B9 Mammogram BI-RADS: 2 Benign Dictated By: NANO RAMÍREZ MD E lectronically Signed By: NANO RAMÍREZ MD on 10/27/19 100 Transcribed By: MARIBELL on 10/27/19 100 COPY TO: SARAH AYOUB MD Serum or plasma choriogonadotropin ( test) bbwsjpivs3244-72-55 12:48:00* Test Item Value Reference Range Interpretation Comments Human Chorionic Gonadotropin, Qual (test code = 2118-8) NEGATIVE NEGATIVE [facility] FNIIO9013-70-31 12:53:00 [facility] [address] [place] [address] Patient Name: KELY MEREDITH MR #: [id number] : 1975 Age/Sex: 44/F Req #: [id number] Adm Physician: Ordered by: RUFUS OAKLEY MD Report #: [id number] Location: [facility] Room/Bed: Procedure: [id number] DX/CHEST 2 VIEWS Exam Date: 09/20/19 Exam [...] ABDOMEN: No free air under the diaphragm. IMP RESSION: No acute thoracic radiographic abnormality. Signed by: Carlin Melgar MD on 09/20/2019 12:53 PM Dictated By: CARLIN MELGAR MD Elect ronically Signed By: CARLIN MELGAR MD on 09/20/19 1253 Transcribed By: IRLANDA on 09/20/19 1253 COPY TO: RUFUS OAKLEY MD Fluoroscopic procedure less than one hour tsakpjxy9519-86-78 07:45:00* Test Item Value Reference Range Interpretation Comments Coronavirus (PCR) (test code = Coronavirus (PCR)) NOT DETECTED NOTD ETECTED SARS-COV2/RT-PCRNegative results do not preclude SARS-CoV-2 infection and should not be used as the sole basis for patient management decisions. Negative results must be combined with clinical observations, patient [...] use of in vitro diagnostic test for detection and or diagnosis of COVID-19 is terminated under section 564(b) of the Act, or the the EUA is revoked under 564(g) of the ACT.Testing performed by [address] ABDOMEN/PELVIS B6529-55-81 09:32:00 [place] [address] Patient Name: KELY MEREDITH MR #: [id number] : 1975 Age/Sex: 44/F Req #: [id number] Adm Physician: Ordered by: CLAU ZAVALA MD Report #: [id number] Location: [place] Room/Bed: Procedure: [id number] CT/CT ABD OMEN/PELVIS W Exam Date: 08/18/19 [...] FINDINGS: LOWER THORAX: Normal. HEPATOBILIARY: Diffuse hepatic steatosis and hepatomegaly. No focal liver lesion. Status post cholecystectomy. SPLEEN: No splenomegaly. PANCREAS: No focal masses or ductal dilatation. ADRENALS: No adrenal nodules. KIDNEYS/URETERS: No hydronephrosis, stones, or solid mass lesions. PELVIC ORGANS/BLADDER: Status post [...] COPY TO: CLAU ZAVALA MD Stool lactoferrin tbmkncixo2655-34-01 07:40:00* Test Item Value Reference Range Interpretation Comments Stool Lactoferrin (LAB) (test code = 71824-3) NEGATIVE NEGATIVE Testing on stool aspirate specimens is outside extruder tender claims since specime n type not validated on this assay.[facility] calprotectin measurement (mass/mass)2019-04-25 07:40:00* Test Item Value Reference Range Interpretation Comments Stool Calprotectin (test code = 40372-8) 21 0-120 Concentration Interpretation Follow-Up<16 - 50 ug/g Normal None>50 -120 ug/g Borderline Re-evaluate in 4-6 weeks >120 ug/g Abnormal Repeat as clinically indicatedPerformed at: - [facility] [address] [id number] Director: Mark Frank MD, Phone: [phone] Memorial Medical CenterClostridium difficile A and B toxin uuwhi1155-48-96 07:40:00* Test Item Value Reference Range Interpretation Comments Clostridium Difficile Toxin A & B (test code = 295856197) NEGATIVE NEGATIVE Testing on stool aspirate specimens is outside extruder tender claims since specime n type not validated on this assay.[facility] Hospitalto lactoferrin bkgstypyq6591-71-08 07:40:00* Test Item Value Reference Range Interpretation Comments Stool Lactoferrin (LAB) (test code = 13622-1) NEGATIVE NEGATIVE Testing on stool aspirate specimens is outside extruder tender claims since specime n type not validated on this assay.[facility] calprotectin measurement (mass/mass)2019-04-25 07:40:00* Test Item Value Reference Range Interpretation Comments Stool Calprotectin (test code = 20612-1) 21 0-120 Concentration Interpretation Follow-Up<16 - 50 ug/g Normal None>50 -120 ug/g Borderline Re-evaluate in 4-6 weeks >120 ug/g Abnormal Repeat as clinically indicatedPerformed at: - [facility] [address] [place], [place] [id number] Director: Mark Frank MD, Phone: [phone] Memorial Medical CenterClostridium difficile A and B toxin otvmy7235-55-20 07:40:00* Test Item Value Reference Range Interpretation Comments Clostridium Difficile Toxin A & B (test code = 663016359) NEGATIVE NEGATIVE Testing on stool aspirate specimens is outside extruder tender claims since specime n type not validated on this assay.[facility] Hospitaltool lactoferrin atzfgtinq4025-66-79 07:40:00* Test Item Value Reference Range Interpretation Comments Stool Lactoferrin (LAB) (test code = 52437-6) NEGATIVE NEGATIVE Testing on stool aspirate specimens is outside extruder tender claims since specime n type not validated on this assay.[facility] calprotectin measurement (mass/mass)2019-04-25 07:40:00* Test Item Value Reference Range Interpretation Comments Stool Calprotectin (test code = 28411-1) 21 0-120 Concentration Interpretation Follow-Up<16 - 50 ug/g Normal None>50 -120 ug/g Borderline Re-evaluate in 4-6 weeks >120 ug/g Abnormal Repeat as clinically indicatedPerformed at: [facility] [address] [place] [address] [id number] Director: Mark Frank MD, Phone: [phone] Memorial Medical CenterClostridium difficile A and B toxin yqncp5487-16-33 07:40:00* Test Item Value Reference Range Interpretation Comments Clostridium Difficile Toxin A & B (test code = 838128607) NEGATIVE NEGATIVE Testing on stool aspirate specimens is outside extruder tender claims since specime n type not validated on this assay.[facility] Fluoroscopic procedure less than one hour gqotajeu1249-28-44 14:24:00* Test Item Value Reference Range Interpretation Comments Hemoglobin A1c Percent (test code = Hemoglobin A1c Percent) 4.8 4.0-7.0 [facility] CenterFluoroscopic procedure less than one hour jtinwdix5475-11-72 14:24:00* Test Item Value Reference Range Interpretation Comments Hemoglobin A1c Percent (test code = Hemoglobin A1c Percent) 4.8 4.0-7.0 [facility] CenterFluoroscopic procedure less than one hour spuxvcvx6177-11-26 14:24:00* Test Item Value Reference Range Interpretation Comments Hemoglobin A1c Percent (test code = Hemoglobin A1c Percent) 4.8 4.0-7.0 [facility] CenterBlood leukocytes automated count (number/volume)2019-03-28 14:18:00* Test Item Value Reference Range Interpretation Comments White Blood Count (test code = 6690-2) 8.20 4.8-10.8 [facility] CenterBlsandstone [facility] erythrocytes automated count (number/volume)2019-03-28 14:18:00* Test Item Value Reference Range Interpretation Comments Red Blood Count (test code = 789-8) 4.67 3.6-5.1 [facility] CenterBlood hemoglobin measurement (moles/volume)2019-03-28 14:18:00* Test Item Value Reference Range Interpretation Comments Hemoglobin (test code = 20296-2) 14.5 12.0-16.0 [facility] CenterAutomated blood hematocrit (volume fraction)2019-03-28 14:18:00* Test Item Value Reference Range Interpretation Comments Hematocrit (test code = 4544-3) 41.8 34.2-44.1 [facility] CenterAutpending sale to novant healthed erythrocyte mean corpuscular lcndgc1764-77-07 14:18:00* Test Item Value Reference Range Interpretation Comments Mean Corpuscular Volume (test code = 787-2) 89.5 81-99 [facility] CenterAutomated erythrocyte mean corpuscular hemoglobin (mass per erythrocyte)2019-03-28 14:18:00* Test Item Value Reference Range Interpretation Comments Mean Corpuscular Hemoglobin (test code = 785-6) 31.0 28-32 [facility] CenterAutpending sale to novant healthed erythrocyte mean corpuscular hemoglobin concentration measurement (mass/volume)2019-03-28 14:18:00* Test Item Value Reference Range Interpretation Comments Mean Corpuscular Hemoglobin Concent (test code = 786-4) 34.7 31-35 [facility] CenterRDW RibWi-Ztl3948-48-27 14:18:00* Test Item Value Reference Range Interpretation Comments Red Cell Distribution Width (test code = 17392-6) 12.8 11.7 -14.4 [facility] CenterAutpending sale to novant healthed blood platelet count (count/volume)2019-03-28 14:18:00* Test Item Value Reference Range Interpretation Comments Platelet Count (test code = 777-3) 302 140-360 [facility] CenterAutomated blood segmented neutrophil count as percentage of total brvwmzlztk5522-83-51 14:18:00* Test Item Value Reference Range Interpretation Comments Neutrophils (%) (Auto) (test code = 85661-6) 64.3 38.7-80.0 [facility] CenterAutomated blood lymphocyte count as percentage ot total pbhvntmstc4808-25-64 14:18:00* Test Item Value Reference Range Interpretation Comments Lymphocytes (%) (Auto) (test code = 736-9) 27.9 18.0-39.1 [facility] CenterAutomated blood monocyte count as percentage of total jjvljpjoqy0604-25-07 14:18:00* Test Item Value Reference Range Interpretation Comments Monocytes (%) (Auto) (test code = 5905-5) 5.6 4.4-11.3 [facility] CenterAutpending sale to novant healthed blood eosinophil count as percentage of total qxboyeulnp2334-27-68 14:18:00* Test Item Value Reference Range Interpretation Comments Eosinophils (%) (Auto) (test code = 713-8) 1.5 0.0-6.0 [facility] [facility] CenterAutomated [facility] basophil count as percentage of total femzxvofrq4665-79-59 14:18:00* Test Item Value Reference Range Interpretation Comments Basophils (%) (Auto) (test code = 706-2) 0.5 0.0-1.0 [facility] CenterFluoroscopic procedure less than one hour scjaycow7352-35-79 14:18:00* Test Item Value Reference Range Interpretation Comments IM GRANULOCYTES % (test code = IM GRANULOCYTES %) 0.2 0.0- 1.0 [facility] CenterAutomated blood neutrophil count 2019-03-28 14:18:00* Test Item Value Reference Range Interpretation Comments Neutrophils # (Auto) (test code = 751-8) 5.3 2.1-6.9 [facility] lymphocytes count (number/volume) 2019-03-28 14:18:00* Test Item Value Reference Range Interpretation Comments Lymphocytes # (Auto) (test code = 29782-8) 2.3 1.0-3.[address] [facility] Center[facility] monocytes automated count (number/volume)2019-03-28 14:18:00* Test Item Value Reference Range Interpretation Comments Monocytes # (Auto) (test code = 742-7) 0.5 0.2-0.8 [facility] CenterAutomated blood eosinophil count 2019-03-28 14:18:00* Test Item Value Reference Range Interpretation Comments Eosinophils # (Auto) (test code = 711-2) 0.1 0.0-0.4 [facility] CenterAutomated blood basophil count (count/volume)2019-03-28 14:18:00* Test Item Value Reference Range Interpretation Comments Basophils # (Auto) (test code = 704-7) 0.0 0.0-0.1 [facility] CenterFluoroscopic procedure less than one hour vfuvhodh3954-41-50 14:18:00* Test Item Value Reference Range Interpretation Comments Absolute Immature Granulocyte (auto (codie t code = Absolute Immature Granulocyte (auto) 0.02 0-0.1 [facility] sodium measurement (moles/volume)2019-03-28 14:18:00* Test Item Value Reference Range Interpretation Comments Sodium Level (test code = 2951-2) 138 136-145 [facility] Hospitalerum or plasma potassium measurement (moles/volume)2019-03-28 14:18:00* Test Item Value Reference Range Interpretation Comments Potassium Level (test code = 2823-3) 3.4 3.5-5.1 [facility] Hospitaler[facility] or plasma chloride measurement (moles/volume)2019-03-28 14:18:00* Test Item Value Reference Range Interpretation Comments Chloride Level (test code = 2075-0) 102 98-107 [facility] Hospitalerum or plasma carbon dioxide, total measurement (moles/volume)2019-03-28 14:18:00* Test Item Value Reference Range Interpretation Comments Carbon Dioxide Level (test code = 2028-9) 26 22-29 [facility] Hospitalerum or plasma anion uzm8311-45-15 14:18:00* Test Item Value Reference Range Interpretation Comments Anion Gap (test code = 20530-1) 13.4 8-16 [facility]er[facility] plasma urea nitrogen measurement (mass/volume)2019-03-28 14:18:00* Test Item Value Reference Range Interpretation Comments Blood Urea Nitrogen (test code = 3094-0) 9 7-26 [facility] Hospitalerum or plasma creatinine measurement (mass/volume)2019-03-28 14:18:00* Test Item Value Reference Range Interpretation Comments Creatinine (test code = 2160-0) 0.94 0.57-1.11 [facility] Hospitalerum or plasma urea nitrogen/creatinine mass rkntd5461-65-88 14:18:00* Test Item Value Reference Range Interpretation Comments BUN/Creatinine Ratio (test code = 3097-3) 10 6-25 [facility] CenterEstimated glomerular filtration rate (GFR) aqcqcbocjyoow1891-26-75 14:18:00* Test Item Value Reference Range Interpretation Comments Estimat Glomerular Filtration Rate (test code = 078038074) > 60 >60 Ranges were taken from the National Kidney Disease Education Program and the [facility] Kidney Foundation literature.Reference ranges:60 or greater: Dbryxw75-35 ( for 3 consecutive months): Chronic kidney disease 15 or less: Kidney failureConnally Memorial Medical CenterGlucose imwwtsfcjho3990-04-06 14:18:00* Test Item Value Reference Range Interpretation Comments Glucose Level (test code = VAL6492) 77 74-118 [facility] Hospitalerum or plasma calcium measurement (mass/volume)2019-03-28 14:18:00* Test Item Value Reference Range Interpretation Comments Calcium Level (test code = 64097-7) 9.1 8.4-10.2 [facility] Hospitalerum or plasma total bilirubin measurement (mass/volume)2019-03-28 14:18:00* Test Item Value Reference Range Interpretation Comments Total Bilirubin (test code = 1975-2) 0.6 0.2-1.2 [facility] CenterFluoroscopic procedure less than one hour bhifzpou0620-18-76 14:18:00* Test Item Value Reference Range Interpretation Comments Aspartate Amino Transf (AST/SGOT) (test code = Aspartate Amino Transf (AST/SGOT)) 15 5-34 [facility] Hospitalerum or plasma alanine aminotransferase measurement (enzymatic activity/volume)2019-03-28 14:18:00* Test Item Value Reference Range Interpretation Comments Alanine Aminotransferase (ALT/SGPT) (test code = 1742-6) 10 0-55 [facility] Hospitalerum or plasma protein measurement (mass/volume)2019-03-28 14:18:00* Test Item Value Reference Range Interpretation Comments Total Protein (test code = 2885-2) 7.1 6.5-8.1 [facility] Hospitalerum or plasma albumin measurement (mass/volume)2019-03-28 14:18:00* Test Item Value Reference Range Interpretation Comments Albumin (test code = 1751-7) 4.0 3.5-5.0 [facility] CenterPlasma globulin measurement (mass/volume) 2019-03-28 14:18:00* Test Item Value Reference Range Interpretation Comments Globulin (test code = 30299-8) 3.1 2.3-3.5 [facility] Hospitalerum or plasma albumin/globulin mass vukas9941-68-34 14:18:00* Test Item Value Reference Range Interpretation Comments Albumin/Globulin Ratio (test code = 1759-0) 1.3 0.8-2.0 [facility] Hospitalerum or plasma alkaline phosphatase measurement (enzymatic activity/volume)2019-03-28 14:18:00* Test Item Value Reference Range Interpretation Comments Alkaline Phosphatase (test code = 6768-6) 73 40-150 [facility] Hospitalerum or plasma thyrotropin measurement by detection limit <= 0.005 miu/l (units/volume)2019-03-28 14:18:00* Test Item Value Reference Range Interpretation Comments Thyroid Stimulating Hormone (TSH) (test code = 48693-2) 1.351 0.350-4.940 [facility] CenterChlamydia trachomatis rRNA detection by probe and target amplification yhlups4022-04-67 14:18:00* Test Item Value Reference Range Interpretation Comments Chlamydia/GC Amplified DNA (test code = 36904-0) Negative Negat willem [facility] CenterNeisseria gonorrhoeae rRNA detection by probe and target amplification iqrosj8684-74-44 14:18:00* Test Item Value Reference Range Interpretation Comments Neisseria gonorrhoeae DNA (DOUGLAS) (test code = 64274-9) Negative Negative Performed at: [facility] [place] [address] [id number] Director: Nimo De La Rosa MD, Phone: [phone] Medical Center [facility]Blsand[facility] leukocytes automated count (number/volume) 2019-03-28 14:18:00* Test Item Value Reference Range Interpretation Comments White Blood Count (test code = 6690-2) 8.20 4.8-10.8 [facility] CenterBlsandstone [facility] erythrocytes automated count (number/volume)2019-03-28 14:18:00* Test Item Value Reference Range Interpretation Comments Red Blood Count (test code = 789-8) 4.67 3.6-5.1 [facility] CenterBlood hemoglobin measurement (moles/volume)2019-03-28 14:18:00* Test Item Value Reference Range Interpretation Comments Hemoglobin (test code = 99991-4) 14.5 12.0-16.0 [facility] CenterAutomated blood hematocrit (volume fraction)2019-03-28 14:18:00* Test Item Value Reference Range Interpretation Comments Hematocrit (test code = 4544-3) 41.8 34.2-44.1 [facility] CenterAutomated erythrocyte mean corpuscular htaerc5053-09-89 14:18:00* Test Item Value Reference Range Interpretation Comments Mean Corpuscular Volume (test code = 787-2) 89.5 81-99 [facility] CenterAutomated erythrocyte mean corpuscular hemoglobin (mass per erythrocyte)2019-03-28 14:18:00* Test Item Value Reference Range Interpretation Comments Mean Corpuscular Hemoglobin (test code = 785-6) 31.0 28-32 [facility] CenterAutomated erythrocyte mean corpuscular hemoglobin concentration measurement (mass/volume)2019-03-28 14:18:00* Test Item Value Reference Range Interpretation Comments Mean Corpuscular Hemoglobin Concent (test code = 786-4) 34.7 31-35 [facility] CenterRDW TgkXo-Dkb7414-25-27 14:18:00* Test Item Value Reference Range Interpretation Comments Red Cell Distribution Width (test code = 95435-0) 12.8 11.7 -14.4 [facility] CenterAutomated blood platelet count (count/volume)2019-03-28 14:18:00* Test Item Value Reference Range Interpretation Comments Platelet Count (test code = 777-3) 302 140-360 [facility] CenterAutomated blood segmented neutrophil count as percentage of total vrzadtmita1298-24-62 14:18:00* Test Item Value Reference Range Interpretation Comments Neutrophils (%) (Auto) (test code = 79954-5) 64.3 38.7-80.0 [facility] CenterAutomated blood lymphocyte count as percentage ot total proseiomll3636-93-38 14:18:00* Test Item Value Reference Range Interpretation Comments Lymphocytes (%) (Auto) (test code = 736-9) 27.9 18.0-39.1 [facility] CenterAutomated blood monocyte count as percentage of total gorccrotbu2951-93-74 14:18:00* Test Item Value Reference Range Interpretation Comments Monocytes (%) (Auto) (test code = 5905-5) 5.6 4.4-11.3 [facility] CenterAutomated blood eosinophil count as percentage of total vrpvyuztxp5979-61-82 14:18:00* Test Item Value Reference Range Interpretation Comments Eosinophils (%) (Auto) (test code = 713-8) 1.5 0.0-6.0 [facility] CenterAutomated blood basophil count as percentage of total qdgjaefpct5015-40-86 14:18:00* Test Item Value Reference Range Interpretation Comments Basophils (%) (Auto) (test code = 706-2) 0.5 0.0-1.0 [facility] CenterFluoroscopic procedure less than one hour gfziazcv6399-25-83 14:18:00* Test Item Value Reference Range Interpretation Comments IM GRANULOCYTES % (test code = IM GRANULOCYTES %) 0.2 0.0- 1.0 [facility] CenterAutomated blood neutrophil count 2019-03-28 14:18:00* Test Item Value Reference Range Interpretation Comments Neutrophils # (Auto) (test code = 751-8) 5.3 2.1-6.9 [facility] CenterBlood lymphocytes count (number/volume) 2019-03-28 14:18:00* Test Item Value Reference Range Interpretation Comments Lymphocytes # (Auto) (test code = 85368-9) 2.3 1.0-3.2 [facility] CenterBlood monocytes automated count (number/volume)2019-03-28 14:18:00* Test Item Value Reference Range Interpretation Comments Monocytes # (Auto) (test code = 742-7) 0.5 0.2-0.8 [facility] CenterAutomated blood eosinophil count 2019-03-28 14:18:00* Test Item Value Reference Range Interpretation Comments Eosinophils # (Auto) (test code = 711-2) 0.1 0.0-0.4 [facility] CenterAutomated blood basophil count (count/volume)2019-03-28 14:18:00* Test Item Value Reference Range Interpretation Comments Basophils # (Auto) (test code = 704-7) 0.0 0.0-0.1 [facility] CenterFluoroscopic procedure less than one hour ncqobabq8798-58-42 14:18:00* Test Item Value Reference Range Interpretation Comments Absolute Immature Granulocyte (auto (codie t code = Absolute Immature Granulocyte (auto) 0.02 0-0.1 [facility] Hospitalerum or plasma sodium measurement (moles/volume)2019-03-28 14:18:00* Test Item Value Reference Range Interpretation Comments Sodium Level (test code = 2951-2) 138 136-145 [facility] Hospitalerum or plasma potassium measurement (moles/volume)2019-03-28 14:18:00* Test Item Value Reference Range Interpretation Comments Potassium Level (test code = 2823-3) 3.4 3.5-5.1 [facility] Hospitalerum or plasma chloride measurement (moles/volume)2019-03-28 14:18:00* Test Item Value Reference Range Interpretation Comments Chloride Level (test code = 2075-0) 102 98-107 [facility] Hospitalerum or plasma carbon dioxide, total measurement (moles/volume)2019-03-28 14:18:00* Test Item Value Reference Range Interpretation Comments Carbon Dioxide Level (test code = 2028-9) 26 22-29 [facility] Hospitalerum or plasma anion sbe1590-40-37 14:18:00* Test Item Value Reference Range Interpretation Comments Anion Gap (test code = 38104-5) 13.4 8-16 [facility]er[facility] or plasma urea nitrogen measurement (mass/volume)2019-03-28 14:18:00* Test Item Value Reference Range Interpretation Comments Blood Urea Nitrogen (test code = 3094-0) 9 7-26 [facility] Hospitaler[facility] or plasma creatinine measurement (mass/volume)2019-03-28 14:18:00* Test Item Value Reference Range Interpretation Comments Creatinine (test code = 2160-0) 0.94 0.57-1.11 [facility] Hospitalerum or plasma urea nitrogen/creatinine mass idnkg6281-69-20 14:18:00* Test Item Value Reference Range Interpretation Comments BUN/Creatinine Ratio (test code = 3097-3) 10 6-25 [facility] CenterEstimated glomerular filtration rate (GFR) baagpjvibzlvd9965-70-18 14:18:00* Test Item Value Reference Range Interpretation Comments Estimat Glomerular Filtration Rate (test code = 207028133) > 60 >60 Ranges were taken from the National Kidney Disease Education Program and the [facility] Kid[facility] Foundation literature.Reference ranges:60 or greater: Hugwbi19-24 ( for 3 consecutive months): Chronic kidney disease 15 or less: Kidney failureConnally Memorial Medical CenterGlucose olkejcrbggy5616-22-94 14:18:00* Test Item Value Reference Range Interpretation Comments Glucose Level (test code = JDD0800) 77 74-118 [facility] Hospitalerum or plasma calcium measurement (mass/volume)2019-03-28 14:18:00* Test Item Value Reference Range Interpretation Comments Calcium Level (test code = 27165-8) 9.1 8.4-10.2 [facility] Hospitalerum or plasma total bilirubin measurement (mass/volume)2019-03-28 14:18:00* Test Item Value Reference Range Interpretation Comments Total Bilirubin (test code = 1975-2) 0.6 0.2-1.2 [facility] CenterFluoroscopic procedure less than one hour wxlfpzun3863-09-37 14:18:00* Test Item Value Reference Range Interpretation Comments Aspartate Amino Transf (AST/SGOT) (test code = Aspartate Amino Transf (AST/SGOT)) 15 5-34 [facility] Hospitalerum or plasma alanine aminotransferase measurement (enzymatic activity/volume)2019-03-28 14:18:00* Test Item Value Reference Range Interpretation Comments Alanine Aminotransferase (ALT/SGPT) (test code = 1742-6) 10 0-55 [facility] Hospitalerum or plasma protein measurement (mass/volume)2019-03-28 14:18:00* Test Item Value Reference Range Interpretation Comments Total Protein (test code = 2885-2) 7.1 6.5-8.1 [facility] Hospitalerum or plasma albumin measurement (mass/volume)2019-03-28 14:18:00* Test Item Value Reference Range Interpretation Comments Albumin (test code = 1751-7) 4.0 3.5-5.0 [facility] CenterPlasma globulin measurement (mass/volume) 2019-03-28 14:18:00* Test Item Value Reference Range Interpretation Comments Globulin (test code = 39859-7) 3.1 2.3-3.5 [facility] Hospitalerum or plasma albumin/globulin mass fdjnw7820-44-59 14:18:00* Test Item Value Reference Range Interpretation Comments Albumin/Globulin Ratio (test code = 1759-0) 1.3 0.8-2.0 [facility] Hospitalerum or plasma alkaline phosphatase measurement (enzymatic activity/volume)2019-03-28 14:18:00* Test Item Value Reference Range Interpretation Comments Alkaline Phosphatase (test code = 6768-6) 73 40-150 [facility] Hospitalerum or plasma thyrotropin measurement by detection limit <= 0.005 miu/l (units/volume)2019-03-28 14:18:00* Test Item Value Reference Range Interpretation Comments Thyroid Stimulating Hormone (TSH) (test code = 39094-2) 1.351 0.350-4.940 [facility] CenterChlamydia trachomatis rRNA detection by probe and target amplification ltgmqs9409-00-00 14:18:00* Test Item Value Reference Range Interpretation Comments Chlamydia/GC Amplified DNA (test code = 04268-8) Negative Negat willem [facility] CenterNeisseria gonorrhoeae rRNA detection by probe and target amplification ephigr5872-98-25 14:18:00* Test Item Value Reference Range Interpretation Comments Neisseria gonorrhoeae DNA (DOUGLAS) (test code = 45303-9) Negative Negative Performed at: [address] [id number] Director: Nimo De La Rosa MD, Phone: [phone] Hospital at Arlingtonerum or plasma thyrotropin measurement by detection limit <= 0.005 miu/l (units/volume)2019-03-28 14:18:00* Test Item Value Reference Range Interpretation Comments Thyroid Stimulating Hormone (TSH) (test code = 29451-8) 1.351 0.350-4.940 [facility] CenterChlamydia trachomatis rRNA detection by probe and target amplification nsbkbs4859-08-26 14:18:00* Test Item Value Reference Range Interpretation Comments Chlamydia/GC Amplified DNA (test code = 09985-8) Negative Negat willem [facility] CenterNeisseria gonorrhoeae rRNA detection by probe and target amplification bbaudq2618-22-84 14:18:00* Test Item Value Reference Range Interpretation Comments Neisseria gonorrhoeae DNA (DOUGLAS) (test code = 39931-0) Negative Negative Performed at: [address] [id number] Director: Nimo De La Rosa MD, Phone: [phone] Medical Center LancasterCT ABD/PEL WITH HKHQRUQZ-PIJN1079-04-17 19:03:00 [facility] [address] [place], [place] [id number] Patient Name: KELY MEREDITH MR #: [id number] : 1975 Age/Sex: 43/F Req #: [id number] Adm Physician: Ordered by: JOSE MANUEL DALTON MD Report #: [id number] Location: [facility] Room/Bed: Procedure: 0117- 0004 HOPD/CT ABD/PEL WITH CONTRAST-HOPD Exam Date: 03/18/19 Exam Time: 1858 REPORT STAT US: Signed EXAM: CT Abdomen and Pelvis WITH contrast INDICATION: Left low er quadrant pain. History of diverticulitis COMPARISON: 02/10/2013. TE CHNIQUE: Abdomen and pelvis were scanned utilizing a [...] DALTON MD ANKLE 3 VIEW RT - IXTZ0889-42-60 17:36:00 [place] [address] Patient Name: KELY MEREDITH MR #: [id number] : 1975 Age/Sex: 43/F Req #: [id number] Adm Physician: Ordered by: YNES WALTERS MD Report #: [id number] Location: [facility] Room/Bed: Procedure: 0106-000 5 HOPD/ANKLE 3 VIEW [...] WALTERS MD FOOT 3 VIEW RT - KRAK5581-21-35 17:33:00 [place] [address] Patient Name: KELY MEREDITH MR #: [id number] : 1975 Age/Sex: 43/F Req #: [id number] Adm Physician: Ordered by: YNES WALTERS MD Report #: [id number] Location: [facility] Room/Bed: Procedure: 0106-000 4 HOPD/FOOT 3 VIEW RT - HOPD Exam Date: 03/07/19 Carrillo tyler Time: 1730 REPORT STATUS: Signed EXAMINATION: FOOT [...] PM Dic tated By: NANO RAMÍREZ MD Transcribed By: IRLANDA on 03/07/191735 COPY TO: YNES WALTERS MD - CT ABD PELVIS W/PMSS2579-70-63 13:27:00 Name: KELY MEREDITH [facility] : 1975 Age/S: 43 / F Darryl King Unit #: [id number] Loc: JOSE MARTIN [place] [address] Phys: DaljitGoran R RADIATOR MECHANIC Acct: [id number] Dis Date: Status: REG ER PHONE #: [phone] Exam Date: 08/05/2018 1240 FAX #: [phone] Reason: LLQ ABDOMINAL PAIN EXAMS: CPT CODE: [id number] CT ABD PELVIS W/CONT 95743 HISTORY: Left lower quadrant pain. COMPARISON: December [...] Signed Report (CONTINUED) N amie: KELY MEREDITH [facility] : 0 1975 Age/S: 43 / F Darryl King Unit #: [id number] Loc: JOSE MARTIN [place] [address] Phys: DaljitEchokaty Morrison RADIATOR MECHANIC Acct: [id number] Dis D ate: Status: REG ER PHONE #: Exam Date: 08/05/2018 1245 FAX #: [phone] Reason: LLQ ABDOMINAL PAIN EXAMS: CPT CODE: [id number] CT ABD PELVIS W/ CONT 75238 <Continued> at 1327 Reported and signed by: Alejandro Luna M.D. CC: Melani Oakley Jonathan R RADIATOR MECHANIC Nestor echnologist:Brenda Perez RT(R)(CT) CTDI: DLP: Trnscb Date /Time: 08/05/2018 (1327) [email or web address] Orig Print D/T: S: 07/2018 (3199) PAGE 2 Signed Report CBC W/O [id number] 11:20:00* Test Item Value Reference Range Interpretation [...] MPV) 9.9 fL 6.7-11.0 N BASIC METABOLIC WCBIH4501-74-43 11:19:00* Test Item Value Reference Range Interpretation [...] CA) 9.0 mg/dL 8.5-10.1 N HEPATIC FUNCTION PFFST5070-89-84 11:19:00* Test Item Value Reference Range Interpretation [...] reference range due to change in reagent. WJRYRC8187-09-10 11:19:00* Test Item Value Reference Range Interpretation Comments LIPASE (test code = LIP) 88 U/L 73.0-393.0 N HCG SERUM LTPH0704-26-61 11:19:00* Test Item Value Reference Range Interpretation Comments HCG SERUM QUAL (test code = HCGQL) NEGATIVE NEGATIVE This HCGQL test is NOT applicable for MALE patients.Check with nurse about probable order error.If Tumor Marker Test needed, nurse should order test "HCGTU"(Test #550.42854) [id number]-[id number] 11:19:00* Test Item Value Reference Range Interpretation Comments TROPONIN-I (test code = TROPI) <0.015 ng/mL 0-0.045 N BASIC METABOLIC [id number] 11:11:00* Test Item Value Reference Range Interpretation [...] code = CA) mg/dL 8.5-10.1 HEPATIC FUNCTION EGHBY7601-36-06 11:11:00* Test Item Value Reference Range Interpretation [...] TOTAL (test code = ALKP) IUnit/L 45-117 TRRHEF0790-10-70 11:11:00* Test Item Value Reference Range Interpretation Comments LIPASE (test code = LIP) U/L 73.0-393.0 HCG SERUM TBWK8026-96-89 11:11:00* Test Item Value Reference Range Interpretation Comments HCG SERUM QUAL (test code = HCGQL) NEGATIVE NEGATIVE This HCGQL test is NOT applicable for MALE patients.Check with nurse about probable order error.If Tumor Marker Test needed, nurse should order test "HCGTU"(Test #550.36433) [id number]-K8797-67-06 11:11:00* Test Item Value Reference Range Interpretation Comments TROPONIN-I (test code = TROPI) ng/mL 0-0.045 BASIC METABOLIC UDUDR5116-22-79 11:09:00* Test Item Value Reference Range Interpretation [...] code = CA) mg/dL 8.5-10.1 HEPATIC FUNCTION SDCNP6642-10-90 11:09:00* Test Item Value Reference Range Interpretation [...] TOTAL (test code = ALKP) IUnit/L 45-117 SOWRDT7680-95-79 11:09:00* Test Item Value Reference Range Interpretation Comments LIPASE (test code = LIP) U/L 73.0-393.0 HCG SERUM [id number] 11:09:00* Test Item Value Reference Range Interpretation Comments HCG SERUM QUAL (test code = HCGQL) NEGATIVE NEGATIVE This HCGQL test is NOT applicable for MALE patients.Check with nurse about probable order error.If Tumor Marker Test needed, nurse should order test "HCGTU"(Test #550.19704) [id number]-[id number] 11:09:00* Test Item Value Reference Range Interpretation Comments TROPONIN-I (test code = TROPI) ng/mL 0-0.045 URINALYSIS [id number] 11:09:00* Test Item Value Reference Range Interpretation [...] FEW A Urine Source? Clean CatchCT BRAIN [id number]-[id number] 19:25:00 [facility] [address] [address] Patient Name: KELY MEREDITH MR #: [id number] : 1975 Age/Sex: 43/F Req #: [id number] Adm Physician: Ordered by: VASYL BENOIT MD Report #: [id number] Location: [facility] Room/Bed: Procedure: 0403- 0009 [facility] Ex[facility] Date: 06/02/18 Exam Time: 1914 REPORT [...] and sagittal planes. Image quality: Motion/streaking artifact limits the evaluation at some segments of the [...] TO: VASYL BENOIT MD MAMMOGRAPHY DIGITAL SCR [id number] 13:44:00 [place] [address] Patient Name: KELY MEREDITH MR #: [id number] : 1975 Age/Sex: 43/F Req #: [id number] [facility] Physician: Ordered by: RUFUS OAKLEY MD Report #: [id number] Location: MAMMO Room/Bed: Procedure: [id number] MG/MAMMOGRAPHY DIGITAL SCR BILAT Exam Date: 05/19/18 Exam Time: 1317 REPORT STATUS: Si gned #[id number] - MGSCRBIL #BILATERAL DIGITAL SCREENING MAMMOGRAM [facility] CAD: 2018 CLINICAL: Routine screening. Comparison is made to ex am dated: 04/30/2017 mammogram - [facility]. Current study contains 4 films. [...] notified by letter of the results. Mookie pierce/tam d:05/27/2018 13:30:36 [employer]: Flakita EDWARDS)(M), [facility] letter sent: Compared to Prior B9 Mammogram BI-RADS: 2 Benign Dictated By: MOOKIE ROBERSON DO 1330 Transcribed By: MARIBELL on 05/27/18 1330 COPY TO: RUFUS OAKLEY MD MRI RIGHT KNEE [id number] 08:49:00 [place] [address] Patient Name: KELY MEREDITH MR #: [id number] : 1975 Age/Sex: 42/F Req #: [id number] [facility] Physician: Ordered by: SANDI CARDONA MD Report #: [id number] Location: MRI Room/Bed: Procedure: [id number] MRI/MRI RIGHT KNEE WO Exam Date: 03/09/18 Exam Time: 1533 REPORT STATUS: Signed JENNIFER HNIQUE: Magnetic resonance imaging of the RIGHT KNEE was performed WITHOUT inj ected contrast. HISTORY: Internal derangement, fall COMPARISON: Thalia t knee radiographs March 07, 2018. FINDINGS: LIGAMENTS [...] and patellofemoral compartment degenerative changes. Signed by: Dr. Deniz Vázquez D.O., M.M.M. on 03/10/2018 9:12 AM Dictated By: DENIZ VÁZQUEZ DO 1 T ranscribed By: IRLANDA on 03/10/18911 COPY TO: SANDI CARDONA MD KNEE 3VW RT - [id number] 17:07:00 [place] [address] Patient Name: KELY MEREDITH MR #: [id number] : 1975 Age/Sex: 42/F Req #: [id number] Adm Physician: Ordered by: TESFAYE RICHARDSON MD Report #: [id number] Location: [facility] Room/Bed: Procedure: [id number] HOP D/KNEE 3VW RT - HOPD Exam Date: 03/07/18 Exam Time: 1650 REPORT STATUS: Signed Right complete knee. CPT CODE: 02928. INDICATION: [place] knee "pop" while [employer] football COMPARISON: None FINDINGS: No evidence of acute fractur e or dislocation. The visualized joint spaces of the knee are preserved. No f ocal osseous lesions. No joint effusion. IMPRESSION: No osseous injur y or joint effusion. Signed by: Dr. Diana Wells MD on 03/07/2018 5:09 PM Dictated By: DIANA WELLS MD 08 Transcribed By: IRLANDA on 03/07/181708 ASSOCIATE PROFESSOR OF MUSIC Y TO: TESFAYE RICHARDSON MD Thyroid Stimulating Hormone (TSH)2017-11-17 10:04:00* Test Item Value Reference Range Interpretation Comments Thyroid Stimulating Hormone (TSH) (test code = 49266-9) 1.224 0.350-4.940 [facility] CenterThy[facility]ulating [facility]one (TSH) 2017-11-17 10:04:00* Test Item Value Reference Range Interpretation Comments Thyroid Stimulating Hormone (TSH) (test code = 41856-4) 1.224 0.350-4.940 [facility] Ntbjx0346-14-97 09:45:00* Test Item Value Reference Range Interpretation Comments Sodium Level (test code = 2951-2) 139 136-145 [facility] CenterPotassium Aszvt6154-56-29 09:45:00* Test Item Value Reference Range Interpretation Comments Potassium Level (test code = 2823-3) 4.1 3.5-5.1 [facility] CenterChloride Cjwum0059-02-13 09:45:00* Test Item Value Reference Range Interpretation Comments Chloride Level (test code = 2075-0) 104 98-107 [facility] CenterCarbon Dioxide Lrywd7386-75-67 09:45:00* Test Item Value Reference Range Interpretation Comments Carbon Dioxide Level (test code = 2028-9) 25 22-29 [facility] CenterAnion Fvg2815-53-99 09:45:00* Test Item Value Reference Range Interpretation Comments Anion Gap (test code = 50131-1) 14.1 8-16 [facility] CenterBlood Urea Ziqvfxhk3669-51-20 09:45:00* Test Item Value Reference Range Interpretation Comments Blood Urea Nitrogen (test code = 3094-0) 6 7-26 L [facility] CenterCreatinine2018-09-18 09:45:00* Test Item Value Reference Range Interpretation Comments Creatinine (test code = 2160-0) 0.91 0.57-1.11 [facility] CenterBUN/Creatinine Mmvqk3242-62-23 09:45:00* Test Item Value Reference Range Interpretation Comments BUN/Creatinine Ratio (test code = 3097-3) 7 6-25 [facility] CenterEstimat Glomerular Filtration Rate 2017-11-17 09:45:00* Test Item Value Reference Range Interpretation Comments Estimat Glomerular Filtration Rate (test code = 170626514) > 60 >60 Ranges were taken from the National Kidney Disease Education Program and the [place] [facility] literature.Reference ranges:60 or greater: Xsgmgr01-47 ( for 3 consecutive months): Chronic kidney disease 15 or less: Kidney failureConnally Memorial Medical CenterGlucose Nxfbw4317-91-50 09:45:00* Test Item Value Reference Range Interpretation Comments Glucose Level (test code = EHP4563) 81 74-118 [facility] CenterCalcium Mvjvg6453-93-41 09:45:00* Test Item Value Reference Range Interpretation Comments Calcium Level (test code = 18652-7) 9.9 8.4-10.2 [facility] CenterTotal Siwqzgbal3258-88-45 09:45:00* Test Item Value Reference Range Interpretation Comments Total Bilirubin (test code = 1975-2) 1.2 0.2-1.2 [facility] CenterAspartate Amino Transf (AST/SGOT) 2017-11-17 09:45:00* Test Item Value Reference Range Interpretation Comments Aspartate Amino Transf (AST/SGOT) (test code = Aspartate Amino Transf (AST/SGOT)) 15 5-34 [facility] CenterAlanine Aminotransferase (ALT/SGPT) 2017-11-17 09:45:00* Test Item Value Reference Range Interpretation Comments Alanine Aminotransferase (ALT/SGPT) (test code = 1742-6) 12 0-55 [facility] CenterTotal Mcubrcl0851-08-54 09:45:00* Test Item Value Reference Range Interpretation Comments Total Protein (test code = 2885-2) 7.4 6.5-8.1 [facility] CenterAlbumin2018-09-18 09:45:00* Test Item Value Reference Range Interpretation Comments Albumin (test code = 1751-7) 4.1 3.5-5.0 [facility] CenterGlobulin2018-09-18 09:45:00* Test Item Value Reference Range Interpretation Comments Globulin (test code = 36853-3) 3.3 2.3-3.5 [facility] CenterAlbumin/Globulin Xnxrw8073-74-63 09:45:00 * Test Item Value Reference Range Interpretation Comments Albumin/Globulin Ratio (test code = 1759-0) 1.2 0.8-2.0 [facility] CenterAlkaline Oqcohyteije4566-32-50 09:45:00* Test Item Value Reference Range Interpretation Comments Alkaline Phosphatase (test code = 6768-6) 59 40-150 [facility] CenterTriglycerides Kznjl8775-52-29 09:45:00* Test Item Value Reference Range Interpretation Comments Triglycerides Level (test code = 2571-8) 146 0-149 [facility] CenterCholesterol Jaqhw9265-26-94 09:45:00* Test Item Value Reference Range Interpretation Comments Cholesterol Level (test code = 2093-3) 213 0-199 H Less than 200 mg/dL Low Aqde216 - 239 mg/dL Borderline Ygwc841 m g/dl and greater High Risk [facility] CenterLDL Gdrxcigljsz4341-56-61 09:45:00* Test Item Value Reference Range Interpretation Comments LDL Cholesterol (test code = 2089-1) 122 60-130 [facility] CenterHDL Rjkwbumejxw7177-18-40 09:45:00* Test Item Value Reference Range Interpretation Comments HDL Cholesterol (test code = 2085-9) 62 40-60 H [facility] CenterCholesterol/HDL Zzkjk5117-71-12 09:45:00 * Test Item Value Reference Range Interpretation Comments Cholesterol/HDL Ratio (test code = 9830-1) 3.4 3.0-3.6 [facility]odium Ajaoc2958-65-08 09:45:00* Test Item Value Reference Range Interpretation Comments Sodium Level (test code = 2951-2) 139 136-145 [facility] CenterPotassium Udtoy2699-07-95 09:45:00* Test Item Value Reference Range Interpretation Comments Potassium Level (test code = 2823-3) 4.1 3.5-5.1 [facility] CenterChloride Jbskj0181-80-09 09:45:00* Test Item Value Reference Range Interpretation Comments Chloride Level (test code = 2075-0) 104 98-107 [facility] CenterCarbon Dioxide Hzymx4366-48-44 09:45:00* Test Item Value Reference Range Interpretation Comments Carbon Dioxide Level (test code = 2028-9) 25 22-29 [facility] CenterAnion Bsy9841-05-54 09:45:00* Test Item Value Reference Range Interpretation Comments Anion Gap (test code = 96158-5) 14.1 8-16 [facility] CenterBlood Urea Qbaohyff6547-90-79 09:45:00* Test Item Value Reference Range Interpretation Comments Blood Urea Nitrogen (test code = 3094-0) 6 7-26 L [facility] CenterCreatinine2018-09-18 09:45:00* Test Item Value Reference Range Interpretation Comments Creatinine (test code = 2160-0) 0.91 0.57-1.11 [facility] CenterBUN/Creatinine Fgtbf8682-25-66 09:45:00* Test Item Value Reference Range Interpretation Comments BUN/Creatinine Ratio (test code = 3097-3) 7 6-25 [facility] CenterEstimat Glomerular Filtration Rate 2017-11-17 09:45:00* Test Item Value Reference Range Interpretation Comments Estimat Glomerular Filtration Rate (test code = 576074995) > 60 >60 Ranges were taken from the National Kidney Disease Education Program and the [facility] literature.Reference ranges:60 or greater: Pfqexf52-31 ( for 3 consecutive months): Chronic kidney disease 15 or less: Kidney failureConnally Memorial Medical CenterGlucose Oqemq3977-98-51 09:45:00* Test Item Value Reference Range Interpretation Comments Glucose Level (test code = SZY5130) 81 74-118 [facility] CenterCalcium Yeeln8242-64-32 09:45:00* Test Item Value Reference Range Interpretation Comments Calcium Level (test code = 19025-3) 9.9 8.4-10.2 [facility] CenterTotal Icmkhtblg6473-79-10 09:45:00* Test Item Value Reference Range Interpretation Comments Total Bilirubin (test code = 1975-2) 1.2 0.2-1.2 [facility] CenterAspartate Amino Transf (AST/SGOT) 2017-11-17 09:45:00* Test Item Value Reference Range Interpretation Comments Aspartate Amino Transf (AST/SGOT) (test code = Aspartate Amino Transf (AST/SGOT)) 15 5-34 [facility] CenterAlanine Aminotransferase (ALT/SGPT) 2017-11-17 09:45:00* Test Item Value Reference Range Interpretation Comments Alanine Aminotransferase (ALT/SGPT) (test code = 1742-6) 12 0-55 [facility] CenterTotal Uuiwlcm0255-20-95 09:45:00* Test Item Value Reference Range Interpretation Comments Total Protein (test code = 2885-2) 7.4 6.5-8.1 [facility] CenterAlbumin2018-09-18 09:45:00* Test Item Value Reference Range Interpretation Comments Albumin (test code = 1751-7) 4.1 3.5-5.0 [facility] CenterGlobulin2018-09-18 09:45:00* Test Item Value Reference Range Interpretation Comments Globulin (test code = 19398-5) 3.3 2.3-3.5 [facility] CenterAlbumin/Globulin Krvge9732-44-06 09:45:00 * Test Item Value Reference Range Interpretation Comments Albumin/Globulin Ratio (test code = 1759-0) 1.2 0.8-2.0 [facility] CenterAlkaline Ilowhdfwomn4442-69-64 09:45:00* Test Item Value Reference Range Interpretation Comments Alkaline Phosphatase (test code = 6768-6) 59 40-150 [facility] CenterTriglycerides Oxisx3075-05-44 09:45:00* Test Item Value Reference Range Interpretation Comments Triglycerides Level (test code = 2571-8) 146 0-149 [facility] CenterCholesterol Lhmjx0468-43-24 09:45:00* Test Item Value Reference Range Interpretation Comments Cholesterol Level (test code = 2093-3) 213 0-199 H Less than 200 mg/dL Low Otzv624 - 239 mg/dL Borderline Cpwi778 m g/dl and greater High Risk [facility] CenterLDL Xyxeyffnmyc7930-50-11 09:45:00* Test Item Value Reference Range Interpretation Comments LDL Cholesterol (test code = 2089-1) 122 60-130 [facility] CenterHDL Ejsclhvcivx8991-03-87 09:45:00* Test Item Value Reference Range Interpretation Comments HDL Cholesterol (test code = 2085-9) 62 40-60 H [facility] CenterCholesterol/HDL Vfdsx9260-82-81 09:45:00 * Test Item Value Reference Range Interpretation Comments Cholesterol/HDL Ratio (test code = 9830-1) 3.4 3.0-3.6 [facility] CenterHuman Chorionic Gonadotropin, Qual 2017-08-31 12:40:00* Test Item Value Reference Range Interpretation Comments Human Chorionic Gonadotropin, Qual (test code = 2118-8) NEGATIVE NEGATIVE [facility] Chorionic Gonadotropin, Qual 2017-08-31 12:40:00* Test Item Value Reference Range Interpretation Comments Human Chorionic Gonadotropin, Qual (test code = 2118-8) NEGATIVE NEGATIVE [facility]odium Yleau7853-51-09 09:43:00* Test Item Value Reference Range Interpretation Comments Sodium Level (test code = 2951-2) 139 136-145 [facility] CenterPotassium Fvanu8481-69-38 09:43:00* Test Item Value Reference Range Interpretation Comments Potassium Level (test code = 2823-3) 3.4 3.5-5.1 L [facility] CenterChloride Eawby3228-50-33 09:43:00* Test Item Value Reference Range Interpretation Comments Chloride Level (test code = 2075-0) 104 98-107 [facility] CenterCarbon Dioxide Gzszn2057-52-74 09:43:00* Test Item Value Reference Range Interpretation Comments Carbon Dioxide Level (test code = 2028-9) 25 22-29 [facility] CenterAnion Jaf6373-62-89 09:43:00* Test Item Value Reference Range Interpretation Comments Anion Gap (test code = 13498-2) 13.4 8-16 [facility] CenterBlood Urea Mcvcrbjc4343-41-49 09:43:00* Test Item Value Reference Range Interpretation Comments Blood Urea Nitrogen (test code = 3094-0) 12 7-26 [facility] CenterCreatinine2018-07-02 09:43:00* Test Item Value Reference Range Interpretation Comments Creatinine (test code = 2160-0) 0.94 0.57-1.11 [facility] CenterBUN/Creatinine Vynmd7099-66-17 09:43:00* Test Item Value Reference Range Interpretation Comments BUN/Creatinine Ratio (test code = 3097-3) 13 6-25 [facility] CenterEstimat Glomerular Filtration Rate 2017-08-31 09:43:00* Test Item Value Reference Range Interpretation Comments Estimat Glomerular Filtration Rate (test code = 11313-3) 60- >60 Ranges were taken from the National Kidney Disease Education Program and the [place] [facility] literature.Reference ranges:60 or greater: Tebxve50-13 ( for 3 consecutive months): Chronic kidney disease 15 or less: Kidney failureConnally Memorial Medical CenterGlucose Akutq0217-00-70 09:43:00* Test Item Value Reference Range Interpretation Comments Glucose Level (test code = CZH3863) 92 74-118 [facility] CenterCalcium Iumqx8819-30-79 09:43:00* Test Item Value Reference Range Interpretation Comments Calcium Level (test code = 54141-2) 9.1 8.4-10.2 [facility] CenterTotal Ptpxnfzip4151-65-47 09:43:00* Test Item Value Reference Range Interpretation Comments Total Bilirubin (test code = 1975-2) 0.6 0.2-1.2 [facility] CenterAspartate Amino Transf (AST/SGOT) 2017-08-31 09:43:00* Test Item Value Reference Range Interpretation Comments Aspartate Amino Transf (AST/SGOT) (test code = Aspartate Amino Transf (AST/SGOT)) 11 5-34 [facility] CenterAlanine Aminotransferase (ALT/SGPT) 2017-08-31 09:43:00* Test Item Value Reference Range Interpretation Comments Alanine Aminotransferase (ALT/SGPT) (test code = 1742-6) 8 0-55 [facility] CenterTotal Wucbrhz9214-03-16 09:43:00* Test Item Value Reference Range Interpretation Comments Total Protein (test code = 2885-2) 7.2 6.5-8.1 [facility] CenterAlbumin2018-07-02 09:43:00* Test Item Value Reference Range Interpretation Comments Albumin (test code = 1751-7) 4.1 3.5-5.0 [facility] CenterGlobulin2018-07-02 09:43:00* Test Item Value Reference Range Interpretation Comments Globulin (test code = 59458-8) 3.1 2.3-3.5 [facility] CenterAlbumin/Globulin Shogb3994-59-96 09:43:00 * Test Item Value Reference Range Interpretation Comments Albumin/Globulin Ratio (test code = 1759-0) 1.3 0.8-2.0 [facility] CenterAlkaline Swfeyvjvxln0333-43-05 09:43:00* Test Item Value Reference Range Interpretation Comments Alkaline Phosphatase (test code = 6768-6) 79 40-150 [facility] CenterAmylase Tbghp5126-85-72 09:43:00* Test Item Value Reference Range Interpretation Comments Amylase Level (test code = 1798-8) 55 25-125 [facility] CenterLipase2018-07-02 09:43:00* Test Item Value Reference Range Interpretation Comments Lipase (test code = 3040-3) 36 8-78 [facility] CenterAmylase Ewpmq1801-38-93 09:43:00* Test Item Value Reference Range Interpretation Comments Amylase Level (test code = 1798-8) 55 25-125 [facility] CenterLipase2018-07-02 09:43:00* Test Item Value Reference Range Interpretation Comments Lipase (test code = 3040-3) 36 8-78 [facility] CenterAmylase Qmgxy5057-21-26 09:43:00* Test Item Value Reference Range Interpretation Comments Amylase Level (test code = 1798-8) 55 25-125 [facility] CenterLipase2018-07-02 09:43:00* Test Item Value Reference Range Interpretation Comments Lipase (test code = 3040-3) 36 878 [facility] CenterWhite Blood Bqfmj2250-43-08 09:31:00* Test Item Value Reference Range Interpretation Comments White Blood Count (test code = 6690-2) 9.71 4.8-10.8 [facility] CenterRed Blood Sovpd0648-05-95 09:31:00* Test Item Value Reference Range Interpretation Comments Red Blood Count (test code = 789-8) 4.60 3.6-5.1 [facility] CenterHemoglobin2018-07-02 09:31:00* Test Item Value Reference Range Interpretation Comments Hemoglobin (test code = 68019-6) 14.6 12.0-16.0 [facility] CenterHematocrit2018-07-02 09:31:00* Test Item Value Reference Range Interpretation Comments Hematocrit (test code = 4544-3) 40.6 34.2-44.1 [facility] CenterMean Corpuscular Tsqbzv4158-89-31 09:31:00* Test Item Value Reference Range Interpretation Comments Mean Corpuscular Volume (test code = 787-2) 88.3 81-99 [facility] CenterMean Corpuscular Eqqfmscsex5717-44-04 09:31:00* Test Item Value Reference Range Interpretation Comments Mean Corpuscular Hemoglobin (test code = 785-6) 31.7 28-32 [facility] CenterMean Corpuscular Hemoglobin Concent 2017-08-31 09:31:00* Test Item Value Reference Range Interpretation Comments Mean Corpuscular Hemoglobin Concent (test code = 786-4) 36.0 31-35 H [facility] CenterRed Cell Distribution Svfpd6634-92-13 09:31:00* Test Item Value Reference Range Interpretation Comments Red Cell Distribution Width (test code = 22150-9) 12.5 11.7 -14.4 [facility] CenterPlatelet Nxskn6107-78-78 09:31:00* Test Item Value Reference Range Interpretation Comments Platelet Count (test code = 777-3) 216 140-360 [facility] CenterNeutrophils (%) (Auto)2017-08-31 09:31:00 * Test Item Value Reference Range Interpretation Comments Neutrophils (%) (Auto) (test code = 04687-5) 71.6 38.7-80.0 [facility] CenterLymphocytes (%) (Auto)2017-08-31 09:31:00 * Test Item Value Reference Range Interpretation Comments Lymphocytes (%) (Auto) (test code = 736-9) 21.6 18.0-39.1 [facility] CenterMonocytes (%) (Auto)2017-08-31 09:31:00* Test Item Value Reference Range Interpretation Comments Monocytes (%) (Auto) (test code = 5905-5) 5.6 4.4-11.3 [facility] CenterEosinophils (%) (Auto)2017-08-31 09:31:00 * Test Item Value Reference Range Interpretation Comments Eosinophils (%) (Auto) (test code = 713-8) 0.3 0.0-6.0 [facility] CenterBasophils (%) (Auto)2017-08-31 09:31:00* Test Item Value Reference Range Interpretation Comments Basophils (%) (Auto) (test code = 706-2) 0.3 0.0-1.0 [facility] CenterIM GRANULOCYTES %2017-08-31 09:31:00* Test Item Value Reference Range Interpretation Comments IM GRANULOCYTES % (test code = IM GRANULOCYTES %) 0.6 0.0- 1.0 [facility] CenterNeutrophils # (Auto)2017-08-31 09:31:00* Test Item Value Reference Range Interpretation Comments Neutrophils # (Auto) (test code = 751-8) 7.0 2.1-6.9 H [facility] CenterLymphocytes # (Auto)2017-08-31 09:31:00* Test Item Value Reference Range Interpretation Comments Lymphocytes # (Auto) (test code = 63316-9) 2.1 1.0-3.2 [facility] CenterMonocytes # (Auto)2017-08-31 09:31:00* Test Item Value Reference Range Interpretation Comments Monocytes # (Auto) (test code = 742-7) 0.5 0.2-0.8 [facility] CenterEosinophils # (Auto)2017-08-31 09:31:00* Test Item Value Reference Range Interpretation Comments Eosinophils # (Auto) (test code = 711-2) 0.0 0.0-0.4 [facility] CenterBasophils # (Auto)2017-08-31 09:31:00* Test Item Value Reference Range Interpretation Comments Basophils # (Auto) (test code = 704-7) 0.0 0.0-0.1 [facility] CenterAbsolute Immature Granulocyte (auto 2017-08-31 09:31:00* Test Item Value Reference Range Interpretation Comments Absolute Immature Granulocyte (auto (codie t code = Absolute Immature Granulocyte (auto) 0.06 0-0.1 [facility] CenterWhite Blood Nhwmc4086-80-16 09:31:00* Test Item Value Reference Range Interpretation Comments White Blood Count (test code = 6690-2) 9.71 4.8-10.8 [facility] CenterRed Blood Vuzgi0854-58-17 09:31:00* Test Item Value Reference Range Interpretation Comments Red Blood Count (test code = 789-8) 4.60 3.6-5.1 [facility] CenterHemoglobin2018-07-02 09:31:00* Test Item Value Reference Range Interpretation Comments Hemoglobin (test code = 61103-4) 14.6 12.0-16.0 [facility] CenterHematocrit2018-07-02 09:31:00* Test Item Value Reference Range Interpretation Comments Hematocrit (test code = 4544-3) 40.6 34.2-44.1 [facility] CenterMean Corpuscular Qzhpky2901-27-59 09:31:00* Test Item Value Reference Range Interpretation Comments Mean Corpuscular Volume (test code = 787-2) 88.3 81-99 [facility] CenterMean Corpuscular Tbhzeicgnw2421-96-19 09:31:00* Test Item Value Reference Range Interpretation Comments Mean Corpuscular Hemoglobin (test code = 785-6) 31.7 28-32 [facility] CenterMean Corpuscular Hemoglobin Concent 2017-08-31 09:31:00* Test Item Value Reference Range Interpretation Comments Mean Corpuscular Hemoglobin Concent (test code = 786-4) 36.0 31-35 H [facility] CenterRed Cell Distribution Ilmeb7568-19-71 09:31:00* Test Item Value Reference Range Interpretation Comments Red Cell Distribution Width (test code = 08421-1) 12.5 11.7 -14.4 [facility] CenterPlatelet Stikn2908-58-26 09:31:00* Test Item Value Reference Range Interpretation Comments Platelet Count (test code = 777-3) 216 140-360 [facility] CenterNeutrophils (%) (Auto)2017-08-31 09:31:00 * Test Item Value Reference Range Interpretation Comments Neutrophils (%) (Auto) (test code = 73783-5) 71.6 38.7-80.0 [facility] CenterLymphocytes (%) (Auto)2017-08-31 09:31:00 * Test Item Value Reference Range Interpretation Comments Lymphocytes (%) (Auto) (test code = 736-9) 21.6 18.0-39.1 [facility] CenterMonocytes (%) (Auto)2017-08-31 09:31:00* Test Item Value Reference Range Interpretation Comments Monocytes (%) (Auto) (test code = 5905-5) 5.6 4.4-11.3 [facility] CenterEosinophils (%) (Auto)2017-08-31 09:31:00 * Test Item Value Reference Range Interpretation Comments Eosinophils (%) (Auto) (test code = 713-8) 0.3 0.0-6.0 [facility] CenterBasophils (%) (Auto)2017-08-31 09:31:00* Test Item Value Reference Range Interpretation Comments Basophils (%) (Auto) (test code = 706-2) 0.3 0.0-1.0 [facility] CenterIM GRANULOCYTES %2017-08-31 09:31:00* Test Item Value Reference Range Interpretation Comments IM GRANULOCYTES % (test code = IM GRANULOCYTES %) 0.6 0.0- 1.0 [facility] CenterNeutrophils # (Auto)2017-08-31 09:31:00* Test Item Value Reference Range Interpretation Comments Neutrophils # (Auto) (test code = 751-8) 7.0 2.1-6.9 H [facility] CenterLymphocytes # (Auto)2017-08-31 09:31:00* Test Item Value Reference Range Interpretation Comments Lymphocytes # (Auto) (test code = 17431-6) 2.1 1.0-3.2 [facility] CenterMonocytes # (Auto)2017-08-31 09:31:00* Test Item Value Reference Range Interpretation Comments Monocytes # (Auto) (test code = 742-7) 0.5 0.2-0.8 [facility] CenterEosinophils # (Auto)2017-08-31 09:31:00* Test Item Value Reference Range Interpretation Comments Eosinophils # (Auto) (test code = 711-2) 0.0 0.0-0.4 [facility] # (Auto)2017-08-31 09:31:00* Test Item Value Reference Range Interpretation Comments Basophils # (Auto) (test code = 704-7) 0.0 0.0-0.1 [facility] CenterAbsolute Immature Granulocyte (auto 2017-08-31 09:31:00* Test Item Value Reference Range Interpretation Comments Absolute Immature Granulocyte (auto (codie t code = Absolute Immature Granulocyte (auto) 0.06 0-0.1 [facility] CenterWhite Blood Zyrsa9449-10-11 09:31:00* Test Item Value Reference Range Interpretation Comments White Blood Count (test code = 6690-2) 9.71 4.8-10.8 [facility] CenterRed Blood Assag8692-55-81 09:31:00* Test Item Value Reference Range Interpretation Comments Red Blood Count (test code = 789-8) 4.60 3.6-5.1 [facility] CenterHemoglobin2018-07-02 09:31:00* Test Item Value Reference Range Interpretation Comments Hemoglobin (test code = 04455-0) 14.6 12.0-16.0 [facility] CenterHematocrit2018-07-02 09:31:00* Test Item Value Reference Range Interpretation Comments Hematocrit (test code = 4544-3) 40.6 34.2-44.1 [facility] CenterMean Corpuscular Wumsfr7806-85-15 09:31:00* Test Item Value Reference Range Interpretation Comments Mean Corpuscular Volume (test code = 787-2) 88.3 81-99 [facility] CenterMean Corpuscular Odmamnixoy2399-13-86 09:31:00* Test Item Value Reference Range Interpretation Comments Mean Corpuscular Hemoglobin (test code = 785-6) 31.7 28-32 [facility] CenterMean Corpuscular Hemoglobin Concent 2017-08-31 09:31:00* Test Item Value Reference Range Interpretation Comments Mean Corpuscular Hemoglobin Concent (test code = 786-4) 36.0 31-35 H [facility] CenterRed Cell Distribution Ykdrn4240-78-07 09:31:00* Test Item Value Reference Range Interpretation Comments Red Cell Distribution Width (test code = 59304-8) 12.5 11.7 -14.4 [facility] CenterPlatelet Rmthm4369-12-29 09:31:00* Test Item Value Reference Range Interpretation Comments Platelet Count (test code = 777-3) 216 140-360 [facility] CenterNeutrophils (%) (Auto)2017-08-31 09:31:00 * Test Item Value Reference Range Interpretation Comments Neutrophils (%) (Auto) (test code = 20049-4) 71.6 38.7-80.0 [facility] CenterLymphocytes (%) (Auto)2017-08-31 09:31:00 * Test Item Value Reference Range Interpretation Comments Lymphocytes (%) (Auto) (test code = 736-9) 21.6 18.0-39.1 [facility] CenterMonocytes (%) (Auto)2017-08-31 09:31:00* Test Item Value Reference Range Interpretation Comments Monocytes (%) (Auto) (test code = 5905-5) 5.6 4.4-11.3 [facility] CenterEosinophils (%) (Auto)2017-08-31 09:31:00 * Test Item Value Reference Range Interpretation Comments Eosinophils (%) (Auto) (test code = 713-8) 0.3 0.0-6.0 [facility] CenterBasophils (%) (Auto)2017-08-31 09:31:00* Test Item Value Reference Range Interpretation Comments Basophils (%) (Auto) (test code = 706-2) 0.3 0.0-1.0 [facility] CenterIM GRANULOCYTES %2017-08-31 09:31:00* Test Item Value Reference Range Interpretation Comments IM GRANULOCYTES % (test code = IM GRANULOCYTES %) 0.6 0.0- 1.0 [facility] CenterNeutrophils # (Auto)2017-08-31 09:31:00* Test Item Value Reference Range Interpretation Comments Neutrophils # (Auto) (test code = 751-8) 7.0 2.1-6.9 H [facility] CenterLymphocytes # (Auto)2017-08-31 09:31:00* Test Item Value Reference Range Interpretation Comments Lymphocytes # (Auto) (test code = 36431-2) 2.1 1.0-3.2 [facility] CenterMonocytes # (Auto)2017-08-31 09:31:00* Test Item Value Reference Range Interpretation Comments Monocytes # (Auto) (test code = 742-7) 0.5 0.2-0.8 [facility] CenterEosinophils # (Auto)2017-08-31 09:31:00* Test Item Value Reference Range Interpretation Comments Eosinophils # (Auto) (test code = 711-2) 0.0 0.0-0.4 [facility] CenterBasophils # (Auto)2017-08-31 09:31:00* Test Item Value Reference Range Interpretation Comments Basophils # (Auto) (test code = 704-7) 0.0 0.0-0.1 [facility] CenterAbsolute Immature Granulocyte (auto 2017-08-31 09:31:00* Test Item Value Reference Range Interpretation Comments Absolute Immature Granulocyte (auto (codie t code = Absolute Immature Granulocyte (auto) 0.06 0-0.1 [facility] CenterMRI SPINE CERVICAL [id number] 14:36:00 [place] [address] Patient Name: KELY MEREDITH MR #: [id number] : [birth year] Age/Sex: 42/F Req #: [id number] Adm Physician: Ordered by: TIA ANGELES MD Report #: [id number] Location: MRI Room/ Bed: Procedure: [id number] MRI/MRI SPINE CERVICAL WO Exam Date: Exam [...] TO: ELISSA ANGELES MD MRI SPINE LUMBAR [id number] 14:29:00 [place] [address] Patient Name: KELY MEREDITH MR #: [id number] : 1975 Age/Sex: 42/F Req #: [id number] [facility] Physician: Ordered by: TIA ANGELES MD Report #: [id number] Location: MRI Room/Bed: Procedure: [id number] MRI/MRI SPINE LUMBAR WO Ex am Date: [...] Judith Maldonado M.D. on 08/18/2017 4:24 PM Dictated By: JUDITH MALDONADO MD, MD 23 Transcribed By: IRLANDA on 08/18/171623 COPY TO: TIA ANGELES MD Urine [id number] 11:53:00* Test Item Value Reference Range Interpretation Comments Urine Test (test code = 2106-3) NEGATIVE NEGATIVE [facility] CenterUrine [id number] 11:53:00* Test Item Value Reference Range Interpretation Comments Urine Test (test code = 2106-3) NEGATIVE NEGATIVE [facility] Nsedvqvwkpqs9015-14-81 23:36:00* Test Item Value Reference Range Interpretation Comments Stool Calprotectin (test code = 28685-2) -16 0-120 Concentration Interpretation Follow-Up<16 - 50 ug/g Normal None>50 -120 ug/g Borderline Re-evaluate in 4-6 weeks >120 ug/g Abnormal Repeat as clinically indicatedPerformed at: [facility] Lab[address] [id number] Director: Dallas Rosenberg MD, Phone: [phone] Memorial Medical CenterClostridium Difficile Toxin A & [id number] 10:13:00* Test Item Value Reference Range Interpretation Comments Clostridium Difficile Toxin A & B (test code = 431615292) NEGATIVE NEGATIVE Testing on stool aspirate specimens is outside extruder tender claims since specime n type not validated on this assay.[facility] Lactoferrin (LAB)2017-05-09 15:22:00* Test Item Value Reference Range Interpretation Comments Stool Lactoferrin (LAB) (test code = 05220-0) NEGATIVE NEGATIVE Testing on stool aspirate specimens is outside extruder tender claims since specime n type not validated on this assay.[facility] CenterCT ABDOMEN/PELVIS W [place] [address] Patient Name: KELY MEREDITH MR #: [id number] : 1975 Age/Sex: 42/F Req #: [id number] Adm Physician: Ordered by: CLAU ZAVALA MD Report #: [id number] Location: CT Room/Bed: Procedure: [id number] CT/CT ABDOMEN/PELVIS W Exam Date : 06/11/17 [...] CLAU ZAVALA MD MAMMOGRAM DIGITAL SCR BI [facility] [address] [place] [address] Patient Name: KELY MEREDITH MR #: [id number] : 1975 Age/Sex: 41/F Req #: [id number] [facility] Physician: Ordered by: SARAH AYOUB MD Report #: [id number] Location: MAMMO Room/Bed: Procedure: [id number] MG/MAMMOGRAM DIGITAL SCR BI Exa m Date: 04/30/17 Exam Time: 1330 REPORT STATUS: Signed #[id number] - MGSCRNBI #BILATERAL DIGITAL SCREENING MAMMOGRAM WITH [...] t he results. Mookie pierce/maribell:05/11/2017 12: 54:35 [employer]: Flakita EDWARDS)(Zacarias), [facility] letter sent: Normal Exam Mammogram BI-RADS: 2 Benign Di ctated By: MOOKIE ROBERSON DO 1254 COPY TO: SARAH AYOUB MD MAMMOGRAPHY DIGITAL SCR BILAT [facility] [place] [address] Patient Name: KELY MEREDITH MR #: [id number] : 1975 Age/Sex: 42/F Req #: [id number] Adm Physician: Ordered by: SARAH AYOUB MD Report #: [id number] Location: MAMMO Room/Bed: Procedure: [id number] MG/MAMMOGRAPHY DIGITAL SCR BILAT Exam Date: 04/30/17 Exam Time: [address] [facility]: Signed #[id number] - MGSCRBIL #BILATERAL DIGITAL SCREENING MAMM OGRAM [...] notified by letter of the results. Mookie pierce/maribell:05/11/2017 12:54:35 [employer]: Flakita EDWARDS)(M), [facility] letter sent: Normal Exam Mammogram BI-RADS: 2 Benign Dictated By: MOOKIE ROBERSON DO 1259 Transcribed By: MARIBELL on 05/11/17 1255 COPY TO: SARAH AYOUB MD
--- NOTE | 2020-01-23 21:37 | Diagnostic Imaging Report ---
HUMERUS 2VIEW RT -HOPD - 3 views HISTORY: Pain COMPARISON: None available. FINDINGS: Bones: No acute displaced fracture. Osseous alignment is within normal limits. Joints: The joint spaces are well-maintained. Soft tissues: The soft tissues appear unremarkable. IMPRESSION: No acute radiographic abnormality. Signed by: Dr. Keenan Higuera MD on 01/23/2020 9:34 PM
--- NOTE | 2020-01-23 21:38 | Diagnostic Imaging Report ---
ANKLE 3 VIEW RT - HOPD - 3 views HISTORY: Pain COMPARISON: None available. FINDINGS: Bones: No acute displaced fracture. Osseous alignment is within normal limits. Joints: The joint spaces are well-maintained. Soft tissues: The soft tissues appear unremarkable. IMPRESSION: No acute radiographic abnormality. Signed by: Dr. Keenan Higuera MD on 01/23/2020 9:35 PM
--- NOTE | 2020-01-23 22:06 | Diagnostic Imaging Report ---
EXAM: CT Chest, Abdomen and Pelvis WITHOUT contrast INDICATION: ^trauma ^N COMPARISON: CT abdomen/pelvis dated 10/28/2019 TECHNIQUE: Chest, abdomen and pelvis were scanned utilizing a multidetector helical scanner from the lung apex to the pubic symphysis without administration of IV contrast. Absence of intravenous contrast decreases sensitivity for detection of focal lesions and vascular pathology. Coronal and sagittal reformations were obtained. Routine protocol was performed. IV CONTRAST: None ORAL CONTRAST: None. COMPLICATIONS: None RADIATION DOSE: Total DLP: 1082.31 mGy*cm Estimated effective dose: (DLP x 0.015 x size factor) mSv CTDIvol has been reviewed. It is below the limits set by the Radiation Protocol Committee (RPC). FINDINGS: LINES and TUBES: None. LUNGS AND AIRWAYS: The lungs are unremarkable. Airways are normal. PLEURA: The pleural spaces are clear. HEART AND MEDIASTINUM: The thyroid gland is normal. No mediastinal, hilar or axillary lymphadenopathy. The heart is normal in size.. There is no pericardial effusion. HEPATOBILIARY: No evidence of hepatic laceration. Few tiny is too small to characterize subcentimeter hypodensities. No biliary ductal dilation. GALLBLADDER: Surgically absent. SPLEEN: No splenomegaly. PANCREAS: No focal masses or ductal dilatation. ADRENALS: No adrenal nodules KIDNEYS/URETERS: No hydronephrosis. No cystic or solid mass lesions. No stones. GI TRACT: No abnormal distention, wall thickening, or evidence of bowel obstruction. There are diverticula within the colon without evidence of diverticulitis. Appendix is normal. Ingested material within distal esophagus, suggestive of gastroesophageal reflux. PELVIC ORGANS/BLADDER: Unremarkable. Hysterectomy. LYMPH NODES: No lymphadenopathy. VESSELS: Unremarkable. PERITONEUM / RETROPERITONEUM: No free air or fluid. BONES: Unchanged left iliac sclerotic focus, likely a bone island. SOFT TISSUES: Unremarkable. IMPRESSION: No definite evidence of traumatic injury in the chest, abdomen, or pelvis, considering limitations of unenhanced study. Signed by: Dr. Keenan Higuera MD on 01/23/2020 10:02 PM
--- NOTE | 2020-01-23 22:06 | Emergency Department Note ---
History of Present Illnes History of Present Illness Chief Complaint: Extremity Trauma/Pain History of Present Illness This is a 44 year old female .Chief Complaint Comment pt states on thursday night she missed a step and fell off a stage, hurting right arm,knee,ribs area and ankle. bruising noted to arm, ribs and ankle. pt states painful to move her arm Historian: Patient Arrival Mode: Car Onset (how long ago): day(s) (1) Location: ANKLE CHEST AND ABDOMEN AND ARM Quality: SHARP Radiation: Denies non-radiation, Denies back, Denies neck, Denies extremity, Denies abdomen, Denies periumbilical, Denies flank, Denies proximal, Denies distal, Denies other Severity: moderate Onset quality: sudden Duration (how long): day(s) (1) Timing of current episode: constant Progression: unchanged Chronicity: new Context: Denies recent illness, Denies recent surgery, Denies recent immobilization, Denies recent travel, Denies trauma/injury, Denies new medications, Denies hx of DVT/PE, Denies non-compliance w/ medications, Denies other Relieving factors: none Exacerbating factors: none Associated symptoms: Denies denies other symptoms, Denies confusion, Denies chest pain, Denies cough, Denies diaphoresis, Denies fever/chills, Denies headaches, Denies loss of appetite, Denies malaise, Denies nausea/vomiting, Denies rash, Denies seizure, Denies shortness of breath, Denies syncope, Denies weakness, Denies other Treatments prior to arrival: none Past Medical/Family History Physician Review I have reviewed the patient's past medical and family history. Any updates have been documented here. Past Medical History Recent Fever: No Clinical Suspicion of Infectio: No New/Unexplained Change in Ment: No Past Medical History: Anxiety, Depression Other Medical History: PTSD Diverticulosis INSOMNIA Past Surgical History: Cholecysctectomy, Hysterectomy, T&A Other Surgery: ankle surgery Social History Smoking Cessation: Never Smoker Counseling Performed: No Alcohol Use: Occasional Any Illegal Drug Use: No Physically hurt or threatened: No Other Last Tetanus: UNKNOWN Any Pre-Existing Lines (PICC,: No Review of Systems Review of Systems Constitutional: Reports no symptoms EENTM: Reports no symptoms Cardiovascular: Reports no symptoms Respiratory: Reports no symptoms Gastrointestinal: Reports no symptoms Genitourinary: Reports no symptoms Musculoskeletal: Reports as per HPI Integumentary: Reports no symptoms Neurological: Reports no symptoms Psychological: Reports no symptoms Endocrine: Reports no symptoms Hematological/Lymphatic: Reports no symptoms Physical Exam Related Data Allergies: Coded Allergies: No Known Drug Allergies (Verified Allergy, Unknown, 08/31/17) Uncoded Allergies: MRI DYE (Allergy, Severe, HIVES, 04/22/19) EGGS (Allergy, Unknown, 05/09/17) PECANS (Allergy, Unknown, 05/09/17) Triage Vital Signs Vital Signs Date Time Temp Pulse Resp B/P (MAP) Pulse Ox O2 Delivery O2 Flow Rate FiO2 01/23/20 20:19 97.6 81 17 129/80 100 Room Air Vital signs reviewed: Yes Physical Exam CONSTITUTIONAL Constitutional: Present well-developed, Present well-nourished HENT HENT: Present normocephalic, Present atraumatic, Present oropharynx clear/moist, Present nose normal HENT L/R: Present left ext ear normal, Present right ext ear normal EYES Eyes: Reports PERRL, Reports conjunctivae normal NECK Neck: Present ROM normal PULMONARY Pulmonary: Present effort normal, Present breath sounds normal, Present chest tenderness CARDIOVASCULAR Cardiovascular: Present regular rhythm, Present heart sounds normal, Present capillary refill normal, Present normal rate GASTROINTESTINAL Abdominal: Present soft, Present nontender, Present bowel sounds normal, Present other (SUPRAPUBIC TENDERNESS) GENITOURINARY Genitourinary: Present exam deferred SKIN Skin: Present warm, Present dry MUSCULOSKELETAL Musculoskeletal: Present ROM normal, Present other (ECHYMOSIS RIGHT SHAHLA ANKLE) NEUROLOGICAL Neurological: Present alert, Present oriented x 3, Present no gross motor or sensory deficits PSYCHOLOGICAL Psychological: Present mood/affect normal, Present judgement normal Results Imaging Imaging results reviewed: Yes Assessment & Plan Medical Decision Making MDM FRACTURE CONTUSION Reassessment Reassessment SAME Assessment & Plan Final Impression: (1) Chest wall injury (2) Ankle sprain (3) Acute pain due to trauma (4) Blunt injury of abdomen (5) Contusion, arm, upper Depart Disposition: HOME, SELF-CARE Last Vital Signs Date Time Temp Pulse Resp B/P (MAP) Pulse Ox O2 Delivery O2 Flow Rate FiO2 01/23/20 20:19 97.6 81 17 129/80 100 Room Air Home Meds Active Scripts Naproxen (NAPROSYN) 500 Mg Tablet, 500 MG PO BID for PAIN, #15 TAB Prov:JIM THOMAS MD 01/23/20 Cyclobenzaprine Hcl (FLEXERIL) 5 Mg Tablet, 10 MG PO Q8H PRN for PAIN, #15 TAB 0 Refills Prov:JIM THOMAS MD 01/23/20 Reported Medications Dicyclomine Hcl (BENTYL) 10 Mg/1 Ml Ampul, IV QID, VIAL 10/18/19 Albuterol Sulf* (PROAIR HFA INHALER*) 8.5 Gm Inh, 2 PUMP INH PRN 04/22/19 Lisdexamfetamine Dimesylate (VYVANSE) 50 Mg Capsule, 50 MG PO PRN 04/22/19 Clonazepam (CLONAZEPAM) 1 Mg Tablet, 1 MG PO DAILY, TAB 04/22/19 Zolpidem Tartrate (AMBIEN) 10 Mg Tablet, 10 MG PO HS PRN for INSOMNIA, #30 TAB 05/28/17 Medications in the ED Ibuprofen 600 mg ONCE STAT PO Last administered on 01/23/20at 20:45; Admin Dose 600 MG; Start 01/23/20 at 20:39; Stop 01/23/20 at 20:40; Status DC Ibuprofen 600 mg STK-MED ONCE .ROUTE ; Start 01/23/20 at 20:51; Stop 01/23/20 at 20:47; Status DC JIM THOMAS MD Jan 23, 2020 22:06
[2020-01-23] MEDS ORDERED: NAPROSYN500 MG PO (22:07)
[2020-01-23] MEDS ORDERED: CYCLOBENZAPRINE5 MG PO (22:07)
== END 2020-01-23 22:36 | disposition home or self-care (01) ==
LOC: FSED 21:02
DX: S40.021A Contusion of right upper arm, initial encounter (principal); S20.219A Contusion of unspecified front wall of thorax, initial encounter; S30.1XXA Contusion of abdominal wall, initial encounter; S93.401A Sprain of unspecified ligament of right ankle, initial encounter; W17.89XA Other fall from one level to another, initial encounter; Y92.89 Other specified places as the place of occurrence of the external cause; F41.9 Anxiety disorder, unspecified; F43.10 Post-traumatic stress disorder, unspecified
CPT/HCPCS: 71250; 74176; 99283

== ENCOUNTER → 2020-03-05 | Outpatient (CLI) | payer OTHER ==
[~2020-03-05] MED LIST changes: +COVID-19 VACC, MRNA(MODERNA)/PF 100 MCG/0.5 ML VIAL IM ONE; +CYCLOBENZAPRINE5 MG PO; +NAPROSYN500 MG PO
== END ==
LOC: VACCPMC 17:00
DX: Z23 Encounter for immunization (principal); Z20.822 Contact with and (suspected) exposure to COVID-19

== ENCOUNTER → 2020-04-06 | Outpatient (CLI) | payer OTHER | END | DRG 951 | LOC: VACCPMC 08:12 | DX: Z23 Encounter for immunization (principal); Z20.822 Contact with and (suspected) exposure to COVID-19 | CPT/HCPCS: 0012A; 91301 ==

== ENCOUNTER → 2020-05-03 | Outpatient (CLI) | payer OTHER ==
[~2020-05-03] MED LIST changes: -COVID-19 VACC, MRNA(MODERNA)/PF 100 MCG/0.5 ML VIAL IM ONE
== END ==
LOC: LAB 12:56
PROVIDERS: ATTEND Otolaryngology
DX: J32.9 Chronic sinusitis, unspecified (principal); J30.1 Allergic rhinitis due to pollen; J30.9 Allergic rhinitis, unspecified
CPT/HCPCS: 86001; 86003

== ENCOUNTER 2020-05-06 16:38 | Emergency (ER) | payer OTHER ==
[~2020-05-06] VITALS: Ht 160 cm; Wt 61.7 kg
[2020-05-06] MEDS ORDERED: KETOROLAC TROMETHAMINE 30 MG/ML VIAL IV STA (18:37)
[2020-05-06] MEDS ORDERED: ALBUTEROL SULF 0.083% NEB SOLN 3 ML NEB NEB STA (18:37)
[2020-05-06] MEDS ORDERED: METHYLPREDNISOLONE SOD SUCC 125 MG/2ML VIAL IV ONE (18:45)
[2020-05-06] MEDS ORDERED: IPRATROPIUM BROMIDE 0.02% 2.5 ML NEB NEB ONE (18:45)
[2020-05-06] MEDS ORDERED: METHYLPREDNISOLONE SOD SUCC 125 MG/2ML VIAL ONE (18:50)
[2020-05-06] MEDS ORDERED: ALBUTEROL SULF 0.083% NEB SOLN 3 ML NEB ONE (18:51)
[2020-05-06] MEDS ORDERED: IPRATROPIUM BROMIDE 0.02% 2.5 ML NEB ONE (18:51)
[2020-05-06] MEDS ORDERED: PROAIR HFA INH8.5 GM PO (20:17)
[2020-05-06] MEDS ORDERED: ALBUTEROL2.5 MG/3 M NEB (20:17)
[2020-05-06] MEDS ORDERED: PREDNISONE20 MG PO (20:17)
[2020-05-06] MEDS ORDERED: AZITHROMYCIN500 MG PO (20:17)
[2020-05-06] MEDS ORDERED: BROMFED DM COU118 ML PO (20:17)
[2020-05-06] MEDS ORDERED: AZITHROMYCIN 250 MG TAB PO ONE (20:30)
== END 2020-05-06 20:43 | disposition home or self-care (01) ==
LOC: FSED 16:58
DX: R06.02 Shortness of breath (principal); J20.9 Acute bronchitis, unspecified; R05 Cough; J45.909 Unspecified asthma, uncomplicated; F43.10 Post-traumatic stress disorder, unspecified; Z87.19 Personal history of other diseases of the digestive system
CPT/HCPCS: 71046; 99284; J1885; J2930

== ENCOUNTER 2020-05-09 11:03 | Emergency (ER) | payer OTHER ==
[~2020-05-09] VITALS: Ht 160 cm; Wt 63.5 kg
[2020-05-09 13:03] VITALS: BP 134/72
== END 2020-05-09 12:39 | disposition home or self-care (01) ==
LOC: FSED 11:13
DX: R05 Cough (principal); J20.8 Acute bronchitis due to other specified organisms; J45.901 Unspecified asthma with (acute) exacerbation; R09.1 Pleurisy; F41.9 Anxiety disorder, unspecified; F43.10 Post-traumatic stress disorder, unspecified
CPT/HCPCS: 71046; 99283

== ENCOUNTER → 2020-05-09 | Outpatient (CLI) | payer OTHER ==
[~2020-05-09] MED LIST changes: +ALBUTEROL2.5 MG/3 M NEB; +AZITHROMYCIN500 MG PO; +BROMFED DM COU118 ML PO; +PREDNISONE20 MG PO; +PROAIR HFA INH8.5 GM PO
== END ==
LOC: CT 16:07
PROVIDERS: ATTEND Otolaryngology
DX: J32.9 Chronic sinusitis, unspecified (principal)
CPT/HCPCS: 70486

== ENCOUNTER 2020-07-03 09:39 | Emergency (ER) | payer OTHER ==
[~2020-07-03] VITALS: Ht 160 cm; Wt 63.5 kg
[2020-07-03] MEDS ORDERED: SODIUM CHLORIDE 0.9% 1000ML 1,000 ML IV STA (09:48)
[2020-07-03] MEDS ORDERED: FENTANYL CITRATE/PF 100MCG/2 ML INJ IV ONE (10:00)
[2020-07-03] MEDS ORDERED: ONDANSETRON HCL INJ 2MG/ML 2ML 2 MG/ML VIAL IV PRN (10:00)
[2020-07-03 10:08] LABS: BASOPHILS % 0.2 % (0.0-1.0); EOSINOPHILS # (AUTO) 0.1 (0.0-0.4); EOSINOPHILS % 0.6 % (0.0-6.0); HEMATOCRIT 41.5 % (34.2-44.1); HEMOGLOBIN 14.6 g/dL (12.0-16.0); LYMPHOCYTES # (AUTO) 2.1 (1.0-3.2); LYMPHOCYTES % 15.6 % (18.0-39.1); MEAN CORPUSCULAR HEMOGLOBIN 31.5 pg (28-32); MEAN CORPUSCULAR HGB CONC 35.2 g/dL (31-35); MEAN CORPUSCULAR VOLUME 89.4 fL (81-99); NEUTROPHILS # (AUTO) 10.4 (2.1-6.9); NEUTROPHILS % 76.2 % (38.7-80.0); PLATELET COUNT 226 x10e3/uL (140-360); RED BLOOD COUNT 4.64 x10e6/uL (3.6-5.1)
[2020-07-03 10:19] LABS: CLARITY,URINE CLEAR (CLEAR); COLOR,URINE YELLOW (YELLOW); KETONES,URINE NEGATIVE (NEGATIVE); LEUKOCYTE ESTERASE ,URINE NEGATIVE (NEGATIVE); NITRITE,URINE NEGATIVE (NEGATIVE); PROTEIN,URINE DIPSTICK NEGATIVE (NEGATIVE); URINE UROBILINOGEN 0.2 mg/dL (0.2 - 1)
[2020-07-03 10:32] LABS: BACTERIA,URINE RARE /HPF; EPITHELIAL CELLS,URINE MODERATE /LPF; MUCUS,URINE FEW (RARE); RBC,URINE 0-5 /HPF (0-5)
[2020-07-03 10:38] LABS: ALANINE AMINOTRANSFERASE 54 IU/L (0-55); ALBUMIN 4.5 g/dL (3.5-5.0); ALBUMIN/GLOBULIN RATIO 1.3 (0.8-2.0); ALKALINE PHOSPHATASE 89 IU/L (40-150); ANION GAP 16.8 mmol/L (8-16); BLOOD UREA NITROGEN 10 mg/dL (7-26); BUN/CREATININE RATIO 11 (6-25); CALCIUM 9.8 mg/dL (8.4-10.2); CARBON DIOXIDE 22 mmol/L (22-29); CHLORIDE 104 mmol/L (98-107); CREATININE, SERUM 0.91 mg/dL (0.57-1.11); EST GLOMERULAR FILTRATION RATE > 60 ML/MIN (60-); GLUCOSE 87 mg/dL (74-118); LIPASE 32 U/L (8-78); POTASSIUM 3.8 mmol/L (3.5-5.1); SODIUM 139 mmol/L (136-145)
[2020-07-03] MEDS ORDERED: KETOROLAC TROMETHAMINE 30 MG/ML VIAL IV STA (11:13)
[2020-07-03] MEDS ORDERED: FENTANYL CITRATE/PF 100MCG/2 ML INJ IV PRN (11:15)
[2020-07-03] MEDS ORDERED: ULTRAM50 MG PO (12:05)
[2020-07-03] MEDS ORDERED: AUGMENTIN 875-1 EACH PO (12:05)
[2020-07-03] MEDS ORDERED: SODIUM CHLORIDE 0.9% 50ML 50 ML ONE (12:13)
[2020-07-03] MEDS ORDERED: IOPAMIDOL 370 MG/ML 200 ML INFUS..BTL INJ ONE (12:13)
== END 2020-07-03 12:26 | disposition home or self-care (01) ==
LOC: ER 10:00
DX: R10.31 Right lower quadrant pain (principal); R11.0 Nausea; K57.32 Diverticulitis of large intestine without perforation or abscess without bleeding; F43.10 Post-traumatic stress disorder, unspecified; F41.9 Anxiety disorder, unspecified; G47.00 Insomnia, unspecified
CPT/HCPCS: 36415; 74177; 80053; 81001; 83690; 85025; 99284; J1885; J2405; J3010; J7030; Q9967

== ENCOUNTER 2020-07-04 17:56 | Inpatient (IN) | payer OTHER ==
[~2020-07-04] VITALS: Ht 162.6 cm; Wt 62.2 kg
[~2020-07-04 17:56] MED LIST changes: +AUGMENTIN 875-1 EACH PO; +ULTRAM50 MG PO
[2020-07-04 18:52] LABS: BASOPHILS % 0.1 % (0.0-1.0); LYMPHOCYTES # (AUTO) 0.4 (1.0-3.2); LYMPHOCYTES % 2.7 % (18.0-39.1); MEAN CORPUSCULAR HEMOGLOBIN 31.6 pg (28-32); MEAN CORPUSCULAR HGB CONC 35.9 g/dL (31-35); MONOCYTES # (AUTO) 0.2 (0.2-0.8); MONOCYTES % 1.6 % (4.4-11.3); NEUTROPHILS # (AUTO) 14.3 (2.1-6.9); NEUTROPHILS % 95.1 % (38.7-80.0); PLATELET COUNT 221 x10e3/uL (140-360); RED BLOOD COUNT 4.43 x10e6/uL (3.6-5.1); RED CELL DISTRIBUTION WIDTH 12.8 % (11.7-14.4)
[2020-07-04 18:56] LABS: CLARITY,URINE SL CLOUDY (CLEAR); COLOR,URINE STRAW (YELLOW); KETONES,URINE NEGATIVE (NEGATIVE); LEUKOCYTE ESTERASE ,URINE NEGATIVE (NEGATIVE); NITRITE,URINE NEGATIVE (NEGATIVE); PROTEIN,URINE DIPSTICK NEGATIVE (NEGATIVE); URINE UROBILINOGEN 0.2 mg/dL (0.2 - 1)
[2020-07-04] MEDS ORDERED: PIPERACILLIN/TAZOBAC 3.375 GM in SODIUM CHLORIDE 0.9% 50ML 50 ML IV STA (19:04)
[2020-07-04 19:06] LABS: BACTERIA,URINE MODERATE /HPF; EPITHELIAL CELLS,URINE MODERATE /LPF; MUCUS,URINE MODERATE (RARE)
[2020-07-04] MEDS ORDERED: METRONIDAZOLE 500MG/NS 100ML 100 ML IV STA (19:06)
[2020-07-04 19:15] LABS: ALANINE AMINOTRANSFERASE 218 IU/L (0-55); ALBUMIN 4.2 g/dL (3.5-5.0); ALBUMIN/GLOBULIN RATIO 1.1 (0.8-2.0); ALKALINE PHOSPHATASE 117 IU/L (40-150); BLOOD UREA NITROGEN 6 mg/dL (7-26); BUN/CREATININE RATIO 8 (6-25); CALCIUM 9.4 mg/dL (8.4-10.2); CARBON DIOXIDE 19 mmol/L (22-29); CHLORIDE 104 mmol/L (98-107); CREATINE KINASE 38 IU/L (29-168); EST GLOMERULAR FILTRATION RATE > 60 ML/MIN (60-); GLUCOSE 130 mg/dL (74-118); SODIUM 136 mmol/L (136-145)
[2020-07-04] MEDS: MORPHINE SULFATE INJ 4 MG/ML INJ 1ML IV PRN (19:40)
[2020-07-04] MEDS: ONDANSETRON HCL INJ 2MG/ML 2ML 2 MG/ML VIAL IV PRN (19:40)
[2020-07-04] MEDS ORDERED: SODIUM CHLORIDE 0.9% 50ML 50 ML ONE (20:01)
[2020-07-04] MEDS ORDERED: IOPAMIDOL 370 MG/ML 200 ML INFUS..BTL INJ ONE (20:01)
[2020-07-04] MEDS: SODIUM CHLORIDE 0.9% 1000ML 1,000 ML IV SCH (21:03)
[2020-07-04] MEDS ORDERED: SODIUM CHLORIDE 0.9% 1000ML 1,000 ML IV STA ×2 (21:52)
[2020-07-04] MEDS ORDERED: FENTANYL CITRATE/PF 100MCG/2 ML INJ IV ONE (23:00)
[2020-07-05] VITALS (10 sets, daily range): BP systolic 99–128; BP diastolic 65–85
[2020-07-05 00:16] LABS: BASOPHILS % 0.1 % (0.0-1.0); HEMATOCRIT 37.1 % (34.2-44.1); HEMOGLOBIN 12.7 g/dL (12.0-16.0); LYMPHOCYTES # (AUTO) 0.5 (1.0-3.2); LYMPHOCYTES % 4.3 % (18.0-39.1); MEAN CORPUSCULAR HEMOGLOBIN 31.4 pg (28-32); MEAN CORPUSCULAR HGB CONC 34.2 g/dL (31-35); MEAN CORPUSCULAR VOLUME 91.6 fL (81-99); MONOCYTES # (AUTO) 0.1 (0.2-0.8); NEUTROPHILS # (AUTO) 11.1 (2.1-6.9); NEUTROPHILS % 94.1 % (38.7-80.0); PLATELET COUNT 190 x10e3/uL (140-360); RED BLOOD COUNT 4.05 x10e6/uL (3.6-5.1); RED CELL DISTRIBUTION WIDTH 12.9 % (11.7-14.4)
[2020-07-05 00:35] LABS: ALANINE AMINOTRANSFERASE 218 IU/L (0-55); ALBUMIN 3.6 g/dL (3.5-5.0); ALKALINE PHOSPHATASE 113 IU/L (40-150); BLOOD UREA NITROGEN 6 mg/dL (7-26); BUN/CREATININE RATIO 8 (6-25); CALCIUM 8.2 mg/dL (8.4-10.2); CARBON DIOXIDE 22 mmol/L (22-29); CHLORIDE 109 mmol/L (98-107); CREATININE, SERUM 0.79 mg/dL (0.57-1.11); EST GLOMERULAR FILTRATION RATE > 60 ML/MIN (60-); GLUCOSE 162 mg/dL (74-118); SODIUM 140 mmol/L (136-145)
[2020-07-05] MEDS: SODIUM CHLORIDE 0.9% 1000ML 1,000 ML IV SCH ×3 (03:49→19:00)
[2020-07-05] MEDS: ONDANSETRON HCL INJ 2MG/ML 2ML 2 MG/ML VIAL IV PRN ×4 (03:50→20:26)
[2020-07-05] MEDS: MORPHINE SULFATE INJ 4 MG/ML INJ 1ML IV PRN ×4 (03:50→20:26)
[2020-07-05 05:55] LABS: ALANINE AMINOTRANSFERASE 188 IU/L (0-55); ALBUMIN 3.3 g/dL (3.5-5.0); ALKALINE PHOSPHATASE 99 IU/L (40-150); ANION GAP 12.9 mmol/L (8-16); BLOOD UREA NITROGEN 7 mg/dL (7-26); BUN/CREATININE RATIO 10 (6-25); CARBON DIOXIDE 21 mmol/L (22-29); CHLORIDE 111 mmol/L (98-107); CREATININE, SERUM 0.71 mg/dL (0.57-1.11); EST GLOMERULAR FILTRATION RATE > 60 ML/MIN (60-); GLUCOSE 136 mg/dL (74-118); POTASSIUM 3.9 mmol/L (3.5-5.1); SODIUM 141 mmol/L (136-145)
[2020-07-05] MEDS: CLONAZEPAM 1 MG TAB PO SCH ×2 (06:38→17:12)
[2020-07-05 07:14] LABS: BASOPHILS % 0.1 % (0.0-1.0); HEMATOCRIT 33.5 % (34.2-44.1); HEMOGLOBIN 11.7 g/dL (12.0-16.0); LYMPHOCYTES # (AUTO) 0.5 (1.0-3.2); LYMPHOCYTES % 3.5 % (18.0-39.1); MEAN CORPUSCULAR HEMOGLOBIN 31.1 pg (28-32); MEAN CORPUSCULAR HGB CONC 34.9 g/dL (31-35); MEAN CORPUSCULAR VOLUME 89.1 fL (81-99); MONOCYTES # (AUTO) 0.3 (0.2-0.8); NEUTROPHILS # (AUTO) 14.1 (2.1-6.9); NEUTROPHILS % 93.9 % (38.7-80.0); PLATELET COUNT 191 x10e3/uL (140-360); RED BLOOD COUNT 3.76 x10e6/uL (3.6-5.1); RED CELL DISTRIBUTION WIDTH 12.9 % (11.7-14.4)
[2020-07-05] MEDS ORDERED: CLONAZEPAM 1 MG TAB PO SCH (09:00)
[2020-07-05] MEDS ORDERED: ALBUTEROL/IPRATROPIUM 3 ML NEB NEB PRN (11:00)
[2020-07-05] MEDS: PANTOPRAZOLE 40 MG 10ML VIAL IV SCH ×2 (13:44→17:12)
[2020-07-05] MEDS: PIPERACILLIN/TAZOBAC 3.375 GM in SODIUM CHLORIDE 0.9% 50ML 50 ML IV SCH ×3 (13:45→23:17)
[2020-07-05] MEDS: ZOLPIDEM TARTRATE 10 MG TAB PO PRN (20:26)
[2020-07-06] VITALS (8 sets, daily range): BP systolic 101–106; BP diastolic 61–71
[2020-07-06] MEDS: MORPHINE SULFATE INJ 4 MG/ML INJ 1ML IV PRN ×5 (00:52→22:10)
[2020-07-06] MEDS: ONDANSETRON HCL INJ 2MG/ML 2ML 2 MG/ML VIAL IV PRN ×5 (00:52→22:10)
[2020-07-06] MEDS ORDERED: METRONIDAZOLE 500MG/NS 100ML 100 ML IV STA (02:21)
[2020-07-06] MEDS: METRONIDAZOLE 500MG/NS 100ML 100 ML IV SCH ×3 (04:10→18:02)
[2020-07-06] MEDS: SODIUM CHLORIDE 0.9% 1000ML 1,000 ML IV SCH ×3 (04:52→19:00)
[2020-07-06] MEDS: PIPERACILLIN/TAZOBAC 3.375 GM in SODIUM CHLORIDE 0.9% 50ML 50 ML IV SCH ×3 (04:59→19:57)
[2020-07-06 05:18] LABS: BASOPHILS % 0.1 % (0.0-1.0); HEMATOCRIT 30.8 % (34.2-44.1); HEMOGLOBIN 10.6 g/dL (12.0-16.0); LYMPHOCYTES # (AUTO) 1.1 (1.0-3.2); LYMPHOCYTES % 8.4 % (18.0-39.1); MEAN CORPUSCULAR HEMOGLOBIN 31.4 pg (28-32); MEAN CORPUSCULAR HGB CONC 34.4 g/dL (31-35); MEAN CORPUSCULAR VOLUME 91.1 fL (81-99); MONOCYTES # (AUTO) 0.5 (0.2-0.8); NEUTROPHILS # (AUTO) 10.9 (2.1-6.9); NEUTROPHILS % 87.1 % (38.7-80.0); PLATELET COUNT 199 x10e3/uL (140-360); RED BLOOD COUNT 3.38 x10e6/uL (3.6-5.1); RED CELL DISTRIBUTION WIDTH 13.1 % (11.7-14.4)
[2020-07-06 05:24] LABS: CALCIUM IONIZED 1.2 mmol/L (1.09-1.30)
[2020-07-06 05:48] LABS: ALANINE AMINOTRANSFERASE 142 IU/L (0-55); ALKALINE PHOSPHATASE 92 IU/L (40-150); ANION GAP 11.8 mmol/L (8-16); BLOOD UREA NITROGEN 10 mg/dL (7-26); BUN/CREATININE RATIO 14 (6-25); CALCIUM 7.9 mg/dL (8.4-10.2); CARBON DIOXIDE 23 mmol/L (22-29); CHLORIDE 110 mmol/L (98-107); CREATININE, SERUM 0.74 mg/dL (0.57-1.11); EST GLOMERULAR FILTRATION RATE > 60 ML/MIN (60-); GLUCOSE 104 mg/dL (74-118); MAGNESIUM 2.1 MG/DL (1.3-2.1); POTASSIUM 3.8 mmol/L (3.5-5.1); SODIUM 141 mmol/L (136-145)
[2020-07-06] MEDS ORDERED: CHLORASEPTIC SPRAY 177 ML BTL MM PRN (08:15)
[2020-07-06] MEDS ORDERED: KETOROLAC TROMETHAMINE 30 MG/ML VIAL IV ONE (12:30)
[2020-07-06] MEDS: CLONAZEPAM 1 MG TAB PO SCH ×2 (12:38→17:57)
[2020-07-06] MEDS: PANTOPRAZOLE 40 MG 10ML VIAL IV SCH ×2 (12:42→17:57)
[2020-07-06] MEDS: DICYCLOMINE HCL 20 MG TAB PO SCH ×2 (13:03→17:57)
[2020-07-06] MEDS ORDERED: LORAZEPAM 1 MG TAB PO ONE (16:00)
[2020-07-06] MEDS: LEVOFLOXACIN 500MG/D5W 100ML 100 ML IV SCH (16:24)
[2020-07-07] VITALS (8 sets, daily range): BP systolic 95–123; BP diastolic 56–66
[2020-07-07] MEDS: PIPERACILLIN/TAZOBAC 3.375 GM in SODIUM CHLORIDE 0.9% 50ML 50 ML IV SCH ×5 (01:00→23:30)
[2020-07-07] MEDS: SODIUM CHLORIDE 0.9% 1000ML 1,000 ML IV SCH ×3 (01:00→19:00)
[2020-07-07] MEDS: METRONIDAZOLE 500MG/NS 100ML 100 ML IV SCH ×4 (05:10→17:25)
[2020-07-07] MEDS: ONDANSETRON HCL INJ 2MG/ML 2ML 2 MG/ML VIAL IV PRN ×2 (05:17→21:58)
[2020-07-07] MEDS: MORPHINE SULFATE INJ 4 MG/ML INJ 1ML IV PRN ×3 (05:17→21:58)
[2020-07-07] MEDS: DICYCLOMINE HCL 20 MG TAB PO SCH ×5 (05:22→23:40)
[2020-07-07 06:03] LABS: BASOPHILS % 0.5 % (0.0-1.0); EOSINOPHILS # (AUTO) 0.1 (0.0-0.4); EOSINOPHILS % 0.9 % (0.0-6.0); HEMATOCRIT 31.5 % (34.2-44.1); HEMOGLOBIN 10.8 g/dL (12.0-16.0); LYMPHOCYTES % 16.4 % (18.0-39.1); MEAN CORPUSCULAR HEMOGLOBIN 31.7 pg (28-32); MEAN CORPUSCULAR HGB CONC 34.3 g/dL (31-35); MEAN CORPUSCULAR VOLUME 92.4 fL (81-99); MONOCYTES # (AUTO) 0.5 (0.2-0.8); MONOCYTES % 7.9 % (4.4-11.3); NEUTROPHILS # (AUTO) 4.3 (2.1-6.9); PLATELET COUNT 196 x10e3/uL (140-360); RED BLOOD COUNT 3.41 x10e6/uL (3.6-5.1); RED CELL DISTRIBUTION WIDTH 13.2 % (11.7-14.4)
[2020-07-07 06:26] LABS: ALANINE AMINOTRANSFERASE 113 IU/L (0-55); ALBUMIN 2.8 g/dL (3.5-5.0); ALKALINE PHOSPHATASE 90 IU/L (40-150); ANION GAP 10.6 mmol/L (8-16); BLOOD UREA NITROGEN 10 mg/dL (7-26); BUN/CREATININE RATIO 12 (6-25); CALCIUM 7.5 mg/dL (8.4-10.2); CARBON DIOXIDE 24 mmol/L (22-29); CHLORIDE 110 mmol/L (98-107); CREATININE, SERUM 0.82 mg/dL (0.57-1.11); EST GLOMERULAR FILTRATION RATE > 60 ML/MIN (60-); GLUCOSE 89 mg/dL (74-118); POTASSIUM 3.6 mmol/L (3.5-5.1); SODIUM 141 mmol/L (136-145)
[2020-07-07] MEDS: PANTOPRAZOLE 40 MG 10ML VIAL IV SCH ×2 (09:36→17:28)
[2020-07-07] MEDS: CLONAZEPAM 1 MG TAB PO SCH ×2 (09:36→17:28)
[2020-07-07] MEDS ORDERED: SODIUM CHLORIDE 0.9% 50ML 50 ML ONE (12:10)
[2020-07-07] MEDS ORDERED: IOPAMIDOL 370 MG/ML 200 ML INFUS..BTL INJ ONE (12:10)
[2020-07-07] MEDS: LEVOFLOXACIN 500MG/D5W 100ML 100 ML IV SCH (14:44)
[2020-07-08] VITALS (8 sets, daily range): BP systolic 93–138; BP diastolic 60–79
[2020-07-08] MEDS: MORPHINE SULFATE INJ 4 MG/ML INJ 1ML IV PRN ×2 (05:15→09:58)
[2020-07-08] MEDS: ONDANSETRON HCL INJ 2MG/ML 2ML 2 MG/ML VIAL IV PRN ×2 (05:15→12:04)
[2020-07-08] MEDS: PIPERACILLIN/TAZOBAC 3.375 GM in SODIUM CHLORIDE 0.9% 50ML 50 ML IV SCH (05:30)
[2020-07-08] MEDS: DICYCLOMINE HCL 20 MG TAB PO SCH ×4 (06:00→23:30)
[2020-07-08] MEDS: METRONIDAZOLE 500MG/NS 100ML 100 ML IV SCH ×5 (06:00→23:30)
[2020-07-08] MEDS: SODIUM CHLORIDE 0.9% 1000ML 1,000 ML IV SCH (06:28)
[2020-07-08 06:41] LABS: % IRON SATURATION 25 % (15-50); IRON 61 ug/dL (50-170); TOTAL IRON BINDING CAPACITY 246 ug/dL (261-478); TRANSFERRIN 176 mg/dL (180-382)
[2020-07-08] MEDS: CLONAZEPAM 1 MG TAB PO SCH ×2 (09:43→17:00)
[2020-07-08] MEDS: PANTOPRAZOLE 40 MG 10ML VIAL IV SCH ×2 (09:43→16:51)
[2020-07-08 09:59] LABS: BASOPHILS % 0.4 % (0.0-1.0); EOSINOPHILS # (AUTO) 0.1 (0.0-0.4); EOSINOPHILS % 1.8 % (0.0-6.0); HEMATOCRIT 32.7 % (34.2-44.1); HEMOGLOBIN 11.5 g/dL (12.0-16.0); LYMPHOCYTES # (AUTO) 1.5 (1.0-3.2); LYMPHOCYTES % 27.3 % (18.0-39.1); MEAN CORPUSCULAR HEMOGLOBIN 31.5 pg (28-32); MEAN CORPUSCULAR HGB CONC 35.2 g/dL (31-35); MEAN CORPUSCULAR VOLUME 89.6 fL (81-99); MONOCYTES # (AUTO) 0.4 (0.2-0.8); MONOCYTES % 6.7 % (4.4-11.3); NEUTROPHILS # (AUTO) 3.6 (2.1-6.9); NEUTROPHILS % 63.3 % (38.7-80.0); PLATELET COUNT 232 x10e3/uL (140-360); RED BLOOD COUNT 3.65 x10e6/uL (3.6-5.1); RED CELL DISTRIBUTION WIDTH 12.8 % (11.7-14.4)
[2020-07-08 10:10] LABS: ALANINE AMINOTRANSFERASE 82 IU/L (0-55); ALBUMIN 3.1 g/dL (3.5-5.0); ALBUMIN/GLOBULIN RATIO 1.1 (0.8-2.0); ALKALINE PHOSPHATASE 84 IU/L (40-150); ANION GAP 13.8 mmol/L (8-16); BLOOD UREA NITROGEN < 5 mg/dL (7-26); BUN/CREATININE RATIO 6 (6-25); CALCIUM 7.5 mg/dL (8.4-10.2); CARBON DIOXIDE 24 mmol/L (22-29); CHLORIDE 105 mmol/L (98-107); CREATININE, SERUM 0.78 mg/dL (0.57-1.11); EST GLOMERULAR FILTRATION RATE > 60 ML/MIN (60-); GLUCOSE 88 mg/dL (74-118); SODIUM 140 mmol/L (136-145)
[2020-07-08 10:11] LABS: POTASSIUM 2.8 mmol/L (3.5-5.1)
[2020-07-08] MEDS ORDERED: KCL 20 MEQ PACKET/ ORAL SOLN PO ONE (11:00)
[2020-07-08] MEDS: CYANOCOBALAMIN INJ 1,000 MCG/ML VIAL IM SCH (11:43)
[2020-07-08] MEDS ORDERED: POTASSIUM CHLORIDE 20 MEQ TAB CR PO ONE ×2 (12:15→14:15)
[2020-07-08] MEDS: ALBUTEROL/IPRATROPIUM 3 ML NEB NEB SCH ×2 (13:00→19:10)
[2020-07-08] MEDS: LEVOFLOXACIN 500MG/D5W 100ML 100 ML IV SCH (15:12)
[2020-07-08] MEDS: HYDROCODONE/APAP 7.5MG-325MG 1 EA TAB PO PRN ×2 (15:41→20:58)
[2020-07-08] MEDS: LORAZEPAM 1 MG TAB PO PRN (17:23)
[2020-07-09] VITALS (8 sets, daily range): BP systolic 96–144; BP diastolic 53–89
[2020-07-09] MEDS: ALBUTEROL/IPRATROPIUM 3 ML NEB NEB SCH ×4 (00:20→19:15)
[2020-07-09] MEDS ORDERED: CHLORDIAZEPOXIDE/CLIDINIUM 1 CAP PO STA (00:47)
[2020-07-09] MEDS: ONDANSETRON HCL INJ 2MG/ML 2ML 2 MG/ML VIAL IV PRN ×3 (02:14→19:13)
[2020-07-09] MEDS: HYDROCODONE/APAP 7.5MG-325MG 1 EA TAB PO PRN ×3 (02:14→19:13)
[2020-07-09 05:40] LABS: BASOPHILS % 0.3 % (0.0-1.0); EOSINOPHILS # (AUTO) 0.1 (0.0-0.4); EOSINOPHILS % 1.6 % (0.0-6.0); HEMATOCRIT 35.3 % (34.2-44.1); HEMOGLOBIN 12.3 g/dL (12.0-16.0); LYMPHOCYTES # (AUTO) 1.8 (1.0-3.2); LYMPHOCYTES % 28.7 % (18.0-39.1); MEAN CORPUSCULAR HEMOGLOBIN 30.8 pg (28-32); MEAN CORPUSCULAR HGB CONC 34.8 g/dL (31-35); MEAN CORPUSCULAR VOLUME 88.5 fL (81-99); MONOCYTES # (AUTO) 0.5 (0.2-0.8); MONOCYTES % 7.4 % (4.4-11.3); NEUTROPHILS # (AUTO) 3.8 (2.1-6.9); NEUTROPHILS % 61.2 % (38.7-80.0); PLATELET COUNT 245 x10e3/uL (140-360); RED BLOOD COUNT 3.99 x10e6/uL (3.6-5.1); RED CELL DISTRIBUTION WIDTH 12.7 % (11.7-14.4)
[2020-07-09 06:09] LABS: ALANINE AMINOTRANSFERASE 66 IU/L (0-55); ALBUMIN 3.2 g/dL (3.5-5.0); ALBUMIN/GLOBULIN RATIO 1.1 (0.8-2.0); ALKALINE PHOSPHATASE 76 IU/L (40-150); BLOOD UREA NITROGEN < 5 mg/dL (7-26); CALCIUM 8.5 mg/dL (8.4-10.2); CARBON DIOXIDE 27 mmol/L (22-29); CHLORIDE 104 mmol/L (98-107); CREATININE, SERUM 0.74 mg/dL (0.57-1.11); EST GLOMERULAR FILTRATION RATE > 60 ML/MIN (60-); GLUCOSE 96 mg/dL (74-118); SODIUM 140 mmol/L (136-145)
[2020-07-09 06:11] LABS: BUN/CREATININE RATIO 7 (6-25)
[2020-07-09] MEDS: METRONIDAZOLE 500MG/NS 100ML 100 ML IV SCH ×3 (06:22→19:00)
[2020-07-09] MEDS ORDERED: POTASSIUM CHLORIDE 20 MEQ TAB CR PO ONE ×3 (08:30→18:59)
[2020-07-09] MEDS: CHLORDIAZEPOXIDE/CLIDINIUM 1 CAP PO SCH ×4 (09:00→20:29)
[2020-07-09] MEDS: CLONAZEPAM 1 MG TAB PO SCH ×2 (09:00→17:51)
[2020-07-09] MEDS: PANTOPRAZOLE 40 MG 10ML VIAL IV SCH ×2 (09:08→17:53)
[2020-07-09] MEDS: CYANOCOBALAMIN INJ 1,000 MCG/ML VIAL IM SCH (09:08)
[2020-07-09] MEDS: LEVOFLOXACIN 500MG/D5W 100ML 100 ML IV SCH (16:01)
[2020-07-09 16:54] LABS: ANION GAP 15.1 mmol/L (8-16); BLOOD UREA NITROGEN < 5 mg/dL (7-26); CARBON DIOXIDE 24 mmol/L (22-29); CHLORIDE 104 mmol/L (98-107); CREATININE, SERUM 0.85 mg/dL (0.57-1.11); EST GLOMERULAR FILTRATION RATE > 60 ML/MIN (60-); GLUCOSE 77 mg/dL (74-118); POTASSIUM 3.1 mmol/L (3.5-5.1); SODIUM 140 mmol/L (136-145)
[2020-07-09 16:55] LABS: BUN/CREATININE RATIO 6 (6-25)
[2020-07-09] MEDS ORDERED: POTASSIUM CHLORIDE 10MEQ/100ML 100 ML IV ONE (18:45)
[2020-07-09] MEDS: ZOLPIDEM TARTRATE 10 MG TAB PO PRN (20:29)
[2020-07-10] VITALS (8 sets, daily range): BP systolic 103–139; BP diastolic 65–88
[2020-07-10] MEDS: METOCLOPRAMIDE HCL 10 MG/2ML VIAL IV SCH ×4 (00:32→18:40)
[2020-07-10] MEDS: METRONIDAZOLE 500MG/NS 100ML 100 ML IV SCH ×4 (00:32→18:40)
[2020-07-10] MEDS: ALBUTEROL/IPRATROPIUM 3 ML NEB NEB SCH ×4 (01:00→19:25)
[2020-07-10 05:36] LABS: BASOPHILS % 0.4 % (0.0-1.0); EOSINOPHILS # (AUTO) 0.2 (0.0-0.4); EOSINOPHILS % 1.9 % (0.0-6.0); HEMATOCRIT 37.3 % (34.2-44.1); HEMOGLOBIN 12.9 g/dL (12.0-16.0); LYMPHOCYTES # (AUTO) 1.4 (1.0-3.2); LYMPHOCYTES % 17.6 % (18.0-39.1); MEAN CORPUSCULAR HGB CONC 34.6 g/dL (31-35); MEAN CORPUSCULAR VOLUME 89.7 fL (81-99); MONOCYTES # (AUTO) 0.5 (0.2-0.8); MONOCYTES % 6.4 % (4.4-11.3); NEUTROPHILS # (AUTO) 5.7 (2.1-6.9); NEUTROPHILS % 72.9 % (38.7-80.0); PLATELET COUNT 256 x10e3/uL (140-360); RED BLOOD COUNT 4.16 x10e6/uL (3.6-5.1)
[2020-07-10 05:57] LABS: ALANINE AMINOTRANSFERASE 48 IU/L (0-55); ALBUMIN 3.1 g/dL (3.5-5.0); ALKALINE PHOSPHATASE 79 IU/L (40-150); ANION GAP 13.1 mmol/L (8-16); BLOOD UREA NITROGEN 6 mg/dL (7-26); BUN/CREATININE RATIO 7 (6-25); CALCIUM 8.6 mg/dL (8.4-10.2); CARBON DIOXIDE 25 mmol/L (22-29); CHLORIDE 106 mmol/L (98-107); CREATININE, SERUM 0.85 mg/dL (0.57-1.11); EST GLOMERULAR FILTRATION RATE > 60 ML/MIN (60-); GLUCOSE 117 mg/dL (74-118); MAGNESIUM 1.9 MG/DL (1.3-2.1); POTASSIUM 3.1 mmol/L (3.5-5.1); SODIUM 141 mmol/L (136-145)
[2020-07-10 07:42] LABS: CLARITY,URINE CLEAR (CLEAR); COLOR,URINE AMBER (YELLOW); KETONES,URINE NEGATIVE (NEGATIVE); LEUKOCYTE ESTERASE ,URINE NEGATIVE (NEGATIVE); NITRITE,URINE POSITIVE (NEGATIVE); PROTEIN,URINE DIPSTICK NEGATIVE (NEGATIVE); URINE UROBILINOGEN 0.2 mg/dL (0.2 - 1)
[2020-07-10 07:48] LABS: BACTERIA,URINE FEW /HPF; EPITHELIAL CELLS,URINE FEW /LPF; RBC,URINE 0-5 /HPF (0-5)
[2020-07-10] MEDS: CYANOCOBALAMIN INJ 1,000 MCG/ML VIAL IM SCH (09:16)
[2020-07-10] MEDS: PANTOPRAZOLE 40 MG 10ML VIAL IV SCH ×2 (09:16→17:00)
[2020-07-10] MEDS: CHLORDIAZEPOXIDE/CLIDINIUM 1 CAP PO SCH ×4 (09:16→21:00)
[2020-07-10] MEDS: CLONAZEPAM 1 MG TAB PO SCH ×2 (09:17→17:00)
[2020-07-10] MEDS ORDERED: POTASSIUM CHLORIDE 10MEQ EA PO ONE ×2 (09:30→17:00)
[2020-07-10 11:26] LABS: ANION GAP 11.4 mmol/L (8-16); BLOOD UREA NITROGEN 7 mg/dL (7-26); BUN/CREATININE RATIO 9 (6-25); CALCIUM 8.3 mg/dL (8.4-10.2); CARBON DIOXIDE 24 mmol/L (22-29); CHLORIDE 107 mmol/L (98-107); CREATININE, SERUM 0.78 mg/dL (0.57-1.11); EST GLOMERULAR FILTRATION RATE > 60 ML/MIN (60-); GLUCOSE 106 mg/dL (74-118); POTASSIUM 3.4 mmol/L (3.5-5.1); SODIUM 139 mmol/L (136-145)
[2020-07-10] MEDS: LEVOFLOXACIN 500MG/D5W 100ML 100 ML IV SCH (13:00)
[2020-07-10] MEDS: HYDROCODONE/APAP 7.5MG-325MG 1 EA TAB PO PRN (17:00)
[2020-07-10] MEDS: ZOLPIDEM TARTRATE 10 MG TAB PO PRN (23:00)
[2020-07-11] VITALS (8 sets, daily range): BP systolic 88–106; BP diastolic 56–82
[2020-07-11] MEDS: ONDANSETRON HCL INJ 2MG/ML 2ML 2 MG/ML VIAL IV PRN ×2 (00:27→05:56)
[2020-07-11] MEDS: METOCLOPRAMIDE HCL 10 MG/2ML VIAL IV SCH ×5 (00:28→23:04)
[2020-07-11] MEDS: METRONIDAZOLE 500MG/NS 100ML 100 ML IV SCH ×5 (00:28→23:04)
[2020-07-11] MEDS: ALBUTEROL/IPRATROPIUM 3 ML NEB NEB SCH ×2 (00:30→07:00)
[2020-07-11 05:21] LABS: BASOPHILS % 0.4 % (0.0-1.0); EOSINOPHILS # (AUTO) 0.2 (0.0-0.4); HEMATOCRIT 34.5 % (34.2-44.1); HEMOGLOBIN 11.9 g/dL (12.0-16.0); LYMPHOCYTES % 24.8 % (18.0-39.1); MEAN CORPUSCULAR HGB CONC 34.5 g/dL (31-35); MEAN CORPUSCULAR VOLUME 89.8 fL (81-99); MONOCYTES # (AUTO) 0.6 (0.2-0.8); MONOCYTES % 7.9 % (4.4-11.3); NEUTROPHILS # (AUTO) 5.1 (2.1-6.9); NEUTROPHILS % 63.8 % (38.7-80.0); PLATELET COUNT 279 x10e3/uL (140-360); RED BLOOD COUNT 3.84 x10e6/uL (3.6-5.1); RED CELL DISTRIBUTION WIDTH 13.1 % (11.7-14.4)
[2020-07-11 05:40] LABS: ALANINE AMINOTRANSFERASE 44 IU/L (0-55); ALBUMIN 3.3 g/dL (3.5-5.0); ALBUMIN/GLOBULIN RATIO 1.2 (0.8-2.0); ALKALINE PHOSPHATASE 71 IU/L (40-150); ANION GAP 12.9 mmol/L (8-16); BLOOD UREA NITROGEN 6 mg/dL (7-26); BUN/CREATININE RATIO 7 (6-25); CALCIUM 8.7 mg/dL (8.4-10.2); CARBON DIOXIDE 22 mmol/L (22-29); CHLORIDE 109 mmol/L (98-107); CREATININE, SERUM 0.81 mg/dL (0.57-1.11); EST GLOMERULAR FILTRATION RATE > 60 ML/MIN (60-); GLUCOSE 100 mg/dL (74-118); POTASSIUM 3.9 mmol/L (3.5-5.1); SODIUM 140 mmol/L (136-145)
[2020-07-11] MEDS: CYANOCOBALAMIN INJ 1,000 MCG/ML VIAL IM SCH (09:13)
[2020-07-11] MEDS: CLONAZEPAM 1 MG TAB PO SCH ×2 (09:13→17:58)
[2020-07-11] MEDS: PANTOPRAZOLE 40 MG 10ML VIAL IV SCH ×2 (09:13→17:58)
[2020-07-11] MEDS: HYDROCODONE/APAP 7.5MG-325MG 1 EA TAB PO PRN ×2 (11:46→17:58)
[2020-07-11] MEDS: IPRATROPIUM BROMIDE 0.02% 2.5 ML NEB NEB SCH ×2 (14:20→19:30)
[2020-07-11] MEDS: LEVOFLOXACIN 500MG/D5W 100ML 100 ML IV SCH (14:33)
[2020-07-11] MEDS ORDERED: LOPERAMIDE HCL 2 MG CAP PO PRN (17:15)
[2020-07-11] MEDS: LACTOBACILLUS ACIDOPHILUS CAPSULE PO SCH (17:58)
[2020-07-11] MEDS: SODIUM CHLORIDE 0.9% 1000ML 1,000 ML IV SCH (18:32)
[2020-07-11] MEDS: LORAZEPAM 1 MG TAB PO PRN (21:43)
[2020-07-11] MEDS: ZOLPIDEM TARTRATE 10 MG TAB PO PRN (21:43)
[2020-07-12 01:15] VITALS: BP 96/62
[2020-07-12] MEDS: IPRATROPIUM BROMIDE 0.02% 2.5 ML NEB NEB SCH ×2 (01:30→06:32)
[2020-07-12 05:25] LABS: BASOPHILS % 0.4 % (0.0-1.0); EOSINOPHILS # (AUTO) 0.2 (0.0-0.4); EOSINOPHILS % 2.5 % (0.0-6.0); HEMATOCRIT 33.3 % (34.2-44.1); HEMOGLOBIN 11.3 g/dL (12.0-16.0); LYMPHOCYTES % 27.3 % (18.0-39.1); MEAN CORPUSCULAR HEMOGLOBIN 30.9 pg (28-32); MEAN CORPUSCULAR HGB CONC 33.9 g/dL (31-35); MONOCYTES # (AUTO) 0.7 (0.2-0.8); MONOCYTES % 9.9 % (4.4-11.3); NEUTROPHILS # (AUTO) 4.4 (2.1-6.9); NEUTROPHILS % 58.8 % (38.7-80.0); PLATELET COUNT 245 x10e3/uL (140-360); RED BLOOD COUNT 3.66 x10e6/uL (3.6-5.1); RED CELL DISTRIBUTION WIDTH 13.2 % (11.7-14.4)
[2020-07-12 05:53] VITALS: BP 92/55
[2020-07-12 06:05] LABS: ANION GAP 10.7 mmol/L (8-16); BLOOD UREA NITROGEN 7 mg/dL (7-26); BUN/CREATININE RATIO 9 (6-25); CALCIUM 8.1 mg/dL (8.4-10.2); CARBON DIOXIDE 22 mmol/L (22-29); CHLORIDE 110 mmol/L (98-107); CREATININE, SERUM 0.76 mg/dL (0.57-1.11); EST GLOMERULAR FILTRATION RATE > 60 ML/MIN (60-); GLUCOSE 94 mg/dL (74-118); POTASSIUM 3.7 mmol/L (3.5-5.1); SODIUM 139 mmol/L (136-145)
[2020-07-12] MEDS: METRONIDAZOLE 500MG/NS 100ML 100 ML IV SCH (06:24)
[2020-07-12] MEDS: SODIUM CHLORIDE 0.9% 1000ML 1,000 ML IV SCH (06:24)
[2020-07-12] MEDS: METOCLOPRAMIDE HCL 10 MG/2ML VIAL IV SCH (06:24)
[2020-07-12 08:42] VITALS: BP 91/53
[2020-07-12 08:51] VITALS: BP 91/53
[2020-07-12] MEDS: CYANOCOBALAMIN INJ 1,000 MCG/ML VIAL IM SCH (09:49)
[2020-07-12] MEDS: LACTOBACILLUS ACIDOPHILUS CAPSULE PO SCH (09:50)
[2020-07-12] MEDS: PANTOPRAZOLE 40 MG 10ML VIAL IV SCH (09:50)
[2020-07-12] MEDS: HYDROCODONE/APAP 7.5MG-325MG 1 EA TAB PO PRN (10:16)
[2020-07-12] MEDS ORDERED: IMODIUM2 MG PO (10:21)
[2020-07-12] MEDS ORDERED: HYDROCODON-ACE1 EA12 PO (10:21)
[2020-07-12] MEDS ORDERED: ZOFRAN4 MG PO (10:21)
[2020-07-12] MEDS ORDERED: METRONIDAZOLE500 MG PO (10:21)
[2020-07-12] MEDS ORDERED: VITAMIN B-121000 MCG PO (10:21)
[2020-07-12] MEDS ORDERED: IPRATROPIU0.2 MG/1 M NEB (10:21)
[2020-07-12] MEDS: ONDANSETRON HCL INJ 2MG/ML 2ML 2 MG/ML VIAL IV PRN (10:28)
[2020-07-12] MEDS ORDERED: LEVOFLOXACIN250 MG PO (11:35)
== END 2020-07-12 11:58 | disposition home or self-care (01) | DRG 871 ==
LOC: ER 18:05 → ERHOLD 19:53 → MED/SURG2 07-05 00:05
PROVIDERS: ADMIT Internal Medicine; ATTEND Internal Medicine
DX: A41.9 Sepsis, unspecified organism (principal); N39.0 Urinary tract infection, site not specified; J15.6 Pneumonia due to other Gram-negative bacteria; K57.32 Diverticulitis of large intestine without perforation or abscess without bleeding; E87.6 Hypokalemia; J45.909 Unspecified asthma, uncomplicated; F41.9 Anxiety disorder, unspecified; F32.9 Major depressive disorder, single episode, unspecified; K21.9 Gastro-esophageal reflux disease without esophagitis; D63.8 Anemia in other chronic diseases classified elsewhere; D51.9 Vitamin B12 deficiency anemia, unspecified; J01.90 Acute sinusitis, unspecified
CPT/HCPCS: 36415; 71046; 71260; 74019; 74022; 74174; 80048; 80053; 81001; 82088; 82550; 82553; 82607; 82746; 83540; 83605; 83630; 83690; 83735; 83993; 84244; 84466; 84484; 85025; 85045; 87040; 87045; 87086; 87177; 87328; 93005; 94640; 96360; 99251; 99284; J1885; J1956; J2270; J2405; J2543; J2765; J3010; J3420; J3480; J7030; Q9967; U0002

== ENCOUNTER 2020-07-15 04:28 | Emergency (ER) | payer OTHER ==
[~2020-07-15] VITALS: Ht 162.6 cm; Wt 62.1 kg
[~2020-07-15 04:28] MED LIST changes: +HYDROCODON-ACE1 EA12 PO; +IMODIUM2 MG PO; +IPRATROPIU0.2 MG/1 M NEB; +LEVOFLOXACIN250 MG PO; +METRONIDAZOLE500 MG PO; +VITAMIN B-121000 MCG PO; +ZOFRAN4 MG PO
== END 2020-07-15 06:57 | disposition home or self-care (01) ==
LOC: FSED 05:00
DX: M25.562 Pain in left knee (principal); M25.561 Pain in right knee; S83.92XA Sprain of unspecified site of left knee, initial encounter; S83.91XA Sprain of unspecified site of right knee, initial encounter; W01.0XXA Fall on same level from slipping, tripping and stumbling without subsequent striking against object, initial encounter; Y93.01 Activity, walking, marching and hiking; Y92.003 Bedroom of unspecified non-institutional (private) residence as the place of occurrence of the external cause; F43.10 Post-traumatic stress disorder, unspecified; K57.92 Diverticulitis of intestine, part unspecified, without perforation or abscess without bleeding; G47.00 Insomnia, unspecified; F41.9 Anxiety disorder, unspecified
CPT/HCPCS: 99283

== ENCOUNTER → 2020-07-31 | Outpatient (CLI) | payer OTHER | LOC: RAD 15:52 | PROVIDERS: ATTEND Otolaryngology | DX: J45.909 Unspecified asthma, uncomplicated (principal) | CPT/HCPCS: 71046 ==

== ENCOUNTER 2020-09-05 11:19 | Emergency (ER) | payer OTHER ==
[~2020-09-05] VITALS: Ht 162.6 cm; Wt 62.1 kg
[2020-09-05] MEDS ORDERED: SODIUM CHLORIDE 0.9% 1000ML 1,000 ML IV STA (11:44)
[2020-09-05] MEDS ORDERED: ONDANSETRON HCL INJ 2MG/ML 2ML 2 MG/ML VIAL IV STA ×2 (11:49→13:00)
[2020-09-05] MEDS ORDERED: MORPHINE SULFATE INJ 4 MG/ML INJ 1ML IV STA (11:49)
[2020-09-05] MEDS ORDERED: DIATRIZOATE MEGL/DIATRIZOA SOD 30 ML BTL PO ONE (11:59)
[2020-09-05 12:19] LABS: BASOPHILS % 0.6 % (0.0-1.0); EOSINOPHILS # (AUTO) 0.1 (0.0-0.4); EOSINOPHILS % 1.3 % (0.0-6.0); HEMATOCRIT 39.8 % (34.2-44.1); HEMOGLOBIN 13.8 g/dL (12.0-16.0); LYMPHOCYTES # (AUTO) 1.5 (1.0-3.2); LYMPHOCYTES % 24.2 % (18.0-39.1); MEAN CORPUSCULAR HEMOGLOBIN 31.4 pg (28-32); MEAN CORPUSCULAR HGB CONC 34.7 g/dL (31-35); MEAN CORPUSCULAR VOLUME 90.7 fL (81-99); MONOCYTES # (AUTO) 0.3 (0.2-0.8); MONOCYTES % 5.4 % (4.4-11.3); NEUTROPHILS # (AUTO) 4.3 (2.1-6.9); PLATELET COUNT 256 x10e3/uL (140-360); RED BLOOD COUNT 4.39 x10e6/uL (3.6-5.1); RED CELL DISTRIBUTION WIDTH 12.7 % (11.7-14.4)
[2020-09-05 12:26] LABS: CLARITY,URINE CLEAR (CLEAR); COLOR,URINE YELLOW (YELLOW); KETONES,URINE NEGATIVE (NEGATIVE); LEUKOCYTE ESTERASE ,URINE NEGATIVE (NEGATIVE); NITRITE,URINE NEGATIVE (NEGATIVE); PROTEIN,URINE DIPSTICK NEGATIVE (NEGATIVE); URINE UROBILINOGEN 0.2 mg/dL (0.2 - 1)
[2020-09-05 12:40] LABS: BACTERIA,URINE RARE /HPF; EPITHELIAL CELLS,URINE FEW /LPF; RBC,URINE 0-5 /HPF (0-5); WBC,URINE (MAN) 0-5 /HPF (0-5)
[2020-09-05 12:43] LABS: ALBUMIN/GLOBULIN RATIO 1.3 (0.8-2.0); ANION GAP 16.5 mmol/L (8-16); CALCIUM 8.5 mg/dL (8.4-10.2); CREATININE, SERUM 0.86 mg/dL (0.57-1.11); MAGNESIUM 1.9 MG/DL (1.3-2.1); POTASSIUM 3.5 mmol/L (3.5-5.1)
[2020-09-05] MEDS ORDERED: DIPHENHYDRAMINE HCL INJ 50 MG/ML VIAL IV ONE ×2 (12:45→13:00)
[2020-09-05] MEDS ORDERED: MORPHINE SULFATE INJ 4 MG/ML INJ 1ML IV PRN (13:00)
[2020-09-05] MEDS ORDERED: IOPAMIDOL 370 MG/ML 200 ML INFUS..BTL INJ ONE (13:12)
[2020-09-05 15:27] VITALS: BP 110/76
== END 2020-09-05 15:28 | disposition home or self-care (01) ==
LOC: ER 11:24
DX: K57.92 Diverticulitis of intestine, part unspecified, without perforation or abscess without bleeding (principal); Z91.041 Radiographic dye allergy status; Z91.012 Allergy to eggs; Z91.018 Allergy to other foods
CPT/HCPCS: 36415; 74177; 80053; 81001; 83690; 83735; 85025; 87086; 93005; 99284; C9113; J1200; J2270; J2405; J7030; Q9967

== ENCOUNTER 2020-09-07 11:12 | Emergency (ER) | payer OTHER ==
[~2020-09-07] VITALS: Ht 162.6 cm; Wt 62.1 kg
[2020-09-07] MEDS ORDERED: ONDANSETRON HCL INJ 2MG/ML 2ML 2 MG/ML VIAL IV STA (12:28)
[2020-09-07] MEDS ORDERED: ONDANSETRON HCL 4 MG ORAL DISINTEGRATING TAB ONE (13:31)
[2020-09-07] MEDS ORDERED: ONDANSETRON HCL 4 MG ORAL DISINTEGRATING TAB PO ONE (13:45)
[2020-09-07] MEDS ORDERED: KETOROLAC TROMETHAMINE 30 MG/ML VIAL IM STA (13:57)
[2020-09-07 14:22] LABS: BASOPHILS % 0.5 % (0.0-1.0); EOSINOPHILS % 0.4 % (0.0-6.0); HEMATOCRIT 40.4 % (34.2-44.1); HEMOGLOBIN 13.8 g/dL (12.0-16.0); LYMPHOCYTES # (AUTO) 1.7 (1.0-3.2); LYMPHOCYTES % 20.8 % (18.0-39.1); MEAN CORPUSCULAR HEMOGLOBIN 30.8 pg (28-32); MEAN CORPUSCULAR HGB CONC 34.2 g/dL (31-35); MEAN CORPUSCULAR VOLUME 90.2 fL (81-99); MONOCYTES # (AUTO) 0.5 (0.2-0.8); MONOCYTES % 5.6 % (4.4-11.3); NEUTROPHILS # (AUTO) 5.8 (2.1-6.9); NEUTROPHILS % 72.4 % (38.7-80.0); PLATELET COUNT 287 x10e3/uL (140-360); RED BLOOD COUNT 4.48 x10e6/uL (3.6-5.1); RED CELL DISTRIBUTION WIDTH 13.1 % (11.7-14.4)
[2020-09-07] MEDS ORDERED: KETOROLAC TROMETHAMINE 60 MG/2 ML VIAL ONE (14:27)
[2020-09-07 14:37] LABS: ALANINE AMINOTRANSFERASE 48 IU/L (0-55); ALBUMIN 4.2 g/dL (3.5-5.0); ALBUMIN/GLOBULIN RATIO 1.3 (0.8-2.0); ALKALINE PHOSPHATASE 69 IU/L (40-150); ANION GAP 15.8 mmol/L (8-16); BLOOD UREA NITROGEN < 5 mg/dL (7-26); CARBON DIOXIDE 21 mmol/L (22-29); CHLORIDE 108 mmol/L (98-107); CREATININE, SERUM 0.79 mg/dL (0.57-1.11); EST GLOMERULAR FILTRATION RATE 79 ML/MIN (60-); GLUCOSE 79 mg/dL (74-118); POTASSIUM 3.8 mmol/L (3.5-5.1); SODIUM 141 mmol/L (136-145)
[2020-09-07 14:38] LABS: BUN/CREATININE RATIO 6 (6-25)
[2020-09-07] MEDS ORDERED: VICODIN HP 10-1 EAC1 PO (15:05)
[2020-09-07] MEDS ORDERED: ONDANSETRON ODT4 MG PO (15:05)
== END 2020-09-07 16:08 | disposition home or self-care (01) ==
LOC: ER 11:30
DX: R10.32 Left lower quadrant pain (principal); K57.32 Diverticulitis of large intestine without perforation or abscess without bleeding; J45.909 Unspecified asthma, uncomplicated; F43.10 Post-traumatic stress disorder, unspecified; F41.9 Anxiety disorder, unspecified
CPT/HCPCS: 36415; 80053; 85025; 99283; J1885; Q0162

== ENCOUNTER → 2020-10-08 | Day surgery (SDC) | payer OTHER ==
[~2020-10-08] MED LIST changes: +BENTYL10 MG/1 ML PO; +DEXAMETHASONE SOD PHOS INJ 4 MG/ML VIAL ONE; +FENTANYL CITRATE/PF 100MCG/2 ML INJ ONE; +LIDOCAINE HCL 2% LOCAL INJ 5 ML SDV VIAL INJ ONE; +MIDAZOLAM HCL 2 MG/2 ML VIAL ONE; +ONDANSETRON HCL INJ 2MG/ML 2ML 2 MG/ML VIAL ONE; +ONDANSETRON ODT4 MG PO; +POVIDONE IODINE 0.05% 0.05 % ML PO ONE; +PROPOFOL IV EMULSION 10 MG/ML 20 ML VIAL ONE; +PROTONIX20 MG PO; +VICODIN HP 10-1 EAC1 PO
[2020-10-08 15:45] VITALS: BP 109/76
== END | disposition home or self-care (01) ==
LOC: OR 11:19
PROVIDERS: ATTEND Internal Medicine Gastroenterology
DX: K57.92 Diverticulitis of intestine, part unspecified, without perforation or abscess without bleeding (principal); K20.90 Esophagitis, unspecified without bleeding; K29.70 Gastritis, unspecified, without bleeding; K57.30 Diverticulosis of large intestine without perforation or abscess without bleeding; K64.8 Other hemorrhoids; K62.1 Rectal polyp; Z91.041 Radiographic dye allergy status; Z91.012 Allergy to eggs; Z91.018 Allergy to other foods; F41.9 Anxiety disorder, unspecified; F32.9 Major depressive disorder, single episode, unspecified; F43.10 Post-traumatic stress disorder, unspecified; F90.9 Attention-deficit hyperactivity disorder, unspecified type; Z90.49 Acquired absence of other specified parts of digestive tract; K59.09 Other constipation; Z68.24 Body mass index [BMI] 24.0-24.9, adult; Z01.812 Encounter for preprocedural laboratory examination
CPT/HCPCS: 43239; 43450; 45380; 81025; J1100; J2001; J2250; J2405; J2704; J3010; 45378

== ENCOUNTER → 2020-10-10 | Outpatient (CLI) | payer OTHER ==
[~2020-10-10] MED LIST changes: -DEXAMETHASONE SOD PHOS INJ 4 MG/ML VIAL ONE; -FENTANYL CITRATE/PF 100MCG/2 ML INJ ONE; -LIDOCAINE HCL 2% LOCAL INJ 5 ML SDV VIAL INJ ONE; -MIDAZOLAM HCL 2 MG/2 ML VIAL ONE; -ONDANSETRON HCL INJ 2MG/ML 2ML 2 MG/ML VIAL ONE; -POVIDONE IODINE 0.05% 0.05 % ML PO ONE; -PROPOFOL IV EMULSION 10 MG/ML 20 ML VIAL ONE
== END ==
LOC: MAMMO 15:15
PROVIDERS: ATTEND Internal Medicine
DX: Z12.31 Encounter for screening mammogram for malignant neoplasm of breast (principal)
CPT/HCPCS: 77067

== ENCOUNTER → 2020-11-01 | Outpatient (CLI) | payer OTHER | LOC: RAD 11:11 | PROVIDERS: ATTEND Internal Medicine Critical Care Medicine | DX: U07.1 COVID-19 (principal); J18.9 Pneumonia, unspecified organism | CPT/HCPCS: 71046 ==

== ENCOUNTER 2020-11-06 12:04 | Emergency (ER) | payer OTHER ==
[~2020-11-06] VITALS: Ht 162.6 cm; Wt 66.3 kg
[2020-11-06] MEDS ORDERED: ONDANSETRON HCL INJ 2MG/ML 2ML 2 MG/ML VIAL IV STA (12:55)
[2020-11-06] MEDS ORDERED: KETOROLAC TROMETHAMINE 30 MG/ML VIAL IV ONE (12:56)
[2020-11-06] MEDS ORDERED: SODIUM CHLORIDE 0.9% 1000ML 1,000 ML IV SCH (13:00)
[2020-11-06] MEDS ORDERED: KETOROLAC TROMETHAMINE 30 MG/ML VIAL ONE (13:32)
[2020-11-06] MEDS ORDERED: ONDANSETRON HCL INJ 2MG/ML 2ML 2 MG/ML VIAL ONE (13:32)
[2020-11-06] MEDS ORDERED: SODIUM CHLORIDE 0.9% 1000ML 1,000 ML ONE (13:33)
[2020-11-06] MEDS ORDERED: SODIUM CHLORIDE 0.9% 50ML 50 ML ONE (15:12)
[2020-11-06] MEDS ORDERED: IOPAMIDOL 370 MG/ML 200 ML INFUS..BTL INJ ONE (15:13)
== END 2020-11-06 15:55 | disposition home or self-care (01) ==
LOC: FSED 12:35
DX: K57.90 Diverticulosis of intestine, part unspecified, without perforation or abscess without bleeding (principal); K58.9 Irritable bowel syndrome, unspecified; K21.9 Gastro-esophageal reflux disease without esophagitis; K44.9 Diaphragmatic hernia without obstruction or gangrene; Z90.49 Acquired absence of other specified parts of digestive tract; Z91.012 Allergy to eggs; Z91.018 Allergy to other foods; Z91.041 Radiographic dye allergy status
CPT/HCPCS: 74177; 80048; 80076; 81003; 81025; 85025; 96374; 96375; 99284; J1885; J2405; J7030; Q9967

== ENCOUNTER 2020-12-02 21:56 | Inpatient (IN) | payer OTHER ==
[~2020-12-02] VITALS: Ht 162.6 cm; Wt 64.9 kg
[2020-12-02] MEDS ORDERED: ONDANSETRON HCL INJ 2MG/ML 2ML 2 MG/ML VIAL ONE (22:41)
[2020-12-02 22:56] LABS: BASOPHILS % 0.5 % (0.0-1.0); EOSINOPHILS # (AUTO) 0.1 (0.0-0.4); EOSINOPHILS % 0.9 % (0.0-6.0); HEMATOCRIT 40.1 % (34.2-44.1); HEMOGLOBIN 13.7 g/dL (12.0-16.0); LYMPHOCYTES # (AUTO) 1.7 (1.0-3.2); LYMPHOCYTES % 21.8 % (18.0-39.1); MEAN CORPUSCULAR HEMOGLOBIN 30.6 pg (28-32); MEAN CORPUSCULAR HGB CONC 34.2 g/dL (31-35); MEAN CORPUSCULAR VOLUME 89.7 fL (81-99); MONOCYTES # (AUTO) 0.5 (0.2-0.8); MONOCYTES % 6.6 % (4.4-11.3); NEUTROPHILS # (AUTO) 5.3 (2.1-6.9); NEUTROPHILS % 69.8 % (38.7-80.0); PLATELET COUNT 318 x10e3/uL (140-360); RED BLOOD COUNT 4.47 x10e6/uL (3.6-5.1); RED CELL DISTRIBUTION WIDTH 12.9 % (11.7-14.4)
[2020-12-02] MEDS ORDERED: ONDANSETRON HCL INJ 2MG/ML 2ML 2 MG/ML VIAL IV STA (23:02)
[2020-12-02] MEDS ORDERED: MORPHINE SULFATE INJ 4 MG/ML INJ 1ML IV PRN (23:15)
[2020-12-02 23:16] LABS: ALANINE AMINOTRANSFERASE 33 IU/L (0-55); ALBUMIN 4.1 g/dL (3.5-5.0); ALBUMIN/GLOBULIN RATIO 1.3 (0.8-2.0); ALKALINE PHOSPHATASE 66 IU/L (40-150); ANION GAP 13.6 mmol/L (8-16); BLOOD UREA NITROGEN 9 mg/dL (7-26); BUN/CREATININE RATIO 11 (6-25); CALCIUM 8.8 mg/dL (8.4-10.2); CARBON DIOXIDE 26 mmol/L (22-29); CHLORIDE 101 mmol/L (98-107); CREATINE KINASE 63 IU/L (29-168); CREATININE, SERUM 0.84 mg/dL (0.57-1.11); EST GLOMERULAR FILTRATION RATE 73 ML/MIN (60-); GLUCOSE 82 mg/dL (74-118); POTASSIUM 3.6 mmol/L (3.5-5.1); SODIUM 137 mmol/L (136-145)
[2020-12-02 23:32] LABS: BACTERIA,URINE FEW /HPF; CLARITY,URINE CLEAR (CLEAR); COLOR,URINE YELLOW (YELLOW); EPITHELIAL CELLS,URINE FEW /LPF; KETONES,URINE NEGATIVE (NEGATIVE); LEUKOCYTE ESTERASE ,URINE NEGATIVE (NEGATIVE); NITRITE,URINE NEGATIVE (NEGATIVE); PROTEIN,URINE DIPSTICK NEGATIVE (NEGATIVE); RBC,URINE 0-5 /HPF (0-5); URINE UROBILINOGEN 0.2 mg/dL (0.2 - 1); WBC,URINE (MAN) 0-5 /HPF (0-5)
[2020-12-02] MEDS ORDERED: SODIUM CHLORIDE 0.9% 50ML 50 ML ONE (23:51)
[2020-12-02] MEDS ORDERED: IOPAMIDOL 370 MG/ML 200 ML INFUS..BTL INJ ONE (23:51)
[2020-12-03] VITALS (9 sets, daily range): BP systolic 90–106; BP diastolic 56–71
[2020-12-03] MEDS ORDERED: ONDANSETRON HCL INJ 2MG/ML 2ML 2 MG/ML VIAL IV PRN ×2 (01:45→20:45)
[2020-12-03] MEDS: SODIUM CHLORIDE 0.9% 1000ML 1,000 ML IV SCH ×3 (02:30→21:45)
[2020-12-03] MEDS ORDERED: ZOLPIDEM TARTRATE 5 MG TAB PO ONE (03:15)
[2020-12-03] MEDS: MORPHINE SULFATE INJ 4 MG/ML INJ 1ML IV PRN ×3 (04:47→23:35)
[2020-12-03 09:06] LABS: CREATINE KINASE MB 0.6 ng/mL (0-5.0)
[2020-12-03 16:56] LABS: CREATINE KINASE MB 0.8 ng/mL (0-5.0)
[2020-12-03] MEDS ORDERED: CLONAZEPAM 1 MG TAB PO PRN (20:45)
[2020-12-03] MEDS ORDERED: ZOLPIDEM TARTRATE 10 MG TAB PO PRN (20:45)
[2020-12-04] MEDS ORDERED: IPRATROPIUM BROMIDE 0.02% 2.5 ML NEB NEB SCH (01:00)
[2020-12-04] MEDS ORDERED: KETOROLAC TROMETHAMINE 30 MG/ML VIAL IV STA (01:14)
[2020-12-04] MEDS ORDERED: ACETAMINOPHEN 325 MG/10 ML UDC PO PRN (01:15)
[2020-12-04 04:54] VITALS: BP 85/63
[2020-12-04 07:45] LABS: CREATINE KINASE MB 0.4 ng/mL (0-5.0)
[2020-12-04 07:50] VITALS: BP 88/61
[2020-12-04 08:43] VITALS: BP 88/61
[2020-12-04] MEDS ORDERED: KETOROLAC TROMETHAMINE 30 MG/ML VIAL IM PRN (09:00)
[2020-12-04] MEDS: PANTOPRAZOLE SOD 40 MG TABEC PO SCH ×3 (09:08→09:25)
[2020-12-04 12:20] VITALS: BP 99/64
[2020-12-04 12:21] VITALS: BP 109/62
[2020-12-04 12:23] VITALS: BP 105/65
== END 2020-12-04 14:22 | disposition home or self-care (01) | DRG 312 ==
LOC: ER 22:21 → ERHOLD 12-03 02:23 → MED/SURG2 12-03 03:18 → OBSVTOIN 12-04 08:52
PROVIDERS: ADMIT Internal Medicine; ATTEND Internal Medicine
DX: R55 Syncope and collapse (principal); Z20.822 Contact with and (suspected) exposure to COVID-19; F43.10 Post-traumatic stress disorder, unspecified; K57.90 Diverticulosis of intestine, part unspecified, without perforation or abscess without bleeding
CPT/HCPCS: 36415; 70450; 71260; 80053; 80061; 81001; 81025; 82550; 82553; 83735; 84484; 85025; 86140; 93005; 93880; 96360; 99284; G0378; J1885; J2270; J2405; J7030; Q9967; U0002

== ENCOUNTER 2020-12-19 07:36 | Observation (INO) | payer OTHER ==
[~2020-12-19] VITALS: Ht 162.6 cm; Wt 67.1 kg
[2020-12-19] MEDS ORDERED: SODIUM CHLORIDE 0.9% 1000ML 1,000 ML IV STA (07:50)
[2020-12-19 08:12] LABS: BASOPHILS % 0.6 % (0.0-1.0); EOSINOPHILS # (AUTO) 0.2 (0.0-0.4); EOSINOPHILS % 2.3 % (0.0-6.0); HEMATOCRIT 40.4 % (34.2-44.1); HEMOGLOBIN 13.8 g/dL (12.0-16.0); LYMPHOCYTES # (AUTO) 1.9 (1.0-3.2); LYMPHOCYTES % 27.4 % (18.0-39.1); MEAN CORPUSCULAR HEMOGLOBIN 30.9 pg (28-32); MEAN CORPUSCULAR HGB CONC 34.2 g/dL (31-35); MEAN CORPUSCULAR VOLUME 90.6 fL (81-99); MONOCYTES # (AUTO) 0.4 (0.2-0.8); MONOCYTES % 5.9 % (4.4-11.3); NEUTROPHILS # (AUTO) 4.5 (2.1-6.9); NEUTROPHILS % 63.5 % (38.7-80.0); PLATELET COUNT 227 x10e3/uL (140-360); RED BLOOD COUNT 4.46 x10e6/uL (3.6-5.1); RED CELL DISTRIBUTION WIDTH 13.1 % (11.7-14.4)
[2020-12-19 08:32] LABS: ALANINE AMINOTRANSFERASE 95 IU/L (0-55); ALBUMIN 4.2 g/dL (3.5-5.0); ALBUMIN/GLOBULIN RATIO 1.3 (0.8-2.0); ALKALINE PHOSPHATASE 76 IU/L (40-150); ANION GAP 12.7 mmol/L (8-16); BLOOD UREA NITROGEN 9 mg/dL (7-26); BUN/CREATININE RATIO 10 (6-25); CALCIUM 8.4 mg/dL (8.4-10.2); CARBON DIOXIDE 23 mmol/L (22-29); CHLORIDE 107 mmol/L (98-107); CREATINE KINASE 89 IU/L (29-168); CREATININE, SERUM 0.87 mg/dL (0.57-1.11); EST GLOMERULAR FILTRATION RATE 70 ML/MIN (60-); GLUCOSE 121 mg/dL (74-118); POTASSIUM 3.7 mmol/L (3.5-5.1); SODIUM 139 mmol/L (136-145)
[2020-12-19] MEDS ORDERED: KETOROLAC TROMETHAMINE 30 MG/ML VIAL IV STA (08:50)
[2020-12-19] MEDS ORDERED: METOCLOPRAMIDE HCL 10 MG/2ML VIAL IV ONE (09:00)
[2020-12-19] MEDS ORDERED: DIPHENHYDRAMINE HCL INJ 50 MG/ML VIAL IV ONE (09:00)
[2020-12-19 09:05] LABS: INR 0.82; PROTHROMBIN TIME 11.7 seconds (11.9-14.5)
[2020-12-19 09:06] LABS: PARTIAL THROMBOPLASTIN TIME 28.4 seconds (23.8-35.5)
[2020-12-19] MEDS ORDERED: ONDANSETRON HCL INJ 2MG/ML 2ML 2 MG/ML VIAL IV PRN (09:15)
[2020-12-19 11:31] VITALS: BP 98/62
[2020-12-19 11:42] VITALS: BP 98/62
[2020-12-19] MEDS: SODIUM CHLORIDE 0.9% 1000ML 1,000 ML IV SCH ×2 (12:11→20:44)
[2020-12-19 12:19] VITALS: BP 98/62
[2020-12-19] MEDS: LORAZEPAM 0.5 MG TAB PO PRN (16:06)
[2020-12-19] MEDS: ACETAMIN/BUTALBITAL/CAFFEINE TAB PO PRN (17:38)
[2020-12-19 18:07] LABS: CREATINE KINASE 75 IU/L (29-168)
[2020-12-19 21:11] VITALS: BP 117/71
[2020-12-20 00:15] VITALS: BP 108/70
[2020-12-20 00:21] VITALS: BP 108/70
[2020-12-20] MEDS: ACETAMIN/BUTALBITAL/CAFFEINE TAB PO PRN (01:58)
[2020-12-20] MEDS: LORAZEPAM 0.5 MG TAB PO PRN (01:58)
[2020-12-20 02:09] LABS: CREATINE KINASE MB 0.7 ng/mL (0-5.0)
[2020-12-20 05:22] VITALS: BP 105/66
[2020-12-20 05:57] LABS: BASOPHILS % 0.7 % (0.0-1.0); EOSINOPHILS # (AUTO) 0.2 (0.0-0.4); EOSINOPHILS % 3.3 % (0.0-6.0); HEMATOCRIT 34.5 % (34.2-44.1); HEMOGLOBIN 11.8 g/dL (12.0-16.0); LYMPHOCYTES # (AUTO) 2.5 (1.0-3.2); LYMPHOCYTES % 41.8 % (18.0-39.1); MEAN CORPUSCULAR HEMOGLOBIN 30.7 pg (28-32); MEAN CORPUSCULAR HGB CONC 34.2 g/dL (31-35); MEAN CORPUSCULAR VOLUME 89.8 fL (81-99); MONOCYTES # (AUTO) 0.4 (0.2-0.8); MONOCYTES % 6.4 % (4.4-11.3); NEUTROPHILS # (AUTO) 2.9 (2.1-6.9); NEUTROPHILS % 47.5 % (38.7-80.0); PLATELET COUNT 188 x10e3/uL (140-360); RED BLOOD COUNT 3.84 x10e6/uL (3.6-5.1); RED CELL DISTRIBUTION WIDTH 12.7 % (11.7-14.4)
[2020-12-20 06:18] LABS: ALBUMIN 3.5 g/dL (3.5-5.0); ALBUMIN/GLOBULIN RATIO 1.4 (0.8-2.0); ANION GAP 11.4 mmol/L (8-16); CALCIUM 8.1 mg/dL (8.4-10.2); CREATININE, SERUM 0.77 mg/dL (0.57-1.11); POTASSIUM 3.4 mmol/L (3.5-5.1)
[2020-12-20] MEDS: SODIUM CHLORIDE 0.9% 1000ML 1,000 ML IV SCH (07:50)
[2020-12-20 07:51] VITALS: BP 90/59
[2020-12-20 07:54] VITALS: BP 90/59
[2020-12-20] MEDS ORDERED: PREDNISONE 20 MG TAB PO ONE (10:00)
[2020-12-20] MEDS ORDERED: POTASSIUM CHLORIDE 20 MEQ TAB CR PO ONE (10:00)
== END 2020-12-20 10:00 | disposition home or self-care (01) ==
LOC: ER 07:42 → ERHOLD 09:27 → IMCU 10:53
PROVIDERS: ADMIT Internal Medicine; ATTEND Internal Medicine
DX: R07.89 Other chest pain (principal); R51.9 Headache, unspecified; I95.9 Hypotension, unspecified; F41.9 Anxiety disorder, unspecified; F43.10 Post-traumatic stress disorder, unspecified; F32.A Depression, unspecified; Z20.822 Contact with and (suspected) exposure to COVID-19
CPT/HCPCS: 36415 ×2; 70450; 70551; 71045; 80053 ×2; 82533; 82550 ×2; 82553 ×2; 83735; 83880; 84484 ×2; 84702; 85025 ×2; 85379; 85610; 85730; 93005; 99284; G0378 ×2; J1200; J1885; J2765; J7030 ×2; J7512; U0002

== ENCOUNTER 2021-10-24 17:14 | Inpatient (IN) | payer OTHER ==
[~2021-10-24] VITALS: Ht 162.6 cm; Wt 74.8 kg
[2021-10-24] MEDS ORDERED: SODIUM CHLORIDE 0.9% 1000ML 1,000 ML IV STA (17:20)
[2021-10-24] MEDS ORDERED: FAMOTIDINE 20 MG/2 ML VIAL IV NR (17:30)
[2021-10-24] MEDS ORDERED: ONDANSETRON HCL INJ 2MG/ML 2ML 2 MG/ML VIAL IV NR (17:30)
[2021-10-24 17:39] LABS: BASOPHILS % 0.1 % (0.0-1.0); HEMATOCRIT 41.5 % (34.2-44.1); HEMOGLOBIN 14.1 g/dL (12.0-16.0); LYMPHOCYTES # (AUTO) 2.3 (1.0-3.2); LYMPHOCYTES % 12.4 % (18.0-39.1); MEAN CORPUSCULAR HEMOGLOBIN 30.8 pg (28-32); MEAN CORPUSCULAR VOLUME 90.6 fL (81-99); MONOCYTES # (AUTO) 0.6 (0.2-0.8); MONOCYTES % 3.5 % (4.4-11.3); NEUTROPHILS % 83.1 % (38.7-80.0); PLATELET COUNT 348 x10e3/uL (140-360); RED BLOOD COUNT 4.58 x10e6/uL (3.6-5.1); RED CELL DISTRIBUTION WIDTH 13.4 % (11.7-14.4)
[2021-10-24 17:53] LABS: ALBUMIN 4.2 g/dL (3.5-5.0); ALBUMIN/GLOBULIN RATIO 1.2 (0.8-2.0); ANION GAP 14.6 mmol/L (8-16); CALCIUM 8.6 mg/dL (8.4-10.2); CREATININE, SERUM 0.99 mg/dL (0.57-1.11); POTASSIUM 3.6 mmol/L (3.5-5.1)
[2021-10-24 18:06] LABS: AMPHETAMINES SCREEN,URINE NEGATIVE (NEGATIVE); BENZODIAZEPINES SCREEN,URINE POSITIVE (NEGATIVE); PHENCYCLIDINE SCREEN,URINE NEGATIVE (NEGATIVE)
[2021-10-24 18:07] LABS: CLARITY,URINE SL CLOUDY (CLEAR); COLOR,URINE YELLOW (YELLOW); KETONES,URINE NEGATIVE (NEGATIVE); LEUKOCYTE ESTERASE ,URINE NEGATIVE (NEGATIVE); NITRITE,URINE NEGATIVE (NEGATIVE); PROTEIN,URINE DIPSTICK 1+ (NEGATIVE); URINE UROBILINOGEN 0.2 mg/dL (0.2 - 1)
[2021-10-24 18:32] LABS: BACTERIA,URINE MANY /HPF; RBC,URINE 0-5 /HPF (0-5); WBC,URINE (MAN) 0-5 /HPF (0-5)
[2021-10-24 18:33] LABS: EPITHELIAL CELLS,URINE MODERATE /LPF; MUCUS,URINE FEW (RARE)
[2021-10-24] MEDS ORDERED: ONDANSETRON HCL INJ 2MG/ML 2ML 2 MG/ML VIAL IV STA (18:56)
[2021-10-24] MEDS ORDERED: Morphine 4mg INJECTION 4 MG/ML INJ IV STA (18:56)
[2021-10-24] MEDS ORDERED: IOPAMIDOL 370 MG/ML 100 ML INFUS..BTL INJ ONE (19:25)
[2021-10-24] MEDS ORDERED: SODIUM CHLORIDE 0.9% 1000ML 1,000 ML IV SCH (20:00)
[2021-10-24] MEDS: METRONIDAZOLE 500MG/NS 100ML 100 ML IV SCH (20:48)
[2021-10-24 22:07] VITALS: BP 113/71
[2021-10-24] MEDS ORDERED: LOPERAMIDE HCL 2 MG CAP PO PRN (22:45)
[2021-10-24] MEDS: ONDANSETRON HCL INJ 2MG/ML 2ML 2 MG/ML VIAL IV PRN (22:46)
[2021-10-24] MEDS: Morphine 4mg INJECTION 4 MG/ML INJ IV PRN (22:48)
[2021-10-24 23:05] VITALS: BP 113/71
[2021-10-24] MEDS: ZOLPIDEM TARTRATE 10 MG TAB PO PRN (23:14)
[2021-10-24] MEDS ORDERED: LEVOFLOXACIN 500MG/D5W 100ML 100 ML IV ONE (23:45)
[2021-10-25] VITALS (8 sets, daily range): BP systolic 100–123; BP diastolic 66–79
[2021-10-25] MEDS ORDERED: ONDANSETRON HCL 4 MG ORAL DISINTEGRATING TAB PO PRN (01:00)
[2021-10-25] MEDS: METRONIDAZOLE 500MG/NS 100ML 100 ML IV SCH ×5 (01:59→23:08)
[2021-10-25] MEDS: IPRATROPIUM BROMIDE 0.02% 2.5 ML NEB NEB SCH ×4 (02:25→19:58)
[2021-10-25] MEDS ORDERED: CHLORDIAZEPOXIDE/CLIDINIUM 1 CAP PO STA (02:32)
[2021-10-25 04:57] LABS: BASOPHILS % 0.2 % (0.0-1.0); EOSINOPHILS % 0.1 % (0.0-6.0); HEMATOCRIT 35.7 % (34.2-44.1); HEMOGLOBIN 12.2 g/dL (12.0-16.0); LYMPHOCYTES # (AUTO) 2.2 (1.0-3.2); MEAN CORPUSCULAR HGB CONC 34.2 g/dL (31-35); MEAN CORPUSCULAR VOLUME 90.6 fL (81-99); MONOCYTES # (AUTO) 0.6 (0.2-0.8); MONOCYTES % 5.1 % (4.4-11.3); PLATELET COUNT 273 x10e3/uL (140-360); RED BLOOD COUNT 3.94 x10e6/uL (3.6-5.1); RED CELL DISTRIBUTION WIDTH 13.2 % (11.7-14.4)
[2021-10-25 05:19] LABS: ALBUMIN 3.4 g/dL (3.5-5.0); ALBUMIN/GLOBULIN RATIO 1.2 (0.8-2.0); ANION GAP 14.6 mmol/L (8-16); CALCIUM 7.5 mg/dL (8.4-10.2); CREATININE, SERUM 0.84 mg/dL (0.57-1.11); POTASSIUM 3.6 mmol/L (3.5-5.1)
[2021-10-25] MEDS: Morphine 4mg INJECTION 4 MG/ML INJ IV PRN ×3 (05:20→19:22)
[2021-10-25] MEDS: ONDANSETRON HCL INJ 2MG/ML 2ML 2 MG/ML VIAL IV PRN ×3 (05:20→16:56)
[2021-10-25] MEDS ORDERED: LEVOFLOXACIN 500 MG TAB PO SCH (09:00)
[2021-10-25] MEDS ORDERED: PANTOPRAZOLE SOD 40 MG TABEC PO SCH (09:00)
[2021-10-25] MEDS ORDERED: DICYCLOMINE HCL 10 MG CAP PO SCH (09:00)
[2021-10-25] MEDS ORDERED: GUAIFENESIN/DEXTROMETHORPHAN LIQD 5 ML UDC NG PRN (09:15)
[2021-10-25] MEDS: CLONAZEPAM 1 MG TAB PO SCH ×2 (09:28→16:48)
[2021-10-25] MEDS: LACTOBACILLUS ACIDOPHILUS CAPSULE PO SCH ×3 (09:29→20:56)
[2021-10-25] MEDS: CHLORDIAZEPOXIDE/CLIDINIUM 1 CAP PO SCH ×4 (09:29→20:56)
[2021-10-25] MEDS: LEVOFLOXACIN 500MG/D5W 100ML 100 ML IV SCH (09:29)
[2021-10-25] MEDS ORDERED: CLONAZEPAM 1 MG TAB PO ONE (09:30)
[2021-10-25] MEDS: SODIUM CHLORIDE 0.9% 1000ML 1,000 ML IV SCH ×2 (09:33→16:49)
[2021-10-25] MEDS: ALBUTEROL/IPRATROPIUM 3 ML NEB NEB PRN ×2 (13:34→19:58)
[2021-10-25] MEDS ORDERED: PREDNISONE 20 MG TAB PO ONE (16:00)
[2021-10-25] MEDS: BUDESONIDE 0.25 MG/2 ML NEB NEB SCH (19:58)
[2021-10-25] MEDS: ZOLPIDEM TARTRATE 10 MG TAB PO PRN (23:12)
[2021-10-26] VITALS: BP 107/71
[2021-10-26] MEDS: SODIUM CHLORIDE 0.9% 1000ML 1,000 ML IV SCH
[2021-10-26] MEDS: IPRATROPIUM BROMIDE 0.02% 2.5 ML NEB NEB SCH ×4 (00:10→18:35)
[2021-10-26] MEDS: ALBUTEROL/IPRATROPIUM 3 ML NEB NEB PRN (00:10)
[2021-10-26] MEDS ORDERED: MAGNESIUM HYDROXIDE 30 ML UDC PO ONE ×2 (03:15→10:30)
[2021-10-26 04:00] VITALS: BP 111/68
[2021-10-26] MEDS: METRONIDAZOLE 500MG/NS 100ML 100 ML IV SCH ×3 (05:20→16:29)
[2021-10-26] MEDS: BUDESONIDE 0.25 MG/2 ML NEB NEB SCH ×2 (06:30→18:35)
[2021-10-26 07:06] LABS: BASOPHILS % 0.2 % (0.0-1.0); HEMATOCRIT 36.4 % (34.2-44.1); HEMOGLOBIN 12.4 g/dL (12.0-16.0); LYMPHOCYTES # (AUTO) 0.9 (1.0-3.2); MEAN CORPUSCULAR HEMOGLOBIN 30.9 pg (28-32); MEAN CORPUSCULAR HGB CONC 34.1 g/dL (31-35); MEAN CORPUSCULAR VOLUME 90.8 fL (81-99); MONOCYTES # (AUTO) 0.3 (0.2-0.8); MONOCYTES % 3.1 % (4.4-11.3); NEUTROPHILS # (AUTO) 6.8 (2.1-6.9); NEUTROPHILS % 84.3 % (38.7-80.0); PLATELET COUNT 241 x10e3/uL (140-360); RED BLOOD COUNT 4.01 x10e6/uL (3.6-5.1); RED CELL DISTRIBUTION WIDTH 12.9 % (11.7-14.4)
[2021-10-26] MEDS: CHLORDIAZEPOXIDE/CLIDINIUM 1 CAP PO SCH ×4 (07:30→21:00)
[2021-10-26 07:42] LABS: ALBUMIN 3.6 g/dL (3.5-5.0); ALBUMIN/GLOBULIN RATIO 1.3 (0.8-2.0); ANION GAP 15.8 mmol/L (8-16); CALCIUM 8.2 mg/dL (8.4-10.2); CREATININE, SERUM 0.85 mg/dL (0.57-1.11); MAGNESIUM 2.3 MG/DL (1.3-2.1); POTASSIUM 3.8 mmol/L (3.5-5.1)
[2021-10-26 08:04] LABS: FREE THYROXINE INDEX 1.7275 (1.4-3.8); THYROID STIMULATING HORMONE 0.463 uIU/mL (0.350-4.940)
[2021-10-26] MEDS: LACTOBACILLUS ACIDOPHILUS CAPSULE PO SCH ×3 (09:00→21:00)
[2021-10-26] MEDS: CLONAZEPAM 1 MG TAB PO SCH ×2 (09:00→16:09)
[2021-10-26] MEDS: LEVOFLOXACIN 500MG/D5W 100ML 100 ML IV SCH (09:00)
[2021-10-26] MEDS ORDERED: DONNATAL/LIDOCAINE/MAALOX 30 ML SUSP PO ONE (11:00)
[2021-10-26] MEDS: PANTOPRAZOLE SOD 40 MG TABEC PO SCH (11:00)
[2021-10-26] MEDS: GUAIFENESIN/CODEINE 5 ML LIQD PO PRN (11:41)
[2021-10-26 13:33] VITALS: BP 108/71
[2021-10-26] MEDS: ONDANSETRON HCL INJ 2MG/ML 2ML 2 MG/ML VIAL IV PRN (16:28)
[2021-10-26 17:04] VITALS: BP 109/83
[2021-10-26 18:17] LABS: WBC,FECAL (FECAL LACTOFERRIN) NEGATIVE (NEGATIVE)
[2021-10-26 20:00] VITALS: BP 108/64
[2021-10-26] MEDS: ZOLPIDEM TARTRATE 10 MG TAB PO PRN (21:24)
[2021-10-27] VITALS (7 sets, daily range): BP systolic 100–114; BP diastolic 64–76
[2021-10-27] MEDS: IPRATROPIUM BROMIDE 0.02% 2.5 ML NEB NEB SCH ×4 (00:10→19:05)
[2021-10-27] MEDS ORDERED: PEG (High)/E-LYTE SOLN 4,000 ML BTL PO ONE ×2 (01:30→11:00)
[2021-10-27] MEDS: METRONIDAZOLE 500MG/NS 100ML 100 ML IV SCH ×4 (06:00→17:56)
[2021-10-27] MEDS: BUDESONIDE 0.25 MG/2 ML NEB NEB SCH ×2 (06:30→19:05)
[2021-10-27 06:58] LABS: BASOPHILS % 0.4 % (0.0-1.0); EOSINOPHILS # (AUTO) 0.1 (0.0-0.4); EOSINOPHILS % 1.6 % (0.0-6.0); HEMATOCRIT 38.2 % (34.2-44.1); HEMOGLOBIN 12.8 g/dL (12.0-16.0); LYMPHOCYTES # (AUTO) 2.3 (1.0-3.2); LYMPHOCYTES % 33.1 % (18.0-39.1); MEAN CORPUSCULAR HGB CONC 33.5 g/dL (31-35); MEAN CORPUSCULAR VOLUME 92.5 fL (81-99); MONOCYTES # (AUTO) 0.4 (0.2-0.8); MONOCYTES % 6.1 % (4.4-11.3); NEUTROPHILS # (AUTO) 3.9 (2.1-6.9); NEUTROPHILS % 57.5 % (38.7-80.0); PLATELET COUNT 235 x10e3/uL (140-360); RED BLOOD COUNT 4.13 x10e6/uL (3.6-5.1); RED CELL DISTRIBUTION WIDTH 13.2 % (11.7-14.4)
[2021-10-27 07:21] LABS: ALBUMIN 3.4 g/dL (3.5-5.0); ALBUMIN/GLOBULIN RATIO 1.2 (0.8-2.0); ANION GAP 13.6 mmol/L (8-16); CALCIUM 8.2 mg/dL (8.4-10.2); CREATININE, SERUM 0.97 mg/dL (0.57-1.11); POTASSIUM 3.6 mmol/L (3.5-5.1)
[2021-10-27] MEDS: CLONAZEPAM 1 MG TAB PO SCH ×2 (09:00→17:00)
[2021-10-27] MEDS: PANTOPRAZOLE SOD 40 MG TABEC PO SCH (10:12)
[2021-10-27] MEDS: LACTOBACILLUS ACIDOPHILUS CAPSULE PO SCH ×3 (10:13→20:49)
[2021-10-27] MEDS: LEVOFLOXACIN 500MG/D5W 100ML 100 ML IV SCH (10:14)
[2021-10-27] MEDS: CHLORDIAZEPOXIDE/CLIDINIUM 1 CAP PO SCH ×4 (10:15→20:49)
[2021-10-27] MEDS: GUAIFENESIN/CODEINE 5 ML LIQD PO PRN (10:45)
[2021-10-27] MEDS: ALBUTEROL SULFATE HFA 8GM INHALATION AEROSOL INH SCH ×2 (11:15→19:00)
[2021-10-27] MEDS: BENZONATATE 100 MG CAP PO SCH ×3 (11:32→20:49)
[2021-10-27] MEDS: ZOLPIDEM TARTRATE 10 MG TAB PO PRN (20:53)
[2021-10-27] MEDS ORDERED: BISACODYL 5 MG TAB EC PO ONE ×2 (22:45→23:15)
[2021-10-28] VITALS (7 sets, daily range): BP systolic 90–111; BP diastolic 56–83
[2021-10-28] MEDS: METRONIDAZOLE 500MG/NS 100ML 100 ML IV SCH ×5 (00:06→23:40)
[2021-10-28] MEDS: IPRATROPIUM BROMIDE 0.02% 2.5 ML NEB NEB SCH ×4 (00:30→19:00)
[2021-10-28] MEDS: ALBUTEROL SULFATE HFA 8GM INHALATION AEROSOL INH SCH ×2 (07:00→19:00)
[2021-10-28] MEDS: BUDESONIDE 0.25 MG/2 ML NEB NEB SCH ×2 (07:00→19:25)
[2021-10-28 07:01] LABS: BASOPHILS % 0.5 % (0.0-1.0); EOSINOPHILS # (AUTO) 0.2 (0.0-0.4); EOSINOPHILS % 2.3 % (0.0-6.0); HEMATOCRIT 39.9 % (34.2-44.1); HEMOGLOBIN 13.8 g/dL (12.0-16.0); LYMPHOCYTES # (AUTO) 2.1 (1.0-3.2); MEAN CORPUSCULAR HEMOGLOBIN 31.2 pg (28-32); MEAN CORPUSCULAR HGB CONC 34.6 g/dL (31-35); MEAN CORPUSCULAR VOLUME 90.1 fL (81-99); MONOCYTES # (AUTO) 0.5 (0.2-0.8); MONOCYTES % 6.8 % (4.4-11.3); NEUTROPHILS # (AUTO) 4.4 (2.1-6.9); NEUTROPHILS % 60.2 % (38.7-80.0); PLATELET COUNT 221 x10e3/uL (140-360); RED BLOOD COUNT 4.43 x10e6/uL (3.6-5.1); RED CELL DISTRIBUTION WIDTH 13.2 % (11.7-14.4)
[2021-10-28 07:19] LABS: ALBUMIN 3.6 g/dL (3.5-5.0); ALBUMIN/GLOBULIN RATIO 1.4 (0.8-2.0); CALCIUM 8.4 mg/dL (8.4-10.2); CREATININE, SERUM 0.96 mg/dL (0.57-1.11)
[2021-10-28] MEDS: CHLORDIAZEPOXIDE/CLIDINIUM 1 CAP PO SCH ×4 (07:30→22:02)
[2021-10-28] MEDS: PANTOPRAZOLE SOD 40 MG TABEC PO SCH (12:10)
[2021-10-28] MEDS: BENZONATATE 100 MG CAP PO SCH ×3 (12:10→22:01)
[2021-10-28] MEDS: CLONAZEPAM 1 MG TAB PO SCH ×2 (12:11→17:06)
[2021-10-28] MEDS: LACTOBACILLUS ACIDOPHILUS CAPSULE PO SCH ×3 (12:11→22:01)
[2021-10-28] MEDS: LEVOFLOXACIN 500MG/D5W 100ML 100 ML IV SCH (13:17)
[2021-10-28] MEDS ORDERED: PROPOFOL IV EMULSION 10 MG/ML 20 ML VIAL ONE (13:41)
[2021-10-28] MEDS ORDERED: FENTANYL CITRATE/PF 100MCG/2 ML INJ ONE (14:02)
[2021-10-28] MEDS ORDERED: MIDAZOLAM HCL 2 MG/2 ML VIAL ONE (14:02)
[2021-10-28] MEDS: FLUCONAZOLE 200 MG/100 ML 100 ML IV SCH (14:36)
[2021-10-28] MEDS: Morphine 2mg Syringe 2 MG/ML SYR IV PRN ×2 (18:08→22:06)
[2021-10-28] MEDS: ONDANSETRON HCL INJ 2MG/ML 2ML 2 MG/ML VIAL IV PRN (18:08)
[2021-10-28] MEDS: ALBUTEROL/IPRATROPIUM 3 ML NEB NEB PRN (19:10)
[2021-10-28] MEDS: ZOLPIDEM TARTRATE 10 MG TAB PO PRN (22:03)
[2021-10-29] VITALS (9 sets, daily range): BP systolic 111–121; BP diastolic 68–82
[2021-10-29] MEDS: IPRATROPIUM BROMIDE 0.02% 2.5 ML NEB NEB SCH ×4 (00:55→19:00)
[2021-10-29] MEDS ORDERED: SIMETHICONE 80 MG CHEW PO PRN (02:15)
[2021-10-29] MEDS: SIMETHICONE 80 MG CHEW PO PRN ×2 (02:34→18:10)
[2021-10-29] MEDS: Morphine 2mg Syringe 2 MG/ML SYR IV PRN ×3 (03:00→22:21)
[2021-10-29] MEDS: METRONIDAZOLE 500MG/NS 100ML 100 ML IV SCH ×3 (05:24→17:56)
[2021-10-29] MEDS: GUAIFENESIN/CODEINE 5 ML LIQD PO PRN (05:48)
[2021-10-29 06:10] LABS: BASOPHILS % 0.1 % (0.0-1.0); HEMATOCRIT 39.6 % (34.2-44.1); HEMOGLOBIN 13.9 g/dL (12.0-16.0); LYMPHOCYTES # (AUTO) 1.3 (1.0-3.2); LYMPHOCYTES % 9.4 % (18.0-39.1); MEAN CORPUSCULAR HEMOGLOBIN 30.8 pg (28-32); MEAN CORPUSCULAR HGB CONC 35.1 g/dL (31-35); MEAN CORPUSCULAR VOLUME 87.8 fL (81-99); MONOCYTES # (AUTO) 0.6 (0.2-0.8); MONOCYTES % 4.5 % (4.4-11.3); NEUTROPHILS # (AUTO) 11.8 (2.1-6.9); NEUTROPHILS % 84.8 % (38.7-80.0); PLATELET COUNT 307 x10e3/uL (140-360); RED BLOOD COUNT 4.51 x10e6/uL (3.6-5.1); RED CELL DISTRIBUTION WIDTH 13.1 % (11.7-14.4)
[2021-10-29 06:46] LABS: ALBUMIN 3.7 g/dL (3.5-5.0); ALBUMIN/GLOBULIN RATIO 1.4 (0.8-2.0); ANION GAP 15.2 mmol/L (8-16); CREATININE, SERUM 1.05 mg/dL (0.57-1.11); MAGNESIUM 2.3 MG/DL (1.3-2.1); POTASSIUM 4.2 mmol/L (3.5-5.1)
[2021-10-29] MEDS: BUDESONIDE 0.25 MG/2 ML NEB NEB SCH ×2 (06:49→19:30)
[2021-10-29] MEDS: ALBUTEROL/IPRATROPIUM 3 ML NEB NEB PRN ×2 (06:49→19:10)
[2021-10-29] MEDS: ALBUTEROL SULFATE HFA 8GM INHALATION AEROSOL INH SCH ×3 (07:00→19:00)
[2021-10-29] MEDS: CLONAZEPAM 1 MG TAB PO SCH ×2 (09:43→17:56)
[2021-10-29] MEDS: LACTOBACILLUS ACIDOPHILUS CAPSULE PO SCH ×3 (09:43→21:52)
[2021-10-29] MEDS: LEVOFLOXACIN 500MG/D5W 100ML 100 ML IV SCH (09:43)
[2021-10-29] MEDS: CHLORDIAZEPOXIDE/CLIDINIUM 1 CAP PO SCH ×4 (09:43→21:54)
[2021-10-29] MEDS: PANTOPRAZOLE SOD 40 MG TABEC PO SCH (09:43)
[2021-10-29] MEDS: BENZONATATE 100 MG CAP PO SCH ×3 (09:43→21:54)
[2021-10-29] MEDS ORDERED: CHOLESTYRAMINE 4 GM PACKET PO SCH (10:00)
[2021-10-29] MEDS ORDERED: ALBUTEROL SULFATE HFA 8GM INHALATION AEROSOL INH PRN (11:30)
[2021-10-29] MEDS: IPRATROPIUM BROMIDE INHALER 12.9 GM INH INH SCH ×2 (12:58→19:00)
[2021-10-29] MEDS: FLUCONAZOLE 200 MG/100 ML 100 ML IV SCH (13:14)
[2021-10-29] MEDS: FLUTICASONE PROPIONATE NASAL SPRAY NS SCH (17:56)
[2021-10-29] MEDS: ONDANSETRON HCL INJ 2MG/ML 2ML 2 MG/ML VIAL IV PRN (22:03)
[2021-10-29] MEDS: ZOLPIDEM TARTRATE 10 MG TAB PO PRN (22:18)
[2021-10-30] VITALS (8 sets, daily range): BP systolic 97–116; BP diastolic 61–78
[2021-10-30] MEDS: METRONIDAZOLE 500MG/NS 100ML 100 ML IV SCH ×4 (00:34→18:12)
[2021-10-30] MEDS ORDERED: MAGNESIUM HYDROXIDE 30 ML UDC PO ONE ×4 (00:45→23:30)
[2021-10-30] MEDS ORDERED: PROMETHAZINE 12.5MG/ NACL 0.9% 12.5 MG/50 ML BAG IV PRN (00:45)
[2021-10-30] MEDS: IPRATROPIUM BROMIDE 0.02% 2.5 ML NEB NEB SCH ×4 (01:00→19:50)
[2021-10-30 01:06] LABS: AMYLASE 33 U/L (25-125); LIPASE 12 U/L (8-78)
[2021-10-30] MEDS: ALBUTEROL/IPRATROPIUM 3 ML NEB NEB PRN (01:10)
[2021-10-30] MEDS: IPRATROPIUM BROMIDE INHALER 12.9 GM INH INH SCH ×2 (01:25→19:00)
[2021-10-30] MEDS: KETOROLAC TROMETHAMINE 30 MG/ML VIAL IV PRN ×4 (02:04→21:31)
[2021-10-30 05:17] LABS: BASOPHILS % 0.2 % (0.0-1.0); EOSINOPHILS # (AUTO) 0.1 (0.0-0.4); EOSINOPHILS % 0.7 % (0.0-6.0); HEMOGLOBIN 12.9 g/dL (12.0-16.0); LYMPHOCYTES # (AUTO) 2.5 (1.0-3.2); LYMPHOCYTES % 23.9 % (18.0-39.1); MEAN CORPUSCULAR HEMOGLOBIN 30.7 pg (28-32); MEAN CORPUSCULAR HGB CONC 33.1 g/dL (31-35); MEAN CORPUSCULAR VOLUME 92.9 fL (81-99); MONOCYTES # (AUTO) 0.6 (0.2-0.8); MONOCYTES % 5.7 % (4.4-11.3); NEUTROPHILS # (AUTO) 7.3 (2.1-6.9); NEUTROPHILS % 68.6 % (38.7-80.0); PLATELET COUNT 248 x10e3/uL (140-360); RED CELL DISTRIBUTION WIDTH 13.3 % (11.7-14.4)
[2021-10-30 05:45] LABS: ALBUMIN 3.6 g/dL (3.5-5.0); ALBUMIN/GLOBULIN RATIO 1.2 (0.8-2.0); ANION GAP 13.8 mmol/L (8-16); CALCIUM 8.5 mg/dL (8.4-10.2); CREATININE, SERUM 0.98 mg/dL (0.57-1.11); MAGNESIUM 2.4 MG/DL (1.3-2.1); POTASSIUM 3.8 mmol/L (3.5-5.1)
[2021-10-30] MEDS ORDERED: IOPAMIDOL 370 MG/ML 100 ML INFUS..BTL INJ ONE (06:00)
[2021-10-30] MEDS: ALBUTEROL SULFATE HFA 8GM INHALATION AEROSOL INH SCH ×2 (07:00→19:00)
[2021-10-30] MEDS ORDERED: KETOROLAC TROMETHAMINE 30 MG/ML VIAL IV STA (08:06)
[2021-10-30] MEDS: BUDESONIDE 0.25 MG/2 ML NEB NEB SCH ×2 (08:15→19:50)
[2021-10-30] MEDS: PANTOPRAZOLE SOD 40 MG TABEC PO SCH (08:26)
[2021-10-30] MEDS: BENZONATATE 100 MG CAP PO SCH ×3 (08:26→21:24)
[2021-10-30] MEDS: FLUTICASONE PROPIONATE NASAL SPRAY NS SCH ×2 (08:27→18:12)
[2021-10-30] MEDS: CLONAZEPAM 1 MG TAB PO SCH ×2 (08:27→18:12)
[2021-10-30] MEDS: LEVOFLOXACIN 500MG/D5W 100ML 100 ML IV SCH (08:29)
[2021-10-30] MEDS: LACTOBACILLUS ACIDOPHILUS CAPSULE PO SCH ×3 (08:31→21:24)
[2021-10-30] MEDS: FLUCONAZOLE 200 MG/100 ML 100 ML IV SCH (12:38)
[2021-10-30] MEDS: ZOLPIDEM TARTRATE 10 MG TAB PO PRN (21:25)
[2021-10-30] MEDS ORDERED: BISACODYL 10 MG SUPP PR ONE (23:30)
[2021-10-31] VITALS (7 sets, daily range): BP systolic 93–113; BP diastolic 64–70
[2021-10-31] MEDS: METRONIDAZOLE 500MG/NS 100ML 100 ML IV SCH ×4 (00:12→17:46)
[2021-10-31] MEDS ORDERED: BISACODYL 10 MG SUPP PR ONE (01:00)
[2021-10-31] MEDS: IPRATROPIUM BROMIDE 0.02% 2.5 ML NEB NEB SCH ×4 (01:23→20:15)
[2021-10-31] MEDS ORDERED: SOD PHOSPHATE/SOD BIPHOSPHATE ENEMA 132 ML BTL PR ONE (02:15)
[2021-10-31] MEDS: BUDESONIDE 0.25 MG/2 ML NEB NEB SCH ×2 (06:15→20:20)
[2021-10-31] MEDS: IPRATROPIUM BROMIDE INHALER 12.9 GM INH INH SCH ×2 (06:34→19:00)
[2021-10-31] MEDS: ALBUTEROL SULFATE HFA 8GM INHALATION AEROSOL INH SCH ×2 (06:34→19:00)
[2021-10-31] MEDS: PANTOPRAZOLE SOD 40 MG TABEC PO SCH (07:30)
[2021-10-31] MEDS: FLUTICASONE PROPIONATE NASAL SPRAY NS SCH ×2 (09:00→17:00)
[2021-10-31] MEDS: LACTOBACILLUS ACIDOPHILUS CAPSULE PO SCH ×3 (09:00→22:00)
[2021-10-31] MEDS: CLONAZEPAM 1 MG TAB PO SCH ×2 (09:00→17:00)
[2021-10-31] MEDS: BENZONATATE 100 MG CAP PO SCH ×3 (09:00→22:00)
[2021-10-31] MEDS: LEVOFLOXACIN 500MG/D5W 100ML 100 ML IV SCH (09:00)
[2021-10-31] MEDS ORDERED: MAGNESIUM HYDROXIDE 30 ML UDC PO ONE ×2 (09:00→10:45)
[2021-10-31] MEDS: KETOROLAC TROMETHAMINE 30 MG/ML VIAL IV PRN ×3 (09:53→22:00)
[2021-10-31] MEDS: SIMETHICONE 80 MG CHEW PO PRN ×2 (11:23→17:50)
[2021-10-31] MEDS: FLUCONAZOLE 200 MG/100 ML 100 ML IV SCH (14:04)
[2021-10-31] MEDS ORDERED: ONDANSETRON HCL INJ 2MG/ML 2ML 2 MG/ML VIAL IV PRN (22:45)
[2021-10-31] MEDS ORDERED: ZOLPIDEM TARTRATE 10 MG TAB PO PRN (22:45)
[2021-11-01] VITALS: BP 83/58
[2021-11-01] MEDS: METRONIDAZOLE 500MG/NS 100ML 100 ML IV SCH ×2 (00:32→05:51)
[2021-11-01] MEDS ORDERED: MAGNESIUM HYDROXIDE 30 ML UDC PO STA (01:21)
[2021-11-01] MEDS: IPRATROPIUM BROMIDE 0.02% 2.5 ML NEB NEB SCH ×3 (01:27→12:36)
[2021-11-01] MEDS ORDERED: LUBIPROSTONE 24 MCG CAP PO ONE (01:30)
[2021-11-01] MEDS ORDERED: METOCLOPRAMIDE HCL 10 MG/2ML VIAL IV ONE (01:30)
[2021-11-01 04:52] VITALS: BP 95/58
[2021-11-01] MEDS: KETOROLAC TROMETHAMINE 30 MG/ML VIAL IV PRN (05:52)
[2021-11-01] MEDS: BUDESONIDE 0.25 MG/2 ML NEB NEB SCH (07:00)
[2021-11-01] MEDS: IPRATROPIUM BROMIDE INHALER 12.9 GM INH INH SCH (07:00)
[2021-11-01] MEDS: ALBUTEROL SULFATE HFA 8GM INHALATION AEROSOL INH SCH (07:00)
[2021-11-01] MEDS ORDERED: MAGNESIUM HYDROXIDE 30 ML UDC PO ONE ×2 (07:00)
[2021-11-01 07:29] LABS: BASOPHILS % 0.4 % (0.0-1.0); EOSINOPHILS # (AUTO) 0.2 (0.0-0.4); EOSINOPHILS % 1.9 % (0.0-6.0); HEMATOCRIT 40.6 % (34.2-44.1); HEMOGLOBIN 13.4 g/dL (12.0-16.0); LYMPHOCYTES # (AUTO) 2.4 (1.0-3.2); LYMPHOCYTES % 23.3 % (18.0-39.1); MEAN CORPUSCULAR HEMOGLOBIN 31.1 pg (28-32); MEAN CORPUSCULAR VOLUME 94.2 fL (81-99); MONOCYTES # (AUTO) 0.7 (0.2-0.8); MONOCYTES % 6.9 % (4.4-11.3); NEUTROPHILS # (AUTO) 6.9 (2.1-6.9); NEUTROPHILS % 66.8 % (38.7-80.0); PLATELET COUNT 218 x10e3/uL (140-360); RED BLOOD COUNT 4.31 x10e6/uL (3.6-5.1); RED CELL DISTRIBUTION WIDTH 13.2 % (11.7-14.4)
[2021-11-01] MEDS ORDERED: METOCLOPRAMIDE HCL 10 MG/2ML VIAL IV SCH (07:30)
[2021-11-01 07:52] LABS: ANION GAP 13.2 mmol/L (8-16); CALCIUM 8.3 mg/dL (8.4-10.2); CREATININE, SERUM 0.98 mg/dL (0.57-1.11); POTASSIUM 4.2 mmol/L (3.5-5.1)
[2021-11-01 08:20] VITALS: BP 94/58
[2021-11-01 08:35] VITALS: BP 94/58
[2021-11-01] MEDS: LEVOFLOXACIN 500MG/D5W 100ML 100 ML IV SCH (08:58)
[2021-11-01] MEDS: BENZONATATE 100 MG CAP PO SCH (08:59)
[2021-11-01] MEDS: FLUTICASONE PROPIONATE NASAL SPRAY NS SCH (08:59)
[2021-11-01] MEDS ORDERED: LUBIPROSTONE 24 MCG CAP PO SCH (09:00)
[2021-11-01] MEDS: CLONAZEPAM 1 MG TAB PO SCH (09:06)
[2021-11-01] MEDS: LACTOBACILLUS ACIDOPHILUS CAPSULE PO SCH (10:17)
[2021-11-01 11:54] VITALS: BP 97/64
[2021-11-01] MEDS ORDERED: AMITIZA24 MCG PO (13:02)
[2021-11-01] MEDS ORDERED: METRONIDAZOLE 500 MG TAB PO SCH (13:30)
[2021-11-01] MEDS ORDERED: FLUCONAZOLE 100 MG TAB PO SCH (13:30)
[2021-11-01] MEDS ORDERED: FLUCONAZOLE100 MG PO (14:39)
[2021-11-02] MEDS ORDERED: LEVOFLOXACIN 500 MG TAB PO SCH (09:00)
== END 2021-11-01 14:00 | disposition home or self-care (01) | DRG 872 ==
LOC: ER 17:18 → ERHOLD 19:52 → MED/SURG3 21:54 → OBSVTOIN 10-26 10:49
PROVIDERS: ADMIT Internal Medicine; ATTEND Internal Medicine
PROC: 0DBG8ZX Excision of Left Large Intestine, Via Natural or Artificial Opening Endoscopic, Diagnostic (ICD-10-PCS; 2021-10-28)
PROC: 0DBB8ZX Excision of Ileum, Via Natural or Artificial Opening Endoscopic, Diagnostic (ICD-10-PCS; 2021-10-28)
PROC: 0DD58ZX Extraction of Esophagus, Via Natural or Artificial Opening Endoscopic, Diagnostic (ICD-10-PCS; principal; 2021-10-28 10:08)
PROC: 0DB68ZX Excision of Stomach, Via Natural or Artificial Opening Endoscopic, Diagnostic (ICD-10-PCS; 2021-10-28 10:08)
PROC: 0DB78ZX Excision of Stomach, Pylorus, Via Natural or Artificial Opening Endoscopic, Diagnostic (ICD-10-PCS; 2021-10-28 10:08)
PROC: 0D758ZZ Dilation of Esophagus, Via Natural or Artificial Opening Endoscopic (ICD-10-PCS; 2021-10-28 10:08)
PROC: 0DBK8ZX Excision of Ascending Colon, Via Natural or Artificial Opening Endoscopic, Diagnostic (ICD-10-PCS; 2021-10-28 10:08)
DX: A41.9 Sepsis, unspecified organism (principal); B37.81 Candidal esophagitis; E27.1 Primary adrenocortical insufficiency; J45.901 Unspecified asthma with (acute) exacerbation; N39.0 Urinary tract infection, site not specified; K56.7 Ileus, unspecified; K57.30 Diverticulosis of large intestine without perforation or abscess without bleeding; Z90.49 Acquired absence of other specified parts of digestive tract; J20.9 Acute bronchitis, unspecified; F43.10 Post-traumatic stress disorder, unspecified; F33.41 Major depressive disorder, recurrent, in partial remission; K29.70 Gastritis, unspecified, without bleeding; K63.5 Polyp of colon; K62.89 Other specified diseases of anus and rectum; K64.8 Other hemorrhoids; K21.9 Gastro-esophageal reflux disease without esophagitis; G47.00 Insomnia, unspecified; U09.9 Post COVID-19 condition, unspecified; K52.9 Noninfective gastroenteritis and colitis, unspecified; N28.9 Disorder of kidney and ureter, unspecified; K76.0 Fatty (change of) liver, not elsewhere classified; K22.2 Esophageal obstruction; J32.9 Chronic sinusitis, unspecified; Z91.041 Radiographic dye allergy status; Z91.012 Allergy to eggs; Z91.018 Allergy to other foods; Z20.822 Contact with and (suspected) exposure to COVID-19
CPT/HCPCS: 36415; 43239; 43450; 45378; 45380; 45385; 71046; 74018; 74177; 74178; 80048; 80053; 80307; 81001; 81025; 82150; 83630; 83690; 83735; 83993; 84436; 84443; 84479; 85025; 87045; 87106; 87177; 87205; 87324; 87328; 87449; 88112; 88300; 88304; 88305; 88312; 88342; 93925; 94640; 94664; 94799; 96360; 96361; 99251; 99284; G0378; J1450; J1885; J1956; J2250; J2270; J2405; J2550; J2765; J3010; J7030; J7512; Q9967

== ENCOUNTER 2021-11-08 18:24 | Emergency (ER) | payer OTHER ==
[~2021-11-08] VITALS: Ht 162.6 cm; Wt 74.8 kg
[~2021-11-08 18:24] MED LIST changes: +AMITIZA24 MCG PO; +FLUCONAZOLE100 MG PO
[2021-11-08] MEDS ORDERED: Morphine 4mg INJECTION 4 MG/ML INJ IV PRN (19:15)
[2021-11-08] MEDS ORDERED: ONDANSETRON HCL INJ 2MG/ML 2ML 2 MG/ML VIAL IV PRN (19:15)
[2021-11-08] MEDS ORDERED: KETOROLAC TROMETHAMINE 30 MG/ML VIAL IV STA (19:18)
[2021-11-08 19:37] LABS: BASOPHILS % 0.5 % (0.0-1.0); EOSINOPHILS # (AUTO) 0.2 (0.0-0.4); EOSINOPHILS % 2.7 % (0.0-6.0); HEMATOCRIT 37.2 % (34.2-44.1); HEMOGLOBIN 12.9 g/dL (12.0-16.0); LYMPHOCYTES # (AUTO) 1.8 (1.0-3.2); LYMPHOCYTES % 32.3 % (18.0-39.1); MEAN CORPUSCULAR HEMOGLOBIN 31.6 pg (28-32); MEAN CORPUSCULAR HGB CONC 34.7 g/dL (31-35); MEAN CORPUSCULAR VOLUME 91.2 fL (81-99); MONOCYTES # (AUTO) 0.4 (0.2-0.8); MONOCYTES % 6.9 % (4.4-11.3); NEUTROPHILS # (AUTO) 3.2 (2.1-6.9); NEUTROPHILS % 56.5 % (38.7-80.0); PLATELET COUNT 179 x10e3/uL (140-360); RED BLOOD COUNT 4.08 x10e6/uL (3.6-5.1); RED CELL DISTRIBUTION WIDTH 13.1 % (11.7-14.4)
[2021-11-08 19:58] LABS: ALANINE AMINOTRANSFERASE 194 IU/L (0-55); ALBUMIN 3.4 g/dL (3.5-5.0); ALBUMIN/GLOBULIN RATIO 0.9 (0.8-2.0); ALKALINE PHOSPHATASE 133 IU/L (40-150); ANION GAP 15.7 mmol/L (8-16); BLOOD UREA NITROGEN < 5 mg/dL (7-26); CALCIUM 8.9 mg/dL (8.4-10.2); CARBON DIOXIDE 20 mmol/L (22-29); CHLORIDE 103 mmol/L (98-107); CREATININE, SERUM 0.99 mg/dL (0.57-1.11); GLUCOSE 215 mg/dL (74-118); POTASSIUM 3.7 mmol/L (3.5-5.1); SODIUM 135 mmol/L (136-145)
[2021-11-08 19:59] LABS: AMYLASE 40 U/L (25-125); LIPASE 41 U/L (8-78)
[2021-11-08 20:05] LABS: CLARITY,URINE CLEAR (CLEAR); COLOR,URINE YELLOW (YELLOW)
[2021-11-08 20:06] LABS: KETONES,URINE NEGATIVE (NEGATIVE); LEUKOCYTE ESTERASE ,URINE NEGATIVE (NEGATIVE); NITRITE,URINE NEGATIVE (NEGATIVE); PROTEIN,URINE DIPSTICK NEGATIVE (NEGATIVE); URINE UROBILINOGEN 0.2 mg/dL (0.2 - 1)
[2021-11-08 20:08] LABS: WBC,URINE (MAN) 0-5 /HPF (0-5)
[2021-11-08 20:09] LABS: BACTERIA,URINE FEW /HPF; EPITHELIAL CELLS,URINE MODERATE /LPF
[2021-11-08 20:23] LABS: BUN/CREATININE RATIO 5 (6-25)
[2021-11-08] MEDS ORDERED: IOPAMIDOL 370 MG/ML 100 ML INFUS..BTL INJ ONE (20:26)
[2021-11-08] MEDS ORDERED: PROMETHAZINE HCL (IM) 25 MG/ML VIAL IM ONE (21:00)
[2021-11-08] MEDS ORDERED: PROMETHAZINE 12.5MG/ NACL 0.9% 50 ML ONE (21:09)
[2021-11-08] MEDS ORDERED: ULTRAM 50MG50 MG PO (22:04)
[2021-11-08] MEDS ORDERED: ONDANSETRON ODT4 MG PO (22:04)
== END 2021-11-08 22:22 | disposition home or self-care (01) ==
LOC: ER 18:34
DX: R18.8 Other ascites (principal); R10.10 Upper abdominal pain, unspecified; J45.909 Unspecified asthma, uncomplicated; E27.1 Primary adrenocortical insufficiency; R94.31 Abnormal electrocardiogram [ECG] [EKG]
CPT/HCPCS: 36415; 74018; 74177; 80053; 81001; 82150; 83690; 84702; 85025; 93005; 99284; J1885; J2270; J2405; J2550; Q9967

== ENCOUNTER 2021-12-03 16:29 | Inpatient (IN) | payer OTHER ==
[~2021-12-03] VITALS: Ht 162.6 cm; Wt 64.4 kg
[~2021-12-03 16:29] MED LIST changes: +ULTRAM 50MG50 MG PO
[2021-12-03] MEDS ORDERED: SODIUM CHLORIDE 0.9% 1000ML 1,000 ML IV ONE (16:45)
[2021-12-03] MEDS ORDERED: ONDANSETRON HCL INJ 2MG/ML 2ML 2 MG/ML VIAL IV PRN (17:00)
[2021-12-03 17:09] LABS: BASOPHILS # (AUTO) 0.1 (0.0-0.1); BASOPHILS % 0.8 % (0.0-1.0); EOSINOPHILS # (AUTO) 0.1 (0.0-0.4); EOSINOPHILS % 1.7 % (0.0-6.0); HEMATOCRIT 42.8 % (34.2-44.1); HEMOGLOBIN 14.2 g/dL (12.0-16.0); LYMPHOCYTES # (AUTO) 2.8 (1.0-3.2); LYMPHOCYTES % 36.1 % (18.0-39.1); MEAN CORPUSCULAR HEMOGLOBIN 31.3 pg (28-32); MEAN CORPUSCULAR HGB CONC 33.2 g/dL (31-35); MEAN CORPUSCULAR VOLUME 94.5 fL (81-99); MONOCYTES # (AUTO) 0.5 (0.2-0.8); NEUTROPHILS # (AUTO) 4.1 (2.1-6.9); NEUTROPHILS % 54.1 % (38.7-80.0); PLATELET COUNT 269 x10e3/uL (140-360); RED BLOOD COUNT 4.53 x10e6/uL (3.6-5.1); RED CELL DISTRIBUTION WIDTH 13.2 % (11.7-14.4)
[2021-12-03] MEDS: SODIUM CHLORIDE 0.9% 1000ML 1,000 ML IV SCH (17:23)
[2021-12-03 17:27] LABS: ALANINE AMINOTRANSFERASE 39 IU/L (0-55); ALBUMIN 4.4 g/dL (3.5-5.0); ALBUMIN/GLOBULIN RATIO 1.2 (0.8-2.0); ALKALINE PHOSPHATASE 90 IU/L (40-150); ANION GAP 16.5 mmol/L (8-16); BLOOD UREA NITROGEN 7 mg/dL (7-26); BUN/CREATININE RATIO 8 (6-25); CALCIUM 9.6 mg/dL (8.4-10.2); CARBON DIOXIDE 22 mmol/L (22-29); CHLORIDE 104 mmol/L (98-107); CREATININE, SERUM 0.91 mg/dL (0.57-1.11); GLUCOSE 89 mg/dL (74-118); POTASSIUM 3.5 mmol/L (3.5-5.1); SODIUM 139 mmol/L (136-145)
[2021-12-03] MEDS ORDERED: ZOLPIDEM TARTRATE 5 MG TAB PO PRN (21:30)
[2021-12-04] MEDS: Morphine 4mg INJECTION 4 MG/ML INJ IV PRN ×5 (01:21→22:27)
[2021-12-04] MEDS: ONDANSETRON HCL INJ 2MG/ML 2ML 2 MG/ML VIAL IV PRN ×5 (01:22→22:26)
[2021-12-04] MEDS: IPRATROPIUM BROMIDE 0.02% 2.5 ML NEB NEB SCH ×4 (02:25→20:15)
[2021-12-04] MEDS: SODIUM CHLORIDE 0.9% 1000ML 1,000 ML IV SCH ×3 (02:59→22:28)
[2021-12-04 04:25] LABS: BASOPHILS # (AUTO) 0.1 (0.0-0.1); BASOPHILS % 0.6 % (0.0-1.0); EOSINOPHILS # (AUTO) 0.2 (0.0-0.4); EOSINOPHILS % 2.1 % (0.0-6.0); HEMATOCRIT 42.4 % (34.2-44.1); LYMPHOCYTES # (AUTO) 3.2 (1.0-3.2); LYMPHOCYTES % 39.2 % (18.0-39.1); MEAN CORPUSCULAR HEMOGLOBIN 31.7 pg (28-32); MEAN CORPUSCULAR VOLUME 95.9 fL (81-99); MONOCYTES # (AUTO) 0.5 (0.2-0.8); MONOCYTES % 6.6 % (4.4-11.3); NEUTROPHILS # (AUTO) 4.1 (2.1-6.9); NEUTROPHILS % 51.3 % (38.7-80.0); PLATELET COUNT 247 x10e3/uL (140-360); RED BLOOD COUNT 4.42 x10e6/uL (3.6-5.1)
[2021-12-04 04:44] LABS: ALBUMIN 3.9 g/dL (3.5-5.0); ALBUMIN/GLOBULIN RATIO 1.2 (0.8-2.0); ANION GAP 14.4 mmol/L (8-16); CALCIUM 8.7 mg/dL (8.4-10.2); CREATININE, SERUM 0.83 mg/dL (0.57-1.11); POTASSIUM 3.4 mmol/L (3.5-5.1)
[2021-12-04] MEDS ORDERED: PANTOPRAZOLE SOD 40 MG TABEC PO SCH (09:00)
[2021-12-04] MEDS: CLONAZEPAM 1 MG TAB PO SCH ×2 (09:54→16:50)
[2021-12-04 12:45] VITALS: BP_SYST 103; BP_SYST 124; BP_DIAS 70; BP_DIAS 78
[2021-12-04 12:56] VITALS: BP 103/71
[2021-12-04 14:16] VITALS: BP 103/71
[2021-12-04] MEDS ORDERED: PROAIR HFA INH8.5 GM INH (15:31)
[2021-12-04 16:17] VITALS: BP 180/54
[2021-12-04 20:00] VITALS: BP 103/59
[2021-12-04 21:00] VITALS: BP 103/59
[2021-12-04] MEDS: METOCLOPRAMIDE HCL 10 MG/2ML VIAL IV SCH (23:55)
[2021-12-05] VITALS (9 sets, daily range): BP systolic 82–107; BP diastolic 50–58
[2021-12-05] MEDS: IPRATROPIUM BROMIDE 0.02% 2.5 ML NEB NEB SCH ×4 (02:25→19:35)
[2021-12-05] MEDS: METOCLOPRAMIDE HCL 10 MG/2ML VIAL IV SCH ×3 (05:32→17:51)
[2021-12-05 09:12] LABS: ALBUMIN 3.4 g/dL (3.5-5.0); ANION GAP 13.6 mmol/L (8-16); BILIRUBIN,DIRECT 0.3 mg/dL (0.0-0.5); CALCIUM 8.2 mg/dL (8.4-10.2); CREATININE, SERUM 0.83 mg/dL (0.57-1.11); MAGNESIUM 1.9 MG/DL (1.3-2.1); POTASSIUM 3.6 mmol/L (3.5-5.1)
[2021-12-05] MEDS: SODIUM CHLORIDE 0.9% 1000ML 1,000 ML IV SCH ×3 (09:19→23:54)
[2021-12-05] MEDS: CLONAZEPAM 1 MG TAB PO SCH ×2 (09:19→17:51)
[2021-12-05] MEDS: Morphine 4mg INJECTION 4 MG/ML INJ IV PRN ×3 (09:28→23:58)
[2021-12-06] MEDS: METOCLOPRAMIDE HCL 10 MG/2ML VIAL IV SCH ×2 (00:07→06:48)
[2021-12-06 00:42] VITALS: BP 82/51
[2021-12-06] MEDS: IPRATROPIUM BROMIDE 0.02% 2.5 ML NEB NEB SCH ×2 (00:50→07:11)
[2021-12-06 03:16] VITALS: BP 82/51
[2021-12-06 05:28] VITALS: BP 86/47
[2021-12-06 06:13] LABS: BASOPHILS # (AUTO) 0.1 (0.0-0.1); EOSINOPHILS # (AUTO) 0.2 (0.0-0.4); EOSINOPHILS % 3.2 % (0.0-6.0); HEMATOCRIT 32.6 % (34.2-44.1); HEMOGLOBIN 11.5 g/dL (12.0-16.0); LYMPHOCYTES # (AUTO) 2.1 (1.0-3.2); LYMPHOCYTES % 41.9 % (18.0-39.1); MEAN CORPUSCULAR HEMOGLOBIN 31.9 pg (28-32); MEAN CORPUSCULAR HGB CONC 35.3 g/dL (31-35); MEAN CORPUSCULAR VOLUME 90.3 fL (81-99); MONOCYTES # (AUTO) 0.4 (0.2-0.8); MONOCYTES % 8.1 % (4.4-11.3); NEUTROPHILS # (AUTO) 2.3 (2.1-6.9); NEUTROPHILS % 45.6 % (38.7-80.0); PLATELET COUNT 218 x10e3/uL (140-360); RED BLOOD COUNT 3.61 x10e6/uL (3.6-5.1); RED CELL DISTRIBUTION WIDTH 12.8 % (11.7-14.4)
[2021-12-06 06:45] LABS: ALBUMIN 3.1 g/dL (3.5-5.0); ALBUMIN/GLOBULIN RATIO 1.2 (0.8-2.0); ANION GAP 11.3 mmol/L (8-16); CALCIUM 8.2 mg/dL (8.4-10.2); CREATININE, SERUM 0.88 mg/dL (0.57-1.11); MAGNESIUM 1.8 MG/DL (1.3-2.1); POTASSIUM 3.3 mmol/L (3.5-5.1)
[2021-12-06 07:56] VITALS: BP 103/64
[2021-12-06] MEDS: CLONAZEPAM 1 MG TAB PO SCH (08:22)
[2021-12-06] MEDS: SODIUM CHLORIDE 0.9% 1000ML 1,000 ML IV SCH (08:22)
[2021-12-06] MEDS: Morphine 4mg INJECTION 4 MG/ML INJ IV PRN (08:22)
[2021-12-06] MEDS: ONDANSETRON HCL INJ 2MG/ML 2ML 2 MG/ML VIAL IV PRN (08:30)
[2021-12-06 08:40] VITALS: BP 103/64
[2021-12-06] MEDS ORDERED: PANTOPRAZOLE SO40 MG PO (08:49)
[2021-12-06] MEDS ORDERED: REGLAN10 MG PO (08:49)
[2021-12-06] MEDS ORDERED: POTASSIUM CHLORIDE 20 MEQ TAB CR PO ONE (09:00)
== END 2021-12-06 10:34 | disposition home or self-care (01) | DRG 392 ==
LOC: ER 16:35 → ERHOLD 17:02 → MED/SURG3 12-04 12:26
PROVIDERS: ADMIT Internal Medicine; ATTEND Internal Medicine
DX: K22.4 Dyskinesia of esophagus (principal); K21.9 Gastro-esophageal reflux disease without esophagitis; R16.0 Hepatomegaly, not elsewhere classified; K75.81 Nonalcoholic steatohepatitis (NASH); K57.90 Diverticulosis of intestine, part unspecified, without perforation or abscess without bleeding; F43.10 Post-traumatic stress disorder, unspecified; F41.9 Anxiety disorder, unspecified; F32.A Depression, unspecified; Z98.890 Other specified postprocedural states; Z20.822 Contact with and (suspected) exposure to COVID-19; Z91.041 Radiographic dye allergy status; Z91.012 Allergy to eggs; Z91.018 Allergy to other foods
CPT/HCPCS: 0223U; 36415; 74220; 74230; 80048; 80053; 80076; 83735; 85025; 94799; 99284; J2270; J2405; J2765; J7030

== ENCOUNTER 2023-11-23 19:23 | Emergency (ER) | payer OTHER ==
[~2023-11-23] VITALS: Ht 160 cm; Wt 72.1 kg
[~2023-11-23 19:23] MED LIST changes: +LANTUS 3ML100 UNITS/ SQ; +METOCLOPRAMIDE10 MG PO; +PANTOPRAZOLE SO40 MG PO; +PROAIR DIGIHAL90 MCG INH; +REGLAN10 MG PO; +ZOLPIDEM TARTRAT5 MG PO
[2023-11-23 19:32] VITALS: PULSE 74; RESP 18; TEMP 97.3
[2023-11-23] MEDS: TRAMADOL HCL 50 MG TAB PO ONE (21:04)
[2023-11-23] MEDS: IBUPROFEN 400 MG TAB PO ONE (21:04)
[2023-11-23] MEDS ORDERED: KETOROLAC TROME10 MG PO (21:28)
[2023-11-23 21:45] VITALS: BP 134/91; PULSE 74; RESP 18; TEMP 97.3; O2SAT 97
== END 2023-11-23 21:45 | disposition home or self-care (01) ==
LOC: FSED 19:29
DX: S83.8X2A Sprain of other specified parts of left knee, initial encounter (principal); S93.492A Sprain of other ligament of left ankle, initial encounter; X50.1XXA Overexertion from prolonged static or awkward postures, initial encounter; Y93.01 Activity, walking, marching and hiking; Y92.89 Other specified places as the place of occurrence of the external cause; E11.9 Type 2 diabetes mellitus without complications; M32.9 Systemic lupus erythematosus, unspecified; J45.909 Unspecified asthma, uncomplicated; F41.9 Anxiety disorder, unspecified; F32.A Depression, unspecified; Z87.19 Personal history of other diseases of the digestive system
CPT/HCPCS: 99283

== ENCOUNTER 2024-11-01 17:47 | Inpatient (IN) | payer OTHER ==
[~2024-11-01] VITALS: Ht 160 cm; Wt 59.9 kg
[~2024-11-01 17:47] MED LIST changes: +KETOROLAC TROME10 MG PO
[2024-11-01 17:50] VITALS: TEMP 98
[2024-11-01 18:13] LABS: BASOPHILS % 0.1 % (0.0-1.0); EOSINOPHILS % 1.8 % (0.0-6.0); LYMPHOCYTES % 35.3 % (18.0-39.1); MONOCYTES % 6.0 % (4.4-11.3); NEUTROPHILS % 56.6 % (38.7-80.0); RED CELL DISTRIBUTION WIDTH 14.8 % (11.7-14.4)
[2024-11-01 18:36] LABS: EST GLOMERULAR FILTRATION RATE 54.0 ML/MIN (>=60)
[2024-11-01] MEDS: SODIUM CHLORIDE 0.9% 1000ML 1,000 ML IV STA (19:13)
[2024-11-01] MEDS: ONDANSETRON HCL INJ 2MG/ML 2ML 2 MG/ML VIAL IV STA (19:13)
[2024-11-01] MEDS: KETOROLAC TROMETHAMINE 30 MG/ML VIAL IV STA (20:09)
[2024-11-01 20:30] LABS: PREGNANCY TEST, URINE NEGATIVE (NEGATIVE)
[2024-11-01 20:36] LABS: LEUKOCYTE ESTERASE ,URINE TRACE (NEGATIVE); PROTEIN,URINE DIPSTICK NEGATIVE (NEGATIVE); URINE UROBILINOGEN 0.2 mg/dL (0.2 - 1)
[2024-11-01 20:46] LABS: EPITHELIAL CELLS,URINE RARE /LPF; WBC,URINE (MAN) 0-5 /HPF (0-5)
[2024-11-01] MEDS ORDERED: IOPAMIDOL 370 MG/ML 100 ML INFUS..BTL INJ ONE (21:38)
[2024-11-01] MEDS: ONDANSETRON HCL INJ 2MG/ML 2ML 2 MG/ML VIAL IV PRN (23:23)
[2024-11-01] MEDS: Morphine 4mg INJECTION 4 MG/ML INJ IV PRN (23:23)
[2024-11-01 23:44] VITALS: PULSE 75; RESP 20
[2024-11-02] VITALS (12 sets, daily range): BP systolic 91–106; BP diastolic 53–79; PULSE 64–86; RESP 14–20; TEMP 97–98; O2SAT 95–100
[2024-11-02] MEDS: SODIUM CHLORIDE 0.9% 1000ML 1,000 ML IV SCH (00:05)
[2024-11-02 05:33] LABS: BASOPHILS % 0.3 % (0.0-1.0); EOSINOPHILS % 2.1 % (0.0-6.0); LYMPHOCYTES % 37.6 % (18.0-39.1); MONOCYTES % 6.8 % (4.4-11.3); NEUTROPHILS % 52.9 % (38.7-80.0); RED CELL DISTRIBUTION WIDTH 15.2 % (11.7-14.4)
[2024-11-02 06:01] LABS: EST GLOMERULAR FILTRATION RATE 74.0 ML/MIN (>=60)
[2024-11-02] MEDS ORDERED: ALBUTEROL SULF 0.083% NEB SOLN 3 ML NEB NEB PRN (10:00)
[2024-11-02] MEDS: INSULIN LISPRO 100 UNIT/1 ML 3ML VIAL SQ SCH (11:27)
[2024-11-02] MEDS: DICYCLOMINE HCL 20 MG TAB PO SCH (11:58)
[2024-11-02] MEDS: METOCLOPRAMIDE HCL 10 MG TAB PO SCH (11:58)
[2024-11-02 12:59] LABS: INR 0.9
[2024-11-02] MEDS: CLONAZEPAM 1 MG TAB PO PRN (15:10)
[2024-11-02] MEDS: KETOROLAC TROMETHAMINE 30 MG/ML VIAL IV PRN (19:14)
[2024-11-02] MEDS: ZOLPIDEM TARTRATE 5 MG TAB PO SCH (21:00)
[2024-11-02] MEDS: HEPARIN SOD (PORCINE) 5,000 UNIT/ML VIAL SC SCH (21:02)
[2024-11-02] MEDS ORDERED: HYDROCORTISONE 1% CREAM 30 GM TUBE TOP PRN (22:15)
[2024-11-02] MEDS: METOCLOPRAMIDE HCL 10 MG/2ML VIAL IV SCH (23:32)
[2024-11-03] VITALS (9 sets, daily range): BP systolic 80–123; BP diastolic 46–60; PULSE 65–80; RESP 16–20; TEMP 97.1–98; O2SAT 98–100
[2024-11-03 00:09] LABS: CDIFF TOX QUIK CHEK NEGATIVE (NEGATIVE); WBC,FECAL (FECAL LACTOFERRIN) POSITIVE (NEGATIVE)
[2024-11-03 00:11] LABS: CDIFF AG QUIK CHEK **POSITIVE** (NEGATIVE)
[2024-11-03] MEDS ORDERED: BELLADONNA ALK/PHENOBARBITAL 5 ML UDC ONE (00:17)
[2024-11-03] MEDS: DIPHENHYDRAMINE HCL INJ 50 MG/ML VIAL IV PRN (00:23)
[2024-11-03] MEDS: SUCRALFATE 1 GM/10 ML SUSP PO STA (00:30)
[2024-11-03] MEDS: DONNATAL/LIDOCAINE/MAALOX 30 ML SUSP PO STA (00:31)
[2024-11-03] MEDS: LIDOCAINE VISC 2% SOLN 15 ML UDC ONE (00:33)
[2024-11-03] MEDS: MAGNESIUM/ALUMINUM/SIMETHICONE 30 ML UDC ONE (00:34)
[2024-11-03] MEDS: VANCOMYCIN HCL 125 MG CAPSULE PO STA (00:50)
[2024-11-03] MEDS: VANCOMYCIN HCL 125 MG CAPSULE PO SCH (05:54)
[2024-11-03] MEDS ORDERED: RIFAXIMIN 200 MG TAB PO SCH (06:00)
[2024-11-03] MEDS: RIFAXIMIN 550 MG TABLET PO SCH (06:53)
[2024-11-03] MEDS: SUCRALFATE 1 GM/10 ML SUSP PO SCH (07:30)
[2024-11-03] MEDS: SODIUM CHLORIDE 0.9% 500ML 500 ML ONE (08:44)
[2024-11-03] MEDS: DONNATAL/LIDOCAINE/MAALOX 30 ML SUSP PO SCH (09:00)
[2024-11-03] MEDS: SODIUM CHLORIDE 0.9% 1000ML 500 ML IV ONE (09:01)
[2024-11-03] MEDS: DEXTROSE 50% SYRINGE 50 ML IV PRN (10:34)
[2024-11-03] MEDS: SODIUM CHLORIDE 0.9% 250ML 250 ML IV ONE (10:35)
[2024-11-03] MEDS: MIDODRINE HCL 5 MG TABLET PO SCH (12:18)
[2024-11-03] MEDS: CALCIUM CARBONATE 500 MG CHEWABLE TABS PO PRN (17:19)
== END 2024-11-03 18:38 | disposition other institution, planned readmission (95) | DRG 393 ==
LOC: ER 18:04 → ERHOLD 22:39 → MED/SURG2 11-02 00:05 → OBSVTOIN 11-03 10:27
PROVIDERS: ADMIT Internal Medicine; ATTEND Internal Medicine
DX: K63.8219 Small intestinal bacterial overgrowth, unspecified (principal); E43 Unspecified severe protein-calorie malnutrition; I31.39 Other pericardial effusion (noninflammatory); E27.1 Primary adrenocortical insufficiency; R10.9 Unspecified abdominal pain; J98.4 Other disorders of lung; F41.8 Other specified anxiety disorders; M32.9 Systemic lupus erythematosus, unspecified; R11.2 Nausea with vomiting, unspecified; I95.9 Hypotension, unspecified; E11.649 Type 2 diabetes mellitus with hypoglycemia without coma; R07.9 Chest pain, unspecified; R42 Dizziness and giddiness; F41.1 Generalized anxiety disorder; F43.0 Acute stress reaction; J45.909 Unspecified asthma, uncomplicated; K58.9 Irritable bowel syndrome, unspecified; Z79.4 Long term (current) use of insulin; Z98.84 Bariatric surgery status; Z91.041 Radiographic dye allergy status; Z91.012 Allergy to eggs; Z91.018 Allergy to other foods; Z79.51 Long term (current) use of inhaled steroids; Z68.24 Body mass index [BMI] 24.0-24.9, adult
CPT/HCPCS: 36415; 70450; 71260; 74019; 74177; 80053; 81001; 81025; 82550; 82948; 83036; 83630; 83690; 83993; 84484; 85025; 85610; 85730; 87045; 87177; 87324; 87449; 93005; 93306; 94799; 99284; G0378; J1200; J1644; J1885; J2270; J2405; J2470; J2543; J2765; J7030; J7040; J7050; J7799; Q9967